=== PATIENT | female | born 1955 | race Caucasian/White ===

== ENCOUNTER → 2017-09-15 | Outpatient (CLI) | payer OTHER ==
[~2017-09-15] MED LIST: ACETAMINOPHEN325 M1 PO; ACIDOPHILUS1 EAC1 PO; ASCORBIC ACID500 MG PO; BACTRIM DS TAB1 EACH PO; BACTROBAN15 G1 TOP; BIOTENE ORALBAL45 ML PO; CIPRO500 MG PO; CLONAZEPAM0.5 MG PO; COMBIVENT RESPIM4 GM IH; FENOFIBRATE145 MG PO; FENTANYL1 EAC1 TOP; FLUCONAZOLE100 MG PO; FUROSEMIDE40 MG PO; GENTAMICIN80 MG/100 IV; HYDRALAZIN20 MG/1 ML IV; HYDROMORPHO2 MG/1 M1 IV; LEVEMIR100 UNIT/1 SQ; MELATONIN3 MG PO; MULTI-VITAMIN1 EACH PO; NALOXONE H0.4 MG/1 M IM; NORCO 5-325 TA1 EACH PO; NOVOLOG MI100 UNITS/ SQ; NYSTATIN1 EAC1 TP; ONDANSETRON2 MG/1 ML IV; OXYBUTYNIN CHLOR5 MG PO; PANTOPRAZOLE SO40 MG IV; PHENAZOPYRIDIN100 MG PO; PHENERGAN25 MG/1 ML IM; PRAVASTATIN SOD20 MG PO; QUESTRAN PACKET4 GM PO; SEROQUEL25 MG PO; SODIUM CHLORIDE 0.9% 500ML 500 ML ONE; ZINC SULFATE220 MG PO; ZOFRAN ODT4 MG PO; ZYVOX600 MG/300 IV; [UNRECOGNIZED DRUG - OTHER] OP
--- NOTE | 2017-09-15 10:59 | Diagnostic Imaging Report ---
PROCEDURE:CT PELVIS COMPARISON:[facility], CT, CT ABDOMEN/PELVIS W, 03/10/2017, 17:56. [facility], DX, ABDOMEN-1VIEW (KUB), 03/16/2017, 6:17. INDICATIONS:Recurring urinary tract infections; incontinence TECHNIQUE:CT of the pelvis was performed before and after distention of the urinary bladder via indwelling Henderson catheter by 100 mL dilute Isovue-370 iodinated contrast. No intravenous or enteric contrast. Multiplanar reformatted images. DLP: 678.93 FINDINGS: Urinary bladder: Normal filling without wall thickening, diverticulum or filling defect. Trace post void residual. Ureters: Normal caliber. No evidence of ureteral reflux. Uterus: Normal Bowel: Image segments are of normal caliber. Peritoneum: Normal Vasculature: Normal caliber. Infrarenal aortic arteriosclerosis. Lymph nodes: Normal Skeleton: Left L5-S1 pseudoarthrosis. Multilevel degenerative disc disease and facet arthropathy the lumbar spine. Otherwise, intact. Soft tissues: Large, partially imaged anterior abdominal wall defect left suggesting eventration/hernia. CONCLUSION: Normal filling of the urinary bladder without evidence of ureteral reflux or other acute abnormality. Dictated by: William Tabor M.D. on 09/15/2017 at 11:07 Electronically approved by: William Tabor M.D. on 09/15/2017 at 11:07
== END ==
LOC: CT 08:29
PROVIDERS: ATTEND Urology
DX: N39.0 Urinary tract infection, site not specified (principal); R35.1 Nocturia
CPT/HCPCS: 72193; J7040

== ENCOUNTER 2017-10-03 05:14 | Inpatient (IN) | payer OTHER ==
[2017-09-29 15:09] LABS: BASOPHILS # (AUTO) 0.1 (0.0-0.1); BASOPHILS % 0.4 % (0.0-1.0); EOSINOPHILS # (AUTO) 0.2 (0.0-0.4); EOSINOPHILS % 2.1 % (0.0-6.0); HEMATOCRIT 37.4 % (34.2-44.1); HEMOGLOBIN 11.9 g/dL (12.0-16.0); LYMPHOCYTES # (AUTO) 2.9 (1.0-3.2); LYMPHOCYTES % 24.7 % (18.0-39.1); MEAN CORPUSCULAR HEMOGLOBIN 30.4 pg (28-32); MEAN CORPUSCULAR HGB CONC 31.8 g/dL (31-35); MEAN CORPUSCULAR VOLUME 95.4 fL (81-99); MONOCYTES # (AUTO) 0.9 (0.2-0.8); MONOCYTES % 7.7 % (4.4-11.3); NEUTROPHILS # (AUTO) 7.4 (2.1-6.9); NEUTROPHILS % 63.4 % (38.7-80.0); PLATELET COUNT 306 x10e3/uL (140-360); RED BLOOD COUNT 3.92 x10e6/uL (3.6-5.1); RED CELL DISTRIBUTION WIDTH 14.5 % (11.7-14.4)
[2017-09-29 15:24] LABS: CALCIUM 9.5 mg/dL (8.4-10.2); CREATININE, SERUM 1.1 mg/dL (0.57-1.11)
[2017-10-03] VITALS (32 sets, daily range): BP systolic 108–143; BP diastolic 57–109
[~2017-10-03] VITALS: Ht 170.2 cm; Wt 117.9 kg
[~2017-10-03 05:14] MED LIST changes: +ATORVASTATIN CA20 MG PO; +BUPROPION XL150 MG PO; +GABAPENTIN300 MG PO; +NIFEDIPINE ER30 M1 PO; +NORCO 10-325 T1 EACH PO; +POTASSIUM CHLO10 ME1 PO; -SODIUM CHLORIDE 0.9% 500ML 500 ML ONE; +VIT B12 PO; +VIT D PO; +XARELTO20 MG PO
[2017-10-03] MEDS ORDERED: CEFAZOLIN SOD 2 GM/D5W 50ML 50 ML IV ONE (05:53)
[2017-10-03] MEDS ORDERED: BACITRACIN 50,000 UNIT VIAL ONE (07:00)
[2017-10-03] MEDS ORDERED: BUPIVACAINE HCL 0.5% INJ 30 ML VIAL INJ ONE (07:00)
[2017-10-03] MEDS ORDERED: LIDOCAINE HCL (LTA) 4 ML SOLN ONE (07:18)
[2017-10-03] MEDS: GABAPENTIN 300 MG CAP PO SCH ×3 (09:00→20:40)
[2017-10-03] MEDS: FENOFIBRATE 145 MG TAB PO SCH (09:00)
[2017-10-03] MEDS ORDERED: NALOXONE HCL INJ 0.4 MG/ML AMP IV PRN (09:00)
[2017-10-03] MEDS: FUROSEMIDE 40 MG TAB PO SCH (09:00)
[2017-10-03] MEDS: POTASSIUM CHLORIDE 10 MEQ TABCR PO SCH (09:00)
[2017-10-03] MEDS ORDERED: RIVAROXABAN 20 MG TABLET PO SCH (09:00)
[2017-10-03] MEDS: OXYBUTYNIN CHLORIDE 5 MG TAB PO SCH ×2 (09:00→17:00)
[2017-10-03] MEDS: NIFEDIPINE CR 30 MG TAB PO SCH (09:00)
[2017-10-03] MEDS: BUPROPION HCL 150 MG TABCR PO SCH ×2 (09:00→17:00)
--- NOTE | 2017-10-03 09:35 | Operative Report ---
DATE OF PROCEDURE: October 03, 2017 PREOPERATIVE DIAGNOSIS: Recurrent incisional hernia. POSTOPERATIVE DIAGNOSIS: Recurrent incisional hernia. PROCEDURE PERFORMED: Repair of recurrent incisional hernia with mesh. ADULT EDUCATOR: None. ANESTHESIA: General endotracheal. INDICATIONS AND FINDINGS: Patient is a 62-year-old female who previously had a hospitalization for incarcerated incisional hernia with septic shock, and required multiple surgeries for this. She presented with a large incisional hernia. At surgery there was a hernia involving most of the previous midline wound with a fascial defect that was approximately 6 x 20 cm. TECHNIQUE: After adequate general endotracheal anesthesia with the patient in the supine position, the abdomen was prepped and draped in a sterile fashion with Ajith solution. Previous midline wound, which was wide was excised. It was carried through the subcutaneous tissue. There was a large fascial defect in the midline with no real hernia sac. There was omentum adherent to the undersurface of the scar. The omentum was freed and the peritoneal cavity entered. The fascial defect was completely delineated. Adhesions to the abdominal wall were lysed. Once the fascial defect was completely delineated, the fascia was dissected free from the skin and subcutaneous tissue for a distance of approximately 5 cm from the edge of the defect throughout the circumference of the defect. Hemostasis achieved with electrocautery. Once the fascia was completely free and the skin and subcutaneous tissue dissected way from the fascia, the hernia was repaired with mesh. A Sepramesh of appropriate size was soaked in antibiotic solution. It was sutured to the undersurface of the fascia in an intraperitoneal position with interrupted horizontal mattress sutures of #1 Prolene. Sutures taken about 4 cm from the edge of the fascial defect. Once the mesh was in place, the thinned out edge of the fascia and subcutaneous tissues were closed over the mesh with running suture of #1 Prolene. A 19-Lithuanian Omid drain was placed in the subcutaneous tissue through a separate stab wound incision. The wound was irrigated with antibiotic solution. The more superficial subcutaneous tissues were then closed with running suture of 3-0 Vicryl. Skin was closed with angelica. Sterile dressing was applied. Patient tolerated the procedure well. Estimated blood loss was 125 mL. There were no complications. All counts were correct. Patient was taken to the recovery room in satisfactory condition. Job#: [id number] SYLVIA cc:JOSH LARA, DO
[2017-10-03] MEDS ORDERED: FENTANYL CITRATE/PF 100MCG/2 ML INJ ONE ×2 (09:51→19:33)
[2017-10-03] MEDS: CEFAZOLIN SOD 2 GM in WATER STERILE 10ML VIAL 10 ML IV SCH ×2 (14:55→22:59)
[2017-10-03] MEDS ORDERED: CEFAZOLIN SOD 1 GM VIAL ONE ×2 (14:58→23:02)
[2017-10-03] MEDS ORDERED: PROPOFOL IV EMULSION 10MG/ML 100 ML ONE (14:59)
[2017-10-03] MEDS ORDERED: PROPOFOL IV EMULSION 10 MG/ML 50 ML VIAL IV PRN (15:30)
[2017-10-03] MEDS ORDERED: PROPOFOL IV EMULSION 10MG/ML 100 ML IV PRN (16:00)
[2017-10-03] MEDS: DEXTROSE 5%/LACTATED RINGERS 1,000 ML IV SCH ×2 (16:48→17:30)
[2017-10-03] MEDS ORDERED: MIDAZOLAM HCL 2 MG/2 ML VIAL ONE (19:33)
[2017-10-03] MEDS ORDERED: MORPHINE SULFATE INJ 10 MG/ML ONE (19:33)
[2017-10-03] MEDS ORDERED: DEXAMETHASONE SOD PHOS INJ 4 MG/ML VIAL ONE (19:43)
[2017-10-03] MEDS ORDERED: ROCURONIUM BROMIDE 10 MG/ML 5ML VIAL ONE (19:43)
[2017-10-03] MEDS ORDERED: SUCCINYLCHOLINE 200 MG/10 ML SYR ONE (19:43)
[2017-10-03] MEDS ORDERED: LABETALOL HCL IV 5 MG/ML 20ML MDV ONE (19:43)
[2017-10-03] MEDS ORDERED: LIDOCAINE HCL 2% LOCAL INJ 5 ML SDV VIAL INJ ONE (19:43)
[2017-10-03] MEDS ORDERED: SEVOFLURANE INHAL SOLN 250 ML PEN BTL ONE (19:43)
[2017-10-03] MEDS ORDERED: NEOSTIGMINE 5 MG/5ML SYR ONE (19:43)
[2017-10-03] MEDS ORDERED: PROPOFOL IV EMULSION 10 MG/ML 20 ML VIAL ONE (19:43)
[2017-10-03] MEDS ORDERED: ONDANSETRON HCL INJ 2 MG/ML VIAL ONE (19:43)
[2017-10-03] MEDS ORDERED: GLYCOPYRROLATE INJ 1MG/ 5 ML SYR ONE (19:43)
--- NOTE | 2017-10-03 19:47 | Diagnostic Imaging Report ---
EXAMINATION: CHEST SINGLE (PORTABLE) INDICATION: Recurrent incisional. Pain COMPARISON: Chest x-ray 03/10/2017 FINDINGS: AP view TUBES and LINES: Endotracheal tube is 5.4 cm above the yaz. LUNGS: Lungs are not well inflated. There are bibasilar atelectasis. Question small left lower lobe consolidation. PLEURA: Questionable left pleural effusion. HEART AND MEDIASTINUM: The cardiomediastinal silhouette is unremarkable. BONES AND SOFT TISSUES: No acute osseous lesion. Soft tissues are unremarkable. UPPER ABDOMEN: No free air under the diaphragm. IMPRESSION: 1. Hypoinflated lungs with motion artifact. 2. Bibasilar atelectasis with possible superimposed pneumonia in the left lung base. Signed by: Dr. Mil Orozco M.D. on 10/03/2017 7:44 PM
[2017-10-03] MEDS: ACETAMINOPHEN 1000 MG/100 ML IV PRN (20:49)
[2017-10-03] MEDS: ONDANSETRON HCL INJ 2 MG/ML VIAL IV PRN (20:49)
[2017-10-03] MEDS ORDERED: ATORVASTATIN 20 MG TAB PO SCH (21:00)
--- NOTE | 2017-10-03 22:25 | Consultation ---
DATE OF CONSULTATION: October 03, 2017 PULMONARY MEDICINE CONSULT REFERRING PHYSICIAN: Dr. Mario Espinal REASON FOR REFERRAL: Respiratory insufficiency, postoperative expected. HISTORY: Ms. Mejia is a pleasant 62-year-old female with postoperative respiratory insufficiency, status post surgery. Patient is a pleasant 62-year-old female with previous repair of ventral hernia. She had incarcerated hernia at that time complicated by sepsis and multiorgan failure. Patient is improved and ambulating. She is continuing to get stronger. She retrains a bulge in her abdomen which is increasing in size. There is some abdominal pain. There is associated nausea. Patient presents for elective surgery. Preoperative diagnosis is abdominal wall incisional hernia and today she has a successful repair of hernia with mesh. During the operation the estimated blood is reported as 125 mL. She was sent to the PACU, but she had a failure to extubate. Therefore, she was sent to the ICU for further care. PAST MEDICAL HISTORY: Hypertension, arthritis, hyperlipidemia, stroke. SURGICAL HISTORY: Left breast biopsy, multiple surgeries. MEDICATIONS: Medication list reviewed per electronic record, previous history of taking Xarelto recently, atorvastatin, finasteride, Lasix, blood pressure medication and other medicines per list. ALLERGIES: NO KNOWN DRUG ALLERGIES. FAMILY HISTORY: Noncontributory to this. SOCIAL HISTORY: Patient is a heavy tobacco smoker and smokes 1 pack per day. No alcohol. No drugs. REVIEW OF SYSTEMS: Cannot get as she is intubated. OBJECTIVE GENERAL: Patient is seen intubated and on sedation. HEENT: Normocephalic, atraumatic. NECK: Supple. Large neck size and girth. CARDIOVASCULAR: S1, S2. No murmurs, rubs or gallops. ABDOMEN: Soft, nontender. Postoperative vertical incision, does not go all the way to the xiphoid process. RESPIRATORY: Bilateral air entry. Clear but limited. EXTREMITIES: No clubbing, no cyanosis. There is 1+ edema. INTEGUMENT: No rash, no purpura. LABS: Labs reviewed per electronic record. White count 11, hematocrit 37, platelets 206,000. Potassium 4.0, bicarbonate 23, BUN 20, creatinine 1.1. IMPRESSION 1. Postoperative state, status post incisional ventral hernia repair with mesh. 2. Incisional symptomatic ventral hernia. 3. History of previous abdominal surgeries. 4. Obesity. 5. Chronic smoker. 6. History of hypertension. 7. Arthritis. 8. Hyperlipidemia. 9. History of cerebrovascular accident. 10. Very mild anemia. 11. Elevated creatinine compared to previous. PLAN: Postoperative state noted, continue postoperative care. Will continue extubation attempts as per anesthesia initiated effort. Patient will have chest x-ray if she is not extubatable. Check the blood gas analysis. Will follow along closely. Patient will probably need assessment for obstructive sleep apnea. She also needs to quit smoking if this is feasible as this may be contributing to long wean. I would like to thank Dr. Espinal for allowing me the chance to participate in the care of Ms. Mejia. Do not hesitate to contact me if I could help in any way. I will remain available for questions. Greater than 30 minutes into her care today. Job#: [id number] [place]
[2017-10-03] MEDS: MORPHINE SULFATE 1 MG/ML 30ML PCA IV PRN (22:45)
[2017-10-03 23:13] LABS: ABG PH 7.41 (7.31-7.41)
[2017-10-04] VITALS (64 sets, daily range): BP systolic 97–186; BP diastolic 58–111
[2017-10-04] MEDS: DEXTROSE 5%/LACTATED RINGERS 1,000 ML IV SCH ×3 (01:37→11:44)
[2017-10-04] MEDS: ACETAMINOPHEN 1000 MG/100 ML IV PRN (04:15)
[2017-10-04] MEDS: MORPHINE SULFATE 1 MG/ML 30ML PCA IV PRN ×3 (04:16→19:08)
[2017-10-04 06:25] LABS: BASOPHILS % 0.2 % (0.0-1.0); EOSINOPHILS # (AUTO) 0.1 (0.0-0.4); EOSINOPHILS % 0.4 % (0.0-6.0); HEMATOCRIT 32.2 % (34.2-44.1); LYMPHOCYTES # (AUTO) 2.3 (1.0-3.2); LYMPHOCYTES % 14.1 % (18.0-39.1); MEAN CORPUSCULAR HEMOGLOBIN 30.4 pg (28-32); MEAN CORPUSCULAR HGB CONC 31.1 g/dL (31-35); MEAN CORPUSCULAR VOLUME 97.9 fL (81-99); MONOCYTES # (AUTO) 1.4 (0.2-0.8); MONOCYTES % 8.6 % (4.4-11.3); NEUTROPHILS # (AUTO) 12.5 (2.1-6.9); PLATELET COUNT 273 x10e3/uL (140-360); RED BLOOD COUNT 3.29 x10e6/uL (3.6-5.1); RED CELL DISTRIBUTION WIDTH 15.5 % (11.7-14.4)
[2017-10-04 06:49] LABS: ANION GAP 12.1 mmol/L (8-16); CALCIUM 8.2 mg/dL (8.4-10.2); CREATININE, SERUM 1.43 mg/dL (0.57-1.11); POTASSIUM 4.1 mmol/L (3.5-5.1)
[2017-10-04 06:59] LABS: MAGNESIUM 1.5 MG/DL (1.3-2.1); PHOSPHORUS 4.2 MG/DL (2.3-4.7)
[2017-10-04] MEDS: FUROSEMIDE 40 MG TAB PO SCH (09:00)
[2017-10-04] MEDS: POTASSIUM CHLORIDE 10 MEQ TABCR PO SCH (09:00)
[2017-10-04] MEDS: NIFEDIPINE CR 30 MG TAB PO SCH (09:00)
[2017-10-04] MEDS: OXYBUTYNIN CHLORIDE 5 MG TAB PO SCH (09:00)
[2017-10-04] MEDS: GABAPENTIN 300 MG CAP PO SCH (09:00)
[2017-10-04] MEDS: FENOFIBRATE 145 MG TAB PO SCH (09:00)
--- NOTE | 2017-10-04 09:01 | Diagnostic Imaging Report ---
EXAM: CHEST SINGLE (PORTABLE) 10/04/2017 INDICATION: Incisional pain COMPARISON: 10/03/2017 FINDINGS: Single portable AP view of the chest. Visualized bones, soft tissues and cardiomediastinal silhouette appear unchanged. IMPRESSION: 1. Lines/tubes: Endotracheal tube has been removed. 2. Mild pulmonary vascular congestion. There is bibasilar atelectasis. Signed by: Dr. Charles Toro DO on 10/04/2017 8:58 AM
[2017-10-04] MEDS: ONDANSETRON HCL INJ 2 MG/ML VIAL IV PRN (09:13)
[2017-10-04] MEDS: BUPROPION HCL 150 MG TABCR PO SCH (10:27)
[2017-10-04] MEDS ORDERED: HYDRALAZINE HCL 20 MG/ML VIAL IV PRN (10:45)
[2017-10-04] MEDS ORDERED: ALBUTEROL/IPRATROPIUM 3 ML NEB NEB PRN (10:45)
[2017-10-04] MEDS: CLONIDINE HCL 0.2 MG/24 HR 1 EA PATCH TOP SCH (11:32)
[2017-10-04] MEDS: PANTOPRAZOLE 40 MG 10ML VIAL IV SCH (11:32)
[2017-10-04] MEDS: ALBUTEROL/IPRATROPIUM 3 ML NEB NEB SCH ×2 (12:49→18:55)
--- NOTE | 2017-10-04 16:10 | Progress Note ---
DATE: October 04, 2017 PULMONARY MEDICINE PROGRESS NOTE SUBJECTIVE: The patient was seen and examined at the bedside. There was 90% oxygen saturation, currently on 4 liters per minute of nasal cannula flow. The patient was given an opportunity for BiPAP but she did not want it. Some increased blood pressure today. Some urine output, but creatinine mildly increased. REVIEW OF SYSTEMS: No headaches. There is still some abdominal pain. OBJECTIVE VITAL SIGNS: Afebrile, vital signs noted per electronic record. GENERAL: In no acute distress, alert, calm temporarily, but easily gets anxious. HEENT: Normocephalic, atraumatic. NECK: Supple. Throat midline. LUNGS: Bilateral air entry, a few rhonchi, no wheezes. CARDIOVASCULAR: S1 and S2 with no murmurs, rubs or gallops. ABDOMEN: Soft and nontender. EXTREMITIES: No clubbing or cyanosis. There is trace edema. INTEGUMENT: No rash, no purpura. LABORATORY DATA: Sodium 134, creatinine 1.4, white count 16, hematocrit 32. Chest x-ray still at low lung volumes, but mainly clear lungs. IMPRESSION: 1. Chronic kidney disease, presumed, increasing creatinine. 2. Hypoxemia, [id number]. 3. Probable chronic obstructive pulmonary disease with exacerbation. 4. Obesity, status post obstructive sleep apnea. 5. Postoperative state, status post incisional hernia repair with mesh. PLAN: 1. Continue IV fluids at this time. 2. Follow up Henderson catheter and Henderson catheter output. 3. Ensure adequate fluids are being given. 4. Repeat labs in the morning. 5. Continue oxygen supplement. 6. Encouraged the patient to expectorate. 7. Continue ADJUNCT TEACHER to the abdomen. Job#: [id number]
[2017-10-04] MEDS ORDERED: RIVAROXABAN 20 MG TABLET PO SCH ×2 (17:00)
[2017-10-04] MEDS: ENOXAPARIN SOD INJ 40 MG/0.4 ML SYR SC SCH (17:50)
[2017-10-04] MEDS ORDERED: FUROSEMIDE INJ 10 MG/ML 4 ML VIAL IV ONE (20:00)
[2017-10-04] MEDS: ACETAMINOPHEN 1000 MG/100 ML IV SCH (20:08)
[2017-10-04] MEDS ORDERED: HALOPERIDOL 1 MG TAB PO PRN (22:00)
[2017-10-04] MEDS: HALOPERIDOL LACTATE 5 MG/ML VIAL IV PRN (22:20)
[2017-10-05] VITALS (46 sets, daily range): BP systolic 116–169; BP diastolic 55–80
[2017-10-05] MEDS: ALBUTEROL/IPRATROPIUM 3 ML NEB NEB SCH ×6 (00:05→23:45)
[2017-10-05] MEDS: DEXTROSE 5%/LACTATED RINGERS 1,000 ML IV SCH (00:57)
[2017-10-05 05:05] LABS: HEMATOCRIT 30.9 % (34.2-44.1); HEMOGLOBIN 9.7 g/dL (12.0-16.0); MEAN CORPUSCULAR HEMOGLOBIN 30.5 pg (28-32); MEAN CORPUSCULAR HGB CONC 31.4 g/dL (31-35); MEAN CORPUSCULAR VOLUME 97.2 fL (81-99); PLATELET COUNT 241 x10e3/uL (140-360); RED BLOOD COUNT 3.18 x10e6/uL (3.6-5.1); RED CELL DISTRIBUTION WIDTH 15.6 % (11.7-14.4)
[2017-10-05 05:22] LABS: ANION GAP 13.2 mmol/L (8-16); CALCIUM 8.8 mg/dL (8.4-10.2); CREATININE, SERUM 1.26 mg/dL (0.57-1.11); MAGNESIUM 1.9 MG/DL (1.3-2.1); POTASSIUM 4.2 mmol/L (3.5-5.1)
[2017-10-05] MEDS: ACETAMINOPHEN 1000 MG/100 ML IV SCH ×4 (05:30→23:10)
[2017-10-05] MEDS: HALOPERIDOL LACTATE 5 MG/ML VIAL IV PRN ×2 (05:33→20:14)
--- NOTE | 2017-10-05 06:33 | Diagnostic Imaging Report ---
EXAMINATION: CHEST SINGLE (PORTABLE) INDICATION: Atelectasis COMPARISON: 10/04/2017 FINDINGS: TUBES and LINES: None. LUNGS: Lungs are not well inflated. There are bibasilar atelectasis. There is worsening perihilar interstitial opacities, consistent with interstitial edema. PLEURA: No pleural effusion or pneumothorax. HEART AND MEDIASTINUM: Cardiac size is moderately enlarged. There are atherosclerotic calcifications within the aorta. BONES AND SOFT TISSUES: No acute osseous lesion. Soft tissues are unremarkable. UPPER ABDOMEN: No free air under the diaphragm. IMPRESSION: Worsening cardiogenic pulmonary edema. Signed by: Dr. Jl Moreno M.D. on 10/05/2017 6:29 AM
[2017-10-05] MEDS: MORPHINE SULFATE 1 MG/ML 30ML PCA IV PRN (06:39)
[2017-10-05] MEDS ORDERED: MORPHINE SULFATE 1 MG/ML 30ML PCA IV PRN (07:00)
[2017-10-05] MEDS: ACETYLCYSTEINE 20% INHAL SOLN 30 ML VIAL INH SCH ×3 (07:12→19:30)
[2017-10-05 07:47] LABS: ANISOCYTOSIS SLIGHT; HYPOCHROMASIA SLIGHT; LYMPHOCYTES % (MANUAL) 10 % (19-48); MONOCYTES % (MANUAL) 6 % (3.4-9.0); NEUTROPHILS % (MANUAL) 83 % (40-74); PLATELET ESTIMATE ADEQUATE; PLATELET MORPHOLOGY COMMENT NORMAL; PROMYELOCYTES % (MANUAL) 1 % (0-0); RBC MORPHOLOGY COMMENT NORMAL
[2017-10-05] MEDS ORDERED: FUROSEMIDE INJ 10 MG/ML 4 ML VIAL IV NR (09:30)
[2017-10-05] MEDS: PANTOPRAZOLE 40 MG 10ML VIAL IV SCH (10:02)
--- NOTE | 2017-10-05 13:01 | Progress Note ---
DATE: October 05, 2017 PULMONARY MEDICINE PROGRESS NOTE SUBJECTIVE: The patient was seen and examined at the bedside. She has T-max of 100.4 degrees. Still with anxious appearance. Still with some coughing intermittently. In 2.2 liters and 1.6 liters out. Abdomen drained with 120 mL of output. Patient arouse, still spontaneously breathing with low oxygen saturation. REVIEW OF SYSTEMS: No headaches. No rash. OBJECTIVE VITAL SIGNS: Afebrile; vital signs noted per electronic record. GENERAL: In no acute distress, although anxious, has trouble getting comfortable. HEENT: Normocephalic, atraumatic. NECK: Supple. Throat midline. LUNGS: Bilateral air entry, few rhonchi heard, limited efforts. CARDIOVASCULAR: S1 and S2. No murmurs, rubs or gallops. ABDOMEN: Soft and nontender. EXTREMITIES: No clubbing or cyanosis. There is 1+ edema to lower extremities. INTEGUMENT: No rash. No purpura. LABORATORY DATA: White count 16, hematocrit 31, and platelets 241. Potassium 4.2, BUN 19, and creatinine 1.3. DIAGNOSTIC DATA: Chest x-ray with appearance of worsening cardiogenic pulmonary edema. IMPRESSION: 1. Postoperative state, status post abdominal surgery. Repair of incisional abdominal hernia with mesh. 2. Incisional abdominal hernia on admit. 3. Postoperative atelectasis. 4. Postoperative fluid retention versus retained secretions and atelectasis with low lung volumes. 5. Anxiety. 6. Suspect chronic kidney disease. I will discuss with patient and encourage her to have deep breathing, hopefully to expectorate secretions. We will consider escalating CPT if she is having trouble with secretions. We will give her a trial of decreasing IV fluid and consider Lasix if fluid is considered to be a problem here. Job#: [id number] VAS
[2017-10-05] MEDS: ENOXAPARIN SOD INJ 40 MG/0.4 ML SYR SC SCH (18:16)
[2017-10-05 20:50] LABS: BASOPHILS % 0.2 % (0.0-1.0); EOSINOPHILS # (AUTO) 0.1 (0.0-0.4); EOSINOPHILS % 0.4 % (0.0-6.0); HEMATOCRIT 29.5 % (34.2-44.1); HEMOGLOBIN 9.4 g/dL (12.0-16.0); LYMPHOCYTES # (AUTO) 2.2 (1.0-3.2); LYMPHOCYTES % 13.9 % (18.0-39.1); MEAN CORPUSCULAR HEMOGLOBIN 30.5 pg (28-32); MEAN CORPUSCULAR HGB CONC 31.9 g/dL (31-35); MEAN CORPUSCULAR VOLUME 95.8 fL (81-99); MONOCYTES # (AUTO) 1.5 (0.2-0.8); MONOCYTES % 9.5 % (4.4-11.3); NEUTROPHILS # (AUTO) 11.7 (2.1-6.9); NEUTROPHILS % 75.4 % (38.7-80.0); PLATELET COUNT 243 x10e3/uL (140-360); RED BLOOD COUNT 3.08 x10e6/uL (3.6-5.1); RED CELL DISTRIBUTION WIDTH 15.3 % (11.7-14.4)
[2017-10-05 20:59] LABS: INR 1.23; PARTIAL THROMBOPLASTIN TIME 35.7 seconds (23.8-35.5); PROTHROMBIN TIME 16.1 seconds (11.9-14.5)
[2017-10-05 21:05] LABS: ALBUMIN 2.9 g/dL (3.5-5.0); ALBUMIN/GLOBULIN RATIO 0.7 (0.8-2.0); ANION GAP 14.9 mmol/L (8-16); CREATININE, SERUM 1.28 mg/dL (0.57-1.11); POTASSIUM 3.9 mmol/L (3.5-5.1)
[2017-10-05 21:46] LABS: BILIRUBIN,URINE NEGATIVE (NEGATIVE); CLARITY,URINE HAZY (CLEAR); COLOR,URINE YELLOW (YELLOW); KETONES,URINE NEGATIVE (NEGATIVE); LEUKOCYTE ESTERASE ,URINE NEGATIVE (NEGATIVE); NITRITE,URINE NEGATIVE (NEGATIVE); PROTEIN,URINE DIPSTICK 1+ (NEGATIVE); URINE UROBILINOGEN 0.2 mg/dL (0.2 - 1)
[2017-10-05 22:03] LABS: EPITHELIAL CELLS,URINE FEW /LPF; WBC,URINE (MAN) 0-5 /HPF (0-5)
[2017-10-06] VITALS (51 sets, daily range): BP systolic 95–181; BP diastolic 47–107
[2017-10-06] MEDS: ACETYLCYSTEINE 20% INHAL SOLN 30 ML VIAL INH SCH ×2 (03:20→07:10)
[2017-10-06] MEDS: ALBUTEROL/IPRATROPIUM 3 ML NEB NEB SCH ×6 (03:20→23:30)
[2017-10-06 05:02] LABS: BASOPHILS % 0.2 % (0.0-1.0); EOSINOPHILS # (AUTO) 0.2 (0.0-0.4); EOSINOPHILS % 1.3 % (0.0-6.0); HEMATOCRIT 29.1 % (34.2-44.1); HEMOGLOBIN 9.2 g/dL (12.0-16.0); LYMPHOCYTES # (AUTO) 1.6 (1.0-3.2); LYMPHOCYTES % 12.6 % (18.0-39.1); MEAN CORPUSCULAR HEMOGLOBIN 30.1 pg (28-32); MEAN CORPUSCULAR HGB CONC 31.6 g/dL (31-35); MEAN CORPUSCULAR VOLUME 95.1 fL (81-99); MONOCYTES # (AUTO) 1.2 (0.2-0.8); MONOCYTES % 9.1 % (4.4-11.3); NEUTROPHILS # (AUTO) 9.8 (2.1-6.9); NEUTROPHILS % 76.3 % (38.7-80.0); PLATELET COUNT 239 x10e3/uL (140-360); RED BLOOD COUNT 3.06 x10e6/uL (3.6-5.1); RED CELL DISTRIBUTION WIDTH 15.4 % (11.7-14.4)
[2017-10-06 05:22] LABS: ALBUMIN 2.8 g/dL (3.5-5.0); ALBUMIN/GLOBULIN RATIO 0.7 (0.8-2.0); ANION GAP 14.9 mmol/L (8-16); CALCIUM 9.2 mg/dL (8.4-10.2); CREATININE, SERUM 1.06 mg/dL (0.57-1.11); POTASSIUM 3.9 mmol/L (3.5-5.1)
--- NOTE | 2017-10-06 07:07 | Diagnostic Imaging Report ---
EXAMINATION: CHEST SINGLE (PORTABLE) INDICATION: Pneumonia. COMPARISON: 10/05/2017 FINDINGS: TUBES and LINES: None. LUNGS: Lungs are not well inflated. There are bibasilar airspace disease. There is perihilar interstitial opacities, consistent with interstitial edema. PLEURA: No pleural effusion or pneumothorax. HEART AND MEDIASTINUM: Cardiac size is moderately enlarged. There are atherosclerotic calcifications within the aorta. BONES AND SOFT TISSUES: No acute osseous lesion. Soft tissues are unremarkable. UPPER ABDOMEN: No free air under the diaphragm. IMPRESSION: Findings are compatible with worsening cardiogenic pulmonary edema versus multifocal pneumonia Signed by: Dr. Jl Moreno M.D. on 10/06/2017 7:03 AM
[2017-10-06 08:46] LABS: ABG HCO3 24 mmol/L (23-28); ABG PCO2 36 mmHg (41-51); ABG PH 7.43 (7.31-7.41); ABG PO2 134 mmHg (80-105)
[2017-10-06] MEDS: PANTOPRAZOLE 40 MG 10ML VIAL IV SCH (09:31)
[2017-10-06] MEDS ORDERED: POTASSIUM CHLORIDE 20MEQ/100ML 100 ML IV ONE ×2 (11:45→17:30)
[2017-10-06] MEDS ORDERED: FUROSEMIDE INJ 10 MG/ML 4 ML VIAL IV NR (11:45)
--- NOTE | 2017-10-06 13:49 | Progress Note ---
DATE: October 06, 2017 PULMONARY MEDICINE PROGRESS NOTE SUBJECTIVE: Ms. Mejia was seen and examined at bedside. I participated in direct CPT. Patient with trouble expectorating secretions. She was upgraded to full-liquid diet, but she has no definite glottic closure and poor pharyngeal control of secretions. CPT was undergone yesterday with manual secretions and now VATS therapy. She is refusing to have bowel movements as she says that her behind hurts, that she must go in the toilet and not in the bedpan. Patient with very borderline respiratory function still, and now we discussed that she may need a multiple of therapeutic interventions including placing on life support. REVIEW OF SYSTEMS: No chest pain, no dysuria. OBJECTIVE VITAL SIGNS: Afebrile. Vital signs noted per electronic record. GENERALLY: No distress but a lot of anxious demeanor, increased work of breathing. She is with tachypnea, and she is borderline having distress. LUNGS: Bilateral air entry is moderate with moderate rhonchi throughout. No stridor noted. Some upper airway secretions intermittently. IMPRESSION AND PLAN 1. Insufficient cough. 2. Retained airway secretions. 3. Possible fluid overload. 4. Recurrent aspiration. 5. History of strokes, possible dysphagia. 6. Postoperative state, status post repair of incisional hernia with mesh. Continue current treatment. Encourage bowel movements. Notify patient she may need intubation. Will arrange tentatively for bronchoscopy. Diet should be backscaled to n.p.o. for now but clear liquids until she gets NBS or she is seen to be better with better pharyngeal state. Will follow along closely. Greater than 30 minutes of direct care today, including individualized treatment and attempts to get the patient coughing. This does not include procedures. Job#: [id number] EV
[2017-10-06] MEDS ORDERED: EPINEPHRINE HCL INJ 1 MG/ML AMP ONE (16:57)
[2017-10-06] MEDS ORDERED: LIDOCAINE HCL 4% 50 ML BTL ONE (16:57)
[2017-10-06] MEDS ORDERED: LIDOCAINE JELLY 2% 10ML URO-JET ONE (16:58)
[2017-10-06] MEDS ORDERED: OXYMETAZOLINE HCL 0.05% NAS 1 SPRAY BTL ONE (16:58)
[2017-10-06] MEDS ORDERED: VANCOMYCIN 1GM/NS 250 ML 250 ML IV ONE (17:00)
[2017-10-06] MEDS ORDERED: POLYETHYLENE GLYCOL 3350 17 GM PACK PO ONE (17:30)
[2017-10-06] MEDS ORDERED: FUROSEMIDE INJ 10 MG/ML 4 ML VIAL IV ONE (17:30)
[2017-10-06] MEDS ORDERED: ZIPRASIDONE 20 MG VIAL IM PRN (17:45)
[2017-10-06] MEDS ORDERED: LORAZEPAM INJ 2 MG/ML VIAL IV PRN (17:45)
[2017-10-06] MEDS: ENOXAPARIN SOD INJ 40 MG/0.4 ML SYR SC SCH (18:06)
[2017-10-06] MEDS: PROPOFOL IV EMULSION 10MG/ML 100 ML IV PRN ×3 (18:07→23:29)
--- NOTE | 2017-10-06 18:17 | Diagnostic Imaging Report ---
PROCEDURE: A single AP view of the chest. COMPARISON: Patients [facility], , CHEST SINGLE (PORTABLE), 10/06/2017, 6:15. INDICATIONS: ETT PLACEMENT FINDINGS: See impression. IMPRESSION: 1. interval placement of endotracheal tube, which has its distal tip approximately 2 cm above the yaz. 2. No interval change in hypoinflated lungs with bilateral interstitial edema. Xander Suarez M.D. Dictated by: Xander Suarez M.D. on 10/06/2017 at 18:25 Electronically approved by: Xander Suarez M.D. on 10/06/2017 at 18:25
--- NOTE | 2017-10-06 18:20 | Diagnostic Imaging Report ---
PROCEDURE:X-RAY ABDOMEN - KUB COMPARISON:Patients [facility], DX, ABDOMEN-1VIEW (KUB), 03/16/2017, 6:17. [facility], CT, CT PELVIS W, 09/15/2017, 9:22. INDICATIONS:ABDOMINAL DISTENSION FINDINGS: Gaseous distention of the colon, without dilation. No air filled, dilated small bowel loops. Air is noted in the rectum. No abnormal calcifications. No acute bony abnormalities. Multilevel degenerative changes in the lower lumbosacral spine, with stable leftward curvature. CONCLUSION: Gaseous distention of the colon, without dilation. No air-filled, dilated small bowel loops. Air is noted in the rectum. Xander Suarez M.D. Dictated by: Xander Suarez M.D. on 10/06/2017 at 18:28 Electronically approved by: Xander Suarez M.D. on 10/06/2017 at 18:28
[2017-10-06] MEDS ORDERED: PROPOFOL IV EMULSION 10 MG/ML 20 ML VIAL ONE (18:41)
[2017-10-06] MEDS ORDERED: ROCURONIUM BROMIDE 10 MG/ML 5ML VIAL ONE (18:41)
[2017-10-06] MEDS ORDERED: LIDOCAINE HCL 2% LOCAL INJ 5 ML SDV VIAL INJ ONE (18:41)
[2017-10-06] MEDS ORDERED: SUCCINYLCHOLINE 200 MG/10 ML SYR ONE (18:41)
[2017-10-06] MEDS ORDERED: FENTANYL CITRATE/PF 100MCG/2 ML INJ ONE (19:07)
[2017-10-06] MEDS ORDERED: MIDAZOLAM HCL 2 MG/2 ML VIAL ONE (19:07)
[2017-10-06] MEDS ORDERED: MIDAZOLAM HCL 5MG/ML 2ML VIAL ONE (19:07)
[2017-10-06] MEDS ORDERED: MORPHINE SULFATE INJ 10 MG/ML ONE (19:07)
--- NOTE | 2017-10-06 19:32 | Operative Report ---
DATE OF PROCEDURE: October 06, 2017 OPERATIVE PROCEDURE: Fiberoptic flexible bronchoscopy. INDICATIONS: Worsening atelectasis, insufficient cough. CONSENT: Informed consent from the patient. Discussed with daughter after the procedure. ANESTHESIA: Per anesthesiology. FINDINGS: Fiberoptic bronchoscope entered via 8.5 ____ endotracheal tube. The airways were inspected and there is immediate noticing of moderate amount of purulent secretions throughout. These were washed and suctioned. There was mild recurrence with washing, and these secretions were also suctioned. There was normal airway configuration without any significant lesions endobronchially. Washings were taken. Thereafter, the procedure was terminated after the scope was removed, and the patient was left to recover with anesthesia. COMPLICATIONS: None. ESTIMATED BLOOD LOSS: None. IMPRESSION: Moderate, purulent retained secretions, status post suction. RECOMMENDATIONS: Follow up the microbiology results. Decision made to keep the endotracheal in for the clinical team to allow the patient to have bowel movements. Job#: [id number]
[2017-10-06] MEDS ORDERED: BISACODYL 10 MG SUPP PR ONE (20:30)
[2017-10-06] MEDS ORDERED: SODIUM CHLORIDE 0.9% 50ML 50 ML ONE (20:37)
--- NOTE | 2017-10-06 20:50 | Diagnostic Imaging Report ---
Abdomen/KUB Tube Placement CPT CODE: 45886 INDICATION: Tube Placement. COMPARISON: No relevant priors. FINDINGS: Portable, supine image obtained at 2045 hours. Enteric tube is located in the proximal stomach. The bowel gas pattern is unremarkable. The left diaphragm is poorly visualized suggestive atelectasis and likely effusion. IMPRESSION: As above. Signed by: Dr. Petey Malone MD on 10/06/2017 8:47 PM
[2017-10-07] VITALS (84 sets, daily range): BP systolic 93–154; BP diastolic 33–88
[2017-10-07] MEDS: PROPOFOL IV EMULSION 10MG/ML 100 ML IV PRN ×8 (02:30→21:02)
[2017-10-07] MEDS: ALBUTEROL/IPRATROPIUM 3 ML NEB NEB SCH ×6 (03:02→23:25)
[2017-10-07 05:35] LABS: BASOPHILS % 0.2 % (0.0-1.0); EOSINOPHILS # (AUTO) 0.3 (0.0-0.4); EOSINOPHILS % 3.4 % (0.0-6.0); HEMATOCRIT 26.5 % (34.2-44.1); HEMOGLOBIN 8.1 g/dL (12.0-16.0); LYMPHOCYTES # (AUTO) 1.1 (1.0-3.2); LYMPHOCYTES % 10.9 % (18.0-39.1); MEAN CORPUSCULAR HEMOGLOBIN 30.2 pg (28-32); MEAN CORPUSCULAR HGB CONC 30.6 g/dL (31-35); MEAN CORPUSCULAR VOLUME 98.9 fL (81-99); MONOCYTES % 10.3 % (4.4-11.3); NEUTROPHILS # (AUTO) 7.4 (2.1-6.9); NEUTROPHILS % 74.8 % (38.7-80.0); PLATELET COUNT 228 x10e3/uL (140-360); RED BLOOD COUNT 2.68 x10e6/uL (3.6-5.1); RED CELL DISTRIBUTION WIDTH 15.3 % (11.7-14.4)
[2017-10-07 06:03] LABS: CALCIUM 8.8 mg/dL (8.4-10.2); CREATININE, SERUM 1.24 mg/dL (0.57-1.11)
[2017-10-07] MEDS: FENTANYL CITRATE/PF 100MCG/2 ML INJ IV PRN ×2 (07:53→11:12)
[2017-10-07] MEDS: FUROSEMIDE INJ 10 MG/ML 4 ML VIAL IV SCH (09:00)
[2017-10-07] MEDS: PANTOPRAZOLE 40 MG 10ML VIAL IV SCH (09:01)
[2017-10-07] MEDS: POTASSIUM CHLORIDE 20MEQ/100ML 100 ML IV SCH (09:01)
[2017-10-07] MEDS ORDERED: DIPHENHYDRAMINE HCL INJ 50 MG/ML VIAL IV ONE (10:30)
[2017-10-07] MEDS ORDERED: DEXAMETHASONE SOD PHOS 10 MG/1 ML VIAL IV ONE (10:30)
--- NOTE | 2017-10-07 10:39 | Diagnostic Imaging Report ---
EXAMINATION: Chest, CHEST SINGLE (PORTABLE) INDICATION: Chest pain COMPARISON: Portable chest 10/06/2017 FINDINGS: LINES: Enteric feeding catheter with tip extending below the inferior margin of the examination, likely within the gastric body. Endotracheal catheter is present with the tip projecting over the expected region of the trachea, positioned 4 cm from the yaz. Heart: Normal cardiac silhouette. Vascular: The pulmonary vasculature is within normal limits. Atherosclerotic calcifications of the aortic arch. Mediastinum: No mediastinal, hilar, or axillary mass or lymphadenopathy. Lungs: No parenchymal mass. Interval appearance of bilateral multifocal airspace opacities. Pleura: No pleural effusion. No pneumothorax. Bones: No acute osseous abnormality. Degenerative changes of the thoracic spine. Soft tissues: Normal. Impression: Bilateral multifocal airspace opacities may represent atelectasis, pneumonia, or pulmonary edema. Signed by: Dr. Polo Boone M.D. on 10/07/2017 10:35 AM
--- NOTE | 2017-10-07 10:59 | Consultation ---
DATE OF CONSULTATION: October 03, 2017 INTERNAL MEDICINE CONSULT ATTENDING PHYSICIAN: Dr. Mario Espinal. PRIMARY CARE PHYSICIAN: Dr. Mario Beckman. REASON FOR CONSULTATION: Medical management. HISTORY: Patient is a 62-year-old female who is status post abdominal incisional hernia repair. The patient was with abdominal hernia previously due to her extensive ischemic bowel surgery which she had previously. Patient is now postoperative. At baseline the patient does have COPD, diastolic dysfunction, congestive heart failure secondary to pulmonary hypertension. Patient is postoperative day 2. The patient stable. PAST MEDICAL HISTORY: Abdominal incisional hernia. COPD. Hypertension. Osteoarthritis. History of CVA. Diastolic dysfunction. Congestive heart failure. Atrial fibrillation. DVT of the lower extremity. Dyslipidemia. Depression. PAST SURGICAL HISTORY: Extensive abdominal surgery with bowel resection and also sacral decubitus ulcer surgery. SOCIAL HISTORY: The patient was a smoker. She denied alcohol use. There is no recreational drug use. ALLERGIES: THERE ARE NO KNOWN ALLERGIES. HOME MEDICATION: Lipitor, bupropion, fenofibrate, Lasix, gabapentin, [place], nifedipine, oxybutynin, potassium, Xarelto and multiple vitamins. REVIEW OF SYSTEMS: Postoperative care. PHYSICAL EXAMINATION VITAL SIGNS: Temperature is 98, blood pressure 101/51, pulse rate was 82, respiration 18. GENERAL: The patient was not in any acute distress. HEENT: Normocephalic, atraumatic, sclerae anicteric. NECK: Supple grossly. PULMONARY: Diminished breath sounds bilaterally. There is some wheezing. CARDIOVASCULAR: S1/S2. Regular rate and rhythm. ABDOMEN: Soft, obese. Status post surgical intervention, incisional hernia repair. EXTREMITIES: No cyanosis or edema. NEUROLOGIC: There is no gross focal deficit. LABORATORY: WBC was 11.6, hemoglobin 11.9, hematocrit was 37.4, platelet 206. Chemistry: Sodium was 142, potassium 4, chloride 110, bicarb 23, BUN 27, 1.1, glucose 96. IMPRESSION 1. Status post incisional abdominal hernia repair. 2. Baseline chronic obstructive pulmonary disease, hypertension, history of deep vein thrombosis. 3. History of exploratory laparotomy secondary to ischemic bowel. PLAN: Continue with postoperative care. Can decrease IV fluids. Nebulizer treatments. Antibiotics. Will monitor the patient closely. Repeated lab work. Chest x-ray. Thank you, Dr. Espinal. Job#: [id number] EV
[2017-10-07] MEDS ORDERED: SODIUM CHLORIDE 0.9% 250ML 250 ML IV ONE (11:00)
[2017-10-07] MEDS ORDERED: DEXMEDETOMIDINE HCL 200 MCG in SODIUM CHLORIDE 0.9% 50ML 48 ML IV PRN (15:00)
[2017-10-07] MEDS ORDERED: SODIUM CHLORIDE 0.9% IV PRN (15:00)
[2017-10-07] MEDS ORDERED: DEXMEDETOMIDINE HCL IV PRN (15:00)
--- NOTE | 2017-10-07 15:36 | Progress Note ---
DATE: October 07, 2017 PULMONARY MEDICINE PROGRESS NOTE SUBJECTIVE: Ms. Mejia was seen and examined at bedside. She continues to be intubated. She is on a ventilator. She had a small bowel movement. Blood culture only 1 out of 2 positive as of now. Liters in 0.8, liters out 1.9. One bowel movement noted. Patient requiring high doses of propofol for sedation as she is refractory to medicines. She also is getting intermittent fentanyl. REVIEW OF SYSTEMS: Cannot get review of systems as she is intubated. OBJECTIVE VITAL SIGNS: Afebrile. Vital signs noted per electronic record. GENERALLY: No acute distress, calm, sedated. HEENT: Normocephalic, atraumatic. NECK: Supple. Throat midline. LUNGS: Bilateral air entry, a few crackles. CARDIOVASCULAR: S1 and S2. No murmurs, rubs or gallops. ABDOMINAL: Soft, nontender. EXTREMITIES: No clubbing, no cyanosis. There is only trace edema. INTEGUMENT: No rash. No purpura. LABS: Creatinine 1.2. White count 9.8, hematocrit 27. IMPRESSION AND PLAN 1. Acute respiratory failure, postoperative. 2. Clinical ileus. 3. Distended abdomen. 4. Ineffective cough. 5. Moderate airway secretions at this time. 6. Postoperative pain. At this time, will modify sedation a little bit. Will check triglyceride level since she is on the propofol. Will allow more bowel movements and allow more passing of gas. Her stomach seems as if it is starting to get a little bit less distended today, and we will follow up. Consider tube feeds based on the response. Repeat Dulcolax suppository. Patient furthermore will get followup of blood cultures, but it may just be contaminant. Will repeat a chest x-ray tomorrow. Will consider extubation based on how well her stomach is doing in terms of stomach distention as well as how the x-ray looks. Job#: [id number] CHAVO
[2017-10-07] MEDS: ENOXAPARIN SOD INJ 40 MG/0.4 ML SYR SC SCH (17:32)
[2017-10-07] MEDS: FUROSEMIDE INJ 10 MG/ML 2 ML VIAL IV SCH ×2 (17:33→22:46)
[2017-10-07] MEDS ORDERED: SODIUM CHLORIDE 0.9% 250ML 250 ML ONE (19:21)
[2017-10-08] VITALS (65 sets, daily range): BP systolic 105–171; BP diastolic 50–94
[2017-10-08] MEDS: PROPOFOL IV EMULSION 10MG/ML 100 ML IV PRN ×7 (00:14→21:52)
[2017-10-08] MEDS: ALBUTEROL/IPRATROPIUM 3 ML NEB NEB SCH ×6 (03:30→22:10)
[2017-10-08 05:23] LABS: BASOPHILS % 0.1 % (0.0-1.0); EOSINOPHILS % 0.1 % (0.0-6.0); HEMATOCRIT 29.9 % (34.2-44.1); HEMOGLOBIN 9.6 g/dL (12.0-16.0); LYMPHOCYTES % 12.2 % (18.0-39.1); MEAN CORPUSCULAR HEMOGLOBIN 30.2 pg (28-32); MEAN CORPUSCULAR HGB CONC 32.1 g/dL (31-35); MONOCYTES # (AUTO) 0.6 (0.2-0.8); MONOCYTES % 7.5 % (4.4-11.3); NEUTROPHILS # (AUTO) 6.3 (2.1-6.9); NEUTROPHILS % 79.5 % (38.7-80.0); PLATELET COUNT 274 x10e3/uL (140-360); RED BLOOD COUNT 3.18 x10e6/uL (3.6-5.1)
[2017-10-08 05:48] LABS: ALANINE AMINOTRANSFERASE 8 IU/L (0-55); ALBUMIN 2.6 g/dL (3.5-5.0); ALBUMIN/GLOBULIN RATIO 0.6 (0.8-2.0); ALKALINE PHOSPHATASE 70 IU/L (40-150); ANION GAP 15.2 mmol/L (8-16); BLOOD UREA NITROGEN 36 mg/dL (7-26); BUN/CREATININE RATIO 30 (6-25); CALCIUM 9.2 mg/dL (8.4-10.2); CARBON DIOXIDE 24 mmol/L (22-29); CHLORIDE 110 mmol/L (98-107); CREATININE, SERUM 1.19 mg/dL (0.57-1.11); EST GLOMERULAR FILTRATION RATE 46 ML/MIN (60-); GLUCOSE 123 mg/dL (74-118); MAGNESIUM 2.5 MG/DL (1.3-2.1); POTASSIUM 4.2 mmol/L (3.5-5.1); SODIUM 145 mmol/L (136-145); TRIGLYCERIDES 247 MG/DL (0-149)
[2017-10-08] MEDS: FENTANYL CITRATE/PF 100MCG/2 ML INJ IV PRN (07:29)
--- NOTE | 2017-10-08 07:43 | Diagnostic Imaging Report ---
EXAMINATION: CHEST SINGLE (PORTABLE) INDICATION: \S\COPD exacerbation \S\[id number] \S\0600 COMPARISON: 10/07/2017 FINDINGS: AP view TUBES and LINES: Stable endotracheal and nasogastric tubes. LUNGS and PLEURA: Limited by rotation, body habitus, and low lung volumes. Bilateral airspace opacities. No visible pneumothorax. Possible left pleural effusion. HEART AND MEDIASTINUM: Enlarged cardiac mediastinal silhouette. BONES AND SOFT TISSUES: No acute osseous lesion. Soft tissues are unremarkable. UPPER ABDOMEN: No free air under the diaphragm. IMPRESSION: Very limited study. Bilateral airspace opacities, representing edema and/or pneumonia. Possible moderate size left pleural effusion. Enlarged cardiomediastinal silhouette. Signed by: Dr. Jeremie Robb MD on 10/08/2017 7:39 AM
[2017-10-08] MEDS: PANTOPRAZOLE 40 MG 10ML VIAL IV SCH (08:44)
[2017-10-08] MEDS: FUROSEMIDE INJ 10 MG/ML 4 ML VIAL IV SCH (08:44)
[2017-10-08] MEDS: POTASSIUM CHLORIDE 20MEQ/100ML 100 ML IV SCH (08:44)
--- NOTE | 2017-10-08 10:11 | Diagnostic Imaging Report ---
EXAMINATION: CHEST SINGLE (PORTABLE) INDICATION: \S\COPD exacerbation \S\[id number] \S\0925 COMPARISON: 10/08/2017 FINDINGS: AP view TUBES and LINES: Stable endotracheal and nasogastric tubes. LUNGS: Limited by body habitus and low lung volumes. Bilateral airspace opacities. PLEURA: No pneumothorax. Small left pleural effusion. HEART AND MEDIASTINUM: Enlarged cardiomediastinal silhouette. BONES AND SOFT TISSUES: No acute osseous lesion. Soft tissues are unremarkable. UPPER ABDOMEN: No free air under the diaphragm. IMPRESSION: Enlarged cardiomediastinal silhouette with bilateral airspace opacities, representing edema and/or pneumonia. Small left pleural effusion. No significant interval change from prior exam. Signed by: Dr. Jeremie Robb MD on 10/08/2017 10:08 AM
[2017-10-08] MEDS ORDERED: BISACODYL 10 MG SUPP PR ONE (13:30)
--- NOTE | 2017-10-08 14:23 | Progress Note ---
DATE: October 08, 2017 PULMONARY MEDICINE PROGRESS NOTE SUBJECTIVE: Mrs. Mejia was seen and examined at bedside. She continues to have ventilator status. Liters in 2.0, liters out 2.7. Drain in place at 35 mL output. GI output is about 100 to 200 mL per shift. Abdomen is a little bit more distended today. REVIEW OF SYSTEMS: Cannot get as she is not talking. OBJECTIVE VITAL SIGNS: Currently afebrile. Vital signs stable and noted per electronic record. GENERALLY: No acute distress, on sedation. HEENT: Normocephalic, atraumatic. NECK: Supple. Throat midline. LUNGS: Bilateral air entry, a few rhonchi. CARDIOVASCULAR: S1 and S2. No murmurs, rubs or gallops. ABDOMINAL: Soft, nontender. EXTREMITIES: No clubbing, no cyanosis. There is 1+ edema. INTEGUMENT: No rash. No purpura. LABS: Potassium 4.2, BUN 36, creatinine 1.2. White count 8, hematocrit 29. IMPRESSION AND PLAN 1. Acute respiratory failure, intubated. 2. Postoperative state, status post incisional hernia repaired with mesh. 3. Mild postoperative ileus. 4. History of insufficient cough. 5. Secondary pneumonitis, aspiration mostly. 6. Possible fluid overload. Continue at this time on low-dose diuretics to keep the patient slightly dry. Will follow up closely. Continue NG tube to low intermittent wall suction. Will check the abdomen to see if it improves by tomorrow. Give another dose of Dulcolax. Will follow along closely. The patient may be for extubation in next 1 or 2 days if secretions start to come down or the x-ray really improves to show that she is getting better or over this. Will follow along closely. Will assess tomorrow before deciding. Job#: [id number] EV
--- NOTE | 2017-10-08 14:25 | Diagnostic Imaging Report ---
EXAMINATION: CHEST XRAY LINE PLACEMENT INDICATION: \S\check PICC line placement COMPARISON: Same day at 0933 hours FINDINGS: AP view TUBES and LINES: Stable endotracheal and nasogastric tubes. Right PICC in place with tip overlying superior SVC. LUNGS: Limited by low lung volumes, body habitus, and mild rotation. Again seen bilateral airspace opacities. PLEURA: No visible pneumothorax. Small left pleural effusion. HEART AND MEDIASTINUM: Partially obscured enlarged cardiac silhouette. Aorta is calcified and tortuous. BONES AND SOFT TISSUES: No acute osseous lesion. Soft tissues are unremarkable. UPPER ABDOMEN: No free air under the diaphragm. IMPRESSION: Right PICC placement with tip overlying superior SVC. No visible pneumothorax. Bilateral airspace opacities, representing edema and/or pneumonia. Small left pleural effusion. Signed by: Dr. Jeremie Robb MD on 10/08/2017 2:21 PM
[2017-10-08] MEDS: ENOXAPARIN SOD INJ 40 MG/0.4 ML SYR SC SCH (16:01)
[2017-10-09] VITALS (70 sets, daily range): BP systolic 106–145; BP diastolic 52–69
[2017-10-09] MEDS: PROPOFOL IV EMULSION 10MG/ML 100 ML IV PRN ×5 (00:47→22:42)
[2017-10-09] MEDS: ALBUTEROL/IPRATROPIUM 3 ML NEB NEB SCH ×7 (03:04→23:15)
[2017-10-09 06:42] LABS: ALANINE AMINOTRANSFERASE 8 IU/L (0-55); ALBUMIN 2.6 g/dL (3.5-5.0); ALBUMIN/GLOBULIN RATIO 0.6 (0.8-2.0); ALKALINE PHOSPHATASE 68 IU/L (40-150); ANION GAP 16.7 mmol/L (8-16); BLOOD UREA NITROGEN 34 mg/dL (7-26); BUN/CREATININE RATIO 32 (6-25); CALCIUM 9.2 mg/dL (8.4-10.2); CARBON DIOXIDE 23 mmol/L (22-29); CHLORIDE 112 mmol/L (98-107); CREATININE, SERUM 1.07 mg/dL (0.57-1.11); EST GLOMERULAR FILTRATION RATE 52 ML/MIN (60-); GLUCOSE 107 mg/dL (74-118); POTASSIUM 3.7 mmol/L (3.5-5.1); SODIUM 148 mmol/L (136-145)
--- NOTE | 2017-10-09 07:04 | Diagnostic Imaging Report ---
EXAMINATION: CHEST SINGLE (PORTABLE) INDICATION: Respiratory failure COMPARISON: 10/08/2017 FINDINGS: TUBES and LINES: Endotracheal and NG tube are stable. LUNGS: Lungs are not well inflated. Significant improvement in interstitial pulmonary edema and central vascular congestion. PLEURA: Trace of left pleural effusion remains present. HEART AND MEDIASTINUM: Cardiac size is mildly enlarged. There are atherosclerotic calcifications within the aorta. BONES AND SOFT TISSUES: No acute osseous lesion. Soft tissues are unremarkable. UPPER ABDOMEN: No free air under the diaphragm. IMPRESSION: Interval improvement in interstitial pulmonary edema and remaining left pleural effusion Signed by: Dr. Jl Moreno M.D. on 10/09/2017 7:00 AM
[2017-10-09] MEDS: FUROSEMIDE INJ 10 MG/ML 4 ML VIAL IV SCH (09:22)
[2017-10-09] MEDS: PANTOPRAZOLE 40 MG 10ML VIAL IV SCH (09:22)
[2017-10-09] MEDS ORDERED: POTASSIUM CHLORIDE 20MEQ/100ML 200 ML IV ONE ×2 (09:30→14:00)
--- NOTE | 2017-10-09 13:52 | Progress Note ---
DATE: October 09, 2017 PULMONARY MEDICINE PROGRESS NOTE SUBJECTIVE: Ms. Mejia was seen and examined at the bedside. She continues on ventilator. Large amount of secretions were removed today from the endotracheal tube. Chest x-ray is looking better. Patient with 0.8 L in and 1.8 L out. She did have fever of 101 degrees Fahrenheit. Her x-ray, however, is improving. REVIEW OF SYSTEMS: Cannot get as she is intubated. OBJECTIVE VITALS: Afebrile. Vital signs noted per electronic record. GENERAL: In no acute distress. Alert and calm when woken up, but otherwise sedated easily. HEENT: Normocephalic and atraumatic. NECK: Supple. Throat midline. LUNGS: Bilateral air entry. Few rhonchi. CARDIOVASCULAR: S1 and S2. No murmurs, rubs or gallops. ABDOMEN: Soft and nontender. EXTREMITIES: No clubbing. No cyanosis. There is trace edema. INTEGUMENT: No rash. No purpura. LABS: Potassium 3.7, creatinine 1.1. White count 7.8, hematocrit 30 and platelets 274,000. IMPRESSION AND PLAN 1. Acute respiratory failure. 2. Cough. 3. Obesity. 4. Pseudomonas tracheobronchitis, possible pneumonia. 5. Postoperative state, status post incisional hernia repair with mesh. 6. Postoperative ileus. Will keep her intubated for now. Unclear exactly how much GI output we are getting as the wall cannister has filled up significantly over the last day. Patient continues with large amount of secretions, as well as having insufficient cough. I will discuss with surgeon regarding timing of extubation, but hopefully soon. Follow up abdominal exams and ensure that she continues to mobilize the air and for the ileus to improve. Will follow along closely. Give potassium repletion. Address a little bit more free water replacement for this hyponatremia. Will follow along closely. Job#: [id number] SYLVIA
[2017-10-09] MEDS: DEXTROSE 5% 1,000 ML IV SCH (14:28)
[2017-10-09] MEDS ORDERED: [UNRECOGNIZED DRUG - MIXTURE] IV SCH (18:00)
[2017-10-09] MEDS: PIPERACILLIN/TAZO 4.5 GM 100 ML IV SCH (18:04)
[2017-10-09] MEDS: ENOXAPARIN SOD INJ 40 MG/0.4 ML SYR SC SCH (18:04)
[2017-10-09] MEDS ORDERED: ACETAMINOPHEN 1000 MG/100 ML IV PRN (22:15)
[2017-10-10] VITALS (59 sets, daily range): BP systolic 70–186; BP diastolic 33–89
[2017-10-10] MEDS: PIPERACILLIN/TAZO 4.5 GM 100 ML IV SCH ×5 (00:02→23:56)
[2017-10-10] MEDS: ALBUTEROL/IPRATROPIUM 3 ML NEB NEB SCH ×5 (03:25→19:15)
[2017-10-10] MEDS: PROPOFOL IV EMULSION 10MG/ML 100 ML IV PRN ×3 (05:03→23:56)
[2017-10-10 05:17] LABS: BASOPHILS % 0.3 % (0.0-1.0); EOSINOPHILS # (AUTO) 0.3 (0.0-0.4); EOSINOPHILS % 3.2 % (0.0-6.0); HEMATOCRIT 32.8 % (34.2-44.1); HEMOGLOBIN 10.4 g/dL (12.0-16.0); LYMPHOCYTES # (AUTO) 1.3 (1.0-3.2); MEAN CORPUSCULAR HEMOGLOBIN 30.5 pg (28-32); MEAN CORPUSCULAR HGB CONC 31.7 g/dL (31-35); MEAN CORPUSCULAR VOLUME 96.2 fL (81-99); MONOCYTES % 10.7 % (4.4-11.3); NEUTROPHILS # (AUTO) 6.5 (2.1-6.9); NEUTROPHILS % 70.5 % (38.7-80.0); PLATELET COUNT 296 x10e3/uL (140-360); RED BLOOD COUNT 3.41 x10e6/uL (3.6-5.1); RED CELL DISTRIBUTION WIDTH 15.4 % (11.7-14.4)
[2017-10-10 05:36] LABS: ANION GAP 14.6 mmol/L (8-16); CALCIUM 8.9 mg/dL (8.4-10.2); CREATININE, SERUM 1.13 mg/dL (0.57-1.11); MAGNESIUM 2.3 MG/DL (1.3-2.1); POTASSIUM 3.6 mmol/L (3.5-5.1)
--- NOTE | 2017-10-10 07:32 | Diagnostic Imaging Report ---
PROCEDURE: A single AP view of the chest. COMPARISON: None. INDICATIONS: CONGESTIVE HEART FAILURE FINDINGS: Lines/tubes: Endotracheal catheter is present with the tip projecting over the expected region of the trachea, positioned 4 cm from the yaz. Enteric feeding catheter is present with the tip extending below the margin of the examination, likely within the gastric body. Lungs: Left lung base air space opacity. No parenchymal mass. Pleura: There is no pleural effusion or pneumothorax. Heart and mediastinum: Enlarged cardiac silhouette. No mediastinal lymphadenopathy. Bones: No acute bony abnormality. Degenerative changes of the thoracic spine. IMPRESSION: Enlarged cardiac silhouette. Airspace opacity in the left lung base may represent a developing pneumonia. Dictated by: Polo Boone M.D. on 10/10/2017 at 7:41 Electronically approved by: Polo Boone M.D. on 10/10/2017 at 7:41
[2017-10-10] MEDS: PANTOPRAZOLE 40 MG 10ML VIAL IV SCH (09:52)
[2017-10-10] MEDS: DEXTROSE 5% 1,000 ML IV SCH (09:52)
[2017-10-10] MEDS: FUROSEMIDE INJ 10 MG/ML 4 ML VIAL IV SCH (09:52)
--- NOTE | 2017-10-10 13:20 | Progress Note ---
DATE: October 10, 2017 PULMONARY MEDICINE PROGRESS NOTE SUBJECTIVE: Mrs. Mejia was seen and examined at bedside. She continues to have ventilator dependency. Temperature 101.3 maximum, 2.5 liters in, 2.7 liters out. She had a lot of secretions that were recorded by Respiratory Therapy earlier today. Chest x-ray also shows some significant left lower lobe worsening. REVIEW OF SYSTEMS: Cannot get as she is intubated. OBJECTIVE VITAL SIGNS: Afebrile. Vital signs noted per electronic record. GENERALLY: No acute distress, awake. She is being weaned off her propofol. HEENT: Normocephalic, atraumatic. NECK: Supple. Throat midline. LUNGS: Bilateral air entry, a few rhonchi. CARDIOVASCULAR: S1 and S2. No murmurs, rubs or gallops. ABDOMINAL: Soft, nontender. EXTREMITIES: No clubbing, no cyanosis. There is 1+ edema. INTEGUMENT: No rash. No purpura. LABS: Sodium 146, potassium 3.6, BUN 33, creatinine 1.1. White count 9, hematocrit 33, platelets 296. IMPRESSION AND PLAN 1. Acute respiratory failure. 2. Postoperative state, status post incisional hernia repair with mesh. 3. Insufficient cough. 4. Pseudomonas tracheobronchitis plus or minus pneumonia. 5. Obesity. 6. Postoperative ileus. Will clamp the NG tube today. Will check residuals. No extubation given her very borderline findings and high chance of failure. Patient will get reevaluated tomorrow for possible weaning. Continue antibiotic high dose for pseudomonas. Sedate her as needed. Will follow along closely. Multiple reevaluations given today to try to give patient a chance for extubation. Discussed with surgeon. Greater than 30 minutes in direct care today. Patient will remain in the ICU for now. Job#: [id number] EV
[2017-10-10] MEDS: ENOXAPARIN SOD INJ 40 MG/0.4 ML SYR SC SCH (18:28)
[2017-10-10] MEDS ORDERED: DEXMEDETOMIDINE HCL IV PRN (19:45)
[2017-10-10] MEDS ORDERED: SODIUM CHLORIDE 0.9% IV PRN (19:45)
[2017-10-11] VITALS (24 sets, daily range): BP systolic 90–146; BP diastolic 46–73
[2017-10-11] MEDS: FENTANYL CITRATE/PF 100MCG/2 ML INJ IV PRN (00:55)
[2017-10-11] MEDS: PROPOFOL IV EMULSION 10MG/ML 100 ML IV PRN ×7 (02:06→22:48)
[2017-10-11] MEDS: ALBUTEROL/IPRATROPIUM 3 ML NEB NEB SCH ×6 (03:10→23:32)
[2017-10-11 05:37] LABS: BASOPHILS % 0.4 % (0.0-1.0); EOSINOPHILS # (AUTO) 0.3 (0.0-0.4); EOSINOPHILS % 3.7 % (0.0-6.0); HEMATOCRIT 32.4 % (34.2-44.1); HEMOGLOBIN 10.1 g/dL (12.0-16.0); LYMPHOCYTES # (AUTO) 0.9 (1.0-3.2); LYMPHOCYTES % 10.2 % (18.0-39.1); MEAN CORPUSCULAR HEMOGLOBIN 30.2 pg (28-32); MEAN CORPUSCULAR HGB CONC 31.2 g/dL (31-35); MONOCYTES # (AUTO) 0.8 (0.2-0.8); MONOCYTES % 9.3 % (4.4-11.3); NEUTROPHILS # (AUTO) 6.6 (2.1-6.9); NEUTROPHILS % 74.1 % (38.7-80.0); PLATELET COUNT 297 x10e3/uL (140-360); RED BLOOD COUNT 3.34 x10e6/uL (3.6-5.1); RED CELL DISTRIBUTION WIDTH 15.1 % (11.7-14.4)
[2017-10-11 05:55] LABS: ANION GAP 15.4 mmol/L (8-16); CALCIUM 8.1 mg/dL (8.4-10.2); CREATININE, SERUM 1.14 mg/dL (0.57-1.11); POTASSIUM 3.4 mmol/L (3.5-5.1)
[2017-10-11] MEDS: DEXTROSE 5% 1,000 ML IV SCH (06:06)
[2017-10-11] MEDS: PIPERACILLIN/TAZO 4.5 GM 100 ML IV SCH (06:06)
--- NOTE | 2017-10-11 06:13 | Diagnostic Imaging Report ---
CHEST SINGLE (PORTABLE), 10/11/2017 5:00 AM Technique: CHEST SINGLE (PORTABLE) Comparison: 10/10/2017 Clinical history: Respiratory failure Findings: See Impression Impression: Significantly limited by portable technique and motion artifact 1. Lines/Tubes: Stable ET tube 5.5 cm above the yaz and visualized subdiaphragmatic NG tube. 2. Stable mildly enlarged cardiomediastinal silhouette. 3. Possible edema and left basilar atelectasis or consolidation. Signed by: Dr Larissa Shrestha MD on 10/11/2017 6:10 AM
[2017-10-11] MEDS: PANTOPRAZOLE 40 MG 10ML VIAL IV SCH (08:19)
[2017-10-11] MEDS: FUROSEMIDE INJ 10 MG/ML 4 ML VIAL IV SCH (08:19)
[2017-10-11 08:57] LABS: BAND NEUTROPHILS % (MANUAL) 1 %; EOSINOPHILS % (MANUAL) 2 % (0-7); HYPOCHROMASIA SLIGHT; LYMPHOCYTES % (MANUAL) 9 % (19-48); METAMYELOCYTES % (MANUAL) 1 % (0-0); MONOCYTES % (MANUAL) 4 % (3.4-9.0); MYELOCYTES % (MANUAL) 1 % (0-0); NEUTROPHILS % (MANUAL) 82 % (40-74); PLATELET ESTIMATE ADEQUATE; PLATELET MORPHOLOGY COMMENT NORMAL; RBC MORPHOLOGY COMMENT NORMAL
[2017-10-11 08:59] LABS: ABG HCO3 22 mmol/L (23-28); ABG PCO2 29 mmHg (41-51); ABG PH 7.49 (7.31-7.41); ABG PO2 80 mmHg (80-105)
[2017-10-11] MEDS ORDERED: POTASSIUM CHLORIDE 20MEQ/100ML 200 ML IV ONE (09:30)
[2017-10-11] MEDS ORDERED: DEXTROSE 50% SYRINGE 50 ML IV PRN (09:30)
[2017-10-11] MEDS: CLONIDINE HCL 0.2 MG/24 HR 1 EA PATCH TOP SCH (10:29)
[2017-10-11] MEDS ORDERED: PIPERACILLIN/TAZO 4.5 GM 100 ML IV SCH (12:00)
[2017-10-11] MEDS: INSULIN REGULAR, HUMAN 100 UNIT/1 ML 3ML VIAL SQ SCH ×2 (12:00→18:00)
--- NOTE | 2017-10-11 12:38 | Progress Note ---
DATE: October 11, 2017 PULMONARY MEDICINE PROGRESS NOTE SUBJECTIVE: Mrs. Mejia was seen and examined at bedside. She continues to have intubated status. Endotracheal tube remains in place. Patient on ventilator on SIMV settings. On assessment she has large amount of airway secretions. Chest x-ray still with a sizable right lung infiltrate. Patient otherwise with the right side clearing very well. Patient was better with her rapid shallow breathing index, and she is breathing at 28 breaths per minute on the wean. However, we left her intubated due to the knowledge of a decreased cough as well as the large secretions. REVIEW OF SYSTEMS: Cannot get as she is intubated. OBJECTIVE VITAL SIGNS: Afebrile. Vital signs noted per electronic record. GENERALLY: No acute distress, alert, awake, intubated. HEENT: Normocephalic, atraumatic. NECK: Supple. Throat midline. LUNGS: Bilateral air entry, a few rhonchi. CARDIOVASCULAR: S1 and S2. No murmurs, rubs or gallops. ABDOMINAL: Soft, nontender. EXTREMITIES: No clubbing, no cyanosis. There is trace edema. INTEGUMENT: No rash. No purpura. LABS: Sodium 141, potassium 3.4, creatinine 1.1. IMPRESSION AND PLAN 1. Acute respiratory failure, intubated. 2. Postoperative state, status post incisional mesh repair of hernia. 3. Hypokalemia. 4. Dehydration, improved. 5. Treat as mild fluid overload. 6. Treat as pneumonitis, to include pseudomonas coverage. Continue high-dose antibiotics for pseudomonas. Follow up closely. Patient will have weaning reattempted tomorrow. Will see how her secretions are doing. If secretions start to come down, will look forward to trying to get her off the ventilator. Follow along closely. Patient remains in guarded condition. Job#: [id number] EV
[2017-10-11] MEDS: ENOXAPARIN SOD INJ 40 MG/0.4 ML SYR SC SCH (17:23)
[2017-10-11] MEDS: PIPERACILLIN/TAZO 4.5 GM 50 ML IV SCH (20:05)
[2017-10-12] VITALS (24 sets, daily range): BP systolic 105–169; BP diastolic 52–115
[2017-10-12] MEDS: PIPERACILLIN/TAZO 4.5 GM 50 ML IV SCH ×4 (01:06→17:21)
[2017-10-12] MEDS: PROPOFOL IV EMULSION 10MG/ML 100 ML IV PRN ×2 (01:15→03:52)
[2017-10-12] MEDS: ALBUTEROL/IPRATROPIUM 3 ML NEB NEB SCH ×6 (03:22→23:51)
[2017-10-12] MEDS: INSULIN REGULAR, HUMAN 100 UNIT/1 ML 3ML VIAL SQ SCH ×4 (05:50→18:00)
[2017-10-12] MEDS: DEXTROSE 5% 1,000 ML IV SCH (05:56)
[2017-10-12 06:02] LABS: BASOPHILS # (AUTO) 0.1 (0.0-0.1); BASOPHILS % 0.5 % (0.0-1.0); EOSINOPHILS # (AUTO) 0.5 (0.0-0.4); EOSINOPHILS % 5.4 % (0.0-6.0); HEMATOCRIT 34.9 % (34.2-44.1); HEMOGLOBIN 10.9 g/dL (12.0-16.0); LYMPHOCYTES # (AUTO) 1.2 (1.0-3.2); LYMPHOCYTES % 12.7 % (18.0-39.1); MEAN CORPUSCULAR HEMOGLOBIN 30.3 pg (28-32); MEAN CORPUSCULAR HGB CONC 31.2 g/dL (31-35); MEAN CORPUSCULAR VOLUME 96.9 fL (81-99); MONOCYTES # (AUTO) 0.8 (0.2-0.8); MONOCYTES % 8.3 % (4.4-11.3); NEUTROPHILS # (AUTO) 6.5 (2.1-6.9); NEUTROPHILS % 68.5 % (38.7-80.0); PLATELET COUNT 315 x10e3/uL (140-360); RED CELL DISTRIBUTION WIDTH 14.9 % (11.7-14.4)
[2017-10-12 06:22] LABS: ALBUMIN 2.5 g/dL (3.5-5.0); ALBUMIN/GLOBULIN RATIO 0.6 (0.8-2.0); ANION GAP 14.4 mmol/L (8-16); CALCIUM 8.5 mg/dL (8.4-10.2); CREATININE, SERUM 1.1 mg/dL (0.57-1.11); MAGNESIUM 2.2 MG/DL (1.3-2.1); PHOSPHORUS 4.1 MG/DL (2.3-4.7); POTASSIUM 3.4 mmol/L (3.5-5.1)
--- NOTE | 2017-10-12 06:22 | Diagnostic Imaging Report ---
CHEST SINGLE (PORTABLE), 10/12/2017 5:00 AM Technique: CHEST SINGLE (PORTABLE) Comparison: 10/11/2016 Clinical history: Respiratory failure Findings: See Impression Impression: Significantly limited by portable technique and motion artifact 1. Lines/Tubes: Stable ET tube 5.5 cm above the yaz and visualized subdiaphragmatic NG tube. 2. Stable mildly enlarged cardiomediastinal silhouette. 3. Possible left basilar atelectasis or consolidation. Signed by: Dr Larissa Shrestha MD on 10/12/2017 6:19 AM
[2017-10-12 07:58] LABS: BAND NEUTROPHILS % (MANUAL) 4 %; EOSINOPHILS % (MANUAL) 8 % (0-7); LYMPHOCYTES % (MANUAL) 13 % (19-48); METAMYELOCYTES % (MANUAL) 2 % (0-0); MONOCYTES % (MANUAL) 10 % (3.4-9.0); MYELOCYTES % (MANUAL) 1 % (0-0); NEUTROPHILS % (MANUAL) 62 % (40-74)
[2017-10-12 08:00] LABS: ANISOCYTOSIS SLIGHT; HYPOCHROMASIA SLIGHT; PLATELET ESTIMATE ADEQUATE; PLATELET MORPHOLOGY COMMENT FEW GIANT; POIKILOCYTOSIS SLIGHT; POLYCHROMASIA FEW; RBC MORPHOLOGY COMMENT NORMAL
[2017-10-12] MEDS: FUROSEMIDE INJ 10 MG/ML 4 ML VIAL IV SCH (09:00)
[2017-10-12] MEDS: PANTOPRAZOLE 40 MG 10ML VIAL IV SCH (09:00)
[2017-10-12] MEDS ORDERED: POTASSIUM CHLORIDE 20MEQ/100ML 200 ML IV ONE (11:30)
[2017-10-12 11:49] LABS: ABG PH 7.45 (7.31-7.41)
[2017-10-12 12:59] LABS: ABG HCO3 23 mmol/L (23-28); ABG PCO2 33 mmHg (41-51); ABG PH 7.44 (7.31-7.41); ABG PO2 86 mmHg (80-105)
--- NOTE | 2017-10-12 13:33 | Progress Note ---
DATE: October 12, 2017 PULMONARY MEDICINE PROGRESS NOTE SUBJECTIVE: Ms. Mejia was seen and examined at bedside. She continues with slow response. Chest x-ray is probably a little bit better today. Patient remains intubated. Patient also has no new fevers. She remained on sedation but woke up readily. Will give patient a trial of extubation. The net was negative 40. Moderate secretions, which is improved from yesterday. Will give the patient a trial of extubation after assessment. Patient was extubated and seemed to have a better cough than in previous days. REVIEW OF SYSTEMS: Cannot get as she is intubated. OBJECTIVE VITAL SIGNS: Vital signs noted, stable per electronic record. GENERALLY: Looks better. Some mild difficulty coughing but overall much stronger than the first time immediately postoperative. LUNGS: Bilateral air entry, a few rhonchi. ABDOMEN: Still distended but softer than before. LABS: Include 3.4 potassium, 1.1 creatinine, 9.5 white count, 35 hematocrit. Albumin 2.5. IMPRESSION AND PLAN 1. Acute respiratory failure, intubated and extubated now. 2. Suspected dysphagia and trouble expectorating. 3. Insufficient cough, probably much better. 4. Postoperative pain. 5. Postoperative state, status post incisional hernia repair with mesh. 6. Moderate hypoalbuminemia. Serial evaluations given as above. Extubated. Continue airway toileting. Mobilize the patient well. Do not feed her until Speech sees her given her baseline dysphagia, and patient may benefit from MBS. Follow up closely. Replete potassium. Will follow along closely. Greater than 30 minutes in direct care today, including multiple evaluations and interventions. Will follow along closely. Job#: [id number] EV
[2017-10-12] MEDS: ENOXAPARIN SOD INJ 40 MG/0.4 ML SYR SC SCH (17:22)
[2017-10-12] MEDS ORDERED: PIPERACILLIN/TAZO 4.5 GM 50 ML IV SCH (18:00)
[2017-10-13] VITALS (23 sets, daily range): BP systolic 109–155; BP diastolic 46–80
[2017-10-13] MEDS: ONDANSETRON HCL INJ 2 MG/ML VIAL IV PRN (00:23)
[2017-10-13] MEDS: HYDROCODONE/APAP 7.5MG-325MG 1 EA TAB PO PRN ×2 (00:23→11:01)
[2017-10-13] MEDS: HALOPERIDOL LACTATE 5 MG/ML VIAL IV PRN (00:23)
[2017-10-13] MEDS: ALBUTEROL/IPRATROPIUM 3 ML NEB NEB SCH ×6 (03:26→23:15)
[2017-10-13] MEDS: DEXTROSE 5% 1,000 ML IV SCH (05:30)
[2017-10-13] MEDS: PIPERACILLIN/TAZO 4.5 GM 50 ML IV SCH ×5 (06:00→23:47)
[2017-10-13] MEDS: INSULIN REGULAR, HUMAN 100 UNIT/1 ML 3ML VIAL SQ SCH ×5 (06:00→23:48)
[2017-10-13 06:03] LABS: BASOPHILS # (AUTO) 0.1 (0.0-0.1); BASOPHILS % 0.7 % (0.0-1.0); EOSINOPHILS # (AUTO) 0.2 (0.0-0.4); EOSINOPHILS % 2.2 % (0.0-6.0); HEMATOCRIT 35.3 % (34.2-44.1); HEMOGLOBIN 11.1 g/dL (12.0-16.0); LYMPHOCYTES # (AUTO) 1.1 (1.0-3.2); MEAN CORPUSCULAR HGB CONC 31.4 g/dL (31-35); MEAN CORPUSCULAR VOLUME 95.4 fL (81-99); MONOCYTES # (AUTO) 0.9 (0.2-0.8); MONOCYTES % 9.3 % (4.4-11.3); NEUTROPHILS # (AUTO) 7.2 (2.1-6.9); NEUTROPHILS % 71.8 % (38.7-80.0); PLATELET COUNT 344 x10e3/uL (140-360)
--- NOTE | 2017-10-13 06:08 | Diagnostic Imaging Report ---
CHEST SINGLE (PORTABLE), 10/13/2017 5:00 AM Technique: CHEST SINGLE (PORTABLE) Comparison: 10/12/2016 Clinical history: Aspiration pneumonia Findings: See Impression Impression: Significantly limited by portable technique and motion artifact 1. Lines/Tubes: Stable ET tube 5.5 cm above the yaz and visualized subdiaphragmatic NG tube. 2. Stable mildly enlarged cardiomediastinal silhouette. 3. Left basilar opacity in keeping with reported aspiration pneumonia. Question layering left pleural effusion. Signed by: Dr Larissa Shrestha MD on 10/13/2017 6:04 AM
[2017-10-13 06:22] LABS: ANION GAP 14.1 mmol/L (8-16); BLOOD UREA NITROGEN 28 mg/dL (7-26); BUN/CREATININE RATIO 31 (6-25); CALCIUM 8.8 mg/dL (8.4-10.2); CARBON DIOXIDE 22 mmol/L (22-29); CHLORIDE 113 mmol/L (98-107); CREATININE, SERUM 0.91 mg/dL (0.57-1.11); EST GLOMERULAR FILTRATION RATE > 60 ML/MIN (60-); GLUCOSE 134 mg/dL (74-118); POTASSIUM 3.1 mmol/L (3.5-5.1); SODIUM 146 mmol/L (136-145)
[2017-10-13 08:01] LABS: BAND NEUTROPHILS % (MANUAL) 2 %; EOSINOPHILS % (MANUAL) 2 % (0-7); LYMPHOCYTES % (MANUAL) 13 % (19-48); METAMYELOCYTES % (MANUAL) 2 % (0-0); MONOCYTES % (MANUAL) 9 % (3.4-9.0); NEUTROPHILS % (MANUAL) 72 % (40-74)
[2017-10-13 08:02] LABS: ANISOCYTOSIS SLIGHT; PLATELET ESTIMATE ADEQUATE; PLATELET MORPHOLOGY COMMENT NORMAL; POIKILOCYTOSIS SLIGHT; RBC MORPHOLOGY COMMENT NORMAL
[2017-10-13] MEDS: FUROSEMIDE INJ 10 MG/ML 4 ML VIAL IV SCH (09:00)
[2017-10-13] MEDS: PANTOPRAZOLE 40 MG 10ML VIAL IV SCH (09:00)
--- NOTE | 2017-10-13 11:31 | Diagnostic Imaging Report ---
PROCEDURE:X-RAY MODIFIED BARIUM SWALLOW COMPARISON:None. INDICATIONS:Not provided. DISCUSSION:Fluoroscopic examination was performed in conjunction with speech pathology, during swallowing of a variety of thin and thick liquid consistencies. CONCLUSION: Aspiration was present. Please see the report from speech pathology for complete details. Dictated by: Polo Boone M.D. on 10/13/2017 at 11:40 Electronically approved by: Polo Boone M.D. on 10/13/2017 at 11:40
[2017-10-13] MEDS ORDERED: POTASSIUM CHLORIDE 10MEQ/100ML 100 ML IV ONE (11:45)
[2017-10-13] MEDS ORDERED: SODIUM CHLORIDE 0.9% 250ML 250 ML ONE ×2 (13:03→14:05)
--- NOTE | 2017-10-13 14:10 | Progress Note ---
DATE: October 13, 2017 PULMONARY MEDICINE PROGRESS NOTE SUBJECTIVE: Ms. Mejia was seen and examined at bedside. The patient continues to have some weakness. She stood up with assist for 10 minutes today. She is not able to stand up. She remains with NG tube in place. She grossly failed her MBS yesterday and is not recommended to eat at this time. Henderson is in place at this time. Nursing feels there are wounds posteriorly that are being packed where the Henderson is recommended to stay in. REVIEW OF SYSTEMS: No headache. No rash. OBJECTIVE VITALS: Afebrile. Vital signs noted per electronic record. GENERAL: No acute distress. Alert and calm, although intermittently anxious. HEENT: Normocephalic and atraumatic. NECK: Supple. Throat is midline LUNGS: Bilateral air entry, a few rhonchi. CARDIOVASCULAR: S1 and S2. No murmurs, rubs or gallops. ABDOMEN: Soft and nontender. EXTREMITIES: No clubbing. No cyanosis. There is 1+ edema. INTEGUMENT: No rash. No purpura. LABS: 3.1 potassium, 0.9 creatinine, 22 bicarbonate, 10 white count, 35 hematocrit, 344 platelets. IMPRESSION AND PLAN 1. Acute respiratory failure, improved. 2. Severe aspiration. 3. Treat as pseudomonas pneumonia. 4. Tracheobronchitis pseudomonal. 5. Posterior pressure ulcer under treatment, present prior to admission. 6. Hypoxemia. Continue at this time current therapy. Continue to mobilize her and get her stronger. Keep Henderson in place due to the wound. NG tube feeds will be continued, although they can be clamped for therapy. We await further improvement in the patient's eating status. Speech therapy will work with her on Monday again to check for progress. Job#: [id number]
[2017-10-13] MEDS: ENOXAPARIN SOD INJ 40 MG/0.4 ML SYR SC SCH (17:00)
[2017-10-13] MEDS: POTASSIUM CHLORIDE 20MEQ/100ML 400 ML IV SCH (22:30)
[2017-10-14] VITALS (26 sets, daily range): BP systolic 94–147; BP diastolic 48–80
[2017-10-14] MEDS: ALBUTEROL/IPRATROPIUM 3 ML NEB NEB SCH ×6 (02:55→23:35)
[2017-10-14] MEDS: DEXTROSE 5% 1,000 ML IV SCH (05:30)
[2017-10-14] MEDS: PIPERACILLIN/TAZO 4.5 GM 50 ML IV SCH (05:59)
[2017-10-14 06:04] LABS: BASOPHILS # (AUTO) 0.1 (0.0-0.1); BASOPHILS % 0.9 % (0.0-1.0); EOSINOPHILS # (AUTO) 0.2 (0.0-0.4); EOSINOPHILS % 2.6 % (0.0-6.0); HEMOGLOBIN 10.9 g/dL (12.0-16.0); LYMPHOCYTES # (AUTO) 1.4 (1.0-3.2); LYMPHOCYTES % 15.7 % (18.0-39.1); MEAN CORPUSCULAR HEMOGLOBIN 29.9 pg (28-32); MEAN CORPUSCULAR HGB CONC 31.1 g/dL (31-35); MEAN CORPUSCULAR VOLUME 96.2 fL (81-99); MONOCYTES # (AUTO) 0.8 (0.2-0.8); MONOCYTES % 9.5 % (4.4-11.3); NEUTROPHILS # (AUTO) 5.6 (2.1-6.9); NEUTROPHILS % 64.9 % (38.7-80.0); PLATELET COUNT 364 x10e3/uL (140-360); RED BLOOD COUNT 3.64 x10e6/uL (3.6-5.1); RED CELL DISTRIBUTION WIDTH 15.2 % (11.7-14.4)
[2017-10-14 06:23] LABS: ANION GAP 14.3 mmol/L (8-16); BLOOD UREA NITROGEN 23 mg/dL (7-26); BUN/CREATININE RATIO 27 (6-25); CALCIUM 8.8 mg/dL (8.4-10.2); CARBON DIOXIDE 21 mmol/L (22-29); CHLORIDE 114 mmol/L (98-107); CREATININE, SERUM 0.86 mg/dL (0.57-1.11); EST GLOMERULAR FILTRATION RATE > 60 ML/MIN (60-); GLUCOSE 150 mg/dL (74-118); POTASSIUM 3.3 mmol/L (3.5-5.1); SODIUM 146 mmol/L (136-145)
--- NOTE | 2017-10-14 06:45 | Diagnostic Imaging Report ---
CHEST SINGLE (PORTABLE), 10/14/2017 5:00 AM Technique: CHEST SINGLE (PORTABLE) Comparison: Previous day Clinical history: Post extubation, NG tube Findings: See Impression Impression: Significantly limited by portable technique and motion artifact 1. Lines/Tubes: Removal of ET tube. Stable right PICC. NG tube appears to extend subdiaphragmatically. Additional line projecting over the mid esophagus may be artifactual; recommend attention on follow-up 2. Stable mildly enlarged cardiomediastinal silhouette. 3. Left basilar opacity in keeping with reported aspiration pneumonia. Probable left pleural effusion. Signed by: Dr Larissa Shrestha MD on 10/14/2017 6:42 AM
[2017-10-14] MEDS: INSULIN REGULAR, HUMAN 100 UNIT/1 ML 3ML VIAL SQ SCH ×3 (07:05→18:00)
[2017-10-14] MEDS: PANTOPRAZOLE 40 MG 10ML VIAL IV SCH (08:25)
[2017-10-14] MEDS: FUROSEMIDE INJ 10 MG/ML 4 ML VIAL IV SCH (08:25)
[2017-10-14 08:51] LABS: BAND NEUTROPHILS % (MANUAL) 8 %; EOSINOPHILS % (MANUAL) 1 % (0-7); LYMPHOCYTES % (MANUAL) 25 % (19-48); MONOCYTES % (MANUAL) 3 % (3.4-9.0); NEUTROPHILS % (MANUAL) 63 % (40-74); PLATELET ESTIMATE ADEQUATE; PLATELET MORPHOLOGY COMMENT NORMAL; RBC MORPHOLOGY COMMENT NORMAL
[2017-10-14] MEDS: PIPERACILLIN/TAZO 4.5 GM 50 ML IV ONE ×3 (12:57→13:15)
[2017-10-14] MEDS: POTASSIUM CHLORIDE 20MEQ/100ML 400 ML IV SCH ×3 (13:38→18:15)
[2017-10-14] MEDS: ENOXAPARIN SOD INJ 40 MG/0.4 ML SYR SC SCH (17:24)
--- NOTE | 2017-10-14 17:35 | Progress Note ---
DATE: October 14, 2017 PULMONARY MEDICINE PROGRESS NOTE SUBJECTIVE: Ms. Mejia was seen and examined at bedside. Patient continues with extubated state. She still citing that she has a weak voice at times, and some times when asked to cough she is not producing a strong cough response. Patient remains on NG tube at 30 mL per hour at this time. Patient with 1.9 L in and 1.4 L out. One bowel movement. REVIEW OF SYSTEMS: No nosebleeds. No rash. OBJECTIVE VITALS: Afebrile. Vital signs noted per electronic record. GENERAL: In no acute distress. Calm at this time with family present in the room. HEENT: Normocephalic and atraumatic. NECK: Supple. Throat midline. LUNGS: Bilateral air entry. Decreased air opening in the bases. Rare rhonchi. CARDIOVASCULAR: S1 and S2. No murmurs, rubs or gallops. ABDOMEN: Soft and nontender. EXTREMITIES: No clubbing. No cyanosis. There is only trace edema. INTEGUMENT: No rash. No purpura. LABS: Sodium 146, potassium 3.3, creatinine 0.8. White count 8.7, hematocrit 35. IMPRESSION AND PLAN 1. Acute respiratory failure, intubated and then extubated. 2. Insufficient cough, improved. 3. Dysphagia. 4. History of multiple strokes in the past. 5. Pneumonitis/tracheobronchitis. 6. Postoperative state, status post incisional hernia repair with mesh. At this time, will continue the current treatment. Patient will have more potassium repletion. Repeat blood work in the morning. Patient will continue on low-dose diuretics at this time. Continue NG tube feeds. Continue with PT and OT. She was able to sit up for 10 minutes today. We hope to build more progress from that. Continue to encourage coughing. There may be a psychogenic inability to cough that is unclear at this time. Patient was previously coughing better just after extubation. Job#: [id number] SYLVIA
[2017-10-15] VITALS (27 sets, daily range): BP systolic 106–172; BP diastolic 51–84
[2017-10-15] MEDS: INSULIN REGULAR, HUMAN 100 UNIT/1 ML 3ML VIAL SQ SCH ×4 (01:20→17:58)
[2017-10-15] MEDS: HYDROCODONE/APAP 7.5MG-325MG 1 EA TAB PO PRN ×2 (01:40→13:15)
[2017-10-15] MEDS: ALBUTEROL/IPRATROPIUM 3 ML NEB NEB SCH ×6 (03:30→23:45)
[2017-10-15 06:26] LABS: BASOPHILS # (AUTO) 0.1 (0.0-0.1); BASOPHILS % 0.6 % (0.0-1.0); EOSINOPHILS # (AUTO) 0.3 (0.0-0.4); HEMATOCRIT 36.3 % (34.2-44.1); LYMPHOCYTES # (AUTO) 2.3 (1.0-3.2); LYMPHOCYTES % 21.1 % (18.0-39.1); MEAN CORPUSCULAR HEMOGLOBIN 29.8 pg (28-32); MEAN CORPUSCULAR HGB CONC 30.3 g/dL (31-35); MEAN CORPUSCULAR VOLUME 98.4 fL (81-99); MONOCYTES % 8.9 % (4.4-11.3); NEUTROPHILS # (AUTO) 6.7 (2.1-6.9); NEUTROPHILS % 60.4 % (38.7-80.0); PLATELET COUNT 396 x10e3/uL (140-360); RED BLOOD COUNT 3.69 x10e6/uL (3.6-5.1); RED CELL DISTRIBUTION WIDTH 15.5 % (11.7-14.4)
[2017-10-15 06:27] LABS: ALANINE AMINOTRANSFERASE 15 IU/L (0-55); ALBUMIN 2.8 g/dL (3.5-5.0); ALBUMIN/GLOBULIN RATIO 0.7 (0.8-2.0); ALKALINE PHOSPHATASE 71 IU/L (40-150); ANION GAP 10.8 mmol/L (8-16); BLOOD UREA NITROGEN 27 mg/dL (7-26); BUN/CREATININE RATIO 31 (6-25); CALCIUM 8.9 mg/dL (8.4-10.2); CARBON DIOXIDE 23 mmol/L (22-29); CHLORIDE 114 mmol/L (98-107); CREATININE, SERUM 0.88 mg/dL (0.57-1.11); EST GLOMERULAR FILTRATION RATE > 60 ML/MIN (60-); GLUCOSE 139 mg/dL (74-118); MAGNESIUM 2.2 MG/DL (1.3-2.1); PHOSPHORUS 3.1 MG/DL (2.3-4.7); POTASSIUM 3.8 mmol/L (3.5-5.1); SODIUM 144 mmol/L (136-145)
[2017-10-15] MEDS ORDERED: AZTREONAM 1 GM/NS 50 ML 50 ML IV SCH (09:30)
[2017-10-15] MEDS: PANTOPRAZOLE 40 MG 10ML VIAL IV SCH (09:31)
[2017-10-15] MEDS: FUROSEMIDE INJ 10 MG/ML 4 ML VIAL IV SCH (09:31)
[2017-10-15] MEDS: POTASSIUM CHLORIDE 20MEQ/100ML 100 ML IV SCH ×2 (10:00→12:15)
[2017-10-15] MEDS ORDERED: SODIUM CHLORIDE 0.9% 250ML 250 ML ONE ×2 (10:19→21:36)
[2017-10-15] MEDS: AZTREONAM 1 GM VIAL IV SCH ×2 (10:30→22:56)
[2017-10-15 11:00] LABS: EOSINOPHILS % (MANUAL) 4 % (0-7); LYMPHOCYTES % (MANUAL) 37 % (19-48); MONOCYTES % (MANUAL) 2 % (3.4-9.0); NEUTROPHILS % (MANUAL) 57 % (40-74); RBC MORPHOLOGY COMMENT NORMAL
[2017-10-15 11:01] LABS: PLATELET ESTIMATE SLIGHTLY INCREASED; PLATELET MORPHOLOGY COMMENT NORMAL
[2017-10-15] MEDS: METRONIDAZOLE 500MG/NS 100ML 100 ML IV SCH ×2 (14:21→21:47)
[2017-10-15] MEDS: ENOXAPARIN SOD INJ 40 MG/0.4 ML SYR SC SCH (17:00)
[2017-10-16] VITALS (7 sets, daily range): BP systolic 121–158; BP diastolic 59–94
--- NOTE | 2017-10-16 02:58 | Progress Note ---
DATE: October 15, 2017 PULMONARY MEDICINE PROGRESS NOTE SUBJECTIVE: Mrs. Mejia was seen and examined at bedside. Patient with 2.3 L in and 1.7 L out. One bowel movement. She has some mild confusion. Patient remains with NG tube feeds tolerated without excessive residuals. Speech pathology saw the patient, and felt the patient could be once again not close to eating. Today, I cannot get a definable cough from the patient. REVIEW OF SYSTEMS: Not headaches. No rash. OBJECTIVE VITALS: Afebrile. Vital signs noted per electronic record. GENERAL: In no acute distress. Alert and calm and in bed. HEENT: Normocephalic and atraumatic. NECK: Supple. Throat midline. LUNGS: Bilateral air entry. Few rare rhonchi, but just decreased breath sounds at the base. CARDIOVASCULAR: S1 and S2. No murmurs, rubs or gallops. ABDOMEN: Soft and nontender. EXTREMITIES: No clubbing. No cyanosis. There is trace edema. INTEGUMENT: No rash. No purpura. LABS: White count 11, hematocrit 36 and platelets 396,000. Potassium 3.8, creatinine 0.9, glucose 131, albumin 2.8. IMPRESSION AND PLAN 1. Acute respiratory failure, resolving. 2. Aspiration pneumonitis. 3. Cannot rule out fluid overload although less likely. 4. Weakness. 5. Dysphagia. 6. Significant psychiatric baseline disorder suspected. Continue to mobilize the patient. Encourage expectoration. Repeat a chest x-ray in the morning. Give some potassium. Patient will be continued on tube feeds. Vitamin B12 repletion can be reasonable, and will discuss with primary care physician. Patient should be considered for PEG tube if she continues to perform poorly. Job#: [id number] SYLVIA
[2017-10-16] MEDS: ALBUTEROL/IPRATROPIUM 3 ML NEB NEB SCH ×6 (03:00→23:05)
[2017-10-16] MEDS: METRONIDAZOLE 500MG/NS 100ML 100 ML IV SCH ×3 (05:49→22:15)
[2017-10-16] MEDS: INSULIN REGULAR, HUMAN 100 UNIT/1 ML 3ML VIAL SQ SCH ×4 (06:11→18:00)
[2017-10-16 06:25] LABS: BASOPHILS # (AUTO) 0.1 (0.0-0.1); BASOPHILS % 0.8 % (0.0-1.0); EOSINOPHILS # (AUTO) 0.4 (0.0-0.4); EOSINOPHILS % 2.9 % (0.0-6.0); HEMATOCRIT 38.8 % (34.2-44.1); HEMOGLOBIN 11.9 g/dL (12.0-16.0); LYMPHOCYTES # (AUTO) 2.5 (1.0-3.2); LYMPHOCYTES % 18.9 % (18.0-39.1); MEAN CORPUSCULAR HEMOGLOBIN 30.4 pg (28-32); MEAN CORPUSCULAR HGB CONC 30.7 g/dL (31-35); MEAN CORPUSCULAR VOLUME 99.2 fL (81-99); MONOCYTES # (AUTO) 0.9 (0.2-0.8); MONOCYTES % 7.1 % (4.4-11.3); NEUTROPHILS # (AUTO) 8.5 (2.1-6.9); NEUTROPHILS % 64.9 % (38.7-80.0); PLATELET COUNT 437 x10e3/uL (140-360); RED BLOOD COUNT 3.91 x10e6/uL (3.6-5.1); RED CELL DISTRIBUTION WIDTH 15.6 % (11.7-14.4)
[2017-10-16 06:48] LABS: ANION GAP 14.3 mmol/L (8-16); BLOOD UREA NITROGEN 32 mg/dL (7-26); BUN/CREATININE RATIO 39 (6-25); CALCIUM 9.4 mg/dL (8.4-10.2); CARBON DIOXIDE 23 mmol/L (22-29); CHLORIDE 114 mmol/L (98-107); CREATININE, SERUM 0.83 mg/dL (0.57-1.11); EST GLOMERULAR FILTRATION RATE > 60 ML/MIN (60-); GLUCOSE 139 mg/dL (74-118); POTASSIUM 4.3 mmol/L (3.5-5.1); SODIUM 147 mmol/L (136-145)
[2017-10-16 07:47] LABS: EOSINOPHILS % (MANUAL) 3 % (0-7); LYMPHOCYTES % (MANUAL) 19 % (19-48); MONOCYTES % (MANUAL) 8 % (3.4-9.0); MYELOCYTES % (MANUAL) 1 % (0-0)
[2017-10-16 07:48] LABS: PLATELET ESTIMATE SLIGHTLY INCREASED; PLATELET MORPHOLOGY COMMENT FEW GIANT; RBC MORPHOLOGY COMMENT NORMAL
--- NOTE | 2017-10-16 08:16 | Diagnostic Imaging Report ---
PROCEDURE: CHEST SINGLE (PORTABLE) COMPARISON: [facility], DX, CHEST SINGLE (PORTABLE), 10/14/2017, 6:28. INDICATIONS: ASPIRATION FINDINGS: LUNGS: Improvement in the pulmonary vascular congestion. Unchanged opacity in the left lower lobe. PLEURA: Small left pleural effusion. HEART \T\ MEDIASTINUM: The heart is within normal size-limits. BONES \T\ SOFT TISSUES: No acute findings. NG tube extends below the diaphragm. Second line overlies the mid esophagus region. Unchanged right PICC line. CONCLUSION: Unchanged left lower lobe opacity with a small effusion. Charles Toro D.O. Dictated by: Charles Toro D.O. on 10/16/2017 at 8:24 Electronically approved by: Charles Toro D.O. on 10/16/2017 at 8:24
[2017-10-16] MEDS: FUROSEMIDE INJ 10 MG/ML 4 ML VIAL IV SCH (08:45)
[2017-10-16] MEDS: PANTOPRAZOLE 40 MG 10ML VIAL IV SCH (08:45)
[2017-10-16] MEDS: CYANOCOBALAMIN 1,000 MCG TAB NG SCH (08:45)
[2017-10-16 08:48] LABS: NEUTROPHILS % (MANUAL) 61 % (40-74)
--- NOTE | 2017-10-16 10:39 | Progress Note ---
DATE: October 16, 2017 PULMONARY MEDICINE PROGRESS NOTE SUBJECTIVE: Mrs. Mejia was seen and examined at the bedside. She voiced a little bit of anger as her TV remote was not working. She was also angry that the patient was spoken to about possible PEG tube. Her voice is actually a little louder today. She actually had a real cough. Chest x-ray is stable. Left lower lung atelectasis versus infiltrate. Two liters per minute by nasal cannula, 95% oxygen saturation. Some bowel movements. Tube feeds at 50 mL per hour, 100 mL every 4 hours of water. REVIEW OF SYSTEMS: No bleeding. No rash. OBJECTIVE VITALS: Afebrile. Vital signs noted per electronic record. GENERAL: No acute distress. Alert and calm, and slightly angry when I see her. HEENT: Normocephalic and atraumatic. NECK: Supple. Throat midline. LUNGS: Bilateral air entry. Few rhonchi and rare at the base. CARDIOVASCULAR: S1 and S2. No murmurs, rubs or gallops. ABDOMEN: Soft and nontender. EXTREMITIES: No clubbing. No cyanosis. There is trace edema. INTEGUMENT: No rash. No purpura. LABS: Sodium 147, potassium 4.3, creatinine 0.8. White count 13 and 437,000 platelets. IMPRESSION AND PLAN 1. Mild dehydration. 2. Aspiration. 3. Significant dysphagia. 4. Psychiatric disorder with anxiety features. 5. Postoperative state, status post mesh repair of incisional hernia. Continue n.p.o. status. NG tube in place. Follow up with PCP. Consideration for early PEG tube placement if the patient remains far from eating. Given a little bit more of free water today. Repeat white count and platelets are they are elevated. We will follow along closely. Antibiotics or other solution at this point. Repeat chest x-ray until lung is more clear. Continue DVT prophylaxis. Job#: [id number] SC
[2017-10-16] MEDS: AZTREONAM 1 GM VIAL IV SCH ×2 (12:30→22:23)
[2017-10-16] MEDS ORDERED: ASPIRIN 81 MG CHEW TAB PO ONE ×3 (12:45)
[2017-10-16 14:13] LABS: CREATINE KINASE MB 1.3 ng/mL (0.00-5.00); TROPONIN I 0.015 ng/mL (0-0.300)
[2017-10-16] MEDS: HYDROCODONE/APAP 7.5MG-325MG 1 EA TAB PO PRN (14:30)
[2017-10-16] MEDS: ENOXAPARIN SOD INJ 40 MG/0.4 ML SYR SC SCH (17:30)
[2017-10-16 22:50] LABS: CREATINE KINASE MB 1.3 ng/mL (0.00-5.00); TROPONIN I 0.007 ng/mL (0-0.300)
[2017-10-17] VITALS: BP 158/72
[2017-10-17] MEDS: INSULIN REGULAR, HUMAN 100 UNIT/1 ML 3ML VIAL SQ SCH ×4 (00:17→18:00)
[2017-10-17] MEDS: ALBUTEROL/IPRATROPIUM 3 ML NEB NEB SCH ×6 (00:25→19:45)
[2017-10-17 04:00] VITALS: BP 124/58
[2017-10-17] MEDS: METRONIDAZOLE 500MG/NS 100ML 100 ML IV SCH ×3 (06:25→22:50)
--- NOTE | 2017-10-17 06:33 | Diagnostic Imaging Report ---
EXAM: CHEST SINGLE (PORTABLE), AP 1 view DATE: 10/17/2017 5:00 AM Time stamp on exam: 0550 hours INDICATION: Atelectasis COMPARISON: None FINDINGS: LINES/TUBES: Tip of nasal/orogastric tube courses out of field of view. Indeterminate linear density projects over the thoracic inlet, possibly a poorly visualized endotracheal tube were prominent side of the nasal/orogastric tube. The distal aspect of the right approach PICC is poorly visualized. LUNGS: Stable left lower lobe airspace opacity. Perihilar vascular congestion and atelectasis. PLEURA: Probable left pleural effusion. HEART AND MEDIASTINUM: Stable appearance. BONES AND SOFT TISSUES: No acute findings. IMPRESSION: No significant interval change. Signed by: Dr. Amanda Khan M.D. on 10/17/2017 6:29 AM
[2017-10-17 07:54] LABS: BASOPHILS # (AUTO) 0.1 (0.0-0.1); BASOPHILS % 0.5 % (0.0-1.0); EOSINOPHILS # (AUTO) 0.4 (0.0-0.4); EOSINOPHILS % 2.8 % (0.0-6.0); HEMATOCRIT 40.1 % (34.2-44.1); HEMOGLOBIN 12.2 g/dL (12.0-16.0); LYMPHOCYTES # (AUTO) 2.6 (1.0-3.2); LYMPHOCYTES % 19.7 % (18.0-39.1); MEAN CORPUSCULAR HEMOGLOBIN 30.3 pg (28-32); MEAN CORPUSCULAR HGB CONC 30.4 g/dL (31-35); MEAN CORPUSCULAR VOLUME 99.5 fL (81-99); MONOCYTES # (AUTO) 0.9 (0.2-0.8); MONOCYTES % 6.8 % (4.4-11.3); NEUTROPHILS # (AUTO) 8.7 (2.1-6.9); NEUTROPHILS % 66.1 % (38.7-80.0); PLATELET COUNT 418 x10e3/uL (140-360); RED BLOOD COUNT 4.03 x10e6/uL (3.6-5.1); RED CELL DISTRIBUTION WIDTH 15.6 % (11.7-14.4)
[2017-10-17 08:12] VITALS: BP 169/74
[2017-10-17 08:15] LABS: ANION GAP 13.4 mmol/L (8-16); BLOOD UREA NITROGEN 36 mg/dL (7-26); BUN/CREATININE RATIO 40 (6-25); CALCIUM 9.3 mg/dL (8.4-10.2); CARBON DIOXIDE 26 mmol/L (22-29); CHLORIDE 113 mmol/L (98-107); CREATINE KINASE 41 IU/L (29-168); CREATININE, SERUM 0.91 mg/dL (0.57-1.11); EST GLOMERULAR FILTRATION RATE > 60 ML/MIN (60-); GLUCOSE 156 mg/dL (74-118); POTASSIUM 4.4 mmol/L (3.5-5.1); SODIUM 148 mmol/L (136-145)
[2017-10-17 08:24] LABS: TROPONIN I 0.003 ng/mL (0-0.300)
[2017-10-17] MEDS: FUROSEMIDE INJ 10 MG/ML 4 ML VIAL IV SCH (08:50)
[2017-10-17] MEDS: PANTOPRAZOLE 40 MG 10ML VIAL IV SCH (08:50)
[2017-10-17] MEDS: CYANOCOBALAMIN 1,000 MCG TAB NG SCH (08:50)
[2017-10-17 08:55] LABS: ANISOCYTOSIS SLIGHT; EOSINOPHILS % (MANUAL) 3 % (0-7); LYMPHOCYTES % (MANUAL) 9 % (19-48); METAMYELOCYTES % (MANUAL) 1 % (0-0); MONOCYTES % (MANUAL) 9 % (3.4-9.0); MYELOCYTES % (MANUAL) 4 % (0-0); NEUTROPHILS % (MANUAL) 71 % (40-74); RBC MORPHOLOGY COMMENT NORMAL
[2017-10-17 08:56] LABS: PLATELET ESTIMATE SLIGHTLY INCREASED; PLATELET MORPHOLOGY COMMENT FEW LARGE
[2017-10-17] MEDS: HYDROCODONE/APAP 7.5MG-325MG 1 EA TAB PO PRN (09:15)
[2017-10-17] MEDS: AZTREONAM 1 GM VIAL IV SCH ×2 (12:00→22:50)
[2017-10-17 12:13] VITALS: BP 154/70
--- NOTE | 2017-10-17 13:46 | Progress Note ---
DATE: October 17, 2017 PULMONARY MEDICINE PROGRESS NOTE SUBJECTIVE: Ms. Mejia was seen and examined at bedside. She continues with NG tube in. However, she had speech and swallow evaluation at bedside, and it was felt she was able to tolerate with a safe amount of reserve. NG tube was removed, and she is starting to eat her 1st meal. No acute respiratory distress episode as of now. Multiple bowel movements. One hundred percent oxygen saturation on 3 L per minute of oxygen. REVIEW OF SYSTEMS: No nosebleed. No GI bleed. OBJECTIVE VITALS: Afebrile. Vital signs noted per electronic record. GENERAL: No acute distress. Alert and calm, very happy. HEENT: Normocephalic and atraumatic. NECK: Supple. Throat midline. LUNGS: Bilateral air entry. A few small rhonchi. Decreased breath sounds at the base. CARDIOVASCULAR: S1 and S2. No murmurs, rubs or gallops. ABDOMEN: Soft and nontender. EXTREMITIES: No clubbing. No cyanosis. There is only trace edema. It is mostly gone. INTEGUMENT: No rash. No purpura. LABS: 148 sodium, 4.4 potassium, 0.9 creatinine, 13 white count, 40 hematocrit. IMPRESSION AND PLAN 1. Dysphagia, clinically improving. 2. Dysphonia, clinically improving. 3. 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 4. Aspiration pneumonitis. 5. Acute respiratory failure, resolved. 6. Postoperative state, status post incisional hernia repair. 7. Continued weakness. Continue PT and OT. Patient may need rehab given her weakness. Continue on new diet. Follow up sodium in a couple of days to ensure it improves with adequate oral hydration. Intermittently will continue x-rays. Lung expansion is recommended. Job#: [id number]
[2017-10-17 16:32] VITALS: BP 156/74
[2017-10-17] MEDS: ENOXAPARIN SOD INJ 40 MG/0.4 ML SYR SC SCH (17:30)
[2017-10-17 20:00] VITALS: BP 138/69
[2017-10-18] VITALS (8 sets, daily range): BP systolic 126–162; BP diastolic 58–74
[2017-10-18] MEDS: HYDROCODONE/APAP 7.5MG-325MG 1 EA TAB PO PRN ×3 (05:09→21:52)
[2017-10-18] MEDS: INSULIN REGULAR, HUMAN 100 UNIT/1 ML 3ML VIAL SQ SCH ×4 (06:00→18:00)
[2017-10-18] MEDS: METRONIDAZOLE 500MG/NS 100ML 100 ML IV SCH ×3 (06:19→21:52)
[2017-10-18 07:01] LABS: ANION GAP 14.9 mmol/L (8-16); BLOOD UREA NITROGEN 28 mg/dL (7-26); BUN/CREATININE RATIO 35 (6-25); CALCIUM 8.9 mg/dL (8.4-10.2); CARBON DIOXIDE 22 mmol/L (22-29); CHLORIDE 105 mmol/L (98-107); CREATININE, SERUM 0.79 mg/dL (0.57-1.11); EST GLOMERULAR FILTRATION RATE > 60 ML/MIN (60-); GLUCOSE 113 mg/dL (74-118); POTASSIUM 3.9 mmol/L (3.5-5.1); SODIUM 138 mmol/L (136-145)
--- NOTE | 2017-10-18 07:25 | Diagnostic Imaging Report ---
PROCEDURE:CHEST SINGLE (PORTABLE) TECHNIQUE:Portable AP chest INDICATION:Pneumonia COMPARISON:Patients [facility], DX, CHEST SINGLE (PORTABLE), 10/17/2017, 5:50. FINDINGS: See conclusion. CONCLUSION: 1. Right PICC terminating in the low SVC. 2. Interval NG tube removal. 3. Interval improvement in pulmonary edema. 4. Persistent left lower lobe airspace opacity consistent with clinically reported pneumonia. No cavitation. 5. No conspicuous pleural effusion. 6. Stable cardiomegaly with mild central vascular congestion. Dictated by: William Tabor M.D. on 10/18/2017 at 7:35 Electronically approved by: William Tabor M.D. on 10/18/2017 at 7:35
[2017-10-18] MEDS: ALBUTEROL/IPRATROPIUM 3 ML NEB NEB SCH ×4 (08:00→19:35)
[2017-10-18] MEDS: CYANOCOBALAMIN 1,000 MCG TAB NG SCH (09:00)
[2017-10-18] MEDS: AZTREONAM 1 GM VIAL IV SCH ×2 (10:08→23:00)
[2017-10-18] MEDS: PANTOPRAZOLE 40 MG 10ML VIAL IV SCH (10:08)
[2017-10-18] MEDS: FUROSEMIDE INJ 10 MG/ML 4 ML VIAL IV SCH (10:09)
[2017-10-18] MEDS: CLONIDINE HCL 0.2 MG/24 HR 1 EA PATCH TOP SCH (12:03)
--- NOTE | 2017-10-18 15:13 | Diagnostic Imaging Report ---
PROCEDURE:MODIFIED BA. SWALLOW COMPARISON:None. INDICATIONS:Not provided. DISCUSSION: Fluoroscopic examination was performed in conjunction with speech pathology during swallowing of a variety of thin and thick liquid consistencies. RADIATION DOSE: Total Time: 39 sec Cumulative area dose product: 124.6 cGym\S\2 Cumulative air kerma: 3.53 mGy FINDINGS: PREMATURE SPILLAGE: Over the base of the tongue: None To vallecula: None To pyriform sinus: None LARYNGEAL PENETRATION: None ASPIRATION: None RESIDUE: VALLECULA: Trace PYRIFORM SINUS: None PHARYNGEAL WALL: None BASE OF TONGUE: Mild. Clears with liquid wash. CONCLUSION: No penetration or aspiration. Please see report from speech pathology for complete details. Dictated by: Bryan Maza M.D. on 10/18/2017 at 15:22 Electronically approved by: Bryan Maza M.D. on 10/18/2017 at 15:22
[2017-10-18] MEDS: ENOXAPARIN SOD INJ 40 MG/0.4 ML SYR SC SCH (16:12)
[2017-10-19] VITALS (8 sets, daily range): BP systolic 118–144; BP diastolic 57–74
[2017-10-19] MEDS: ALBUTEROL/IPRATROPIUM 3 ML NEB NEB SCH ×4 (01:20→23:15)
--- NOTE | 2017-10-19 05:09 | Progress Note ---
DATE: October 18, 2017 PULMONARY MEDICINE PROGRESS NOTE SUBJECTIVE: Ms. Mejia was seen and examined at bedside. She continues to have slow responsiveness. She remains off diet right now. Speech therapy reviewed her chart in detail. Noting the silent aspiration that occurred before, they highly recommend MBS. Chest x-ray is looking slightly better from yesterday with slight increase in lung volumes. Had 2.3 L in and 3.1 L out. Has 96% oxygen saturation with 3 L per minute nasal cannula. Three bowel movements. REVIEW OF SYSTEMS: No headache. No rash. OBJECTIVE VITALS: The patient remains with vital signs grossly unremarkable. HEENT: Normocephalic and atraumatic. LUNGS: Bilateral air entry. Mostly clear but limited opening at the base. ABDOMEN: Slightly softer, still obese and mildly full on palpation. LABS: 3.9 potassium, 28 BUN, creatinine 0.8, 13 white count, 40 hematocrit, 418 platelets. IMPRESSION AND PLAN 1. Severe dysphagia. 2. Aspiration pneumonitis. 3. Postoperative respiratory failure, largely contributed to by aspiration. 4. Postoperative state, status post incisional hernia repair with mesh. 5. Weakness. MBS today in a few hours. Keep her n.p.o. for now. Continue PT and OT. Currently, 1 to 2 person maximal assist on getting up, but she is able to walk to the restroom. Follow up with DVT prophylaxis. Continue local care following bowel movements. Job#: [id number]
[2017-10-19] MEDS: INSULIN REGULAR, HUMAN 100 UNIT/1 ML 3ML VIAL SQ SCH ×4 (06:00→18:00)
[2017-10-19] MEDS: METRONIDAZOLE 500MG/NS 100ML 100 ML IV SCH ×3 (06:40→21:21)
[2017-10-19 06:50] LABS: BASOPHILS # (AUTO) 0.1 (0.0-0.1); BASOPHILS % 0.7 % (0.0-1.0); EOSINOPHILS # (AUTO) 0.3 (0.0-0.4); EOSINOPHILS % 3.3 % (0.0-6.0); HEMATOCRIT 35.3 % (34.2-44.1); HEMOGLOBIN 11.4 g/dL (12.0-16.0); LYMPHOCYTES # (AUTO) 2.1 (1.0-3.2); LYMPHOCYTES % 22.7 % (18.0-39.1); MEAN CORPUSCULAR HGB CONC 32.3 g/dL (31-35); MEAN CORPUSCULAR VOLUME 92.9 fL (81-99); MONOCYTES # (AUTO) 0.8 (0.2-0.8); MONOCYTES % 8.8 % (4.4-11.3); NEUTROPHILS # (AUTO) 5.6 (2.1-6.9); NEUTROPHILS % 60.9 % (38.7-80.0); PLATELET COUNT 332 x10e3/uL (140-360)
[2017-10-19 07:08] LABS: ANION GAP 13.9 mmol/L (8-16); BLOOD UREA NITROGEN 27 mg/dL (7-26); BUN/CREATININE RATIO 35 (6-25); CALCIUM 9.1 mg/dL (8.4-10.2); CARBON DIOXIDE 23 mmol/L (22-29); CHLORIDE 103 mmol/L (98-107); CREATININE, SERUM 0.78 mg/dL (0.57-1.11); EST GLOMERULAR FILTRATION RATE > 60 ML/MIN (60-); GLUCOSE 120 mg/dL (74-118); POTASSIUM 3.9 mmol/L (3.5-5.1); SODIUM 136 mmol/L (136-145)
[2017-10-19] MEDS: CYANOCOBALAMIN 1,000 MCG TAB NG SCH (08:42)
[2017-10-19] MEDS: FUROSEMIDE INJ 10 MG/ML 4 ML VIAL IV SCH (08:42)
[2017-10-19] MEDS: HYDROCODONE/APAP 7.5MG-325MG 1 EA TAB PO PRN ×3 (08:42→21:16)
[2017-10-19] MEDS: PANTOPRAZOLE 40 MG 10ML VIAL IV SCH (08:42)
[2017-10-19] MEDS: AZTREONAM 1 GM VIAL IV SCH ×2 (10:05→22:18)
[2017-10-19] MEDS: MAGNESIUM/ALUMINUM/SIMETHICONE 30 ML UDC PO PRN ×2 (15:33→21:16)
[2017-10-19] MEDS: ENOXAPARIN SOD INJ 40 MG/0.4 ML SYR SC SCH (16:42)
--- NOTE | 2017-10-19 17:02 | Progress Note ---
DATE: October 19, 2017 PULMONARY MEDICINE PROGRESS NOTE SUBJECTIVE: Ms. Mejia was seen and examined at the bedside. There is continued steady progress. She was able to pass her swallow evaluation yesterday. The patient has 97% oxygen saturation on 3 liters per minute oxygen flow. The patient has been having bowel movements. REVIEW OF SYSTEMS: No nosebleeds, no constipation. OBJECTIVE VITAL SIGNS: The patient is afebrile. Vital signs noted per electronic record. GENERAL: In no acute distress, calm, in bed, feeling happier. HEENT: Normocephalic, atraumatic. NECK: Supple. Throat midline. LUNGS: Bilateral air entry. A few rhonchi. CARDIOVASCULAR: S1 and S2 normal. No murmurs, rubs or gallops. ABDOMEN: Soft and nontender. EXTREMITIES: No clubbing or cyanosis. There is only trace edema. INTEGUMENT: No rash, no purpura. LABORATORY DATA: Potassium 3.9, creatinine 0.8. IMPRESSION 1. Postoperative stay, status post incisional hernia repair. 2. Weakness. 3. Decubitus ulcer, sacral, improving recently. 4. Dysphagia. 5. Dysphonia, better. PLAN: Allow the patient to continue eating. Remove the angelica from stomach. Okay for care home facility from pulmonary point of view. Continue current therapy. Mobilization. DVT prophylaxis ongoing. Job#: [id number]
[2017-10-19] MEDS: ONDANSETRON HCL INJ 2 MG/ML VIAL IV PRN (21:16)
[2017-10-19] MEDS: HALOPERIDOL LACTATE 5 MG/ML VIAL IV PRN (23:26)
[2017-10-20] VITALS (10 sets, daily range): BP systolic 107–145; BP diastolic 59–78
[2017-10-20] MEDS: ALBUTEROL/IPRATROPIUM 3 ML NEB NEB SCH ×6 (03:10→23:40)
[2017-10-20] MEDS: METRONIDAZOLE 500MG/NS 100ML 100 ML IV SCH ×2 (05:42→13:26)
[2017-10-20] MEDS: HYDROCODONE/APAP 7.5MG-325MG 1 EA TAB PO PRN ×3 (05:48→21:38)
[2017-10-20] MEDS: INSULIN REGULAR, HUMAN 100 UNIT/1 ML 3ML VIAL SQ SCH ×4 (06:00→18:19)
[2017-10-20 07:50] LABS: BASOPHILS # (AUTO) 0.1 (0.0-0.1); BASOPHILS % 0.6 % (0.0-1.0); EOSINOPHILS # (AUTO) 0.2 (0.0-0.4); HEMATOCRIT 36.3 % (34.2-44.1); HEMOGLOBIN 11.6 g/dL (12.0-16.0); LYMPHOCYTES % 19.3 % (18.0-39.1); MEAN CORPUSCULAR HEMOGLOBIN 30.1 pg (28-32); MEAN CORPUSCULAR VOLUME 94.3 fL (81-99); MONOCYTES # (AUTO) 0.9 (0.2-0.8); NEUTROPHILS # (AUTO) 6.9 (2.1-6.9); NEUTROPHILS % 66.9 % (38.7-80.0); PLATELET COUNT 332 x10e3/uL (140-360); RED BLOOD COUNT 3.85 x10e6/uL (3.6-5.1)
[2017-10-20 08:18] LABS: ANION GAP 11.8 mmol/L (8-16); BLOOD UREA NITROGEN 22 mg/dL (7-26); BUN/CREATININE RATIO 28 (6-25); CALCIUM 8.7 mg/dL (8.4-10.2); CARBON DIOXIDE 23 mmol/L (22-29); CHLORIDE 103 mmol/L (98-107); EST GLOMERULAR FILTRATION RATE > 60 ML/MIN (60-); GLUCOSE 121 mg/dL (74-118); POTASSIUM 3.8 mmol/L (3.5-5.1); SODIUM 134 mmol/L (136-145)
[2017-10-20] MEDS: PANTOPRAZOLE 40 MG 10ML VIAL IV SCH (09:58)
[2017-10-20] MEDS: CYANOCOBALAMIN 1,000 MCG TAB NG SCH (09:58)
[2017-10-20] MEDS: AZTREONAM 1 GM VIAL IV SCH (09:58)
[2017-10-20] MEDS: FUROSEMIDE INJ 10 MG/ML 4 ML VIAL IV SCH (09:58)
[2017-10-20] MEDS: CHOLESTYRAMINE 4 GM PACKET PO SCH ×2 (14:01→18:19)
--- NOTE | 2017-10-20 14:22 | Progress Note ---
DATE: October 20, 2017 PULMONARY MEDICINE PROGRESS NOTE SUBJECTIVE: Ms. Mejia was seen and examined at bedside. Patient had 3.2 L in, 1.9 L out, 4 bowel movements. Has 97% oxygen saturation on 2 L per minute of oxygen. Patient continues to eat well without evidence of gross choking. REVIEW OF SYSTEMS: No headache. No rash. OBJECTIVE VITAL SIGNS: Afebrile. Vital signs noted per electronic record. GENERAL: In no distress, calm and happier. HEENT: Normocephalic, atraumatic. NECK: Supple. Throat midline. LUNGS: Bilateral air entry. A few rare rhonchi, mostly clear lungs. CARDIOVASCULAR: S1 and S2. No murmurs, rubs or gallops. ABDOMEN: Soft and nontender. EXTREMITIES: No clubbing. No cyanosis. There is only trace edema, mostly resolved. INTEGUMENT: No rash, no purpura. LABORATORY DATA: 2.8 potassium, 0.8 creatinine, 10 white count, 36 hematocrit, 332 platelets. IMPRESSION 1. Dysphagia, much improved. 2. Acute respiratory failure, resolved. 3. Hypoxemia, now on nasal cannula oxygen. 4. Obesity. 5. Weakness, severe, mostly bedbound. PLAN: Continue strengthening to the patient. PT and OT continued. Continue weaning oxygen down. Keep the patient slightly dry. She remains on Lasix at this time. She remains on postoperative wound care and on antibiotics noted. Continue current treatment, and she is a candidate for fpc facility placement. SNF placement is underway. Job#: [id number]
[2017-10-20] MEDS: ENOXAPARIN SOD INJ 40 MG/0.4 ML SYR SC SCH (18:19)
[2017-10-20] MEDS ORDERED: SODIUM CHLORIDE 0.9% 250ML 250 ML ONE (18:58)
[2017-10-20] MEDS: METRONIDAZOLE 500 MG TAB PO SCH (21:38)
[2017-10-21] VITALS (7 sets, daily range): BP systolic 116–123; BP diastolic 57–75
[2017-10-21] MEDS: ALBUTEROL/IPRATROPIUM 3 ML NEB NEB SCH ×6 (03:20→23:35)
[2017-10-21] MEDS: INSULIN REGULAR, HUMAN 100 UNIT/1 ML 3ML VIAL SQ SCH ×4 (06:00→18:00)
[2017-10-21] MEDS: METRONIDAZOLE 500 MG TAB PO SCH ×3 (06:14→22:24)
[2017-10-21 08:19] LABS: BASOPHILS # (AUTO) 0.1 (0.0-0.1); BASOPHILS % 0.5 % (0.0-1.0); EOSINOPHILS # (AUTO) 0.2 (0.0-0.4); EOSINOPHILS % 1.9 % (0.0-6.0); HEMOGLOBIN 11.2 g/dL (12.0-16.0); LYMPHOCYTES % 20.5 % (18.0-39.1); MEAN CORPUSCULAR HEMOGLOBIN 29.6 pg (28-32); MEAN CORPUSCULAR HGB CONC 31.1 g/dL (31-35); MEAN CORPUSCULAR VOLUME 95.2 fL (81-99); MONOCYTES # (AUTO) 0.9 (0.2-0.8); MONOCYTES % 9.3 % (4.4-11.3); NEUTROPHILS # (AUTO) 6.4 (2.1-6.9); NEUTROPHILS % 65.5 % (38.7-80.0); PLATELET COUNT 301 x10e3/uL (140-360); RED BLOOD COUNT 3.78 x10e6/uL (3.6-5.1); RED CELL DISTRIBUTION WIDTH 15.4 % (11.7-14.4)
[2017-10-21 08:41] LABS: ANION GAP 10.9 mmol/L (8-16); BLOOD UREA NITROGEN 18 mg/dL (7-26); BUN/CREATININE RATIO 23 (6-25); CALCIUM 8.9 mg/dL (8.4-10.2); CARBON DIOXIDE 22 mmol/L (22-29); CHLORIDE 106 mmol/L (98-107); CREATININE, SERUM 0.78 mg/dL (0.57-1.11); EST GLOMERULAR FILTRATION RATE > 60 ML/MIN (60-); GLUCOSE 120 mg/dL (74-118); POTASSIUM 3.9 mmol/L (3.5-5.1); SODIUM 135 mmol/L (136-145)
[2017-10-21 10:11] LABS: EOSINOPHILS % (MANUAL) 2 % (0-7); LYMPHOCYTES % (MANUAL) 17 % (19-48); MONOCYTES % (MANUAL) 14 % (3.4-9.0); NEUTROPHILS % (MANUAL) 67 % (40-74); PLATELET ESTIMATE ADEQUATE; PLATELET MORPHOLOGY COMMENT NORMAL; RBC MORPHOLOGY COMMENT NORMAL
[2017-10-21] MEDS: CHOLESTYRAMINE 4 GM PACKET PO SCH ×2 (10:22→16:21)
[2017-10-21] MEDS: PANTOPRAZOLE SOD 40 MG TABEC PO SCH (10:22)
[2017-10-21] MEDS: HYDROCODONE/APAP 7.5MG-325MG 1 EA TAB PO PRN (10:23)
[2017-10-21] MEDS ORDERED: LOPERAMIDE HCL 2 MG CAP PO PRN (10:30)
[2017-10-21] MEDS: DICYCLOMINE HCL 10 MG CAP PO PRN ×2 (12:54→22:24)
[2017-10-21] MEDS: ENOXAPARIN SOD INJ 40 MG/0.4 ML SYR SC SCH (17:22)
--- NOTE | 2017-10-21 17:47 | Progress Note ---
DATE: October 21, 2017 PULMONARY MEDICINE PROGRESS NOTE SUBJECTIVE: The patient was seen and examined at the bedside. No large events occurred. There were 2.4 liters in, 0.9 liters out. Three easy bowel movements noted. Oxygen saturation 98% at 3 liters per minute per nasal cannula. The patient is eating her diet without evidence of aspiration. REVIEW OF SYSTEMS: No headaches, no rash. OBJECTIVE VITAL SIGNS: Afebrile. Vital signs noted per electronic record. GENERAL: In no acute distress, alert and calm. HEENT: Normocephalic, atraumatic. NECK: Supple. Throat midline. LUNGS: Bilateral air entry, few rhonchi. CARDIOVASCULAR: S1 and S2. No murmurs, rubs or gallops. ABDOMEN: Soft and nontender. EXTREMITIES: No cyanosis, clubbing or edema. INTEGUMENT: No rash, no purpura. LABORATORY DATA: BUN 18, creatinine 0.8, white count 9.7, hematocrit 36, platelets 301,000. Potassium 3.9. IMPRESSION AND PLAN 1. Dysphasic, improving. 2. Pneumonia, resolving. 3. Postoperative state, status post incisional hernia repair with mesh. 4. Significant weakness and debility. 5. Continue PT and OT. 6. [facility] facility evaluation has been ordered. 7. Continue diet and follow up for aspiration. 8. Continue adjustments to diet to minimize the risk of aspiration. 9. Continue oxygen supplemental as well. 10. Continue other medications as noted, including DVT prophylaxis. 11. Will follow along closely. Job#: [id number]
[2017-10-22] VITALS: BP 134/61
[2017-10-22] MEDS: INSULIN REGULAR, HUMAN 100 UNIT/1 ML 3ML VIAL SQ SCH ×5 (00:59→21:00)
[2017-10-22] MEDS: ALBUTEROL/IPRATROPIUM 3 ML NEB NEB SCH ×6 (03:15→23:30)
[2017-10-22 04:00] VITALS: BP 121/71
[2017-10-22] MEDS: HYDROCODONE/APAP 7.5MG-325MG 1 EA TAB PO PRN ×3 (04:58→22:11)
[2017-10-22] MEDS: METRONIDAZOLE 500 MG TAB PO SCH ×3 (05:41→22:10)
[2017-10-22 05:49] LABS: BASOPHILS # (AUTO) 0.1 (0.0-0.1); BASOPHILS % 0.7 % (0.0-1.0); EOSINOPHILS # (AUTO) 0.2 (0.0-0.4); EOSINOPHILS % 2.4 % (0.0-6.0); HEMATOCRIT 34.3 % (34.2-44.1); HEMOGLOBIN 10.9 g/dL (12.0-16.0); LYMPHOCYTES # (AUTO) 2.4 (1.0-3.2); LYMPHOCYTES % 27.2 % (18.0-39.1); MEAN CORPUSCULAR HEMOGLOBIN 30.4 pg (28-32); MEAN CORPUSCULAR HGB CONC 31.8 g/dL (31-35); MEAN CORPUSCULAR VOLUME 95.8 fL (81-99); MONOCYTES # (AUTO) 0.8 (0.2-0.8); MONOCYTES % 9.2 % (4.4-11.3); NEUTROPHILS # (AUTO) 5.1 (2.1-6.9); NEUTROPHILS % 58.4 % (38.7-80.0); PLATELET COUNT 268 x10e3/uL (140-360); RED BLOOD COUNT 3.58 x10e6/uL (3.6-5.1); RED CELL DISTRIBUTION WIDTH 15.6 % (11.7-14.4)
[2017-10-22 06:04] LABS: ANION GAP 12.8 mmol/L (8-16); BLOOD UREA NITROGEN 17 mg/dL (7-26); BUN/CREATININE RATIO 22 (6-25); CALCIUM 9.1 mg/dL (8.4-10.2); CARBON DIOXIDE 21 mmol/L (22-29); CHLORIDE 106 mmol/L (98-107); CREATININE, SERUM 0.78 mg/dL (0.57-1.11); EST GLOMERULAR FILTRATION RATE > 60 ML/MIN (60-); GLUCOSE 111 mg/dL (74-118); POTASSIUM 3.8 mmol/L (3.5-5.1); SODIUM 136 mmol/L (136-145)
[2017-10-22] MEDS: PANTOPRAZOLE SOD 40 MG TABEC PO SCH (07:53)
[2017-10-22] MEDS: CHOLESTYRAMINE 4 GM PACKET PO SCH ×2 (07:53→15:36)
[2017-10-22] MEDS: DICYCLOMINE HCL 10 MG CAP PO PRN ×2 (07:53→13:44)
[2017-10-22 08:00] VITALS: BP 116/57
[2017-10-22 11:15] LABS: BAND NEUTROPHILS % (MANUAL) 3 %; EOSINOPHILS % (MANUAL) 4 % (0-7); LYMPHOCYTES % (MANUAL) 28 % (19-48); MONOCYTES % (MANUAL) 10 % (3.4-9.0); NEUTROPHILS % (MANUAL) 53 % (40-74)
[2017-10-22 11:16] LABS: PLATELET ESTIMATE ADEQUATE; PLATELET MORPHOLOGY COMMENT NORMAL; RBC MORPHOLOGY COMMENT NORMAL
[2017-10-22 12:00] VITALS: BP 127/68
[2017-10-22 16:00] VITALS: BP 129/67
[2017-10-22] MEDS: ENOXAPARIN SOD INJ 40 MG/0.4 ML SYR SC SCH (18:32)
[2017-10-22] MEDS: NYSTATIN/TRIAMCINOLONE 15 GM CR TOP SCH (18:32)
[2017-10-22 20:00] VITALS: BP 129/80
[2017-10-23] VITALS (7 sets, daily range): BP systolic 120–141; BP diastolic 61–80
[2017-10-23] MEDS: ALBUTEROL/IPRATROPIUM 3 ML NEB NEB SCH ×6 (03:08→23:30)
[2017-10-23] MEDS: HYDROCODONE/APAP 7.5MG-325MG 1 EA TAB PO PRN ×3 (06:21→19:43)
[2017-10-23] MEDS: METRONIDAZOLE 500 MG TAB PO SCH ×3 (06:21→21:45)
--- NOTE | 2017-10-23 07:19 | Progress Note ---
DATE: October 22, 2017 PULMONARY MEDICINE PROGRESS NOTE SUBJECTIVE: Ms. Mejia was seen and examined at the bedside. She continues to have slight improvement. She is still tolerating her oral diet. She is having bowel movements. She remains at this time with 3 L per minute of oxygen, 97% oxygen saturation; 2.2 L in recorded, 2.2 L out. REVIEW OF SYSTEMS: No headaches, no nosebleeds. OBJECTIVE VITAL SIGNS: Afebrile. Vital signs noted per the chart record. GENERAL: In no acute distress, calm, in bed. HEENT: Normocephalic, atraumatic. NECK: Supple. Throat midline. LUNGS: Bilateral air entry, decreased breath sounds at the base, mostly clear. CARDIOVASCULAR: S1 and S2. No murmurs, rubs or gallops. ABDOMEN: Soft and nontender. EXTREMITIES: No cyanosis, no clubbing, and no edema. INTEGUMENT: No rash, no purpura. LABS: Potassium 3.8, BUN 17, and creatinine 0.8. White count 8.7, hematocrit 34, and platelets 268,000. IMPRESSIONS 1. Respiratory failure, resolving. 2. Chronic hypoxemia, remaining on home oxygen. 3. Weakness. 4. Postoperative state, status post complicated incisional hernia repair with mesh. 5. Dysphagia, but tolerating feeds. PLAN 1. Continue current management. 2. Continue to encourage nutrition and healing. 3. Mobilize. 4. PT and OT are to be continued. 5. Patient will have continued care so that she can get the half-way evaluation. We will follow closely. Job#: [id number]
[2017-10-23] MEDS: INSULIN REGULAR, HUMAN 100 UNIT/1 ML 3ML VIAL SQ SCH ×4 (07:30→21:00)
[2017-10-23] MEDS: PANTOPRAZOLE SOD 40 MG TABEC PO SCH (08:58)
[2017-10-23] MEDS: CHOLESTYRAMINE 4 GM PACKET PO SCH ×2 (08:58→16:43)
[2017-10-23] MEDS: NYSTATIN/TRIAMCINOLONE 15 GM CR TOP SCH (08:58)
--- NOTE | 2017-10-23 14:32 | Progress Note ---
DATE: October 23, 2017 PULMONARY MEDICINE PROGRESS NOTE SUBJECTIVE: Ms. Mejia was seen and examined at the bedside. She continues with slow progress. Henderson was discontinued at this time. The patient is currently on trial voids at this time. Still weak, but no respiratory distress. Has 97% oxygen saturation on 3 L per minute by nasal cannula. REVIEW OF SYSTEMS: No headaches, no rash. OBJECTIVE VITAL SIGNS: Afebrile. Vital signs noted per the electronic record. GENERAL: In no acute distress, alert and calm in bed. HEENT: Normocephalic, atraumatic. NECK: Supple. Throat midline. LUNGS: Bilateral air entry, decreased breath sounds at the base, rare rhonchi. CARDIOVASCULAR: S1 and S2. No murmurs, rubs or gallops. ABDOMEN: Soft and nontender. EXTREMITIES: No clubbing. No cyanosis. There is no edema. INTEGUMENT: No rash, no purpura. LABS: At baseline. IMPRESSION AND PLAN 1. Respiratory failure, resolving. 2. Chronic hypoxemia, still on oxygen. 3. Weakness. 4. Postoperative state, status post incisional hernia repair. Continue PT and OT. [facility] facility consult is made. Continue trial of void. Continue wound care as well and make sure the patient can stay off her wound. For now, continue to finish up on antibiotics. Job#: [id number]
[2017-10-23] MEDS: ENOXAPARIN SOD INJ 40 MG/0.4 ML SYR SC SCH (16:43)
[2017-10-24] VITALS: BP 138/75
[2017-10-24] MEDS: ALBUTEROL/IPRATROPIUM 3 ML NEB NEB SCH ×4 (03:10→15:18)
[2017-10-24 04:30] VITALS: BP 126/73
[2017-10-24] MEDS: METRONIDAZOLE 500 MG TAB PO SCH ×2 (05:22→14:18)
[2017-10-24] MEDS: INSULIN REGULAR, HUMAN 100 UNIT/1 ML 3ML VIAL SQ SCH ×3 (07:30→16:30)
[2017-10-24 07:58] VITALS: BP 138/82
[2017-10-24 08:30] VITALS: BP 138/82
[2017-10-24] MEDS: CHOLESTYRAMINE 4 GM PACKET PO SCH ×2 (08:39→16:51)
[2017-10-24] MEDS: NYSTATIN/TRIAMCINOLONE 15 GM CR TOP SCH (08:39)
[2017-10-24] MEDS: PANTOPRAZOLE SOD 40 MG TABEC PO SCH (08:39)
--- NOTE | 2017-10-24 10:34 | Progress Note ---
DATE: October 24, 2017 PULMONARY MEDICINE PROGRESS NOTE SUBJECTIVE: Mrs. Mejia was seen and examined at bedside. She continues to have slow progress. She has undergone therapy, but she remains in need of a lot of assist for bed mobility and getting up from bed. No respiratory distress episodes. She seems to be tolerating her oral feeds without gross aspiration. REVIEW OF SYSTEMS: No bleeding. No earaches. OBJECTIVE VITALS: Afebrile. Vital signs noted per electronic record. GENERAL: No acute respiratory distress. Oriented. HEENT: Normocephalic and atraumatic. NECK: Supple. Throat midline. LUNGS: Bilateral air entry. Few rare rhonchi, mostly clear. CARDIOVASCULAR: S1 and S2. No murmurs, rubs or gallops. ABDOMEN: Soft and nontender. EXTREMITIES: No clubbing. No cyanosis. There is no edema. INTEGUMENT: No rash. No purpura. IMPRESSION AND PLAN 1. Acute respiratory failure, resolving. 2. Chronic hypoxemia. 3. Weakness. 4. Decubitus ulcer, recently improving. 5. Postoperative state, status post incisional hernia repair with mesh. 6. Complication related to her baseline dysphagia. Continue current treatment. Mobilize the patient with PT and OT. Continue to make sure urine is out of her wound ostomy. May need Henderson. Patient will need close followup to ensure further improvement. Will follow along closely. custodial facility evaluation is underway. Job#: [id number] SYLVIA
[2017-10-24] MEDS: HYDROCODONE/APAP 7.5MG-325MG 1 EA TAB PO PRN ×2 (11:38→15:46)
[2017-10-24 12:09] VITALS: BP 152/67
[2017-10-24 16:19] VITALS: BP 131/67
[2017-10-24] MEDS: ENOXAPARIN SOD INJ 40 MG/0.4 ML SYR SC SCH (16:53)
== END 2017-10-24 17:10 | DRG 353 ==
LOC: OR 05:14 → ICU 13:19 → MED/SURG3 10-15 18:21
PROVIDERS: ADMIT Surgery; ATTEND Surgery
PROC: 3E0M05Z Introduction of Adhesion Barrier into Peritoneal Cavity, Open Approach (ICD-10-PCS; 2017-10-03)
PROC: 0WUF0JZ Supplement Abdominal Wall with Synthetic Substitute, Open Approach (ICD-10-PCS; principal; 2017-10-03 07:20)
PROC: 5A1955Z Respiratory Ventilation, Greater than 96 Consecutive Hours (ICD-10-PCS; 2017-10-06)
PROC: 0BH17EZ Insertion of Endotracheal Airway into Trachea, Via Natural or Artificial Opening (ICD-10-PCS; 2017-10-06)
PROC: 3E1F88X Irrigation of Respiratory Tract using Irrigating Substance, Via Natural or Artificial Opening Endoscopic, Diagnostic (ICD-10-PCS; 2017-10-06)
PROC: 30233N1 Transfusion of Nonautologous Red Blood Cells into Peripheral Vein, Percutaneous Approach (ICD-10-PCS; 2017-10-07)
DX: K43.2 Incisional hernia without obstruction or gangrene (principal); J69.0 Pneumonitis due to inhalation of food and vomit; J96.00 Acute respiratory failure, unspecified whether with hypoxia or hypercapnia; J44.1 Chronic obstructive pulmonary disease with (acute) exacerbation; L89.153 Pressure ulcer of sacral region, stage 3; J45.901 Unspecified asthma with (acute) exacerbation; E88.09 Other disorders of plasma-protein metabolism, not elsewhere classified; E87.70 Fluid overload, unspecified; Z68.41 Body mass index [BMI] 40.0-44.9, adult; K56.7 Ileus, unspecified; N18.9 Chronic kidney disease, unspecified; R09.02 Hypoxemia; Z72.0 Tobacco use; Z86.73 Personal history of transient ischemic attack (TIA), and cerebral infarction without residual deficits; Z86.718 Personal history of other venous thrombosis and embolism; E66.9 Obesity, unspecified; F17.210 Nicotine dependence, cigarettes, uncomplicated; M19.90 Unspecified osteoarthritis, unspecified site; E78.5 Hyperlipidemia, unspecified; D64.9 Anemia, unspecified; G47.33 Obstructive sleep apnea (adult) (pediatric); F41.9 Anxiety disorder, unspecified; R19.7 Diarrhea, unspecified; B37.3 Candidiasis of vulva and vagina; E87.6 Hypokalemia; B96.5 Pseudomonas (aeruginosa) (mallei) (pseudomallei) as the cause of diseases classified elsewhere; R13.10 Dysphagia, unspecified; G89.18 Other acute postprocedural pain; R49.0 Dysphonia; R53.1 Weakness
CPT/HCPCS: 36415; 36430; 36569; 36600; 71045; 74018; 74230; 80048; 80053; 81001; 82550; 82553; 82607; 82805; 82948; 83605; 83735; 83880; 84100; 84478; 84484; 85007; 85025; 85027; 85610; 85730; 86850; 86900; 86920; 87040; 87071; 87086; 87102; 87116; 87186; 87205; 87206; 87335; 87493; 93005; 94002; 94003; 94640; 94660; 94667; 94668; 96366; 96372; 97139; C1781; J0171; J0360; J0690; J1100; J1200; J1630; J1650; J1940; J2001; J2060; J2250; J2270; J2405; J2543; J3370; J3480; J3486; J7050; J7070; J7120; P9016

== ENCOUNTER 2017-11-14 14:30 | Emergency (ER) | payer OTHER ==
[~2017-11-14] VITALS: Ht 170.2 cm; Wt 107.0 kg
--- OUTSIDE RECORDS SUMMARY | 2017-11-14 14:32 | XMS REPORT | Continuity of Care Document ---
Author Author [facility] Organization [facility] Address [address] [place] [address] Phone Unavailable Care Team Providers Care Supervisor Loading Name Role Phone JOSH LARA DO PCP Insurance Providers Guarantor Melissa Sam Address [address] [place] [address] Email PTDECLINED Payer [facility] Policy Number [id number] Subscriber's Name Melissa Sam Relationship 18 Self / Same As Patient Group Number [id number] Group Name [employer] - Medicare Advantage Divis Effective Date 17 Advance Directives Directive Response Recorded Date/Time Does the patient have an advance directive? No 10/03/17 2:51pm If yes, is advance directive on file with [facility]? No 10/03/17 2:51pm If not on file with [facility] will patient provide a copy? No 10/03/17 2:51pm Do you have a Directive to Physician? Yes 09/29/17 1:35pm Do you have a Medical Power of Inspector [employer]? Yes 09/29/17 1:35pm Do you have an out of hospital Do Not Resuscitate Order? Yes 09/29/17 1:35pm Do you have any special needs we should be aware of? No 09/29/17 1:35pm Do you have a support person here with you today? Yes 10/03/17 5:14am Did patient receive Notice of Privacy Practices? Yes 09/29/17 1:35pm Did patient receive patient rights and responsibilities? Yes 09/29/17 1:35pm Problems Medical Problem Onset Date Status Abdominal pain Unknown Morbidly obese Unknown Stage 4 skin ulcer of sacral region Unknown Vomiting Unknown Medications Current Home Medications Medication Dose Units Route Directions Days Qty Instructions Start Date Atorvastatin Calcium 20 Mg Tablet 40 Mg Oral Daily 30 Tab Bupropion Hcl (Bupropion Xl) 150 Mg Tab.er.24h 300 Mg Oral Twice A Day Fenofibrate Nanocrystallized (Fenofibrate) 145 Mg Tablet 145 Mg Oral Daily Furosemide 40 Mg Tablet 40 Mg Oral Daily 30 Tab Gabapentin 300 Mg Capsule 300 Mg Oral Three Times A Day 60 Cap Hydrocodone Bit/Acetaminophen ([place] 10-325 Tablet) 1 Each Tablet 1 Tab Oral As Needed Nifedipine (Nifedipine Er) 30 Mg Tab.er.24 60 Mg Oral Daily Oxybutynin Chloride 5 Mg Tablet 5 Mg Oral Twice A Day 30 Tab Potassium Chloride 10 Meq Tab.er.prt 10 Meq Oral Daily Rivaroxaban (Xarelto) 20 Mg Tablet 20 Mg Oral Daily Vit B12 1 Tab Oral Daily Vit D 1 Tab Oral Daily Past Home Medications Medication Directions Ordered Status Acetaminophen 325 Mg Tablet, 325 Mg Oral Every 6 Hours as needed for Pain Discontinued Ascorbic Acid 500 Mg Tablet, 250 Mg Oral Twice A Day Discontinued Cholestyramine (With Sugar) (Questran Packet) 4 Gm Packet, 4 Gm Oral Every 12 Hours Discontinued Ciprofloxacin Hcl (Cipro) 500 Mg Tablet, 500 Mg Oral Every 12 Hours Discontinued Clonazepam 0.5 Mg Tablet, 0.25 Mg Oral Every 8 Hours as needed for Anxiety Discontinued Fenofibrate Nanocrystallized (Fenofibrate) 145 Mg Tablet, 145 Mg Oral Daily Discontinued Fentanyl 1 Each Patch.td72, 25 Mcg Topically Q72 Hrs Discontinued Fluconazole 100 Mg Tablet, 200 Mg Oral Daily Discontinued Furosemide 40 Mg Tablet, 40 Mg Oral Twice A Day Discontinued Gentamicin In Nacl, Iso-Osm (Gentamicin 80 Mg/Ns 100 Ml Pb) 80 Mg/100 Ml Piggyback, 300 Mg Intraven Daily Discontinued Hydralazine Hcl 20 Mg/1 Ml Vial, 10 Mg Intraven Every 4 Hours as needed for High Blood Pressure Discontinued Hydrocodone Bit/Acetaminophen ([place]ner 5-325 Tablet) 1 Each Tablet, 1 Each Oral Every 4 Hours as needed for Pain Discontinued Hydromorphone Hcl 2 Mg/1 Ml Vial, 2 Mg Intraven Every 4 Hours as needed for Pain Discontinued Insulin Aspart (Novolog Mix 70-30 Vial) 100 Units/Ml Ml, Unknown Dose Sub-Q Every 6 Hours as needed for High Blood Sugar Discontinued Insulin Detemir (Levemir) 100 Unit/1 Ml Vial, 20 Unit Sub-Q Daily Discontinued Ipratropium/Albuterol Sulfate (Combivent Respimat Inhal [place]) 4 Gm Aer.w.adap , 4 Gm Inhalation As Needed Discontinued Lactobacillus Acidophilus (Acidophilus) 1 Each Tab.chew, 1 Tab Oral Daily Discontinued Linezolid (Zyvox) 600 Mg/300 Ml Soln, 600 Mg Intraven Daily Discontinued Melatonin 3 Mg Tablet, 3 Mg Oral Bedtime Discontinued Multivitamin (Multi-Vitamin Daily) 1 Each Tablet, 1 Tab Oral Daily Discontinued Mupirocin Calcium (Bactroban) 15 Gm Cream..g., 1 Udpkt Topically Twice A Day Discontinued Naloxone Hcl 0.4 Mg/1 Ml Disp.syrin, 0.4 Mg Intramusc As Needed Discontinued Nystatin 1 Each Powder.ea., 1 Udpkt Topical Twice A Day Discontinued Ondansetron (Zofran Odt) 4 Mg Tab.rapdis, 4 Mg Oral Every 6 Hours as needed for Na Discontinued Ondansetron Hcl 2 Mg/1 Ml Vial, 4 Mg Intraven Every 6 Hours Discontinued Opthalmic Lubricant , 1 Drop Ophthalmic As Needed Discontinued Oxybutynin Chloride 5 Mg Tablet, 5 Mg Oral Twice A Day Discontinued Pantoprazole Sodium (Protonix) 40 Mg Tablet.dr, 40 Mg Intraven Daily Discontinued Phenazopyridine Hcl 100 Mg Tablet, 100 Mg Oral Three Times A Day Discontinued Pravastatin Sodium 20 Mg Tablet, 20 Mg Oral Bedtime Discontinued Promethazine Hcl (Phenergan) 25 Mg/1 Ml Ampul, 25 Mg Intramusc Discontinued Quetiapine Fumarate (Seroquel) 25 Mg Tablet, 12.5 Mg Oral Twice A Day Discontinued Saliva Substitute (Biotene Oralbalance) 45 Ml Liqd, 1 Spr Oral Daily Discontinued Sulfamethoxazole/Trimethoprim (Bactrim Ds Tablet) 1 Each Tablet, 1 Tab Oral Every 12 Hours Discontinued Zinc Sulfate 220 Mg Tablet, 220 Mg Oral Daily Discontinued Social History Social History Problem Response Recorded Date/Time Onset Date Status Hx Psychiatric Problems Y - sandoval a lot 10/03/2017 2:51pm Not Applicable Not Applicable Hx Eating Disorder Yes 10/03/2017 2:51pm Not Applicable Not Applicable Hx Substance Use Disorder Y - pain pills 10/03/2017 2:51pm Not Applicable Not Applicable Hx Depression Yes 10/03/2017 2:51pm Not Applicable Not Applicable Hx Alcohol Use No 10/03/2017 2:51pm Not Applicable Not Applicable Hx Substance Use Treatment No 10/03/2017 2:51pm Not Applicable Not Applicable Hx Physical Abuse No 10/03/2017 2:51pm Not Applicable Not Applicable Smoking Status Start Date Stop Date Current some day smoker Hospital Discharge Instructions No hospital discharge instruction information available. Plan of Care Discharge Date 10/24/17 5:10pm Disposition TRANSFER SHELTER Prescriptions See Medication Section Functional Status Query Response Date Recorded FUNCTIONAL STATUS . October 24, 2017 2:58pm Assistive Devices Straight Cane Standard Walker October 03, 2017 1:50pm Ambulation Ability Independent October 03, 2017 1:50pm Toileting Ability Moderate Assistance October 24, 2017 2:05pm Allergies, Adverse Reactions, Alerts No known allergies. Immunizations No immunization information available. Vital Signs Acute Vital Signs Vital Response Date/Time Temperature (Fahrenheit) 96.7 degrees F (97.6 - 99.5) 10/24/2017 4:19pm Pulse Pulse Rate (adult) 71 bpm (60 - 90) 10/24/2017 4:19pm Respiratory Rate 20 bpm (12 - 24) 10/24/2017 4:19pm Blood Pressure 131/67 mm Hg 10/24/2017 4:19pm Height 5 ft 7 in 10/07/2017 9:17am Weight 260 lb 10/23/2017 12:00am Body Mass Index 40.7 kg/m^2 10/23/2017 12:00am Results Laboratory Results Test Name Result Units Flags Reference Collection Date/Time Result Date/ Time Comments Hemoglobin A1c Percent 4.7 % 4.0-7.0 03/12/2017 7:04am 03/12/2017 7: 51am Lipase 8 U/L 8-78 03/11/2017 9:34am 03/11/2017 10:35am Thyroid Stimulating Hormone (TSH) 0.979 uIU/mL 0.350-4.940 03/12/2017 7: 04am 03/12/2017 8:29am Vancomycin Level Trough 18.7 ug/mL *H 5.0-10.0 03/12/2017 5:00pm 2016 5:54pm Results called to RAMSEY ZAMORA at 1753 on 03/12/17 by Cassie Barraza. RB OK. Stool Calprotectin <16 ug/g 0-120 03/18/2017 5:45pm 03/25/2017 12:38pm Concentration Interpretation Follow-Up <16 - 50 ug/g Normal None >50 -120 ug/g Borderline Re-evaluate in 4-6 weeks >120 ug/g Abnormal Repeat as clinically indicated Performed at: - [facility] [address] [id number] Corporate Travel Consultant: Mark Tabor MD, Phone: [phone] White Blood Count 8.71 x10e3/uL 4.8-10.8 10/22/2017 5:30am 10/22/2017 6 :09am Red Blood Count 3.58 x10e6/uL L 3.6-5.1 10/22/2017 5:30am 10/22/2017 6: 09am Hemoglobin 10.9 g/dL L 12.0-16.0 10/22/2017 5:30am 10/22/2017 6:09am Hematocrit 34.3 % 34.2-44.1 10/22/2017 5:30am 10/22/2017 6:09am Mean Corpuscular Volume 95.8 fL 81-99 10/22/2017 5:30am 10/22/2017 6: 09am Mean Corpuscular Hemoglobin 30.4 pg 28-32 10/22/2017 5:30am 10/22/2017 6:09am Mean Corpuscular Hemoglobin Concent 31.8 g/dL 31-35 10/22/2017 5:30am 10/22/2017 6:09am Red Cell Distribution Width 15.6 % H 11.7-14.4 10/22/2017 5:30am 2017 6:09am Platelet Count 268 x10e3/uL 140-360 10/22/2017 5:30am 10/22/2017 6: 09am Neutrophils (%) (Auto) 58.4 % 38.7-80.0 10/22/2017 5:10/22/2017 6: 09am Lymphocytes (%) (Auto) 27.2 % 18.0-39.1 10/22/2017 5:10/22/2017 6: 09am Monocytes (%) (Auto) 9.2 % 4.4-11.3 10/22/2017 5:10/22/2017 6: 09am Eosinophils (%) (Auto) 2.4 % 0.0-6.0 10/22/2017 5:10/22/2017 6: 09am Basophils (%) (Auto) 0.7 % 0.0-1.0 10/22/2017 5:10/22/2017 6:09am IM GRANULOCYTES % 2.1 % H 0.0-1.0 10/22/2017 5:10/22/2017 6:09am Neutrophils # (Auto) 5.1 2.1-6.9 10/22/2017 5:10/22/2017 6:09am Lymphocytes # (Auto) 2.4 1.0-3.2 10/22/2017 5:10/22/2017 6:09am Monocytes # (Auto) 0.8 0.2-0.8 10/22/2017 5:10/22/2017 6:09am Eosinophils # (Auto) 0.2 0.0-0.4 10/22/2017 5:10/22/2017 6:09am Basophils # (Auto) 0.1 0.0-0.1 10/22/2017 5:10/22/2017 6:09am Absolute Immature Granulocyte (auto 0.18 x10e3/uL H 0-0.1 10/22/2017 5: 10/22/2017 6:09am Differential Total Cells Counted 100 10/22/2017 5:10/22/2017 11:16am Neutrophils % (Manual) 53 % 40-74 10/22/2017 5:10/22/2017 11:16am Band Neutrophils % 3 % 10/22/2017 5:10/22/2017 11:16am Lymphocytes % (Manual) 28 % 19-48 10/22/2017 5:30am 10/22/2017 11:16am Monocytes % (Manual) 10 % H 3.4-9.0 10/22/2017 5:30am 10/22/2017 11: 16am Eosinophils % (Manual) 4 % 0-7 10/22/2017 5:30am 10/22/2017 11:16am Basophils % (Manual) 2 % H 0-1.5 10/22/2017 5:30am 10/22/2017 11:16am Metamyelocytes % 1 % H 0-0 10/17/2017 7:52am 10/17/2017 8:56am Myelocytes % 4 % H 0-0 10/17/2017 7:52am 10/17/2017 8:56am Promyelocytes % 1 % H 0-0 10/05/2017 4:30am 10/05/2017 7:47am Reactive Lymphocytes 2 10/17/2017 7:52am 10/17/2017 8:56am Platelet Estimate ADEQUATE 10/22/2017 5:30am 10/22/2017 11:16am Platelet Morphology Comment NORMAL 10/22/2017 5:30am 10/22/2017 11: 16am Polychromasia FEW 10/12/2017 5:40am 10/12/2017 8:01am Hypochromasia SLIGHT 10/12/2017 5:40am 10/12/2017 8:01am Poikilocytosis SLIGHT 10/13/2017 5:30am 10/13/2017 8:02am Anisocytosis SLIGHT 10/17/2017 7:52am 10/17/2017 8:56am Red Cell Morphology Comment NORMAL 10/22/2017 5:30am 10/22/2017 11: 16am Prothrombin Time 16.1 seconds H 11.9-14.5 10/05/2017 8:30pm 10/05/2017 9 :09pm Prothromb Time International Ratio 1.23 10/05/2017 8:30pm 2017 9:09pm Oral Anticoagulant Therapy INR Values: 1. Low Intensity Therapy 1.5 - 2.0 2. Moderate Intensity Therapy 2.0 - 3.0 3. High Intensity Therapy(1) 2.5 - 3.5 4. High Intensity Therapy(2) 3.0 - 4.0 5. Panic Value INR > 5.0 Activated Partial Thromboplast Time 35.7 seconds H 23.8-35.5 10/05/2017 8 :30pm 10/05/2017 9:09pm Urine Color YELLOW YELLOW 10/05/2017 9:45pm 10/05/2017 9:46pm Urine Clarity HAZY CLEAR 10/05/2017 9:45pm 10/05/2017 9:46pm Urine Specific [place] 1.020 1.010-1.025 10/05/2017 9:45pm 2017 9:46pm Urine pH 5 5 - 7 10/05/2017 9:45pm 10/05/2017 9:46pm Urine Leukocyte Esterase NEGATIVE NEGATIVE 10/05/2017 9:45pm 2017 9:46pm Urine Nitrite NEGATIVE NEGATIVE 10/05/2017 9:45pm 10/05/2017 9:46pm Urine Protein 1+ H NEGATIVE 10/05/2017 9:45pm 10/05/2017 9:46pm Urine Glucose (UA) NEGATIVE NEGATIVE 10/05/2017 9:45pm 10/05/2017 9: 46pm Urine Ketones NEGATIVE NEGATIVE 10/05/2017 9:45pm 10/05/2017 9:46pm Urine Urobilinogen 0.2 mg/dL 0.2 - 1 10/05/2017 9:45pm 10/05/2017 9: 46pm Urine Bilirubin NEGATIVE NEGATIVE 10/05/2017 9:45pm 10/05/2017 9: 46pm Urine Blood 4+ H NEGATIVE 10/05/2017 9:45pm 10/05/2017 9:46pm Urine WBC 0-5 /HPF 0-5 10/05/2017 9:45pm 10/05/2017 10:03pm Urine RBC 11-20 /HPF H 0-5 10/05/2017 9:45pm 10/05/2017 10:03pm Urine Bacteria NONE /HPF NONE 10/05/2017 9:45pm 10/05/2017 10:03pm Urine Epithelial Cells FEW /LPF NONE 10/05/2017 9:45pm 10/05/2017 10: 03pm Sodium Level 136 mmol/L 136-145 10/22/2017 5:30am 10/22/2017 6:07am Potassium Level 3.8 mmol/L 3.5-5.1 10/22/2017 5:30am 10/22/2017 6:07am Chloride Level 106 mmol/L 98-107 10/22/2017 5:30am 10/22/2017 6:07am Carbon Dioxide Level 21 mmol/L L 22-29 10/22/2017 5:30am 10/22/2017 6: 07am Anion Gap 12.8 mmol/L 8-16 10/22/2017 5:30am 10/22/2017 6:07am Blood Urea Nitrogen 17 mg/dL 7-10/22/2017 5:30am 10/22/2017 6:07am Creatinine 0.78 mg/dL 0.57-1.11 10/22/2017 5:30am 10/22/2017 6:07am BUN/Creatinine Ratio 22 6-10/22/2017 5:30am 10/22/2017 6:07am Estimat Glomerular Filtration Rate > 60 ML/MIN 60- 10/22/2017 5:30am 6:07am Ranges were taken from the National Kidney Disease Education Program and the National Kid[employer] Foundation literature. Reference ranges: 60 or greater: Normal 16-59 (for 3 consecutive months): Chronic kidney disease 15 or less: Kidney failure Glucose Level 111 mg/dL 74-118 10/22/2017 5:30am 10/22/2017 6:07am Calcium Level 9.1 mg/dL 8.4-10.2 10/22/2017 5:30am 10/22/2017 6:07am Bedside Glucose 101 mg/dL 70-120 10/24/2017 4:06pm 10/24/2017 4:16pm Meter ID: [id number] Lactic Acid Level 10.4 MG/DL 4.5-19.8 10/05/2017 8:30pm 10/05/2017 9: 04pm Phosphorus Level 3.1 MG/DL 2.3-4.7 10/15/2017 5:15am 10/15/2017 6:27am Magnesium Level 2.3 MG/DL H 1.3-2.1 10/16/2017 6:00am 10/16/2017 7:03am Total Bilirubin < 0.3 mg/dL 0.2-1.2 10/15/2017 5:15am 10/15/2017 6: 27am Aspartate Amino Transf (AST/SGOT) 15 IU/L 5-34 10/15/2017 5:15am 2017 6:27am Alanine Aminotransferase (ALT/SGPT) 15 IU/L 0-55 10/15/2017 5:15am 6:27am Total Protein 7.1 g/dL 6.5-8.1 10/15/2017 5:1510/15/2017 6:27am Albumin 2.8 g/dL L 3.5-5.0 10/15/2017 5:15am 10/15/2017 6:27am Globulin 4.3 g/dL H 2.3-3.5 10/15/2017 5:1510/15/2017 6:27am Albumin/Globulin Ratio 0.7 L 0.8-2.0 10/15/2017 5:1510/15/2017 6: 27am Alkaline Phosphatase 71 IU/L 40-150 10/15/2017 5:15am 10/15/2017 6: 27am Triglycerides Level 247 MG/DL H 0-149 10/08/2017 5:00am 10/08/2017 6: 03am B-Type Natriuretic Peptide 55.7 pg/mL 0-100 10/06/2017 4:50am 2017 5:23am Creatine Kinase 41 IU/L 29-168 10/17/2017 7:52am 10/17/2017 8:16am Creatine Kinase MB 1.10 ng/mL 0.00-5.00 10/17/2017 7:52am 10/17/2017 8: 38am Troponin I 0.003 ng/mL 0-0.300 10/17/2017 7:52am 10/17/2017 8:38am Vitamin B12 Level 325 pg/mL 213-816 10/15/2017 5:15am 10/15/2017 7: 01am Arterial Blood pH 7.44 H 7.31-7.41 10/12/2017 8:33am 10/12/2017 12: 59pm Arterial Blood Partial Pressure CO2 33 mmHg L 41-51 10/12/2017 8:33am 12:59pm Arterial Blood Partial Pressure O2 86 mmHg 80-105 10/12/2017 8:33am 12:59pm Arterial Blood HCO3 23 mmol/L 23-28 10/12/2017 8:33am 10/12/2017 12: 59pm Arterial Blood Base Excess -1.0 mmol/L -2 - 3 10/12/2017 8:33am 2017 12:59pm Arterial Blood Oxygen Saturation 97.0 % 95-98 10/12/2017 8:33am 2017 12:59pm Clostridium Difficile Toxin A & B NEGATIVE NEGATIVE 10/20/2017 12: 00pm 10/20/2017 2:21pm Testing on stool aspirate specimens is outside dent remover claims since specimen type not validated on this assay. Microbiology Results Procedure Source Organism/Result Collection Date/Time Result Date/Time Result Status Wound Culture Abdomen PSEUDOMONAS AERUGINOSA 02/08/2017 12:16pm 2016 10:44am Final Wound Culture Sacral GRAM POSITIVE CHANI 03/10/2017 3:45pm 03/14/2017 6: 34am Final Blood Culture Blood STAPHYLOCOCCUS SP COAG NEG 10/05/2017 8:30pm 2017 7:29am Final Bronchial Washings Culture Bronchial Washings, Both Lobes PSEUDOMONAS AERUGINOSA 10/06/2017 5:11pm 10/09/2017 9:53am Final Blood Culture Blood NO GROWTH AFTER 5 DAYS, FINAL REPORT 10/10/2017 11: 25am 10/15/2017 11:28am Final Procedures Procedure Status Date Provider(s) ROSA MUSC/FASCIA 20 SQ CM/< Completed 02/08/17 GELBER,JOSH INFANTE ROSA BONE 20 SQ CM/< Completed 02/08/17 GELBER,JOSH INFANTE ROSA MUSC/FASCIA ADD-ON Completed 02/08/17 GELBER,JOSH INFANTE ROSA MUSC/FASCIA ADD-ON Completed 02/08/17 GELBER,JOSH INFANTE ROSA MUSC/FASCIA ADD-ON Completed 02/08/17 GELBER,JOSH INFANTE ROSA MUSC/FASCIA ADD-ON Completed 02/08/17 GELBER,JOSH INFANTE ROSA MUSC/FASCIA ADD-ON Completed 02/08/17 GELBER,JOSH INFANTE ROSA MUSC/FASCIA ADD-ON Completed 02/08/17 GELBER,JOSH INFANTE ROSA MUSC/FASCIA ADD-ON Completed 02/08/17 GELBER,JOSH INFANTE ROSA MUSC/FASCIA ADD-ON Completed 02/08/17 GELBER,JOSH INFANTE ROSA MUSC/FASCIA ADD-ON Completed 02/08/17 GELBER,JOSH INFANTE ROSA MUSC/FASCIA ADD-ON Completed 02/08/17 GELBER,JOSH INFANTE ROSA MUSC/FASCIA ADD-ON Completed 02/08/17 GELBER,JOSH MD ROSA MUSC/FASCIA ADD-ON Completed 02/08/17 GELBER,JOSH LEE MUSC/FASCIA ADD-ON Completed 02/08/17 GELBASSAM,JOSH LEE MUSC/FASCIA ADD-ON Completed 02/08/17 GELBER,JOSH LEE MUSC/FASCIA ADD-ON Completed 02/08/17 GELBER,JOSH LEE MUSC/FASCIA ADD-ON Completed 02/08/17 GELBER,JOSH LEE MUSC/FASCIA ADD-ON Completed 02/08/17 GELBER,JOSH LEE BONE ADD-ON Completed 02/08/17 LALIBER,JOSH INFANTE Unsched dialysis ESRD pt hos Completed 02/08/17 Repair of incisional hernia Completed 10/03/17 MCIKEY,JOSH INFANTE Bronchoscopy with biopsy Completed 10/06/17 MELISSA THOMPSON MD Computed tomography of abdomen and pelvis with contrast Active 03/10/17 LASHONDA SEALS Computed tomography of pelvis with contrast Active 09/15/17 MARCELINO PEDRAZA MD Encounters Encounter Location Arrival/Admit Date Discharge/Depart Date Attending Provider Discharged Inpatient [facility] 10/03/17 1:19pm 10/24/17 5:10pm JOSH AREVALO MD Registered Clinic [facility] 09/15/17 8:29am MARCELINO PEDRAZA MD Discharged Recurring [facility] 06/19/17 8:07am 07/18/17 11:59pm OZZIE SMITH MD Discharged Recurring [facility] 06/05/17 8:21am 06/17/17 11:59pm OZZIE SMITH MD Discharged Inpatient [facility] 03/10/17 8:24pm 03/27/17 3:08pm FRANCIS RICHARDS MD Registered Surgical Day Care [facility] 02/08/17 9:34am JOSH AREVALO MD
--- OUTSIDE RECORDS SUMMARY | 2017-11-14 14:32 | XMS REPORT ---
Author Author [facility] Address Unknown Phone Unavailable Care Team Providers Care Demolition Specialist Name Role Phone JOSH AREVALO Unavailable Unavailable MARCELINO PEDRAZA Unavailable Unavailable Problems This patient has no known problems. Allergies, Adverse Reactions, Alerts This patient has no known allergies or adverse reactions. Medications This patient has no known medications. Results Test Description Test Time Test Comments Text Results Atomic Results Result Comments MODIFIED BA. SWALLOW [place] [address] Patient Name: LIZBETH SAM MR #: [id number] : 1955 Age/Sex: 62/F Req #: [id number] [facility] Physician: JOSH AREVALO MD Ordered by: MELISSA THOMPSON MD Report #: [id number] Location: MED/SURG3 Room/Bed: [facility] Procedure: [id number] DX/MODIFIED BA. SWALLOW Exam Date: Exam Time: REPORT STATUS: Signed PROCEDURE: MODIFIED BA. SWALLOW COMPARISON: None. INDICATIONS: Not provided. DISCUSSION: Fluoroscopic examination was performed in conjunction with speech pathology during swallowing of a variety of thin and thick liquid consistencies. RADIATION DOSE: Total Time: 39 sec Cumulative area dose product: 124.6 cGym S 2 Cumulative air kerma: 3.53 mGy FINDINGS: PREMATURE SPILLAGE: Over the base of the tongue: None To vallecula: None To pyriform sinus: None LARYNGEAL PENETRATION: None ASPIRATION : None RESIDUE: VALLECULA: Trace PYRIFORM SINUS : None PHARYNGEAL WALL: None BASE OF TONGUE: Mild. Clears with liquid wash. CONCLUSION: No penetration or aspiration. Please see report from speech pathology for complete details. Dictated by: Bryan Davison M.D. on 10/18/2017 at 15:22 Electronically approved by: Bryan Davison M.D. on 10/18/2017 at 15:22 Dictated By: BRYAN DAVISON MD 1522 Transcribed By: MEI on 10/18/17 1522 COPY TO: MELISSA THOMPSON MD CHEST SINGLE (PORTABLE) [place] [address] Patient Name: LIZBETH SAM MR #: [id number] : 1955 Age/Sex: 62/F Req #: [id number] Adm Physician: JOSH AREVALO MD Ordered by: MELISSA THOMPSON MD Report #: [id number] Location: MED/SURG3 Room/Bed: [facility] Procedure: [id number] DX/CHEST SINGLE (PORTABLE) Exam Date: 10/18/17 Exam Time: 0700 REPORT STATUS: Signed PROCEDURE: CHEST SINGLE (PORTABLE) TECHNIQUE: Portable AP chest INDICATION: Pneumonia COMPARISON: [facility], DX, CHEST SINGLE (PORTABLE), 10/17/2017, 5:50. FINDINGS: See conclusion. CONCLUSION: 1. Right PICC terminating in the low SVC. 2. Interval NG tube removal. 3. Interval improvement in pulmonary edema. 4. Persistent left lower lobe airspace opacity consistent with clinically reported pneumonia. No cavitation. 5. No conspicuous pleural effusion. 6. Stable cardiomegaly with mild central vascular congestion. Dictated by: Edward Tabor M.D. on 10/18/2017 at 7:35 Electronically approved by : Edward Tabor M.D. on 10/18/2017 at 7:35 Dictated By: EDWARD TABOR MD 4 Transcribed By: MEI on 10/18/17734 COPY TO: MELISSA THOMPSON MD CHEST SINGLE (PORTABLE) [place] [address] Patient Name: LIZBETH SAM MR #: [id number] : 1955 Age/Sex: 62/F Req #: [id number] Adm Physician: JOSH AREVALO MD Ordered by: MELISSA THOMPSON MD Report #: [id number] Location: MED/SURG3 Room/Bed: [facility] Procedure: [id number] DX/CHEST SINGLE (PORTABLE) Exam Date: Exam Time: REPORT STATUS: Signed EXAM: CHEST SINGLE (PORTABLE), AP 1 view DATE: 10/17/2017 5:00 AM Time stamp on exam: 0550 hours INDICATION: Atelectasis COMPARISON: None FINDINGS: LINES/TUBES: Tip of nasal/orogastric tube courses out of field of view. Indeterminate linear density projects over the thoracic inlet, possibly a poorly visualized endotracheal tube were prominent side of the nasal/ orogastric tube. The distal aspect of the right approach PICC is poorly visualized. LUNGS: Stable left lower lobe airspace opacity. Perihilar vascular congestion and atelectasis. PLEURA: Probable left pleural effusion. HEART AND MEDIASTINUM: Stable appearance. BONES AND SOFT TISSUES: No acute findings. IMPRESSION: No significant interval change. Signed by: Dr. Lori Khan M.D. on 10/17/2017 6:29 AM Dictated By: LORI KHAN MD 8 COPY TO: MELISSA THOMPSON MD CHEST SINGLE (PORTABLE) [place] [address] Patient Name: LIZBETH SAM MR #: [id number] : 1955 Age/Sex: 62/F Req #: [id number] Adm Physician: JOSH AREVALO MD Ordered by: MELISSA THOMPSON MD Report #: [id number] [facility]: [facility] Room/Bed: [facility] Procedure: [id number] DX/CHEST SINGLE (PORTABLE) Exam Date: 10/16/17 Exam Time: 0550 REPORT STATUS: Signed PROCEDURE: CHEST SINGLE (PORTABLE) COMPARISON: [facility], DX, CHEST SINGLE (PORTABLE), 10/14/2017, 6:28. INDICATIONS: ASPIRATION FINDINGS: LUNGS: Improvement in the pulmonary vascular congestion. Unchanged opacity in the left lower lobe. PLEURA: Small left pleural effusion. HEART T MEDIASTINUM: The heart is within normal size-limits. BONES T SOFT TISSUES: No acute findings. NG tube extends below the diaphragm. Second line overlies the mid esophagus region. Unchanged right PICC line. CONCLUSION: Unchanged left lower lobe opacity with a small effusion. Charles Mariscal D.O. Dictated by: Charles Mariscal D.O. on 10/16/2017 at 8:24 Electronically approved by : Charles Mariscal D.O. on 10/16/2017 at 8:24 Dictated By: CHARLES MARISCAL DO 4 Transcribed By: MEI on 10/16/17824 COPY TO: MELISSA THOMPSON MD CHEST SINGLE (PORTABLE) [place] [address] Patient Name: LIZBETH SAM MR #: [id number] : 1955 Age/Sex: 62/F Req #: [id number] Adm Physician: JOSH AREVALO MD Ordered by: MELISSA THOMPSON MD Report #: [id number] Location: ICU Room/Bed: ICU [facility] Procedure: [id number] DX/CHEST SINGLE (PORTABLE) Exam Date: 10/14/17 Exam Time: 624 REPORT STATUS: Signed CHEST SINGLE (PORTABLE), 10/14/2017 5:00 AM Technique: CHEST SINGLE (PORTABLE) Comparison: Previous day Clinical history: Post extubation , NG tube Findings: See Impression Impression: Significantly limited by portable technique and motion artifact 1. Lines/Tubes: Removal of ET tube. Stable right PICC. NG tube appears to extend subdiaphragmatically. Additional line projecting over the mid esophagus may be artifactual; recommend attention on follow-up 2. Stable mildly enlarged cardiomediastinal silhouette. 3. Left basilar opacity in keeping with reported aspiration pneumonia. Probable left pleural effusion. Signed by: Dr Tevin Varma MD on 10/14/2017 6:42 AM Dictated By: TEVIN VARMA MD 1 Transcribed By: ROBBIN on 10/14 COPY TO: MELISSA THOMPSON MD CHEST SINGLE (PORTABLE) [facility] [address] [place] [address] Patient Name: LIZBETH SAM MR #: [id number] : 1955 Age/Sex: 62/F Req #: [id number] Adm Physician: JOSH AREVALO MD Ordered by: MELISSA THOMPSON MD Report #: [id number] Location: ICU Room/Bed: ICU [facility] Procedure: [id number] DX/CHEST SINGLE (PORTABLE) Exam Date: 10/13/17 Exam Time: 5 REPORT STATUS: Signed CHEST SINGLE (PORTABLE), 10/13/2017 5:00 AM Technique: CHEST SINGLE (PORTABLE) Comparison: 10/12/2016 Clinical history: Aspiration pneumonia Findings: See Impression Impression: Significantly limited by portable technique and motion artifact 1. Lines/Tubes: Stable ET tube 5.5 cm above the yaz and visualized subdiaphragmatic NG tube. 2. Stable mildly enlarged cardiomediastinal silhouette. 3. Left basilar opacity in keeping with reported aspiration pneumonia. Question layering left pleural effusion. Signed by: Dr Tevin Varma MD on 10/13/2017 6:04 AM Dictated By: TEVIN VARMA MD 3 Transcribed By: ROBBIN on 10/13/17603 COPY TO: MELISSA THOMPSON MD MODIFIED BA. SELENE [place] [address] Patient Name: LIZBETH SAM MR #: [id number] : 1955 Age/Sex: 62/F Req #: [id number] Adm Physician: JOSH AREVALO MD Ordered by: MELISSA THOMPSON MD Report #: [id number] Location: ICU Room/Bed: ICU 193 Procedure: [id number] DX/MODIFIED BA. SWALLOW Exam Date : 10/12/17 Exam Time: 2026 REPORT STATUS: Signed PROCEDURE: X-RAY MODIFIED BARIUM SWALLOW COMPARISON: None. INDICATIONS: Not provided. DISCUSSION: Fluoroscopic examination was performed in conjunction with speech pathology, during swallowing of a variety of thin and thick liquid consistencies. CONCLUSION: Aspiration was present. Please see the report from speech pathology for complete details. Dictated by: Francis Horta M.D. on 10/13/2017 at 11: 40 Electronically approved by: Francis Horta M.D. on 10/13/2017 at 11:40 Dictated By: FRANCIS HORTA MD 1140 Transcribed By: MEI on 10/13/17 1140 COPY TO : MELISSA THOMPSON MD [facility] [place] [address] Patient Name: LIZBETH SAM MR #: [id number] : 1955 Age/Sex: 62/F Req #: [id number] Adm Physician: JOSH AREVALO MD Ordered by: MELISSA THOMPSON MD Report #: [id number] Location: ICU Room/Bed: ICU 193 Procedure: [id number] DX/CHEST SINGLE (PORTABLE) Exam Date: 10/12/17 Exam Time: 0520 REPORT STATUS: Signed CHEST SINGLE (PORTABLE), 10/12/2017 5:00 AM Technique: CHEST SINGLE (PORTABLE) Comparison: 10/11/2016 Clinical history: Respiratory failure Findings: See Impression Impression: Significantly limited by portable technique and motion artifact 1. Lines/Tubes: Stable ET tube 5.5 cm above the yaz and visualized subdiaphragmatic NG tube. 2. Stable mildly enlarged cardiomediastinal silhouette. 3. Possible left basilar atelectasis or consolidation. Signed by: Dr Tevin Varma MD on 10/12/2017 6:19 AM Dictated By: TEVIN VARMA MD 8 Transcribed By: ROBBIN on 10/12/17618 COPY TO: MELISSA THOMPSON MD CHEST SINGLE (PORTABLE) [place] [address] Patient Name: LIZBETH SAM MR #: [id number] : 1955 Age/Sex: 62/F Req #: [id number] Adm Physician: JOSH AREVALO MD Ordered by: MELISSA THOMPSON MD Report #: [id number] Location: ICU Room/Bed: ICU [facility] Procedure: [id number] DX/CHEST SINGLE (PORTABLE) Exam Date: 10/11/17 Exam Time: 0500 REPORT STATUS: Signed CHEST SINGLE (PORTABLE), 10/11/2017 5:00 AM Technique: CHEST SINGLE (PORTABLE) Comparison: 10/10/2017 Clinical history: Respiratory failure Findings: See Impression Impression: Significantly limited by portable technique and motion artifact 1. Lines/Tubes: Stable ET tube 5.5 cm above the yaz and visualized subdiaphragmatic NG tube. 2. Stable mildly enlarged cardiomediastinal silhouette. 3. Possible edema and left basilar atelectasis or consolidation. Signed by: Dr Tevin Varma MD on 10/11/2017 6:10 AM Dictated By: TEVIN VARMA MD 9 Transcribed By: ROBBIN on 10/11 COPY TO: MELISSA THOMPSON MD CHEST SINGLE (PORTABLE) [place] [address] Patient Name: LIZBETH SAM MR #: [id number] : 1955 Age/Sex: 62/F Req #: [id number] Adm Physician: JOSH AREVALO MD Ordered by: MELISSA THOMPSON MD Report #: [id number] Location: ICU Room/Bed: ICU [facility] Procedure: [id number] DX/CHEST SINGLE (PORTABLE) Exam Date: 10/10/17 Exam Time: 0535 REPORT STATUS: Signed PROCEDURE: A single AP view of the chest. COMPARISON: None. INDICATIONS: CONGESTIVE HEART FAILURE FINDINGS: Lines/tubes: Endotracheal catheter is present with the tip projecting over the expected region of the trachea, positioned 4 cm from the yaz. Enteric feeding catheter is present with the tip extending below the margin of the examination, likely within the gastric body. Lungs: Left lung base air space opacity. No parenchymal mass. Pleura: There is no pleural effusion or pneumothorax. Heart and mediastinum: Enlarged cardiac silhouette. No mediastinal lymphadenopathy. Bones: No acute bony abnormality. Degenerative changes of the thoracic spine. IMPRESSION: Enlarged cardiac silhouette. Airspace opacity in the left lung base may represent a developing pneumonia. Dictated by: Francis Horta M.D. on at 7:41 Electronically approved by: Francis Horta M.D. on 2017 at 7:41 Dictated By: FRANCIS HORTA MD 0 Transcribed By: MEI on 10/10/17740 COPY TO: MELISSA THOMPSON MD CHEST SINGLE (PORTABLE) [place] [address] Patient Name: LIZBETH SAM MR #: [id number] : 1955 Age/Sex: 62/F Req #: [id number] Adm Physician: JOSH AREVALO MD Ordered by: MELISSA THOMPSON MD Report #: [id number] Location: ICU Room/Bed: ICU [facility] Procedure: [id number] DX/CHEST SINGLE (PORTABLE) Exam Date: 10/09/17 Exam Time: 0600 REPORT STATUS: Signed EXAMINATION: CHEST SINGLE (PORTABLE) INDICATION: Respiratory failure COMPARISON: 10/08/2017 FINDINGS: TUBES and LINES: Endotracheal and NG tube are stable. LUNGS: Lungs are not well inflated. Significant improvement in interstitial pulmonary edema and central vascular congestion. PLEURA: Trace of left pleural effusion remains present. HEART AND MEDIASTINUM: Cardiac size is mildly enlarged. There are atherosclerotic calcifications within the aorta. BONES AND SOFT TISSUES: No acute osseous lesion. Soft tissues are unremarkable. UPPER ABDOMEN: No free air under the diaphragm. IMPRESSION: Interval improvement in interstitial pulmonary edema and remaining left pleural effusion Signed by: Dr. Jl Moreno M.D. on 10/09/2017 7:00 AM Dictated By: JL DOMINGUEZ MD 9 Transcribed By: ROBBIN on 10/09/17699 COPY TO: MELISSA THOMPSON MD CHEST XRAY LINE PLACEMENT [place] [address] Patient Name: LIZBETH SAM MR #: [id number] : 1955 Age/Sex: 62/F Req #: [id number] Adm Physician: JOSH AREVALO MD Ordered by: FRANCIS RICHARDS MD Report #: [id number] Location: ICU Room/Bed: ICU [facility] ____ Procedure: [id number] DX/CHEST XRAY LINE PLACEMENT Exam Date : Exam Time: REPORT STATUS: Signed EXAMINATION: CHEST XRAY LINE PLACEMENT INDICATION: COMPARISON: Same day at 0933 hours FINDINGS: AP view TUBES and LINES: Stable endotracheal and nasogastric tubes. Right PICC in place with tip overlying superior SVC. LUNGS: Limited by low lung volumes, body habitus, and mild rotation. Again seen bilateral airspace opacities. PLEURA: No visible pneumothorax. Small left pleural effusion. HEART AND MEDIASTINUM: Partially obscured enlarged cardiac silhouette. Aorta is calcified and tortuous. BONES AND SOFT TISSUES: No acute osseous lesion. Soft tissues are unremarkable. UPPER ABDOMEN: No free air under the diaphragm. IMPRESSION: Right PICC placement with tip overlying superior SVC. No visible pneumothorax. Bilateral airspace opacities, representing edema and/or pneumonia. Small left pleural effusion. Signed by: Dr. Jeremie Melendez MD on 10/08/2017 2:21 PM Dictated By: JEREMIE MELENDEZ MD 1421 Transcribed By: ROBBIN on 10/08/17 142 COPY TO: FRANCIS RICHARDS MD CHEST SINGLE (PORTABLE) [place] [address] Patient Name: LIZBETH SAM MR #: [id number] : 1955 Age/Sex: 62/F Req #: [id number] Adm Physician: JOSH AREVALO MD Ordered by: MELISSA THOMPSON MD Report #: [id number] Location: ICU Room/Bed: ICU [facility] Procedure: [id number] DX/CHEST SINGLE (PORTABLE) Exam Date: 10/08/17 Exam Time: 924 REPORT STATUS: Signed EXAMINATION: CHEST SINGLE (PORTABLE) INDICATION: COMPARISON: 10/08/2017 FINDINGS: AP view TUBES and LINES: Stable endotracheal and nasogastric tubes. LUNGS: Limited by body habitus and low lung volumes. Bilateral airspace opacities. PLEURA : No pneumothorax. Small left pleural effusion. HEART AND MEDIASTINUM: Enlarged cardiomediastinal silhouette. BONES AND SOFT TISSUES: No acute osseous lesion. Soft tissues are unremarkable. UPPER ABDOMEN: No free air under the diaphragm. IMPRESSION: Enlarged cardiomediastinal silhouette with bilateral airspace opacities, representing edema and/or pneumonia. Small left pleural effusion. No significant interval change from prior exam. Signed by: Dr. Jeremie Melendez MD on 2017 10:08 AM Dictated By: JEREMIE MELENDEZ MD 1008 Transcribed By: ROBBIN on 10/08/17 1008 COPY TO: MELISSA THOMPSON MD CHEST SINGLE (PORTABLE) [facility] [address] [place] [address] Patient Name: LIZBETH SAM MR #: [id number] : 1955 Age/Sex: 62/F Req #: [id number] Adm Physician: JOSH AREVALO MD Ordered by: MELISSA THOMPSON MD Report #: [id number] Location: ICU Room/Bed: ICU [facility] Procedure: [id number] DX/CHEST SINGLE (PORTABLE) Exam Date: 10/08/17 Exam Time: 0600 REPORT STATUS: Signed EXAMINATION: CHEST SINGLE (PORTABLE) INDICATION: COMPARISON: 10/07/2017 FINDINGS: AP view TUBES and LINES: Stable endotracheal and nasogastric tubes. LUNGS and PLEURA: Limited by rotation, body habitus, and low lung volumes. Bilateral airspace opacities. No visible pneumothorax. Possible left pleural effusion. HEART AND MEDIASTINUM: Enlarged cardiac mediastinal silhouette. BONES AND SOFT TISSUES: No acute osseous lesion. Soft tissues are unremarkable. UPPER ABDOMEN: No free air under the diaphragm. IMPRESSION: Very limited study. Bilateral airspace opacities, representing edema and/or pneumonia. Possible moderate size left pleural effusion. Enlarged cardiomediastinal silhouette. Signed by: Dr. Jeremie Melendez MD on 2017 7:39 AM Dictated By: JEREIME MELENDEZ MD 07 Transcribed By: ROBBIN on 10/08/17 0739 COPY TO: MELISSA THOMPSON MD CHEST SINGLE (PORTABLE) [facility] [address] [place] [address] Patient Name: LIZBETH SAM MR #: [id number] : 1955 Age/Sex: 62/F Req #: [id number] Adm Physician: JOSH AREVALO MD Ordered by: MELISSA THOMPSON MD Report #: [id number] Location: ICU Room/Bed: ICU [facility] Procedure: [id number] DX/CHEST SINGLE (PORTABLE) Exam Date: 10/07/17 Exam Time: 0950 REPORT STATUS: Signed EXAMINATION: Chest, CHEST SINGLE (PORTABLE) INDICATION: Chest pain COMPARISON: Portable chest 10/06/2017 FINDINGS: LINES: Enteric feeding catheter with tip extending below the inferior margin of the examination, likely within the gastric body. Endotracheal catheter is present with the tip projecting over the expected region of the trachea, positioned 4 cm from the yaz. Heart: Normal cardiac silhouette. Vascular: The pulmonary vasculature is within normal limits. Atherosclerotic calcifications of the aortic arch. Mediastinum: No mediastinal, hilar, or axillary mass or lymphadenopathy. Lungs: No parenchymal mass. Interval appearance of bilateral multifocal airspace opacities. Pleura: No pleural effusion. No pneumothorax. Bones: No acute osseous abnormality. Degenerative changes of the thoracic spine. Soft tissues: Normal. Impression: Bilateral multifocal airspace opacities may represent atelectasis, pneumonia, or pulmonary edema. Signed by: Dr. Francis Horta M.D. on 10/07/2017 10:35 AM Dictated By: FRANCIS HORTA MD 103 Transcribed By: ROBBIN on 10/07/17 1035 COPY TO: MELISSA THOMPSON MD [facility] ([place] [id number] Patient Name: LIZBETH SAM MR #: [id number] : 1955 Age/Sex: 62/F Req #: [id number] Adm Physician: JOSH AREVALO MD Ordered by: MELISSA THOMPSON MD Report #: [id number] Location: ICU Room/Bed: ICU 193 Procedure: [id number] DX/ABDOMEN-1VIEW (KUB) Exam Date : 10/06/17 Exam Time: 2024 REPORT STATUS: Signed Abdomen/KUB Tube Placement CPT CODE: 79142 INDICATION: Tube Placement. COMPARISON: No relevant priors. FINDINGS: Portable, supine image obtained at 2045 hours. Enteric tube is located in the proximal stomach. The bowel gas pattern is unremarkable. The left diaphragm is poorly visualized suggestive atelectasis and likely effusion. IMPRESSION : As above. Signed by: Dr. Shaun Jenkins MD on 10/06/2017 8:47 PM Dictated By: SHAUN JENKINS MD 46 Transcribed By: ROBBIN on 10/06/172046 COPY TO: MELISSA THOMPSON MD CHEST SINGLE (PORTABLE) [address] [address] Patient Name: LIZBETH SAM MR #: [id number] : 1955 Age/Sex: 62/F Req #: [id number] Adm Physician: JOSH AREVALO MD Ordered by: MELISSA THOMPSON MD Report #: [id number] Location: ICU Room/Bed: ICU 193 Procedure: [id number] DX/CHEST SINGLE (PORTABLE) Exam Date: 10/06/17 Exam Time: 1740 REPORT STATUS: Signed PROCEDURE: A single AP view of the chest. COMPARISON: [facility], DX, CHEST SINGLE (PORTABLE), 10/06/2017, 6:15. INDICATIONS: ETT PLACEMENT FINDINGS: See impression. IMPRESSION: 1. interval placement of endotracheal tube, which has its distal tip approximately 2 cm above the yaz. 2. No interval change in hypoinflated lungs with bilateral interstitial edema. Xander Brandt M.D. Dictated by: Xander Brandt M.D. on 10/06/2017 at 18:25 Electronically approved by: Xander Brandt M.D. on 10/06/2017 at 18 :25 Dictated By: XANDER BRANDT MD 24 Transcribed By: MEI on 10/06/171824 COPY TO: MELISSA THOMPSON MD [place] [address] Patient Name: LIZBETH SAM MR #: [id number] : 1955 Age/Sex: 62/F Req #: [id number] [facility] Physician: JOSH AREVALO MD Ordered by: MELISSA THOMPSON MD Report #: [id number] Location: ICU Room/Bed: ICU 193-1 Procedure: [id number] DX/ABDOMEN-1VIEW (KUB) Exam Date : 10/06/17 Exam Time: 1740 REPORT STATUS: Signed PROCEDURE: X-RAY ABDOMEN - KUB COMPARISON: [facility], DX, ABDOMEN-1VIEW (KUB), 03/16/2017, 6:17. [facility], CT, CT PELVIS W, 09/15/2017, 9:22. INDICATIONS: ABDOMINAL DISTENSION FINDINGS: Gaseous distention of the colon, without dilation. No air filled, dilated small bowel loops. Air is noted in the rectum. No abnormal calcifications. No acute bony abnormalities. Multilevel degenerative changes in the lower lumbosacral spine, with stable leftward curvature. CONCLUSION: Gaseous distention of the colon, without dilation. No air- filled, dilated small bowel loops. Air is noted in the rectum. Xander Brandt M.D. Dictated by: Xander Brandt M.D. on 10/06/2017 at 18: 28 Electronically approved by: Xander Brandt M.D. on 10/06/2017 at 18:28 Dictated By: XANDER BRANDT MD 27 Transcribed By: MEI on 10/06/171827 COPY TO: MELISSA THOMPSON MD [facility] (PORTABLE) [place] [address] Patient Name: LIZBETH SAM MR #: [id number] : 1955 Age/Sex: 62/F Req #: [id number] Adm Physician: JOSH AREVALO MD Ordered by: MELISSA THOMPSON MD Report #: [id number] Location: ICU Room/Bed: ICU 193 Procedure: [id number] DX/CHEST SINGLE (PORTABLE) Exam Date: 10/06/17 Exam Time: 0535 REPORT STATUS: Signed EXAMINATION: CHEST SINGLE (PORTABLE) INDICATION: Pneumonia. COMPARISON: 10/05/2017 FINDINGS: TUBES and LINES: None. LUNGS: Lungs are not well inflated. There are bibasilar airspace disease. There is perihilar interstitial opacities, consistent with interstitial edema. PLEURA: No pleural effusion or pneumothorax. HEART AND MEDIASTINUM: Cardiac size is moderately enlarged. There are atherosclerotic calcifications within the aorta. BONES AND SOFT TISSUES: No acute osseous lesion. Soft tissues are unremarkable. UPPER ABDOMEN: No free air under the diaphragm. IMPRESSION: Findings are compatible with worsening cardiogenic pulmonary edema versus multifocal pneumonia Signed by: Dr. Jl Moreno M.D. on 10/06/2017 7:03 AM Dictated By: JL DOMINGUEZ MD 2 Transcribed By: ROBBIN on 10/06/17702 COPY TO: MELISSA THOMPSON MD CHEST SINGLE (PORTABLE) [place] [address] Patient Name: LIZBETH SAM MR #: [id number] : 1955 Age/Sex: 62/F Req #: [id number] Adm Physician: JOSH AREVALO MD Ordered by: MELISSA THOMPSON MD Report #: [id number] Location: ICU Room/Bed: ICU 193-1 Procedure: DX/CHEST SINGLE (PORTABLE) Exam Date: 10/05/17 Exam Time: 0540 REPORT STATUS: Signed EXAMINATION: CHEST SINGLE (PORTABLE) INDICATION: Atelectasis COMPARISON: 10/04/2017 FINDINGS: TUBES and LINES: None. LUNGS: Lungs are not well inflated. There are bibasilar atelectasis. There is worsening perihilar interstitial opacities, consistent with interstitial edema. PLEURA: No pleural effusion or pneumothorax. HEART AND MEDIASTINUM: Cardiac size is moderately enlarged. There are atherosclerotic calcifications within the aorta. BONES AND SOFT TISSUES: No acute osseous lesion. Soft tissues are unremarkable. UPPER ABDOMEN: No free air under the diaphragm. IMPRESSION: Worsening cardiogenic pulmonary edema. Signed by: Dr. Jl Moreno M.D. on 10/05/2017 6:29 AM Dictated By: JL DOMINGUEZ MD 8 Transcribed By: ROBBIN on 10/05/17628 COPY TO: MELISSA THOMPSON MD CHEST SINGLE (PORTABLE) [place] [address] Patient Name: LIZBETH SAM MR #: [id number] : 1955 Age/Sex: 62/F Req #: [id number] Adm Physician: JOSH AREVALO MD Ordered by: MELISSA THOMPSON MD Report #: [id number] Location: ICU Room/Bed: [facility] [facility] Procedure: [id number] DX/CHEST SINGLE (PORTABLE) Exam Date: 10/04/17 Exam Time: 0605 REPORT STATUS: Signed EXAM: CHEST SINGLE (PORTABLE) 10/04/2017 INDICATION: Incisional pain COMPARISON: 10/03/2017 FINDINGS: Single portable AP view of the chest. Visualized bones, soft tissues and cardiomediastinal silhouette appear unchanged. IMPRESSION: 1. Lines/tubes: Endotracheal tube has been removed. 2. Mild pulmonary vascular congestion. There is bibasilar atelectasis. Signed by: Dr. Charles Mariscal DO on 10/04/2017 8:58 AM Dictated By: CHARLES MARISCAL DO 7 COPY TO: MELISSA THOMPSON MD CHEST SINGLE (PORTABLE) [place] [address] Patient Name: LIZBETH SAM MR #: [id number] : 1955 Age/Sex: 62/F Req #: [id number] Adm Physician: JOSH AREVALO MD Ordered by: MELISSA THOMPSON MD Report #: [id number] Location: ICU Room/Bed: ICU [facility] Procedure: [id number] DX/CHEST SINGLE (PORTABLE) Exam Date: 10/03/17 Exam Time: 1919 REPORT STATUS: Signed EXAMINATION: CHEST SINGLE (PORTABLE) INDICATION: Recurrent incisional. Pain COMPARISON: Chest x-ray 03/10/2017 FINDINGS: AP view TUBES and LINES: Endotracheal tube is 5.4 cm above the yaz. LUNGS: Lungs are not well inflated. There are bibasilar atelectasis. Question small left lower lobe consolidation. PLEURA: Questionable left pleural effusion. HEART AND MEDIASTINUM: The cardiomediastinal silhouette is unremarkable. BONES AND SOFT TISSUES: No acute osseous lesion. Soft tissues are unremarkable. UPPER ABDOMEN: No free air under the diaphragm. IMPRESSION: 1. Hypoinflated lungs with motion artifact. 2. Bibasilar atelectasis with possible superimposed pneumonia in the left lung base. Signed by: Dr. Mil Olivia M.D. on 2017 7:44 PM Dictated By: MIL OLIVIA MD 43 Transcribed By: ROBBIN on 10/03/171943 COPY TO: MELISSA THOMPSON MD CT PELVIS W [place] [address] Patient Name: LIZBETH SAM MR #: [id number] : 1955 Age/Sex: 62/F Req # : [id number] Adm Physician: Ordered by: MARCELINO PEDRAZA MD Report #: [id number] Location: CT Room/Bed: Procedure: [id number] CT/CT PELVIS W Exam Date: 09/15/17 Exam Time: 0900 REPORT STATUS: Signed PROCEDURE: CT PELVIS COMPARISON: [facility], CT, CT ABDOMEN/PELVIS W, 03/10/2017, 17:56. [facility], DX, ABDOMEN-1VIEW (KUB), 03/16/2017, 6:17. INDICATIONS: Recurring urinary tract infections; incontinence TECHNIQUE: CT of the pelvis was performed before and after distention of the urinary bladder via indwelling Henderson catheter by 100 mL dilute Isovue-370 iodinated contrast. No intravenous or enteric contrast. Multiplanar reformatted images. DLP: 678.93 FINDINGS: Urinary bladder: Normal filling without wall thickening, diverticulum or filling defect. Trace post void residual. Ureters: Normal caliber. No evidence of ureteral reflux. Uterus: Normal Bowel: Image segments are of normal caliber. Peritoneum: Normal Vasculature: Normal caliber. Infrarenal aortic arteriosclerosis. Lymph nodes: Normal Skeleton: Left L5-S1 pseudoarthrosis. Multilevel degenerative disc disease and facet arthropathy the lumbar spine. Otherwise, intact. Soft tissues: Large, partially imaged anterior abdominal wall defect left suggesting eventration/hernia. CONCLUSION: Normal filling of the urinary bladder without evidence of ureteral reflux or other acute abnormality. Dictated by: Edward Tabor M.D. on 09/15/2017 at 11:07 Electronically approved by: Edward Tabor M.D. on 2016 at 11:07 Dictated By: EDWARD TABOR MD 1108 Transcribed By: MEI on 1108 COPY TO: MARCELINO PEDRAZA MD
[2017-11-14] MEDS ORDERED: ONDANSETRON HCL INJ 2 MG/ML VIAL IV STA ×2 (14:34→15:23)
[2017-11-14] MEDS ORDERED: SODIUM CHLORIDE 0.9% 500ML 500 ML IV STA (14:34)
[2017-11-14 15:15] LABS: BASOPHILS # (AUTO) 0.1 (0.0-0.1); BASOPHILS % 0.5 % (0.0-1.0); EOSINOPHILS % 0.1 % (0.0-6.0); HEMATOCRIT 41.7 % (34.2-44.1); HEMOGLOBIN 13.8 g/dL (12.0-16.0); LYMPHOCYTES # (AUTO) 1.8 (1.0-3.2); LYMPHOCYTES % 14.6 % (18.0-39.1); MEAN CORPUSCULAR HEMOGLOBIN 30.4 pg (28-32); MEAN CORPUSCULAR HGB CONC 33.1 g/dL (31-35); MEAN CORPUSCULAR VOLUME 91.9 fL (81-99); MONOCYTES # (AUTO) 0.6 (0.2-0.8); MONOCYTES % 4.5 % (4.4-11.3); NEUTROPHILS # (AUTO) 9.6 (2.1-6.9); NEUTROPHILS % 77.9 % (38.7-80.0); PLATELET COUNT 309 x10e3/uL (140-360); RED BLOOD COUNT 4.54 x10e6/uL (3.6-5.1); RED CELL DISTRIBUTION WIDTH 15.2 % (11.7-14.4)
[2017-11-14 15:24] LABS: INR 1.17
[2017-11-14 15:25] LABS: PARTIAL THROMBOPLASTIN TIME 28.1 seconds (23.8-35.5)
[2017-11-14 15:41] LABS: ALANINE AMINOTRANSFERASE 11 IU/L (0-55); ALBUMIN 3.6 g/dL (3.5-5.0); ALBUMIN/GLOBULIN RATIO 0.8 (0.8-2.0); ALKALINE PHOSPHATASE 91 IU/L (40-150); ANION GAP 17.2 mmol/L (8-16); BLOOD UREA NITROGEN 11 mg/dL (7-26); BUN/CREATININE RATIO 13 (6-25); CALCIUM 10.2 mg/dL (8.4-10.2); CARBON DIOXIDE 22 mmol/L (22-29); CHLORIDE 98 mmol/L (98-107); CREATINE KINASE 35 IU/L (29-168); CREATININE, SERUM 0.84 mg/dL (0.57-1.11); EST GLOMERULAR FILTRATION RATE > 60 ML/MIN (60-); GLUCOSE 150 mg/dL (74-118); LIPASE 12 U/L (8-78); POTASSIUM 4.2 mmol/L (3.5-5.1); SODIUM 133 mmol/L (136-145)
[2017-11-14] MEDS ORDERED: BUSPIRONE HCL5 MG PO (15:50)
[2017-11-14] MEDS ORDERED: CLONAZEPAM1 MG PO (15:50)
[2017-11-14] MEDS ORDERED: ZOLPIDEM TARTRAT5 MG PO (15:50)
[2017-11-14] MEDS ORDERED: XARELTO20 MG PO (15:50)
[2017-11-14] MEDS ORDERED: DIATRIZOATE MEGL/DIATRIZOA SOD 30 ML BTL PO ONE (15:50)
[2017-11-14 16:02] LABS: BILIRUBIN,URINE NEGATIVE (NEGATIVE); CLARITY,URINE CLEAR (CLEAR); COLOR,URINE YELLOW (YELLOW); KETONES,URINE NEGATIVE (NEGATIVE); LEUKOCYTE ESTERASE ,URINE NEGATIVE (NEGATIVE); NITRITE,URINE NEGATIVE (NEGATIVE); URINE UROBILINOGEN 0.2 mg/dL (0.2 - 1)
[2017-11-14 16:03] LABS: PROTEIN,URINE DIPSTICK TRACE (NEGATIVE)
[2017-11-14 16:15] LABS: EPITHELIAL CELLS,URINE MODERATE /LPF
[2017-11-14 17:39] LABS: LYMPHOCYTES % (MANUAL) 18 % (19-48); MONOCYTES % (MANUAL) 5 % (3.4-9.0); NEUTROPHILS % (MANUAL) 77 % (40-74)
[2017-11-14 17:40] LABS: OVALOCYTES FEW; PLATELET ESTIMATE ADEQUATE; POLYCHROMASIA FEW; RBC MORPHOLOGY COMMENT NORMAL
--- NOTE | 2017-11-14 17:47 | Diagnostic Imaging Report ---
PROCEDURE: CT ABDOMEN AND PELVIS WITH CONTRAST TECHNIQUE: The abdomen and pelvis were scanned utilizing a multidetector helical scanner from the diaphragm to the lesser trochanter after the IV administration of 100 cc of Isovue 370 and the oral administration of Gastrografin contrast. Coronal and sagittal multiplanar reformations were obtained. Total DLP: 826.26 mGy-cm COMPARISON: CT abdomen pelvis 03/10/2017. INDICATIONS: vomitting, abdominal pain FINDINGS: LOWER THORAX: Atelectasis and scarring at lung bases. Previously visualized 4 mm nodule in the right lung base is not visualized on today's exam. Coronary artery calcifications.. HEPATOBILIARY: Mild diffuse hepatic steatosis. No focal hepatic lesions. No biliary ductal dilatation. SPLEEN: No splenomegaly. PANCREAS: 4.2 x 3.1 cm complex cystic mass in the tail of the pancreas (series 2 image 25) with a thin septation and a possible mural nodularity. Previously a 2.7 x 3.7 cm. No ductal dilatation. ADRENALS: No adrenal nodules. Mild thickening of bilateral adrenal glands. KIDNEYS/URETERS: No hydronephrosis, stones, or solid mass lesions. PELVIC ORGANS/BLADDER: Unremarkable. Mild pelvic floor prolapse. PERITONEUM / RETROPERITONEUM: No free air or fluid. LYMPH NODES: No lymphadenopathy. VESSELS: Severe atherosclerotic calcifications of the aorta and its branches. Focal ectasia of the infrarenal aorta measuring 2.3 cm (series 2 image 40). GI TRACT: No distention or wall thickening. Postsurgical changes in the stomach, likely a incomplete vertical banded gastroplasty. BONES AND SOFT TISSUES: Severe degenerative changes in the thoracolumbar spine. Unchanged superior endplate compression deformity of L1 vertebral body with about 25-50% height loss. IMPRESSION: 1. No source of acute abdominal pain identified. 2. Interval enlargement of 4.2 cm complex cystic mass in the tail of the pancreas. 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 Dictated by: Mil Orozco M.D. on 11/14/2017 at 17:47 Electronically approved by: Mil Orozco M.D. on 11/14/2017 at 17:47
[2017-11-14 18:43] VITALS: BP 134/69
[2017-11-14] MEDS ORDERED: SODIUM CHLORIDE 0.9% 50ML 50 ML ONE (18:47)
[2017-11-14] MEDS ORDERED: IOPAMIDOL 370 MG/ML 200 ML INFUS..BTL INJ ONE (18:48)
== END 2017-11-14 18:57 | disposition home or self-care (01) ==
LOC: ER 14:30
DX: R11.2 Nausea with vomiting, unspecified (principal); R19.7 Diarrhea, unspecified
CPT/HCPCS: 36415; 74022; 74177; 80053; 81001; 82550; 82553; 83690; 83880; 84484; 85025; 85610; 85730; 93005; 99284; J2405; J7040; Q9967

== ENCOUNTER → 2017-11-27 | Outpatient (CLI) | payer OTHER ==
[~2017-11-27] MED LIST changes: +BUSPIRONE HCL5 MG PO; +CLONAZEPAM1 MG PO; +GADOBENATE DIMEGLUMINE 1 ML IV ONE; +ZOLPIDEM TARTRAT5 MG PO
--- NOTE | 2017-11-27 15:24 | Diagnostic Imaging Report ---
PROCEDURE:MRI ABDOMEN W \T\ W/O CONTRAST COMPARISON:CT abdomen/pelvis 11/14/[address] abdomen/pelvis 03/10/17 INDICATIONS:Pancreas mass. TECHNIQUE:A comprehensive examination was performed utilizing a variety of imaging planes and imaging parameters to optimize visualization of suspected pathology. Images were obtained both before and after intravenous gadolinium infusion. Three-dimensional MRCP was also performed. CONTRAST:20 cc Multihance FINDINGS: Images are significantly motion degraded. LIVER:Measures 20 cm in length. There is diffuse loss of signal on out of phase sequence consistent with steatosis. No enhancing mass. Punctate high T2 signal lesion in segment 2 is likely a cyst. PANCREAS:The head and body are poorly visualized due to motion artifact. Lobulated high T2, low T1 signal mass in the tail measures 5.2 x 3.6 cm in the axial plane. It contains several septations. After gadolinium, there is some enhancement of the lateral aspect measuring 10 mm in thickness. On the most recent CT, this measured 4.2 x 3.1 cm. MRCP: Central intrahepatic ducts are distended. The common bile duct measures 1.2 cm in diameter with some tapering as it approaches the ampulla. The distal common bile duct measures 6 mm with squaring of the shoulders. No evidence of choledocholithiasis. The pancreas duct is normal in diameter and morphology. Direct communication to the mass in the pancreas tail cannot be confirmed. Gallbladder: Present without evidence of sludge or gallstones. No gallbladder wall thickening. SPLEEN:Measures 15 cm in length. Normal signal without mass. KIDNEYS:No hydronephrosis. Tiny high T2 signal lesions throughout the cortices are suggestive of cysts. No enhancing mass. ADRENALS:Mild thickening of the adrenal glands without mass. AORTA/VASCULAR:The aorta is normal in diameter. Visualized portions of the portal vein, hepatic veins, and IVC are unremarkable. RETROPERITONEUM:No lymphadenopathy or fluid collection.. BOWEL/MESENTERY:The stomach is normal. Visualized portions of the small bowel wall thickness. ABDOMINAL WALL:There are blooming artifacts from abdominal wall surgery. No evidence of hernia. BONES: There is levoscoliosis of the lower lumbar spine with superimposed degenerative changes. Marrow signal is normal. No focal osseous lesions. CONCLUSION: 1. Markedly compromised exam given the presence of motion artifact. 2. Lobulated and partially septated cystic pancreas neoplasm with lateral enhancing nodular component continues to increase in size. Surgical removal should be considered. If surgery is not an option, surveillance should be made with CT dedicated to the pancreas. 3. Hepatic steatosis and hepatomegaly. No findings in the liver to suggest metastasis. 4. Distended biliary tree without choledocholithiasis or mass in the pancreas head. This could be secondary to ampullary stenosis. No pancreas ductal dilatation. 5. Mild splenomegaly. 6. Small renal cysts. Dictated by: Petey Malone M.D. on 11/27/2017 at 15:24 Electronically approved by: Petey Malone M.D. on 11/27/2017 at 15:24
== END | disposition home or self-care (01) ==
LOC: MRI 10:18
PROVIDERS: ATTEND Family Medicine
DX: K86.9 Disease of pancreas, unspecified (principal); R22.9 Localized swelling, mass and lump, unspecified; K76.0 Fatty (change of) liver, not elsewhere classified; R16.2 Hepatomegaly with splenomegaly, not elsewhere classified
CPT/HCPCS: 36415; 74183; 82565; 84520

== ENCOUNTER → 2018-04-20 | Outpatient (CLI) | payer OTHER ==
[~2018-04-20] MED LIST changes: -GADOBENATE DIMEGLUMINE 1 ML IV ONE; +IOPAMIDOL 370 MG/ML 200 ML INFUS..BTL INJ ONE; +SODIUM CHLORIDE 0.9% 250ML 250 ML ONE; +SODIUM CHLORIDE 0.9% 500ML 500 ML ONE; +SODIUM CHLORIDE 0.9% 50ML 50 ML ONE
[2018-04-20 10:17] LABS: CREATININE, SERUM 1.16 mg/dL (0.57-1.11)
--- NOTE | 2018-04-20 11:57 | Diagnostic Imaging Report ---
PROCEDURE: CT ABDOMEN WITH AND WITHOUT CONTRAST TECHNIQUE: The abdomen was scanned utilizing a multidetector helical scanner from the diaphragm to the iliac crest before and after the IV administration of 100 cc of Isovue 370 and the oral administration of 450 cc of water. Coronal and sagittal multiplanar reformations were obtained. DLP: 1106.25 mGy-cm COMPARISON: MRI 11/27/2017, CT 11/14/2017 and 03/10/2017 INDICATIONS: "SPOT ON PANCREASE" FOLLOW UP. DENIES PAIN/COMPLAINTS FINDINGS: LOWER THORAX: Coronary artery calcifications. Calcified hilar lymph nodes. HEPATOBILIARY: Diffuse hypoattenuating of the liver compatible with hepatic steatosis. No focal hepatic lesions. No biliary ductal dilatation. No radiopaque stones. Minimal sludge. SPLEEN: No splenomegaly. PANCREAS: Stable to minimally increased size of the cystic lesion in the pancreatic tail with enhancing mural nodule when compared to 11/14/2017, enlarging compared to 03/10/2017. In total the lesion measures 4.4 x 3.1 cm with mural nodule measuring 1.3 x 2.4 cm, previously 4.3 x 3.1 cm with 1.3 x 2.2 cm mural nodule (11/14/2017) and 3.7 x 2.7 cm with 1 x 2.1 cm mural nodule (03/10/2017). ADRENALS: No adrenal nodules. KIDNEYS: No hydronephrosis, stones, or solid mass lesions. PERITONEUM / RETROPERITONEUM: No free air or fluid. LYMPH NODES: No lymphadenopathy. VESSELS: Severe atherosclerotic calcifications. GI TRACT: Post-surgical changes of the stomach, likely an incomplete vertical banded gastroplasty. Visualized portions of the bowel demonstrate no distention or wall thickening. BONES AND SOFT TISSUES: Diastasis recti. Few small fat containing ventral hernias, largest with 3.8 x 0.8 cm sac and 1.6 cm neck. Stable L1 superior endplate compression with approximately 25-50% height loss. Severe degenerative changes of the visualized lumbar spine. IMPRESSION: Stable to minimally increased size of the cystic lesion in the pancreatic tail with enhancing mural nodule when compared to 11/14/2017, enlarging compared to 03/10/2017. 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 Dictated by: Bryan Maza M.D. on 04/20/2018 at 12:01 Electronically approved by: Bryan Maza M.D. on 04/20/2018 at 12:01
== END ==
LOC: CT 09:07
PROVIDERS: ATTEND Family Medicine
DX: K86.9 Disease of pancreas, unspecified (principal)
CPT/HCPCS: 36415; 74170; 82565; 84520; J7040; J7050; Q9967

== ENCOUNTER 2018-05-31 15:46 | Emergency (ER) | payer OTHER ==
[~2018-05-31] VITALS: Ht 170.2 cm; Wt 107.0 kg
[~2018-05-31 15:46] MED LIST changes: -IOPAMIDOL 370 MG/ML 200 ML INFUS..BTL INJ ONE; -SODIUM CHLORIDE 0.9% 250ML 250 ML ONE; -SODIUM CHLORIDE 0.9% 500ML 500 ML ONE; -SODIUM CHLORIDE 0.9% 50ML 50 ML ONE
[2018-05-31 16:26] LABS: BASOPHILS % 0.6 % (0.0-1.0); EOSINOPHILS # (AUTO) 0.2 (0.0-0.4); EOSINOPHILS % 3.3 % (0.0-6.0); HEMATOCRIT 37.5 % (34.2-44.1); HEMOGLOBIN 12.2 g/dL (12.0-16.0); LYMPHOCYTES # (AUTO) 2.8 (1.0-3.2); LYMPHOCYTES % 39.4 % (18.0-39.1); MEAN CORPUSCULAR HEMOGLOBIN 31.9 pg (28-32); MEAN CORPUSCULAR HGB CONC 32.5 g/dL (31-35); MEAN CORPUSCULAR VOLUME 97.9 fL (81-99); MONOCYTES # (AUTO) 0.6 (0.2-0.8); MONOCYTES % 9.1 % (4.4-11.3); NEUTROPHILS # (AUTO) 3.3 (2.1-6.9); NEUTROPHILS % 46.9 % (38.7-80.0); PLATELET COUNT 249 x10e3/uL (140-360); RED BLOOD COUNT 3.83 x10e6/uL (3.6-5.1); RED CELL DISTRIBUTION WIDTH 13.5 % (11.7-14.4)
[2018-05-31 16:44] LABS: ALBUMIN 3.8 g/dL (3.5-5.0); ALBUMIN/GLOBULIN RATIO 1.1 (0.8-2.0); ANION GAP 13.8 mmol/L (8-16); CALCIUM 9.6 mg/dL (8.4-10.2); CREATININE, SERUM 1.17 mg/dL (0.57-1.11); POTASSIUM 3.8 mmol/L (3.5-5.1)
[2018-05-31 16:51] LABS: CREATINE KINASE MB 1.6 ng/mL (0-5.0)
--- NOTE | 2018-05-31 18:18 | Diagnostic Imaging Report ---
EXAMINATION: CHEST SINGLE (NOT PORTABLE) INDICATION: \S\CHEST PAIN \S\[id number] \S\1720 \S\Y COMPARISON: Multiple chest radiographs with the most recent from 10/18/2017 FINDINGS: AP view TUBES and LINES: Right PICC no longer visualized. LUNGS: Low lung volumes. Bilateral interstitial edema. Bibasilar atelectasis, unchanged. PLEURA: Possible small left pleural effusion. No pneumothorax. HEART AND MEDIASTINUM: Stable enlargement of the cardiac silhouette. BONES AND SOFT TISSUES: No acute osseous lesion. Soft tissues are unremarkable. UPPER ABDOMEN: No free air under the diaphragm. IMPRESSION: Bilateral interstitial edema. Signed by: Dr. Imelda Henderson M.D. on 05/31/2018 6:15 PM
== END 2018-05-31 19:00 | disposition home or self-care (01) ==
LOC: ER 15:46
DX: M79.89 Other specified soft tissue disorders (principal); L03.116 Cellulitis of left lower limb; Z87.891 Personal history of nicotine dependence
CPT/HCPCS: 36415; 71045; 80053; 82550; 82553; 84484; 85025; 93005; 93971; 99284

== ENCOUNTER → 2018-12-19 | Outpatient (CLI) | payer OTHER ==
[~2018-12-19] MED LIST changes: +IOPAMIDOL 370 MG/ML 200 ML INFUS..BTL INJ ONE; +SODIUM CHLORIDE 0.9% 50ML 50 ML ONE
[2018-12-19 11:41] LABS: CREATININE, SERUM 1.05 mg/dL (0.57-1.11)
--- NOTE | 2018-12-19 13:42 | Diagnostic Imaging Report ---
EXAM: CT Abdomen WITH contrast INDICATION: Follow-up pancreatic neoplasm. COMPARISON: Multiple prior studies, most recently CT abdomen with and without contrast 04/20/2018. TECHNIQUE: Abdomen was scanned utilizing a multidetector helical scanner from the lung base to the iliac crest after administration of IV contrast. Coronal and sagittal reformations were obtained. Routine protocol was performed. Scan was performed when during portal venous phase. IV CONTRAST: 100 cc of Isovue-370. ORAL CONTRAST: Water RADIATION DOSE: Total DLP: 617.6 mGy*cm Estimated effective dose: (DLP x 0.015 x size factor) mSv Dose modulation, iterative reconstruction, and/or weight based adjustment of the mA/kV was utilized to reduce the radiation dose to as low as reasonably achievable. FINDINGS: LINES and TUBES: None. LOWER THORAX: Coronary atherosclerosis. Atherosclerotic changes of the lung bases. HEPATOBILIARY: Mild diffuse hepatic steatosis. No focal hepatic lesions. No biliary ductal dilation. GALLBLADDER: No radio-opaque stones or sludge. No wall thickening. SPLEEN: No splenomegaly. PANCREAS: Again noted is a 4.3 x 3.1 cm complex cystic mass in the pancreatic tail (series 2, image 30). There is internal septations and mural nodularity along the left lateral aspect. The lesion is similar in size to CT from 04/20/2018, but increased in size from CT on 03/10/2017, when it measured 2.7 x 3.7 cm. The mural nodule measures up to 2.2 x 2 cm (series 2, image 29), previously 2.1 x 1.6 cm by my measurement. ADRENALS: No adrenal nodules KIDNEYS/URETERS: Kidneys enhance symmetrically. No hydronephrosis. No cystic or solid mass lesions. No stones. GI TRACT: No abnormal distention, wall thickening, or evidence of bowel obstruction. Postsurgical changes status post gastric sleeve. LYMPH NODES: No lymphadenopathy. VESSELS: There are extensive atherosclerotic calcifications in the aorta and branch vessels. PERITONEUM / RETROPERITONEUM: No free air or fluid. BONES/SOFT TISSUES: Diastasis recti. Small fat-containing ventral hernias are unchanged. Stable mild wedge compression deformity of L1. IMPRESSION: Cystic lesion in the pancreatic tail with mural nodularity. The cystic component is unchanged but with increased size of mural nodule compared to CT from 04/20/2018. The overall lesion is increased in size from CT on 03/10/2017. 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 Suggest surgical consultation for further evaluation. Signed by: Dr. Angelo Carrillo MD on 12/19/2018 1:39 PM
== END ==
LOC: CT 10:38
PROVIDERS: ATTEND Family Medicine
DX: D13.7 Benign neoplasm of endocrine pancreas (principal)
CPT/HCPCS: 36415; 74160; 82565; 84520; Q9967

== ENCOUNTER 2019-02-22 17:43 | Emergency (ER) | payer OTHER ==
[~2019-02-22] VITALS: Ht 170.2 cm; Wt 107.0 kg
[~2019-02-22 17:43] MED LIST changes: -IOPAMIDOL 370 MG/ML 200 ML INFUS..BTL INJ ONE; -SODIUM CHLORIDE 0.9% 50ML 50 ML ONE
--- OUTSIDE RECORDS SUMMARY | 2019-02-22 17:47 | XMS REPORT | Continuity of Care Document ---
Author Author [facility] Interface Address Unknown Phone Unavailable Problems Problem Status Onset Date Classification Date Reported Comments Source Abdominal pain Active Problem 06/01/2018 [facility] Morbidly obese Active Problem 06/01/2018 [facility] Stage 4 skin ulcer of sacral region Active Problem 06/01/2018 [facility] Vomiting Active Problem 06/01/2018 [facility] Medications Medication Details Route Status Patient Instructions Ordering Provider Order Date Source Bupropion Hcl (Bupropion Xl) 150 Mg Tab.er.24h, 300 Mg Oral Twice A Day Active 11/14/2017 [facility] Rivaroxaban (Xarelto) 20 Mg Tablet, 20 Mg Oral Daily Active 11/14/2017 [facility] Acetaminophen 325 Mg Tablet, 325 Mg Oral Every 6 Hours as needed for Pain Active 10/02/2017 [facility] Ascorbic Acid 500 Mg Tablet, 250 Mg Oral Twice A Day Active 10/02/2017 [facility] Cholestyramine (With Sugar) (Questran Packet) 4 Gm Packet, 4 Gm Oral Every 12 Hours Active 10/02/2017 [facility] Clonazepam 0.5 Mg Tablet, 0.25 Mg Oral Every 8 Hours as needed for Anxiety Active 10/02/2017 [facility] Fenofibrate Nanocrystallized (Fenofibrate) 145 Mg Tablet, 145 Mg Oral Daily Active 10/02/2017 [facility] Furosemide 40 Mg Tablet, 40 Mg Oral Twice A Day Active 10/02/2017 [facility] Hydrocodone Bit/Acetaminophen ([place] 5-325 Tablet) 1 Each Tablet, 1 Each Oral Every 4 Hours as needed for Pain Active 10/02/2017 [facility] Insulin Detemir (Levemir) 100 Unit/1 Ml Vial, 20 Unit Sub-Q Daily Active 10/02/2017 [facility] Ipratropium/Albuterol Sulfate (Combivent Respimat Inhal [place]) 4 Gm Aer.w.adap, 4 Gm Inhalation As Needed Active 10/02/2017 [facility] Lactobacillus Acidophilus (Acidophilus) 1 Each Tab.chew, 1 Tab Oral Daily Active 10/02/2017 [facility] Melatonin 3 Mg Tablet, 3 Mg Oral Bedtime Active 10/02/2017 [facility] Multivitamin (Multi-Vitamin Daily) 1 Each Tablet, 1 Tab Oral Daily Active 10/02/2017 [facility] Mupirocin Calcium (Bactroban) 15 Gm Cream..g., 1 Udpkt Topically Twice A Day Active 10/02/2017 [facility] Naloxone Hcl 0.4 Mg/1 Ml Disp.syrin, 0.4 Mg Intramusc As Needed Active 10/02/2017 [facility] Nystatin 1 Each Powder.ea., 1 Udpkt Topical Twice A Day Active 10/02/2017 [facility] Ondansetron (Zofran Odt) 4 Mg Tab.rapdis, 4 Mg Oral Every 6 Hours as needed for Na Active 10/02/2017 [facility] Oxybutynin Chloride 5 Mg Tablet, 5 Mg Oral Twice A Day Active 10/02/2017 [facility] Phenazopyridine Hcl 100 Mg Tablet, 100 Mg Oral Three Times A Day Active 10/02/2017 [facility] Pravastatin Sodium 20 Mg Tablet, 20 Mg Oral Bedtime Active 10/02/2017 [facility] Promethazine Hcl (Phenergan) 25 Mg/1 Ml Ampul, 25 Mg Intramusc Active 10/02/2017 [facility] Quetiapine Fumarate (Seroquel) 25 Mg Tablet, 12.5 Mg Oral Twice A Day Active 10/02/2017 [facility] Sulfamethoxazole/Trimethoprim (Bactrim Ds Tablet) 1 Each Tablet, 1 Tab Oral Every 12 Hours Active 10/02/2017 [facility] Zinc Sulfate 220 Mg Tablet, 220 Mg Oral Daily Active 10/02/2017 [facility] Ciprofloxacin Hcl (Cipro) 500 Mg Tablet, 500 Mg Oral Every 12 Hours Active 03/10/2017 [facility] Fentanyl 1 Each Patch.td72, 25 Mcg Topically Q72 Hrs Active 03/10/2017 [facility] Fluconazole 100 Mg Tablet, 200 Mg Oral Daily Active 03/10/2017 [facility] Gentamicin In Nacl, Iso-Osm (Gentamicin 80 Mg/Ns 100 Ml Pb) 80 Mg/100 Ml Piggyback, 300 Mg Intraven Daily Active 03/10/2017 [facility] Hydralazine Hcl 20 Mg/1 Ml Vial, 10 Mg Intraven Every 4 Hours as needed for High Blood Pressure Active 03/10/2017 [facility] Hydromorphone Hcl 2 Mg/1 Ml Vial, 2 Mg Intraven Every 4 Hours as needed for Pain Active 03/10/2017 [facility] Insulin Aspart (Novolog Mix 70-30 Vial) 100 Units/Ml Ml, Unknown Dose Sub-Q Every 6 Hours as needed for High Blood Sugar Active 03/10/2017 [facility] Linezolid (Zyvox) 600 Mg/300 Ml Soln, 600 Mg Intraven Daily Active 03/10/2017 [facility] Ondansetron Hcl 2 Mg/1 Ml Vial, 4 Mg Intraven Every 6 Hours Active 03/10/2017 [facility] Opthalmic Lubricant , 1 Drop Ophthalmic As Needed Active 03/10/2017 [facility] Pantoprazole Sodium (Protonix) 40 Mg Tablet.dr, 40 Mg Intraven Daily Active 03/10/2017 [facility] Saliva Substitute (Biotene Oralbalance) 45 Ml Liqd, 1 Spr Oral Daily Active 03/10/2017 [facility] Atorvastatin Calcium 20 Mg Tablet Daily Active [facility] Buspirone Hcl 5 Mg Tablet Three Times A Day Active [facility] Clonazepam 1 Mg Tablet Daily Active [facility] Fenofibrate Nanocrystallized (Fenofibrate) 145 Mg Tablet Daily Active [facility] Furosemide 40 Mg Tablet Twice A Day Active [facility] Gabapentin 300 Mg Capsule Three Times A Day Active [facility] Hydrocodone Bit/Acetaminophen ([place] 10-325 Tablet) 1 Each Tablet As Needed Active [facility] Nifedipine (Nifedipine Er) 30 Mg Tab.er.24 Daily Active [facility] Oxybutynin Chloride 5 Mg Tablet Twice A Day Active [facility] Potassium Chloride 10 Meq Tab.er.prt Twice A Day Active [facility] Rivaroxaban (Xarelto) 20 Mg Tablet Daily Active [facility] Vit B12 Daily Active [facility] Vit D Daily Active [facility] Zolpidem Tartrate 5 Mg Tablet Bedtime Active [facility] Allergies, Adverse Reactions, Alerts Substance Category Reaction Severity Reaction type Status Date Reported Comments Source Immunizations Immunization Date Given Site Status Last Updated Comments Source Results Order Name Results Value Reference Range Date Interpretation Comments Source Automated blood basophil count (count/volume) Automated blood basophil count (count/volume) 0.0 0.0 - 0.1 05/31/2018 [facility] Automated blood basophil count as percentage of total leukocytes Automated blood basophil count as percentage of total leukocytes 0.6 0.0 - 1.0 05/31/2018 [facility] Automated blood eosinophil count Automated blood eosinophil count 0.2 0.0 - 0.4 05/31/2018 [facility] Automated blood eosinophil count as percentage of total leukocytes Automated blood eosinophil count as percentage of total leukocytes 3.3 0.0 - 6.0 05/31/2018 [facility] Automated blood hematocrit (volume fraction) Automated blood hematocrit (volume fraction) 37.5 34.2 - 44.1 05/31/2018 [facility] Automated blood lymphocyte count as percentage ot total leukocytes Automated blood lymphocyte count as percentage ot total leukocytes 39.4 18.0 - 39.1 05/31/2018 [facility] Automated blood monocyte count as percentage of total leukocytes Automated blood monocyte count as percentage of total leukocytes 9.1 4.4 - 11.3 05/31/2018 [facility] Automated blood neutrophil count Automated blood neutrophil count 3.3 2.1 - 6.9 05/31/2018 [facility] Automated blood platelet count (count/volume) Automated blood platelet count (count/volume) 249 140 - 360 05/31/2018 [facility] Automated blood segmented neutrophil count as percentage of total leukocytes Automated blood segmented neutrophil count as percentage of total leukocytes 46.9 38.7 - 80.0 05/31/2018 [facility] Automated erythrocyte mean corpuscular hemoglobin (mass per erythrocyte) Automated erythrocyte mean corpuscular hemoglobin (mass per erythrocyte) 31.9 28 - 32 05/31/2018 [facility] Automated erythrocyte mean corpuscular hemoglobin concentration measurement (mass/volume) Automated erythrocyte mean corpuscular hemoglobin concentration measurement (mass/volume) 32.5 31 - 35 05/31/2018 [facility] Automated erythrocyte mean corpuscular volume Automated erythrocyte mean corpuscular volume 97.9 81 - 99 05/31/2018 [facility] Blood erythrocytes automated count (number/volume) Blood erythrocytes automated count (number/volume) 3.83 3.6 - 5.1 05/31/2018 [facility] Blood hemoglobin measurement (moles/volume) Blood hemoglobin measurement (moles/volume) 12.2 12.0 - 16.0 05/31/2018 [facility] Blood leukocytes automated count (number/volume) Blood leukocytes automated count (number/volume) 7.03 4.8 - 10.8 05/31/2018 [facility] Blood lymphocytes count (number/volume) Blood lymphocytes count (number/volume) 2.8 1.0 - 3.2 05/31/2018 [facility] Blood monocytes automated count (number/volume) Blood monocytes automated count (number/volume) 0.6 0.2 - 0.8 05/31/2018 [facility] Estimated glomerular filtration rate (GFR) determination Estimated glomerular filtration rate (GFR) determination 47 60 05/31/2018 [facility] Glucose measurement Glucose measurement 102 74 - 118 05/31/2018 [facility] Plasma globulin measurement (mass/volume) Plasma globulin measurement (mass/volume) 3.5 2.3 - 3.5 05/31/2018 [facility] Serum or plasma alanine aminotransferase measurement (enzymatic activity/volume) Serum or plasma alanine aminotransferase measurement (enzymatic activity/volume) 24 0 - 55 05/31/2018 [facility] Serum or plasma albumin measurement (mass/volume) Serum or plasma albumin measurement (mass/volume) 3.8 3.5 - 5.0 05/31/2018 [facility] Serum or plasma albumin/globulin mass ratio Serum or plasma albumin/globulin mass ratio 1.1 0.8 - 2.0 05/31/2018 [facility] Serum or plasma alkaline phosphatase measurement (enzymatic activity/volume) Serum or plasma alkaline phosphatase measurement (enzymatic activity/volume) 52 40 - 150 05/31/2018 [facility] Serum or plasma anion gap Serum or plasma anion gap 13.8 8 - 16 05/31/2018 [facility] Serum or plasma calcium measurement (mass/volume) Serum or plasma calcium measurement (mass/volume) 9.6 8.4 - 10.2 05/31/2018 [facility] Serum or plasma carbon dioxide, total measurement (moles/volume) Serum or plasma carbon dioxide, total measurement (moles/volume) 24 22 - 29 05/31/2018 [facility] Serum or plasma chloride measurement (moles/volume) Serum or plasma chloride measurement (moles/volume) 106 98 - 107 05/31/2018 [facility] Serum or plasma creatine kinase MB measurement (mass/volume) Serum or plasma creatine kinase MB measurement (mass/volume) 1.60 0 - 5.0 05/31/2018 [facility] Serum or plasma creatine kinase measurement (enzymatic activity/volume) Serum or plasma creatine kinase measurement (enzymatic activity/volume) 94 29 - 168 05/31/2018 [facility] Serum or plasma creatinine measurement (mass/volume) Serum or plasma creatinine measurement (mass/volume) 1.17 0.57 - 1.11 05/31/2018 [facility] Serum or plasma potassium measurement (moles/volume) Serum or plasma potassium measurement (moles/volume) 3.8 3.5 - 5.1 05/31/2018 [facility] Serum or plasma protein measurement (mass/volume) Serum or plasma protein measurement (mass/volume) 7.3 6.5 - 8.1 05/31/2018 [facility] Serum or plasma sodium measurement (moles/volume) Serum or plasma sodium measurement (moles/volume) 140 136 - 145 05/31/2018 [facility] Serum or plasma total bilirubin measurement (mass/volume) Serum or plasma total bilirubin measurement (mass/volume) 0.4 0.2 - 1.2 05/31/2018 [facility] Serum or plasma urea nitrogen measurement (mass/volume) Serum or plasma urea nitrogen measurement (mass/volume) 17 7 - 26 05/31/2018 [facility] Serum or plasma urea nitrogen/creatinine mass ratio Serum or plasma urea nitrogen/creatinine mass ratio 15 6 - 25 05/31/2018 [facility] Troponin I measurement by highly sensitive enzyme immunoassay Troponin I measurement by highly sensitive enzyme immunoassay 0.003 0 - 0.300 05/31/2018 [facility] Red Cell Distribution Width 13.5 11.7 - 14.4 05/31/2018 [facility] IM GRANULOCYTES % 0.7 0.0 - 1.0 05/31/2018 [facility] Absolute Immature Granulocyte (auto 0.05 0 - 0.1 05/31/2018 [facility] Aspartate Amino Transf (AST/SGOT) 20 5 - 34 05/31/2018 [facility] Automated urine sediment leukocyte count by microscopy (number/high power field) Automated urine sediment leukocyte count by microscopy (number/high power field) NONE 0 - 5 11/14/2017 [facility] Bacteria detection in urine sediment by light microscopy Bacteria detection in urine sediment by light microscopy NONE NONE 11/14/2017 [facility] Epithelial cells detection in urine sediment by light microscopy Epithelial cells detection in urine sediment by light microscopy MODERATE NONE 11/14/2017 [facility] Erythrocytes detection in urine sediment by light microscopy Erythrocytes detection in urine sediment by light microscopy NONE 0 - 5 11/14/2017 [facility] Specific gravity of Urine by Test strip Specific gravity of Urine by Test strip 1.010 1.010 - 1.025 11/14/2017 [facility] Urine clarity Urine clarity CLEAR CLEAR 11/14/2017 [facility] Urine color determination Urine color determination YELLOW YELLOW 11/14/2017 [facility] Urine erythrocytes detection Urine erythrocytes detection TRACE NEGATIVE 11/14/2017 [facility] Urine glucose detection Urine glucose detection NEGATIVE NEGATIVE 11/14/2017 [facility] Urine ketones detection by automated test strip Urine ketones detection by automated test strip NEGATIVE NEGATIVE 11/14/2017 [facility] Urine leukocyte esterase detection by dipstick Urine leukocyte esterase detection by dipstick NEGATIVE NEGATIVE 11/14/2017 [facility] Urine nitrite detection Urine nitrite detection NEGATIVE NEGATIVE 11/14/2017 [facility] Urine pH measurement by automated test strip Urine pH measurement by automated test strip 8 5 - 7 11/14/2017 [facility] Urine protein measurement by test strip (mass/volume) Urine protein measurement by test strip (mass/volume) TRACE NEGATIVE 11/14/2017 [facility] Urine total bilirubin measurement (mass/volume) Urine total bilirubin measurement (mass/volume) NEGATIVE NEGATIVE 11/14/2017 [facility] Urine urobilinogen measurement by test strip (mass/volume) Urine urobilinogen measurement by test strip (mass/volume) 0.2 0.2 - 1 11/14/2017 [facility] Activated partial thromboplastin time (aPTT) in platelet poor plasma bycoagulation assay Activated partial thromboplastin time (aPTT) in platelet poor plasma bycoagulation assay 28.1 23.8 - 35.5 11/14/2017 [facility] Blood ovalocytes detection by light microscopy Blood ovalocytes detection by light microscopy FEW 11/14/2017 [facility] Blood platelets count by estimate (number/volume) Blood platelets count by estimate (number/volume) ADEQUATE 11/14/2017 [facility] Blood polychromasia detection by light microscopy Blood polychromasia detection by light microscopy FEW 11/14/2017 [facility] INR in Platelet poor plasma by Coagulation assay INR in Platelet poor plasma by Coagulation assay 1.17 11/14/2017 [facility] Manual blood lymphocytes/100 leukocytes Manual blood lymphocytes/100 leukocytes 18 19 - 48 11/14/2017 [facility] Manual blood monocytes/100 leukocytes Manual blood monocytes/100 leukocytes 5 3.4 - 9.0 11/14/2017 [facility] Manual blood neutrophils/100 leukocytes Manual blood neutrophils/100 leukocytes 77 40 - 74 11/14/2017 [facility] Prothrombin time (PT) in platelet poor plasma by coagulation assay Prothrombin time (PT) in platelet poor plasma by coagulation assay 14.0 11.9 - 14.5 11/14/2017 [facility] RBC morphology RBC morphology NORMAL 11/14/2017 [facility] Serum or plasma lipase measurement (enzymatic activity/volume) Serum or plasma lipase measurement (enzymatic activity/volume) 12 8 - 78 11/14/2017 [facility] Differential Total Cells Counted 100 11/14/2017 [facility] B-Type Natriuretic Peptide 36.7 0 - 100 11/14/2017 [facility] Capillary blood glucose measurement by glucometer (mass/volume) Capillary blood glucose measurement by glucometer (mass/volume) 101 70 - 120 10/24/2017 [facility] Manual basophil percentage Manual basophil percentage 2 0 - 1.5 10/22/2017 [facility] Manual blood band neutrophils form/100 leukocytes Manual blood band neutrophils form/100 leukocytes 3 10/22/2017 [facility] Manual blood eosinophil count as percentage of total leukocytes Manual blood eosinophil count as percentage of total leukocytes 4 0 - 7 10/22/2017 [facility] Platelet morphology Platelet morphology NORMAL 10/22/2017 [facility] Clostridium difficile A and B toxin assay Clostridium difficile A and B toxin assay NEGATIVE NEGATIVE 10/20/2017 [facility] Blood anisocytosis detection by light microscopy Blood anisocytosis detection by light microscopy SLIGHT 10/17/2017 [facility] Blood lymphocytes variant count (number/volume) Blood lymphocytes variant count (number/volume) 2 10/17/2017 [facility] Manual blood metamyelocytes/100 leukocytes Manual blood metamyelocytes/100 leukocytes 1 0 - 0 10/17/2017 [facility] Manual blood myelocytes/100 leukocytes Manual blood myelocytes/100 leukocytes 4 0 - 0 10/17/2017 [facility] Serum or plasma magnesium measurement (mass/volume) Serum or plasma magnesium measurement (mass/volume) 2.3 1.3 - 2.1 10/16/2017 [facility] Blood cobalamin (vitamin B12) measurement (mass/volume) Blood cobalamin (vitamin B12) measurement (mass/volume) 325 213 - 816 10/15/2017 [facility] Phosphorus measurement Phosphorus measurement 3.1 2.3 - 4.7 10/15/2017 [facility] Blood poikilocytosis detection by light microscopy Blood poikilocytosis detection by light microscopy SLIGHT 10/13/2017 [facility] Arterial blood base excess by calculation Arterial blood base excess by calculation -1.0 -2 - 3 - 2 10/12/2017 [facility] Arterial blood bicarbonate measurement (moles/volume) Arterial blood bicarbonate measurement (moles/volume) 23 23 - 28 10/12/2017 [facility] Arterial blood oxygen saturation measurement Arterial blood oxygen saturation measurement 97.0 95 - 98 10/12/2017 [facility] Arterial blood pH measurement Arterial blood pH measurement 7.44 7.31 - 7.41 10/12/2017 [facility] Arterial Blood Partial Pressure CO2 33 41 - 51 10/12/2017 [facility] Arterial Blood Partial Pressure O2 86 80 - 105 10/12/2017 [facility] Blood hypochromia detection by light microscopy Blood hypochromia detection by light microscopy SLIGHT 10/12/2017 [facility] Blood culture Blood culture NO GROWTH AFTER 5 DAYS, FINAL REPORT 10/10/2017 [facility] Serum or plasma triglyceride measurement (mass/volume) Serum or plasma triglyceride measurement (mass/volume) 247 0 - 149 10/08/2017 [facility] Bacteria identification in bronchial specimen by aerobe culture Bacteria identification in bronchial specimen by aerobe culture Organism: PSEUDOMONAS AERUGINOSA 10/06/2017 [facility] Bacterial blood culture Bacterial blood culture Organism: STAPHYLOCOCCUS SP COAG NEG 10/05/2017 [facility] Lactic Acid Level 10.4 4.5 - 19.8 10/05/2017 [facility] Blood promyelocytes/100 leukocytes Blood promyelocytes/100 leukocytes 1 0 - 0 10/05/2017 [facility] Vital Signs Vital Sign Value Date Comments Source Encounters Location Location Details Encounter Type Encounter Number Reason For Visit Attending Provider ADM Date DC Date Status Source Registered Clinic [id number] MARCELINO PEDRAZA MD 09/15/2017 [facility] Discharged Inpatient [id number] JOSH AREVALO MD 10/03/2017 10/24/2017 [facility] Departed Emergency Room [id number] AZALIA CLAUDIO MD 11/14/2017 11/14/2017 [facility] Registered Clinic [id number] JOSH LARA DO 11/27/2017 [facility] Registered Clinic [id number] JOSH LARA DO 04/20/2018 [facility] Registered Emergency Room [id number] RANDY AYALA MD 05/31/2018 [facility] Procedures Procedure Code Date Perfomer Comments Source X-ray of chest, single view [id number] 05/31/2018 [facility] Computed tomography of abdomen without then with contrast [id number] 04/20/2018 [facility] Magnetic resonance imaging of abdomen without then with contrast [id number] 11/27/2017 [facility] Computed tomography of abdomen and pelvis with contrast [id number] [facility] NONAUT RED BLOOD CELLS IN PERIPH VEIN, PERC [id number] 10/07/2017 [facility] RESPIRATORY VENTILATION, GREATER THAN 96 CONSECUTIVE HOURS [id number] 10/06/2017 [facility] INSERTION OF ENDOTRACHEAL AIRWAY INTO TRACHEA, VIA OPENING [id number] 10/06/2017 [facility] IRRIGATION OF RESPIRATORY TRACT USING IRRIGAT, ENDO, DIAGN [id number] 10/06/2017 [facility] SUPPLEMENT ABDOMINAL WALL WITH SYNTH SUB, OPEN APPROACH [id number] 10/03/2017 [facility] INTRODUCE ADHESION BARRIER IN PERITON CAV, OPEN [id number] 10/03/2017 [facility] Computed tomography of pelvis with contrast [id number] 09/15/2017 [facility]
[2019-02-22 20:28] VITALS: BP 128/73
== END 2019-02-22 20:45 | disposition home or self-care (01) ==
LOC: ER 17:49
DX: R10.12 Left upper quadrant pain (principal); K43.9 Ventral hernia without obstruction or gangrene; I10 Essential (primary) hypertension; E11.9 Type 2 diabetes mellitus without complications; I51.9 Heart disease, unspecified; N28.9 Disorder of kidney and ureter, unspecified
CPT/HCPCS: 99282

== ENCOUNTER 2019-02-23 20:08 | Observation (INO) | payer OTHER ==
[~2019-02-23] VITALS: Ht 170.2 cm; Wt 125.7 kg
[2019-02-23] MEDS ORDERED: ONDANSETRON HCL INJ 2MG/ML 2ML 2 MG/ML VIAL IV STA (20:24)
[2019-02-23 20:27] LABS: BASOPHILS % 0.2 % (0.0-1.0); EOSINOPHILS # (AUTO) 0.1 (0.0-0.4); HEMATOCRIT 39.7 % (34.2-44.1); HEMOGLOBIN 13.3 g/dL (12.0-16.0); LYMPHOCYTES # (AUTO) 1.9 (1.0-3.2); LYMPHOCYTES % 16.6 % (18.0-39.1); MEAN CORPUSCULAR HEMOGLOBIN 31.6 pg (28-32); MEAN CORPUSCULAR HGB CONC 33.5 g/dL (31-35); MEAN CORPUSCULAR VOLUME 94.3 fL (81-99); MONOCYTES # (AUTO) 0.8 (0.2-0.8); MONOCYTES % 6.6 % (4.4-11.3); NEUTROPHILS # (AUTO) 8.6 (2.1-6.9); NEUTROPHILS % 74.9 % (38.7-80.0); PLATELET COUNT 246 x10e3/uL (140-360); RED BLOOD COUNT 4.21 x10e6/uL (3.6-5.1); RED CELL DISTRIBUTION WIDTH 13.7 % (11.7-14.4)
[2019-02-23 20:48] LABS: ALBUMIN 3.7 g/dL (3.5-5.0); ALBUMIN/GLOBULIN RATIO 1.2 (0.8-2.0); ANION GAP 12.5 mmol/L (8-16); CALCIUM 9.5 mg/dL (8.4-10.2); CREATININE, SERUM 1.01 mg/dL (0.57-1.11); POTASSIUM 3.5 mmol/L (3.5-5.1)
[2019-02-23 21:07] LABS: BILIRUBIN,URINE NEGATIVE (NEGATIVE); CLARITY,URINE SL CLOUDY (CLEAR); COLOR,URINE YELLOW (YELLOW); KETONES,URINE NEGATIVE (NEGATIVE); LEUKOCYTE ESTERASE ,URINE NEGATIVE (NEGATIVE); NITRITE,URINE NEGATIVE (NEGATIVE); PROTEIN,URINE DIPSTICK 1+ (NEGATIVE); URINE UROBILINOGEN 2 mg/dL (0.2 - 1)
[2019-02-23] MEDS ORDERED: FAMOTIDINE 20 MG/2 ML VIAL IV STA (21:12)
[2019-02-23 21:19] LABS: BACTERIA,URINE FEW /HPF; EPITHELIAL CELLS,URINE MODERATE /LPF; RBC,URINE 0-5 /HPF (0-5); WBC,URINE (MAN) 0-5 /HPF (0-5)
--- NOTE | 2019-02-23 21:37 | Diagnostic Imaging Report ---
EXAM: CT Abdomen and Pelvis WITHOUT contrast INDICATION: ^abd pain ^[id number] ^[id number] COMPARISON: CT dated 12/19/2018 TECHNIQUE: Abdomen and pelvis were scanned utilizing a multidetector helical scanner from the lung base to the pubic symphysis without administration of IV contrast. Absence of intravenous contrast decreases sensitivity for detection of focal lesions and vascular pathology. Coronal and sagittal reformations were obtained. Routine protocol was performed. IV CONTRAST: None ORAL CONTRAST: Water COMPLICATIONS: None RADIATION DOSE: Total DLP: 901.42 mGy*cm Estimated effective dose: (DLP x 0.015 x size factor) mSv CTDIvol has been reviewed. It is below the limits set by the Radiation Protocol Committee (RPC). FINDINGS: LINES and TUBES: None. LOWER THORAX: Partially imaged atherosclerotic calcification of coronary arteries. Stable 3 mm left base nodule. Left basilar subsegmental atelectasis. HEPATOBILIARY: Hepatic steatosis. No biliary ductal dilation. GALLBLADDER: Contracted, limiting evaluation. SPLEEN: No splenomegaly. PANCREAS: Approximately 4.4 x 3.2 cm pancreatic tail mass is again seen. No pancreatic ductal dilatation. ADRENALS: No adrenal nodules KIDNEYS/URETERS: No hydronephrosis. Limited for evaluation of renal parenchyma without intravenous contrast. No stones. GI TRACT: Small bowel obstruction with transition point probably within periumbilical ventral hernia. Appendix is normal. Evidence of gastric surgery. PELVIC ORGANS/BLADDER: Bladder is collapsed, limiting evaluation. Pessary in place. LYMPH NODES: No lymphadenopathy. VESSELS: There is moderate atherosclerotic disease in the aorta and major arterial branches. PERITONEUM / RETROPERITONEUM: No free air or fluid. BONES: Mild lumbar spine scoliosis with multilevel advanced degenerative changes. Chronic L1 vertebral body compression deformity. SOFT TISSUES: Periumbilical ventral hernia, containing loops of small bowel. IMPRESSION: Limited study without intravenous contrast. Small bowel obstruction with transition point probably within periumbilical ventral hernia. Redemonstration of pancreatic tail mass. Signed by: Dr. Jeremie Robb MD on 02/23/2019 9:33 PM
[2019-02-23] MEDS ORDERED: MORPHINE SULFATE INJ 4 MG/ML INJ 1ML IV PRN (22:00)
[2019-02-23] MEDS: SODIUM CHLORIDE 0.9% 1000ML 1,000 ML IV SCH (22:15)
[2019-02-23] MEDS: MORPHINE SULFATE INJ 4 MG/ML INJ 1ML IV PRN (22:35)
[2019-02-23] MEDS: ONDANSETRON HCL INJ 2MG/ML 2ML 2 MG/ML VIAL IV PRN (22:35)
[2019-02-23 23:00] VITALS: BP 146/81
[2019-02-23 23:10] VITALS: BP 146/81
[2019-02-23 23:23] VITALS: BP 146/81
--- NOTE | 2019-02-23 23:54 | NUR ---
Received ER report on patient admitted for abdominal pain/SBO for about a week. Patient is A/Ox4 with VS WBP. Patient rated her pain 7/10 for the abdomen. Bed set low, call light within reach, side rails up x2, and bed wheels lock. Patient is non-compliant with many of her home medications especially with Xarelto which hasn't taken since February 11. Patient verbalized understanding the risk for not taking the medications for possible stroke. Monitor patient for pain/nausea.
[2019-02-24] VITALS (7 sets, daily range): BP systolic 109–152; BP diastolic 58–83
[2019-02-24] MEDS: MORPHINE SULFATE INJ 4 MG/ML INJ 1ML IV PRN ×5 (02:27→20:59)
[2019-02-24] MEDS: ONDANSETRON HCL INJ 2MG/ML 2ML 2 MG/ML VIAL IV PRN ×4 (02:27→19:56)
[2019-02-24] MEDS: SODIUM CHLORIDE 0.9% 1000ML 1,000 ML IV SCH ×3 (06:17→22:36)
[2019-02-24] MEDS ORDERED: ACETAMINOPHEN 325 MG TAB PO PRN (07:45)
[2019-02-24] MEDS ORDERED: HYDRALAZINE HCL 20 MG/ML VIAL IV PRN (07:45)
[2019-02-24] MEDS ORDERED: NIFEDIPINE ER30 M1 PO (08:24)
[2019-02-24] MEDS ORDERED: BUPROPION XL150 MG PO (08:24)
[2019-02-24] MEDS ORDERED: LEXAPRO10 MG PO (08:24)
[2019-02-24] MEDS ORDERED: HYDROCODONE/APAP 10MG-325MG TAB PO PRN (08:30)
[2019-02-24] MEDS ORDERED: NORCO 10-325 T1 EACH PO (08:33)
[2019-02-24] MEDS ORDERED: XARELTO20 MG PO (08:37)
--- NOTE | 2019-02-24 09:55 | NUR ---
SPOKE TO ELI HALL REGARDING PT BEING A TEXAN + PT AND INFORMED DR. RICHARDS COVERS THOSE PTS. STATES SHE HAS ALREADY SEEN THE PT TODAY AND THE PT WILL PROBABLY DC HOME TOMORROW. DISCUSSED MICKEY HAD NOT SEEN THE PT YET. RECOMMENDED THE ATTENDING BE CHANGED TO DR. RICHARDS.
--- NOTE | 2019-02-24 10:57 | NUR ---
GRAHAM briefly explained AMELIE. Patient states she understood notice. AMELIE signed copy placed in chart.
--- NOTE | 2019-02-24 14:51 | NUR ---
Pt received at this time. Pt is aox4 and able to ambulate with min assist. Pt is able to verbalize need. Pt is on clear liquid diet until she has BM and then attending must be notified if if ok to advanced diet.
--- NOTE | 2019-02-24 15:07 | Consultation ---
DATE OF CONSULTATION: 02/24/2019 ADDITIONAL REFERRING PHYSICIAN: Mario Beckman DO. HISTORY OF PRESENT ILLNESS: The patient is a 63-year-old female, who is well known to me. She presented to emergency room with complaints of nausea and vomiting. Evaluation there was CT of the abdomen revealed small bowel obstruction likely due to a recurrent abdominal wall hernia. The patient says she feels better now. Her pain is less. She has no more nausea or vomiting. She is passing flatus. The patient has had multiple previous abdominal surgery. She was initially seen by me a few years ago with incarcerated periumbilical hernia with gangrenous bowel with septic shock. She required multiple surgeries at that time and then subsequent repair of recurrent hernia. She was recently seen by me in my office with a recurrent hernia, but was advised to lose weight before attempt was made to repair the hernia. The patient developed nausea and vomiting, and came to the emergency room yesterday, but as stated above, she feels better now. PAST MEDICAL HISTORY: Significant for chronic obstructive pulmonary disease, hypertension, obesity, previous cerebrovascular accident, congestive heart failure, atrial fibrillation, previous deep venous thrombosis, and hyperlipidemia. She has had multiple previous abdominal surgeries. Also, she was treated for sacral decubitus ulcer. ALLERGIES: SHE HAS NO KNOWN ALLERGIES. MEDICATIONS: At home are atorvastatin, buspirone, clonazepam, fenofibrate, Lasix, gabapentin, hydrocodone, nifedipine, potassium supplement, Xarelto, and vitamins. FAMILY HISTORY: Noncontributory. SOCIAL HISTORY: The patient does not smoke cigarettes or drink alcohol. REVIEW OF SYSTEMS: As stated above, she has had no fever, no weight loss. PHYSICAL EXAMINATION: GENERAL: The patient is awake and alert. VITAL SIGNS: Normal. She is not tachycardic. HEENT: There is no scleral icterus. NECK: No masses. LUNGS: Equal breath sounds are clear bilaterally. CARDIAC: Irregular rhythm. ABDOMEN: Soft. There is hernia to the right of the umbilicus, which is reducible. There is mild lower abdominal tenderness. There were no signs of peritonitis or healed surgical wounds. EXTREMITIES: Have no edema. NEUROLOGIC: Grossly intact. LABORATORY TESTS: White blood cell count 11.5, hemoglobin and hematocrit are normal. Chemistries were essentially normal. ASSESSMENT: A 63-year-old female with small bowel obstruction that seems to be resolving. She has recurrent incisional hernia and has previously been advised to lose weight before the hernia could be repaired. At this point, I think the patient can start a liquid diet. There are no signs of ischemic bowel or findings that would warrant immediate surgical intervention. Thank you for asking me to see Ms. Mejia. MD CARLO Hopper/PURA /[id number]
[2019-02-24] MEDS: CLONAZEPAM 1 MG TAB PO SCH (16:16)
[2019-02-24] MEDS: FAMOTIDINE 20 MG TAB PO SCH (16:16)
[2019-02-24] MEDS ORDERED: RIVAROXABAN 20 MG TABLET PO SCH (17:00)
--- NOTE | 2019-02-24 19:05 | NUR ---
RECEIVED REPORT FROM PREVIOUS NURSE. CALL LIGHT WITHIN REACH. PATIENT IN BED.
--- NOTE | 2019-02-25 00:04 | NUR ---
RECEIVED PT AMBULATING IN ROOM. PT IS AAOX3, REQUESTING PAIN MEDICATION. NOTIFIED PT IT WAS EARLY FOR MORPHINE PAIN MEDICATION WOULD SHE LIKE ANOTHER TIME OF PAIN MEDICATION. PT REPORTS SHE WILL WAIT FOR MORPHINE. LEFT PT AMBULATING IN ROOM.
[2019-02-25 00:17] VITALS: BP 122/60
--- NOTE | 2019-02-25 00:27 | NUR ---
GAVE REPORT TO RYAN. CALL LIGHT WITHIN REACH.
--- NOTE | 2019-02-25 00:55 | NUR ---
IV TO (R) AC NOTED TO BE INFILTRATED AND TENDER TO PALPATION. IV DISCONTINUED. CATHETER TIP INTACT. NEW IV STARTED TO (L) FA 22G.
[2019-02-25] MEDS: MORPHINE SULFATE INJ 4 MG/ML INJ 1ML IV PRN (00:59)
[2019-02-25 04:00] VITALS: BP 141/70
[2019-02-25 04:13] LABS: BASOPHILS % 0.3 % (0.0-1.0); EOSINOPHILS # (AUTO) 0.2 (0.0-0.4); EOSINOPHILS % 2.1 % (0.0-6.0); HEMATOCRIT 37.3 % (34.2-44.1); HEMOGLOBIN 11.9 g/dL (12.0-16.0); LYMPHOCYTES # (AUTO) 3.1 (1.0-3.2); LYMPHOCYTES % 33.1 % (18.0-39.1); MEAN CORPUSCULAR HEMOGLOBIN 31.2 pg (28-32); MEAN CORPUSCULAR HGB CONC 31.9 g/dL (31-35); MONOCYTES # (AUTO) 0.8 (0.2-0.8); MONOCYTES % 8.6 % (4.4-11.3); NEUTROPHILS # (AUTO) 5.2 (2.1-6.9); NEUTROPHILS % 55.1 % (38.7-80.0); PLATELET COUNT 260 x10e3/uL (140-360); RED BLOOD COUNT 3.81 x10e6/uL (3.6-5.1); RED CELL DISTRIBUTION WIDTH 14.1 % (11.7-14.4)
[2019-02-25 04:20] LABS: MEAN CORPUSCULAR VOLUME 97.9 fL (81-99)
[2019-02-25 04:22] VITALS: BP 141/70
[2019-02-25 04:28] LABS: ANION GAP 10.5 mmol/L (8-16); BLOOD UREA NITROGEN 10 mg/dL (7-26); BUN/CREATININE RATIO 11 (6-25); CALCIUM 8.4 mg/dL (8.4-10.2); CARBON DIOXIDE 21 mmol/L (22-29); CHLORIDE 112 mmol/L (98-107); CREATININE, SERUM 0.91 mg/dL (0.57-1.11); EST GLOMERULAR FILTRATION RATE > 60 ML/MIN (60-); GLUCOSE 92 mg/dL (74-118); MAGNESIUM 1.7 MG/DL (1.3-2.1); POTASSIUM 3.5 mmol/L (3.5-5.1); SODIUM 140 mmol/L (136-145)
--- NOTE | 2019-02-25 05:29 | NUR ---
SPOKE WITH ELI VALIENTE CONCERNING PT REPORTS OF SORE THROAT. NEW ORDERS RECEIVED. ALSO CLARIFIED ORDER TO TRANSFER ATTENDING TO MD RICHARDS.
[2019-02-25] MEDS ORDERED: CEPACOL SORE THROAT LOZENGES PO PRN (05:30)
[2019-02-25] MEDS: SODIUM CHLORIDE 0.9% 1000ML 1,000 ML IV SCH (05:48)
--- NOTE | 2019-02-25 07:24 | NUR ---
PATIENT ASSISTED TO THE RESTROOM AND BACK TO CHAIR. DENIED PAIN AT THIS TIME. IV FLUID INFUSING ORDERED. CALL LIGHT AT EASY REACH.
[2019-02-25 07:25] VITALS: BP 146/61
[2019-02-25] MEDS: FAMOTIDINE 20 MG TAB PO SCH (07:52)
[2019-02-25 07:56] VITALS: BP 146/61
[2019-02-25] MEDS ORDERED: ESCITALOPRAM OXALATE 10 MG TAB PO SCH (09:00)
[2019-02-25] MEDS ORDERED: FENOFIBRATE 145 MG TAB PO SCH (09:00)
[2019-02-25] MEDS ORDERED: BUPROPION HCL 150 MG TABCR PO SCH (09:00)
[2019-02-25] MEDS ORDERED: NIFEDIPINE CR 30 MG TAB PO SCH (09:00)
[2019-02-25] MEDS: CLONAZEPAM 1 MG TAB PO SCH (09:14)
[2019-02-25] MEDS ORDERED: ONDANSETRON HCL 4 MG ORAL DISINTEGRATING TAB PO PRN (11:00)
--- NOTE | 2019-02-25 11:30 | NUR ---
PATIENT AMBULATING IN HALLWAY, NO COMPLAIN VOICED. WILL CONTINUE TO MONITOR.
[2019-02-25 11:40] VITALS: BP 151/71
--- NOTE | 2019-02-25 14:05 | NUR ---
PATIENT DISCHARGED HOME. DISCHARGE INSTRUCTIONS AND FOLLOW UP GIVEN TO PATIENT, SHE VERBALIZED UNDERSTANDING. IV TO LEFT FOREARM REMOVED WITH TIP INTACT. ALL PERSONAL ITEMS TAKEN WITH PATIENT. LEFT UNIT PER WHEEL CHAIR TO FRONT LOBBY.
[2019-02-25] MEDS ORDERED: ATORVASTATIN 40 MG TAB PO SCH (21:00)
== END 2019-02-25 13:55 | disposition home or self-care (01) ==
LOC: ER 20:08 → ERHOLD 22:02 → IMCU 22:54 → MED/SURG3 02-24 14:56
PROVIDERS: ADMIT Internal Medicine; ATTEND Internal Medicine
DX: K43.0 Incisional hernia with obstruction, without gangrene (principal); I69.354 Hemiplegia and hemiparesis following cerebral infarction affecting left non-dominant side; Z86.718 Personal history of other venous thrombosis and embolism; Z79.01 Long term (current) use of anticoagulants; F32.9 Major depressive disorder, single episode, unspecified; E78.5 Hyperlipidemia, unspecified; I10 Essential (primary) hypertension; Z87.891 Personal history of nicotine dependence; E66.01 Morbid (severe) obesity due to excess calories; Z68.41 Body mass index [BMI] 40.0-44.9, adult
CPT/HCPCS: 36415 ×2; 74176; 80048; 80053; 81001; 83036; 83690; 83735; 84484; 85025 ×2; 93005; 94760; 96374; 99284; G0378 ×3; J2270 ×3; J2405 ×2; J7030 ×3

== ENCOUNTER → 2019-06-25 | Day surgery (SDC) | payer OTHER ==
[2019-06-19 10:48] LABS: BASOPHILS # (AUTO) 0.1 (0.0-0.1); BASOPHILS % 0.8 % (0.0-1.0); EOSINOPHILS # (AUTO) 0.2 (0.0-0.4); EOSINOPHILS % 1.7 % (0.0-6.0); HEMATOCRIT 41.7 % (34.2-44.1); HEMOGLOBIN 13.4 g/dL (12.0-16.0); LYMPHOCYTES # (AUTO) 2.8 (1.0-3.2); LYMPHOCYTES % 26.3 % (18.0-39.1); MEAN CORPUSCULAR HEMOGLOBIN 30.9 pg (28-32); MEAN CORPUSCULAR HGB CONC 32.1 g/dL (31-35); MEAN CORPUSCULAR VOLUME 96.3 fL (81-99); MONOCYTES # (AUTO) 0.9 (0.2-0.8); MONOCYTES % 8.1 % (4.4-11.3); NEUTROPHILS # (AUTO) 6.5 (2.1-6.9); NEUTROPHILS % 61.1 % (38.7-80.0); PLATELET COUNT 257 x10e3/uL (140-360); RED BLOOD COUNT 4.33 x10e6/uL (3.6-5.1); RED CELL DISTRIBUTION WIDTH 14.2 % (11.7-14.4)
[2019-06-19 10:55] LABS: ALBUMIN 3.7 g/dL (3.5-5.0); ALBUMIN/GLOBULIN RATIO 1.1 (0.8-2.0); CALCIUM 9.7 mg/dL (8.4-10.2)
[~2019-06-25] VITALS: Ht 170.2 cm; Wt 124.7 kg
[2019-06-25] VITALS (7 sets, daily range): BP systolic 131–160; BP diastolic 63–87
[~2019-06-25] MED LIST changes: +ALPRAZOLAM 0.5 MG TAB ONE; +DIPHENHYDRAMINE HCL 25 MG CAP ONE; +FENTANYL CITRATE/PF 100MCG/2 ML INJ ONE; +HEPARIN SOD/SOD CHLORIDE 2,000 ML ONE; +IOPAMIDOL 370 MG/ML 200 ML INFUS..BTL INJ ONE; +LEXAPRO10 MG PO; +LIDOCAINE HCL 2% LOCAL 20 ML VIAL ONE; +MIDAZOLAM HCL 2 MG/2 ML VIAL ONE; +NITROGLYCERIN 2% OINT 1 GM PKT ONE; +SEROQUEL200 MG PO; +SODIUM CHLORIDE 0.9% 1000ML 1,000 ML ONE
--- NOTE | 2019-06-25 16:30 | NUR ---
1630 Bedside report received from Norbert MILLER.Back to baseline orientation. Alert oriented and appropriate, PERRLA, respirations even and unlabored to room air. Pulses x4 extremities equal and strong. Pedal pulses PT/DP X4 Cap fill brisk < 3 sec. Ok reduce air TR band at 1700pm and dc at 1800pm. Skin warm and dry integrity appears D/I. IV 20g to left arm.presents healthy w/o s/s of infiltration or complaint. Abdomen soft and supple. pt offered toileting, denies need to urinate or defecate. No personal affects with patient. Family Kathy [phone]. Pt and family verbalizes understanding of POC. Currently w/o complaint of pain or need. ds/rn
--- NOTE | 2019-06-25 17:00 | NUR ---
1700pm RADIAL Compression removal: Initial Cuff volume 15 cc 1700p -2cc Removed No hematoma/bleeding noted with normal neurovascular function. 1715p -3cc Removed No hematoma/ bleeding noted with normal neurovascular function. 1730p -5cc Removed No hematoma/bleeding noted with normal neurovascular function. 1800p -5cc Removed No hematoma/ bleeding noted with normal neurovascular function. Air removal completed. Stasis achieved sterile 2x2,Tegaderm, Coban dressing No hematoma, bleeding noted with normal neurovascular function. Wrist splint in place. Pt instructed on POC. Ds/Rn
--- NOTE | 2019-06-25 18:30 | NUR ---
1830Pt meets DC criteria.Back to baseline orientation Rt Tr band assessed for s/s of complication and presence of hematoma. Skin warm, dry, no discolor, and pulses present. IV removed from left arm Distal tip appears intact. VS WNL. Pt denies pain, sob, or need at this time. Family at bs. Review of discharge paperwork and follow up instructions. verbalized understanding. Pt to wheelchair and transported to front of hospital. Transferred to private vehicle under own strength w/o incident with DC paperwork in hand. -ds/rn
--- NOTE | 2019-06-26 01:48 | Operative Report ---
DATE OF PROCEDURE: 06/25/2019 SURGEON: Daniel Pritchard MD INDICATIONS: Coronary artery disease, abnormal stress test. PROCEDURES PERFORMED: 1. Left heart catheterization, selective coronary angiography. 2. Deployment right arm TR band. COMPLICATIONS: None. RECOMMENDATIONS: Medical therapy, cardiac cleared for surgery. DESCRIPTION OF PROCEDURE: Access obtained in the right radial artery using ultrasound guidance. Extreme spasm of the right radial artery of the wrist was noted. Access was obtained in the mid forearm radial artery. A 5-Lebanese sheath was placed. Coronary angiography demonstrated patent stent in the right coronary artery, circumflex 50%, remaining left anterior descending artery. Another vessel had diffuse 30% to 50% stenosis. LV end-diastolic pressure of 40. No gradient across aortic valve on pullback. Right wrist TR band applied. The patient was discharged home on same day. Daniel Pritchard MD KSB/MODL /[id number]
== END | disposition home or self-care (01) ==
LOC: CATH LAB 11:23
PROVIDERS: ATTEND Internal Medicine Interventional Cardiology
DX: I25.118 Atherosclerotic heart disease of native coronary artery with other forms of angina pectoris (principal); Z95.5 Presence of coronary angioplasty implant and graft; R94.39 Abnormal result of other cardiovascular function study; I10 Essential (primary) hypertension; E78.00 Pure hypercholesterolemia, unspecified; I73.9 Peripheral vascular disease, unspecified; Z01.812 Encounter for preprocedural laboratory examination; I25.2 Old myocardial infarction; Z86.73 Personal history of transient ischemic attack (TIA), and cerebral infarction without residual deficits; Z79.02 Long term (current) use of antithrombotics/antiplatelets
CPT/HCPCS: 36415; 76937; 80053; 85025; 93458; C1769; C1887; J2001; J2250; J3010; J7030; Q9967

== ENCOUNTER 2019-07-07 17:30 | Inpatient (IN) | payer OTHER ==
[~2019-07-07] VITALS: Ht 170.2 cm; Wt 124.7 kg
[~2019-07-07 17:30] MED LIST changes: -ALPRAZOLAM 0.5 MG TAB ONE; -DIPHENHYDRAMINE HCL 25 MG CAP ONE; -FENTANYL CITRATE/PF 100MCG/2 ML INJ ONE; -HEPARIN SOD/SOD CHLORIDE 2,000 ML ONE; -IOPAMIDOL 370 MG/ML 200 ML INFUS..BTL INJ ONE; -LIDOCAINE HCL 2% LOCAL 20 ML VIAL ONE; -MIDAZOLAM HCL 2 MG/2 ML VIAL ONE; -NITROGLYCERIN 2% OINT 1 GM PKT ONE; -SODIUM CHLORIDE 0.9% 1000ML 1,000 ML ONE
[2019-07-07] MEDS ORDERED: DIATRIZOATE MEGL/DIATRIZOA SOD 30 ML BTL PO ONE (19:21)
[2019-07-07] MEDS ORDERED: MORPHINE SULFATE INJ 4 MG/ML INJ 1ML IV NR (19:30)
[2019-07-07] MEDS ORDERED: SODIUM CHLORIDE 0.9% 1000ML 1,000 ML IV ONE (19:30)
[2019-07-07] MEDS ORDERED: ONDANSETRON HCL INJ 2MG/ML 2ML 2 MG/ML VIAL IV NR (19:45)
[2019-07-07 20:13] LABS: BASOPHILS % 0.3 % (0.0-1.0); EOSINOPHILS # (AUTO) 0.2 (0.0-0.4); EOSINOPHILS % 1.3 % (0.0-6.0); HEMATOCRIT 41.2 % (34.2-44.1); HEMOGLOBIN 13.5 g/dL (12.0-16.0); LYMPHOCYTES # (AUTO) 2.2 (1.0-3.2); MEAN CORPUSCULAR HEMOGLOBIN 31.4 pg (28-32); MEAN CORPUSCULAR HGB CONC 32.8 g/dL (31-35); MEAN CORPUSCULAR VOLUME 95.8 fL (81-99); MONOCYTES # (AUTO) 0.8 (0.2-0.8); MONOCYTES % 6.5 % (4.4-11.3); NEUTROPHILS # (AUTO) 9.4 (2.1-6.9); NEUTROPHILS % 73.6 % (38.7-80.0); PLATELET COUNT 294 x10e3/uL (140-360); RED CELL DISTRIBUTION WIDTH 14.8 % (11.7-14.4)
[2019-07-07 20:37] LABS: ALANINE AMINOTRANSFERASE 20 IU/L (0-55); ALBUMIN 3.7 g/dL (3.5-5.0); ALBUMIN/GLOBULIN RATIO 1.1 (0.8-2.0); ALKALINE PHOSPHATASE 61 IU/L (40-150); AMYLASE 42 U/L (25-125); ANION GAP 15.9 mmol/L (8-16); BLOOD UREA NITROGEN 17 mg/dL (7-26); BUN/CREATININE RATIO 15 (6-25); CALCIUM 9.5 mg/dL (8.4-10.2); CARBON DIOXIDE 21 mmol/L (22-29); CHLORIDE 109 mmol/L (98-107); CREATINE KINASE 81 IU/L (29-168); CREATININE, SERUM 1.16 mg/dL (0.57-1.11); EST GLOMERULAR FILTRATION RATE 47 ML/MIN (60-); GLUCOSE 140 mg/dL (74-118); LIPASE 5 U/L (8-78); POTASSIUM 3.9 mmol/L (3.5-5.1); SODIUM 142 mmol/L (136-145)
--- NOTE | 2019-07-07 22:20 | NUR ---
pt has refused to be straight-cathed for urine
[2019-07-07] MEDS ORDERED: LASIX40 MG PO (22:29)
--- NOTE | 2019-07-07 22:49 | Diagnostic Imaging Report ---
EXAM: CT Abdomen and Pelvis WITHOUT contrast INDICATION: ^abd pain n/v ^[id number] ^[id number] COMPARISON: CT dated 02/23/2019 TECHNIQUE: Abdomen and pelvis were scanned utilizing a multidetector helical scanner from the lung base to the pubic symphysis without administration of IV contrast. Absence of intravenous contrast decreases sensitivity for detection of focal lesions and vascular pathology. Coronal and sagittal reformations were obtained. Routine protocol was performed. IV CONTRAST: None ORAL CONTRAST: Gastrografin COMPLICATIONS: None RADIATION DOSE: Total DLP: 588.25 mGy*cm Estimated effective dose: (DLP x 0.015 x size factor) mSv CTDIvol has been reviewed. It is below the limits set by the Radiation Protocol Committee (RPC). FINDINGS: LOWER THORAX: Partially imaged atherosclerotic calcification of coronary arteries. Stable 3 mm left base nodule. Left basilar subsegmental atelectasis. HEPATOBILIARY: Hepatic steatosis. Otherwise, unenhanced liver is unremarkable. No biliary ductal dilation. GALLBLADDER: Contracted, limiting evaluation. No wall thickening. SPLEEN: No splenomegaly. PANCREAS: Approximately 5.5 x 4 cm pancreatic tail mass, previously 5.2 x 3.8 cm with the same measurement technique. No pancreatic ductal dilatation. ADRENALS: No adrenal nodules KIDNEYS/URETERS: No hydronephrosis. Limited for evaluation of renal parenchyma without intravenous contrast. No stones. Nonspecific bilateral perinephric fat stranding. GI TRACT: Partial small bowel bowel obstruction with transition point probably within periumbilical ventral hernia. Several distended air and fluid containing small bowel loops are visualized. Appendix is normal. Evidence of gastric surgery. PELVIC ORGANS/BLADDER: Unremarkable. Bladder is collapsed, limiting evaluation. LYMPH NODES: No lymphadenopathy. VESSELS: There is moderate atherosclerotic disease in the aorta and major arterial branches. PERITONEUM / RETROPERITONEUM: No free air or fluid. BONES: Mild lumbar spine scoliosis with multilevel advanced degenerative changes. Chronic L1 vertebral body compression deformity. SOFT TISSUES: Periumbilical ventral hernia, containing loops of small bowel and small amount of fluid.. IMPRESSION: Limited study without intravenous contrast. Partial small bowel obstruction with transition point within periumbilical ventral hernia. Redemonstration of pancreatic tail mass, slightly increased in size from prior exam. Signed by: Dr. Jeremie Robb MD on 07/07/2019 10:45 PM
[2019-07-07 22:53] LABS: BILIRUBIN,URINE NEGATIVE (NEGATIVE); CLARITY,URINE CLOUDY (CLEAR); COLOR,URINE YELLOW (YELLOW); KETONES,URINE NEGATIVE (NEGATIVE); LEUKOCYTE ESTERASE ,URINE SMALL (NEGATIVE); NITRITE,URINE POSITIVE (NEGATIVE); PROTEIN,URINE DIPSTICK TRACE (NEGATIVE); URINE UROBILINOGEN 1 mg/dL (0.2 - 1)
[2019-07-07] MEDS ORDERED: MORPHINE SULFATE INJ 4 MG/ML INJ 1ML ONE (22:59)
[2019-07-07] MEDS: MORPHINE SULFATE 2 MG/ML SYR 1ML IV PRN (23:00)
[2019-07-07 23:08] LABS: BACTERIA,URINE MANY /HPF; EPITHELIAL CELLS,URINE MANY /LPF
[2019-07-07 23:09] LABS: MUCUS,URINE MODERATE (RARE)
[2019-07-07] MEDS ORDERED: SODIUM CHLORIDE 0.9% 1000ML 1,000 ML IV SCH (23:16)
[2019-07-07] MEDS ORDERED: ONDANSETRON HCL INJ 2MG/ML 2ML 2 MG/ML VIAL IV PRN (23:30)
--- NOTE | 2019-07-07 23:49 | NUR ---
report given to tiffanie brown rn for continuity of care.
[2019-07-08] VITALS (9 sets, daily range): BP systolic 112–154; BP diastolic 74–86
[2019-07-08] MEDS: METRONIDAZOLE 500MG/NS 100ML 100 ML IV SCH ×4 (01:11→18:15)
[2019-07-08] MEDS: LEVOFLOXACIN 500MG/D5W 100ML IV SCH ×2 (02:39→23:09)
[2019-07-08] MEDS: MORPHINE SULFATE 2 MG/ML SYR 1ML IV PRN ×5 (03:28→21:25)
[2019-07-08 06:00] LABS: INR 1.1; PARTIAL THROMBOPLASTIN TIME 29.9 seconds (23.8-35.5); PROTHROMBIN TIME 14.7 seconds (11.9-14.5)
--- NOTE | 2019-07-08 07:50 | Consultation ---
DATE OF CONSULTATION: 07/08/2019 HISTORY OF PRESENT ILLNESS: The patient is a 64-year-old female, who is well known to me. She is presenting with complaints of abdominal pain with nausea and vomiting and cough. She had evaluation of CT scan of the abdomen and pelvis, which revealed partial small bowel obstruction with a large ventral hernia. She also has a mass in the pancreas, which is increased slightly in size. The patient says she feels better now. Her pain has gone. No more nausea or vomiting. She does complain of a cough. PAST MEDICAL HISTORY: Significant for multiple previous abdominal surgeries secondary to incarcerated hernia with gangrenous bowel with a complicated postoperative course requiring multiple re-operations with sepsis and organ failure. She has history of hypertension, coronary artery disease, chronic obstructive pulmonary disease, hyperlipidemia, previous deep venous thrombosis with vena cava filter in place, chronic kidney disease. Besides her multiple previous abdominal surgeries, she has had back surgery and ankle surgery. MEDICATIONS: At home were atorvastatin, bupropion, clonazepam, Lexapro, fenofibrate, Lasix, pain medication, nifedipine, Seroquel, and Xarelto. ALLERGIES: SHE HAS NO KNOWN ALLERGIES. FAMILY HISTORY: Noncontributory. SOCIAL HISTORY: The patient is a former smoker, but quit. She does not drink alcohol. REVIEW OF SYSTEMS: As stated above. She has had no fever, no weight loss. She has had cough. PHYSICAL EXAMINATION: GENERAL: The patient is awake and alert. VITAL SIGNS: Essentially normal. HEENT: The sclerae is not icteric. NECK: Supple. No masses. LUNGS: Equal breath sounds, clear bilaterally. CARDIAC: Regular rate and rhythm. No murmurs heard. ABDOMEN: Mildly distended. There is large ventral hernia, which is not completely reducible. There was no other mass. EXTREMITIES: Have no edema. NEUROLOGIC: Grossly intact. LABORATORY TESTS: White blood cell count is 12.7, hemoglobin and hematocrit are normal. Chemistries, mildly elevated BUN and creatinine. Electrolytes were normal. ASSESSMENT: A 64-year-old female with multiple medical problems with partial small bowel obstruction that seems to be improved. She has no pain, no nausea, vomiting. She says she is passing flatus. She does have a large recurrent ventral incisional hernia, also pancreatic mass. Pancreatic mass is increased slightly in size. I think consideration must be given to resection of the pancreatic mass and repair of the hernias as hernias cause a partial obstruction, which now is resolved. At this point, recommend to start on clear liquid diet and hopefully advance to regular diet while considerations given to surgery for the above-mentioned problems. Thank you for asking me to see Ms. Mejia. MD CARLO Hopper/PURA /[id number]
[2019-07-08 07:54] LABS: BASOPHILS % 0.2 % (0.0-1.0); EOSINOPHILS # (AUTO) 0.2 (0.0-0.4); EOSINOPHILS % 2.2 % (0.0-6.0); HEMATOCRIT 36.8 % (34.2-44.1); HEMOGLOBIN 11.4 g/dL (12.0-16.0); LYMPHOCYTES % 24.7 % (18.0-39.1); MONOCYTES # (AUTO) 0.8 (0.2-0.8); MONOCYTES % 9.8 % (4.4-11.3); PLATELET COUNT 228 x10e3/uL (140-360); RED BLOOD COUNT 3.68 x10e6/uL (3.6-5.1); RED CELL DISTRIBUTION WIDTH 14.9 % (11.7-14.4)
[2019-07-08 08:18] LABS: ALBUMIN 3.2 g/dL (3.5-5.0); ALBUMIN/GLOBULIN RATIO 1.1 (0.8-2.0); ANION GAP 13.6 mmol/L (8-16); CALCIUM 8.5 mg/dL (8.4-10.2); CREATININE, SERUM 0.98 mg/dL (0.57-1.11); POTASSIUM 3.6 mmol/L (3.5-5.1)
--- NOTE | 2019-07-08 09:31 | Diagnostic Imaging Report ---
Exam: KUB - 2 views Indication: Small bowel obstruction Comparison: CT abdomen and pelvis of 07/07/2019 Findings: Again seen are dilated air-filled loops of small bowel which now have increased in caliber compared to the prior CT, measuring up to 10.1 cm maximum diameter. No free air. No pneumatosis. Degenerative changes of the visualized spine. Impression: Small bowel obstruction with interval increase in caliber of dilated small bowel loops now measuring up to 10.1 cm. Signed by: Agueda Blanco MD on 07/08/2019 9:27 AM
[2019-07-08] MEDS ORDERED: ENOXAPARIN SOD INJ 40 MG/0.4 ML SYR SC SCH (09:45)
[2019-07-08] MEDS: NIFEDIPINE CR 30 MG TAB PO SCH (10:30)
[2019-07-08] MEDS: ESCITALOPRAM OXALATE 10 MG TAB PO SCH (11:00)
[2019-07-08] MEDS: BUPROPION HCL 150 MG TABCR PO SCH (11:00)
[2019-07-08] MEDS: ENOXAPARIN SODIUM INJ 100 MG/ML SYR SC SCH ×2 (12:17→21:24)
--- NOTE | 2019-07-08 16:24 | History and Physical ---
PRIMARY CARE PHYSICIAN: Dr. Mario Beckman FINISH MIXER: Dr. Mario Espinal. CHIEF COMPLAINT: Partial small bowel obstruction. HISTORY OF PRESENT ILLNESS: A 64-year-old female has extensive abdominal surgery. The patient had nausea. CT scan review shows partial small bowel obstruction associated with large ventral hernia. The patient also had a mass in the tail of the pancreas, which is increased slightly in size. The patient is doing little bit better today. No more nausea or vomiting. The patient is stable. PAST MEDICAL HISTORY: Extensive previous abdominal surgery secondary to incarcerated hernia with gangrenous bowel with complicated postoperative course, recurrent reoperation multiple times secondary to organ failure, sepsis, and peritonitis. Ventral hernia. COPD. Dyslipidemia. Venous thrombosis. Vena cava placement, on chronic kidney disease. Lower back surgery. Ankle surgery. Coronary artery disease. SOCIAL HISTORY: The patient is a former smoker. She quit. She does not use alcohol. ALLERGIES: NO KNOWN ALLERGIES. HOME MEDICATIONS: List reviewed. REVIEW OF SYSTEMS: As mentioned above. PHYSICAL EXAMINATION: VITAL SIGNS: Temperature is 98, blood pressure 117/86, pulse rate 72, and respirations 18. GENERAL: The patient is no acute distress. She is awake. HEENT: Normocephalic, atraumatic. Anicteric. NECK: Supple grossly. PULMONARY: Clear. CARDIOVASCULAR: Regular rate and rhythm. ABDOMEN: Distended with multiple scar, ventral hernia. EXTREMITIES: No cyanosis or edema. NEUROLOGIC: No focal deficit. LABORATORY DATA: WBC 12.7, hemoglobin 13.5, hematocrit 41.2, and platelets 294. Chemistry; sodium is 142, potassium 3.9, chloride 109, bicarb 21, BUN is 17, creatinine 1.2, and glucose 140. Urinalysis positive for urinary tract infection with urine bacteria moderate, some moderate leukocyte esterase with rbc and nitrates. CT scan of abdomen and pelvis showed that the patient has a partial small bowel obstruction and re-demonstration of the pancreatic tail mass, slightly increase in size from previous exam. The patient is already aware of the mass. IMPRESSION: 1. Small bowel obstruction, partially secondary to abdominal adhesion with multiple previous abdominal surgery and ventral hernia. 2. Pancreatic tail mass slight increase in size. 3. Morbid obesity. 4. Stable multiple chronic medical problems. PLAN: Continue with conservative measure. Clear liquid diet. Advance diet as tolerated. Check lab work. Resume some home medication. MD ABRAM Rodriguez /[id number]
[2019-07-08] MEDS: CLONAZEPAM 1 MG TAB PO SCH (18:15)
--- NOTE | 2019-07-08 18:44 | NUR ---
patient resting in bed, not in any distress, tolerated liquids
[2019-07-08] MEDS ORDERED: QUETIAPINE FUMARATE 200 MG PO SCH (21:00)
[2019-07-08] MEDS: QUETIAPINE FUMARATE 100 MG TAB PO SCH (21:24)
[2019-07-09] VITALS (8 sets, daily range): BP systolic 125–150; BP diastolic 65–80
[2019-07-09] MEDS: METRONIDAZOLE 500MG/NS 100ML 100 ML IV SCH ×4 (00:30→17:58)
[2019-07-09] MEDS: MORPHINE SULFATE 2 MG/ML SYR 1ML IV PRN ×6 (01:18→23:16)
[2019-07-09 05:55] LABS: BASOPHILS % 0.4 % (0.0-1.0); EOSINOPHILS # (AUTO) 0.2 (0.0-0.4); EOSINOPHILS % 2.9 % (0.0-6.0); HEMATOCRIT 42.5 % (34.2-44.1); HEMOGLOBIN 12.8 g/dL (12.0-16.0); LYMPHOCYTES # (AUTO) 2.3 (1.0-3.2); LYMPHOCYTES % 33.4 % (18.0-39.1); MEAN CORPUSCULAR HEMOGLOBIN 31.1 pg (28-32); MEAN CORPUSCULAR HGB CONC 30.1 g/dL (31-35); MEAN CORPUSCULAR VOLUME 103.4 fL (81-99); MONOCYTES # (AUTO) 0.7 (0.2-0.8); MONOCYTES % 9.7 % (4.4-11.3); NEUTROPHILS # (AUTO) 3.6 (2.1-6.9); NEUTROPHILS % 52.2 % (38.7-80.0); PLATELET COUNT 186 x10e3/uL (140-360); RED BLOOD COUNT 4.11 x10e6/uL (3.6-5.1)
[2019-07-09 07:44] LABS: ANION GAP 13.8 mmol/L (8-16); CALCIUM 8.6 mg/dL (8.4-10.2); CREATININE, SERUM 0.96 mg/dL (0.57-1.11); POTASSIUM 3.8 mmol/L (3.5-5.1)
--- NOTE | 2019-07-09 08:55 | Diagnostic Imaging Report ---
Exam: KUB - 2 views Indication: Small bowel obstruction Comparison: Multiple prior KUBs, most recently 07/08/2019, CT abdomen and pelvis of 07/07/2019 Findings: Again seen are dilated loops of small bowel measuring up to 9.6 cm maximum diameter. This is slightly decreased compared to the prior KUB of 07/08/2019. No free air. Otherwise no significant interval change. Impression: Redemonstration of small bowel obstruction with dilated loops measuring up to 9.6 cm, slightly decreased compared to 07/08/2019. Signed by: Agueda Blanco MD on 07/09/2019 8:52 AM
[2019-07-09] MEDS: ESCITALOPRAM OXALATE 10 MG TAB PO SCH (10:01)
[2019-07-09] MEDS: CLONAZEPAM 1 MG TAB PO SCH ×2 (10:01→17:58)
[2019-07-09] MEDS: BUPROPION HCL 150 MG TABCR PO SCH (10:02)
[2019-07-09] MEDS: ENOXAPARIN SODIUM INJ 100 MG/ML SYR SC SCH ×2 (10:02→22:12)
[2019-07-09] MEDS: NIFEDIPINE CR 30 MG TAB PO SCH (10:02)
--- NOTE | 2019-07-09 11:26 | NUR ---
WOUND CARE CONSULTATION: THIS IS A 64 YEAR OLD FEMALE PATIENT ADMITTED TO [facility] FOR PARTIAL SMALL BOWEL OBSTRUCTION. HEAD TO TOE SKIN ASSESSMENT PERFORMED. PATIENT HAS AN OLD SCAR FROM A PRESSURE ULCER SHE HAD A FEW YEARS AGO THAT REQUIRED A WOUND VAC TO HEAL. SKIN IS INTACT, DRY, NO WOUNDS. LABS: WBC6.91 ALB3.7 MEDICATIONS: LEVAQUIN METRONIDAZOLE RECOMMENDATION: -CONTINUE ALTERNATING PRESSURE RELIEF MATTRESS. -APPLY BILATERAL HEEL PROTECTOR WITH PILLOW SUSPENSION. -TURN EVERY 2 HOURS AND PRN. THANK YOU FOR THIS WOUND CARE CONSULT. Addendum: 07/09/19 at 1131 by Lisa Casiano RN Amended: Links added.
--- NOTE | 2019-07-09 14:40 | NUR ---
Visit made by the Spiritual Care Department Pastoral Visitor, Ana Delgado. PV provided pastoral presence, hospitality, and supportive listening. Pastoral Visitor informed pt/family of the scope of [employer]ilingual Services and availability. CHILANGO BEAULIEU Director Of Community Services Spiritual Care Department O: [phone] Pager: [phone] ([phone] number calling from)
--- NOTE | 2019-07-09 19:20 | NUR ---
Received report from previous nurse. Call light within reach. Patient in bed.
[2019-07-09] MEDS: QUETIAPINE FUMARATE 100 MG TAB PO SCH (22:12)
[2019-07-09] MEDS: LEVOFLOXACIN 500MG/D5W 100ML IV SCH (23:13)
[2019-07-10] VITALS (8 sets, daily range): BP systolic 124–142; BP diastolic 63–93
[2019-07-10] MEDS: METRONIDAZOLE 500MG/NS 100ML 100 ML IV SCH ×5 (00:24→23:38)
[2019-07-10] MEDS: MORPHINE SULFATE 2 MG/ML SYR 1ML IV PRN ×4 (04:21→19:33)
--- NOTE | 2019-07-10 07:52 | NUR ---
Gave report to oncoming nurse. Call light within reach. Patient in bed.
[2019-07-10] MEDS: ENOXAPARIN SODIUM INJ 100 MG/ML SYR SC SCH ×2 (08:57→20:28)
[2019-07-10] MEDS: CLONAZEPAM 1 MG TAB PO SCH ×2 (08:57→17:37)
[2019-07-10] MEDS: NIFEDIPINE CR 30 MG TAB PO SCH (08:57)
[2019-07-10] MEDS: ESCITALOPRAM OXALATE 10 MG TAB PO SCH (08:57)
[2019-07-10] MEDS: BUPROPION HCL 150 MG TABCR PO SCH (08:57)
[2019-07-10] MEDS ORDERED: ONDANSETRON HCL 4 MG ORAL DISINTEGRATING TAB PO PRN (10:15)
[2019-07-10] MEDS ORDERED: LEVOFLOXACIN 500 MG TAB PO SCH (20:00)
[2019-07-10] MEDS: QUETIAPINE FUMARATE 100 MG TAB PO SCH (20:28)
[2019-07-11] VITALS: BP 121/74
[2019-07-11 03:28] VITALS: BP 121/74
[2019-07-11 04:00] VITALS: BP 114/83
[2019-07-11] MEDS: METRONIDAZOLE 500MG/NS 100ML 100 ML IV SCH (05:51)
[2019-07-11 09:19] VITALS: BP 145/77
[2019-07-11 09:21] VITALS: BP 145/77
[2019-07-11] MEDS ORDERED: DONNATAL/LIDOCAINE/MAALOX 30 ML SUSP PO ONE (09:30)
[2019-07-11] MEDS: ESCITALOPRAM OXALATE 10 MG TAB PO SCH (09:49)
[2019-07-11] MEDS: BUPROPION HCL 150 MG TABCR PO SCH (09:49)
[2019-07-11] MEDS: NIFEDIPINE CR 30 MG TAB PO SCH (09:49)
[2019-07-11] MEDS: CLONAZEPAM 1 MG TAB PO SCH (09:49)
[2019-07-11] MEDS: ENOXAPARIN SODIUM INJ 100 MG/ML SYR SC SCH (09:49)
--- NOTE | 2019-07-11 12:32 | NUR ---
reviewed dc instructions with pt, verbalized understanding. pt stable
--- NOTE | 2019-07-12 07:21 | Discharge Summary ---
PRIMARY CARE PHYSICIAN: Mario Beckman DO. CATALYST IMPREGNATOR: Mario Espinal MD. FINAL DIAGNOSIS: Resolved small-bowel obstruction. HISTORY OF PRESENT ILLNESS: The patient is a 64 years female with small-bowel obstruction. The patient with conservative measure. She is doing much better now. Bowel obstruction is partial. She is able to eat, tolerate all diet and have bowel movement. The patient will be discharged home today. Resume home medication. She will follow up with Dr. Mario Espinal if needed. MD SEA Rodriguez/MODL /[id number]
== END 2019-07-11 12:50 | disposition home or self-care (01) | DRG 394 ==
LOC: ER 17:30 → ERHOLD 23:20 → IMCU 07-08 01:24
PROVIDERS: ADMIT Internal Medicine; ATTEND Internal Medicine
DX: K43.6 Other and unspecified ventral hernia with obstruction, without gangrene (principal); Z68.41 Body mass index [BMI] 40.0-44.9, adult; I25.10 Atherosclerotic heart disease of native coronary artery without angina pectoris; J44.9 Chronic obstructive pulmonary disease, unspecified; I25.2 Old myocardial infarction; D64.9 Anemia, unspecified; F41.9 Anxiety disorder, unspecified; K21.9 Gastro-esophageal reflux disease without esophagitis; E78.5 Hyperlipidemia, unspecified; Z86.718 Personal history of other venous thrombosis and embolism; I12.9 Hypertensive chronic kidney disease with stage 1 through stage 4 chronic kidney disease, or unspecified chronic kidney disease; N18.9 Chronic kidney disease, unspecified; Z87.891 Personal history of nicotine dependence; E87.8 Other disorders of electrolyte and fluid balance, not elsewhere classified; E66.01 Morbid (severe) obesity due to excess calories; K86.89 Other specified diseases of pancreas
CPT/HCPCS: 36415; 74019; 74176; 80048; 80053; 81001; 82150; 82550; 82553; 83690; 84484; 85025; 85610; 85730; 93005; 99284; J1650; J1956; J2270; J2405; J7030

== ENCOUNTER 2019-07-30 06:45 | Inpatient (IN) | payer OTHER ==
[2019-07-29 14:49] LABS: BASOPHILS # (AUTO) 0.1 (0.0-0.1); BASOPHILS % 0.5 % (0.0-1.0); EOSINOPHILS # (AUTO) 0.3 (0.0-0.4); EOSINOPHILS % 2.6 % (0.0-6.0); HEMATOCRIT 41.7 % (34.2-44.1); HEMOGLOBIN 13.6 g/dL (12.0-16.0); LYMPHOCYTES # (AUTO) 3.4 (1.0-3.2); LYMPHOCYTES % 34.1 % (18.0-39.1); MEAN CORPUSCULAR HEMOGLOBIN 31.1 pg (28-32); MEAN CORPUSCULAR HGB CONC 32.6 g/dL (31-35); MEAN CORPUSCULAR VOLUME 95.4 fL (81-99); MONOCYTES # (AUTO) 0.9 (0.2-0.8); MONOCYTES % 8.7 % (4.4-11.3); NEUTROPHILS # (AUTO) 5.3 (2.1-6.9); NEUTROPHILS % 53.3 % (38.7-80.0); PLATELET COUNT 276 x10e3/uL (140-360); RED BLOOD COUNT 4.37 x10e6/uL (3.6-5.1); RED CELL DISTRIBUTION WIDTH 14.9 % (11.7-14.4)
[2019-07-29 15:03] LABS: ALBUMIN 3.9 g/dL (3.5-5.0); ALBUMIN/GLOBULIN RATIO 1.2 (0.8-2.0); ANION GAP 12.5 mmol/L (8-16); CALCIUM 9.8 mg/dL (8.4-10.2); CREATININE, SERUM 1.01 mg/dL (0.57-1.11); POTASSIUM 4.5 mmol/L (3.5-5.1)
--- NOTE | 2019-07-29 16:16 | Diagnostic Imaging Report ---
Chest, 2 views, 07/29/2019. History: Preop, pancreatic mass. Comparison: None available. Findings: The cardiomediastinal silhouette and pulmonary vasculature are mildly prominent. There is biapical pleural thickening. The lungs are clear without evidence of consolidation or pleural effusion. Degenerative changes are present within the thoracic spine. There are no acute osseous or soft tissue abnormalities. Impression: Mild cardiomegaly and vascular congestion. Signed by: Arnav Powell on 07/29/2019 4:13 PM
[2019-07-30] VITALS (14 sets, daily range): BP systolic 86–177; BP diastolic 50–82
[~2019-07-30] VITALS: Ht 167.6 cm; Wt 122.6 kg
[~2019-07-30 06:45] MED LIST changes: +CALAN SR180 MG PO; +LASIX40 MG PO
[2019-07-30] MEDS ORDERED: CEFAZOLIN SOD 1 GM/NS 50ML 100 ML IV ONE (07:50)
[2019-07-30] MEDS ORDERED: HEPARIN SOD/SOD CHLORIDE 1,000 ML ONE (07:54)
[2019-07-30] MEDS ORDERED: HYDROMORPHONE 2MG/ML 2 MG/ML ML ONE (09:12)
[2019-07-30] MEDS ORDERED: ACETAMINOPHEN 1000 MG/100 ML 100 ML IV ONE (09:12)
[2019-07-30] MEDS ORDERED: SUGAMMADEX SODIUM 200 MG/2 ML VIAL IV ONE (10:43)
[2019-07-30] MEDS ORDERED: ONDANSETRON HCL INJ 2MG/ML 2ML 2 MG/ML VIAL IV PRN (11:15)
--- NOTE | 2019-07-30 12:04 | Operative Report ---
DATE OF PROCEDURE: 07/30/2019 SURGEON: Mario Espinal MD PREOPERATIVE DIAGNOSES: Distal pancreatic mass, recurrent incisional hernia. POSTOPERATIVE DIAGNOSES: Distal pancreatic mass, recurrent incisional hernia. PROCEDURES: Distal pancreatectomy, splenectomy, repair of recurrent incisional hernia, lysis of adhesions. LATHE TURNER: None. ANESTHESIA: General endotracheal. INDICATIONS AND FINDINGS: The patient is a 64-year-old female, who had a mass in the pancreas, that is increased in size on imaging. At Surgery, there was a firm mass and the tail of the pancreas abutting the spleen, which was removed. 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 There is also recurrent incisional hernia to the left of the umbilicus with contained some small bowel, which was repaired. There were adhesions involving small bowel omentum to the abdominal wall, which were lysed. TECHNIQUE: After adequate general endotracheal anesthesia, the patient is in supine position, and the abdomen was prepped and draped in a sterile fashion with ChloraPrep solution. The left subcostal incision was made. The peritoneal cavity was entered. Initial exploration revealed some adhesions toward the midline involving omentum and some of the adhesions on the left side of the abdomen also involving omentum, these were lysed. The area of the tumor was exposed splenic flexure, the colon was mobilized by dividing peritoneal attachments, so retracted inferiorly. The peritoneum over the pancreas inferiorly was divided with electrocautery and the distal pancreas exposed, there was a tumor palpable over the distal pancreas. The pancreas level and proximal to the area of the tumor was dissected free. The splenic vessels were also dissected free at this level. The tumor was found to be directly abutting the spleen site, a splenectomy would be necessary. The spleen was mobilized by dividing peritoneal attachments as well as short gastric vessel, so was completely free. The splenic artery was then divided between clamps as was splenic vein, pancreas was stapled with TL60 stapler and distal pancreas divided. The remaining attachments to the spleen of the pancreas were divided with LigaSure device. The specimen was removed. The vessels were doubly suture ligated with 2-0 silk. The staple line of the pancreas also suture-ligated with the pancreatic duct, was using 2-0 silk. Hemostasis at the site of the pancreatectomy and splenectomy were seen to be adequate. At this point, the remaining adhesions in midline and lower abdomen were lysed. There was a hernia defect just to the left of the umbilicus. All the adhesions around this area were lysed. Because there was fairly far away from where this pancreatectomy had been done, decided best to just make a separate incision over the area of the hernia. A transverse incision was made inferior to the umbilicus, carried down through subcutaneous tissue. The hernia sac was identified, dissected free the surrounding tissues down to the fascia and freed from the fascia. The hernia sac was then excised. The fascia was then closed transversely with a running suture of #1 Prolene. Hemostasis was seen to be adequate. The peritoneal cavity was irrigated with warm saline, inspected for hemostasis, which was seen to be adequate. A 19-[place] Omid drain was placed into the left subphrenic space through a separate stab wound incision. The fascia in the left subcostal wound was closed with running suture of #1 PDS. Subcutaneous tissue was irrigated with saline. Skin to all wounds was closed with angelica. Sterile dressing was applied. The patient tolerated the procedure well. Estimated blood loss was 500 mL. There were no complications. All counts were correct. The patient was taken to the recovery room in satisfactory condition. MD CARLO Hopper/PURA /[id number] cc: Mario Beckman DO
--- NOTE | 2019-07-30 12:17 | Diagnostic Imaging Report ---
EXAMINATION: CHEST SINGLE (PORTABLE) INDICATION: Line placement COMPARISON: None FINDINGS: LINES/TUBES:Endotracheal tube terminates approximately 4 cm above the yaz. Right IJ central venous catheter terminates in the superior vena cava. Enteric tube checks below the diaphragm with tip not visualized. EKG leads overlie the chest. LUNGS:The lung volumes are low. There is perihilar fullness and indistinctness of the pulmonary vasculature. There is left basilar opacity silhouetting the left elena diaphragm. PLEURA:No pleural effusion or pneumothorax. MEDIASTINUM:Cardiomediastinal silhouette is stably enlarged. Atherosclerotic calcifications of the thoracic aorta. BONES/SOFT TISSUES:No acute osseous injury. ABDOMEN:No free air under the diaphragm. IMPRESSION: Support lines and tubes as above. Low lung volumes. Patchy opacity at the left lung base most likely represents subsegmental atelectasis. Unchanged cardiomegaly. Signed by: Agueda Blanco MD on 07/30/2019 12:13 PM
--- NOTE | 2019-07-30 12:27 | Diagnostic Imaging Report ---
Exam: KUB - 2 views Indication: NG tube placement Comparison: Chest x-ray of the same day. Findings: NG tube projects below the diaphragm with tip in the stomach and side port at the expected location of the gastroesophageal junction. There is air in the stomach but a general paucity of bowel gas otherwise. No free air. Surgical skin angelica overlie the midline and left abdomen. Impression: NG tube has tip in the stomach and side port at the gastroesophageal junction. Tube can be advanced 5 to 10 cm for ideal positioning. Signed by: Agueda Blanco MD on 07/30/2019 12:24 PM
[2019-07-30] MEDS: SODIUM CHLORIDE 0.9% 250ML IRRIG IR SCH ×3 (13:27→20:52)
[2019-07-30] MEDS: DEXTROSE 5%/LACTATED RINGERS 1,000 ML IV SCH ×2 (13:30→21:49)
[2019-07-30] MEDS ORDERED: MENINGOCOCCAL POLYSACC VAC 50 MCG VIAL SQ NR (14:00)
[2019-07-30] MEDS ORDERED: HAEMOPH B POLYSACCH CONJ VACC 10 MCG/0.5 ML VIAL IM NR (14:00)
[2019-07-30] MEDS ORDERED: PNEUMOCOCCAL VACCINE POLYVALENT 23 MCG/0.5 ML VIAL IM NR (14:00)
[2019-07-30] MEDS ORDERED: CEFAZOLIN SOD 1 GM VIAL IV SCH (14:00)
--- NOTE | 2019-07-30 14:25 | Consultation ---
DATE OF CONSULTATION: 07/30/2019 Pulmonary Medicine Consult REASON FOR REFERRAL: Respiratory insufficiency. HISTORY OF PRESENT ILLNESS: Ms. Mejia is a pleasant 64-year-old female with respiratory insufficiency. The patient is known to me from past encounters. The patient with history of complicated GI surgeries in the past. The patient with history of tracheostomy placed after one difficult surgery. The patient has had a pancreatic mass that had been under surveillance over 2 years. Due to steady encroachment in tumor size, it was elected to go for resective surgery. Today, the patient underwent a distal pancreatectomy, splenectomy, repair of recurrent incisional hernia. Estimated blood loss was 500 mL. The patient, coming out from surgery with borderline oxygen saturations for extubation and furthermore the patient had slow awakening from anesthesia. She could present to the ICU in intubated state. PAST MEDICAL HISTORY: Hypertension, arthritis, hyperlipidemia, stroke, tracheostomy, obesity, multiple hernia repair of abdomen. MEDICATIONS: Medication list reviewed per the chart record. ALLERGIES: NO KNOWN DRUG ALLERGIES. SOCIAL HISTORY: Reportedly heavy tobacco smoker, one pack per day, unclear if she is doing the same recently. No alcohol. No drugs. FAMILY HISTORY: Noncontributory to this. REVIEW OF SYSTEMS: Cannot get as she is intubated. OBJECTIVE: VITAL SIGNS: Vital signs noted mostly stable hemodynamics except for the borderline oxygenation on 65% FIO2 . GENERAL: No acute distress, slow to awake. HEENT: Normocephalic, atraumatic. NECK: Supple. Throat midline. LUNGS: Bilateral air entry, decreased breath sounds throughout. CARDIOVASCULAR: S1, S2. No murmurs, rubs, or gallops. ABDOMEN: Soft, nontender. EXTREMITIES: No clubbing. No cyanosis. There is no large edema. INTEGUMENT: No rash. No purpura. Her abdominal incision sites were covered with bandages, but they are dry on the initial bandages. IMPRESSION AND PLAN: 1. Postoperative respiratory insufficiency. 2. Postoperative stay, status post GI/pancreatic surgery. 3. Increasing pancreatic mass, status post distal pancreatectomy, splenectomy, and repair of recurrent incisional hernia. 4. Obesity. 5. Hypoventilation syndrome versus chronic obstructive pulmonary disease. 6. Arthritis. 7. Hypertension. 8. Hyperlipidemia. 9. History of stroke. At this time, we will adjust ventilator settings downwards a little bit. Check blood gas arterially. The patient will continue on IV fluids. We will watch her for stability postoperatively. The patient will get a trial of extubation when she is better on the oxygen level. We will follow up closely. Local postoperative care per Surgeon. Thank you very much, Dr. Espinal for allowing me a chance to participate in care of Ms. Mejia. Please call for questions. Greater than 30 minutes in direct care today and coordinating issues. MD HOLLI Zuniga/MODL /[id number]
[2019-07-30] MEDS: FENTANYL CITRATE/PF 100MCG/2 ML INJ IV PRN ×2 (14:30→23:00)
[2019-07-30] MEDS: CEFAZOLIN SOD 2 GM/D5W 50ML 50 ML IV SCH ×2 (14:40→22:01)
[2019-07-30 14:49] LABS: ABG HCO3 19 mmol/L (23-28); ABG PCO2 38 mmHg (41-51); ABG PH 7.31 (7.31-7.41); ABG PO2 88 mmHg (80-105)
[2019-07-30] MEDS ORDERED: SEVOFLURANE INHAL SOLN 250 ML PEN BTL ONE (15:55)
[2019-07-30] MEDS ORDERED: EPHEDRINE SULFATE INJ 50 MG/10 ML SYR ONE (15:55)
[2019-07-30] MEDS ORDERED: ROCURONIUM BROMIDE 10 MG/ML 5ML VIAL ONE (15:55)
[2019-07-30] MEDS ORDERED: DEXAMETHASONE SOD PHOS INJ 4 MG/ML VIAL ONE (15:55)
[2019-07-30] MEDS ORDERED: LIDOCAINE HCL 2% LOCAL INJ 5 ML SDV VIAL INJ ONE (15:55)
[2019-07-30] MEDS ORDERED: ONDANSETRON HCL INJ 2MG/ML 2ML 2 MG/ML VIAL ONE (15:55)
[2019-07-30] MEDS ORDERED: PROPOFOL IV EMULSION 10 MG/ML 20 ML VIAL ONE (15:55)
[2019-07-30] MEDS: FAMOTIDINE 20 MG/2 ML VIAL IV SCH (16:07)
[2019-07-30] MEDS ORDERED: MENINGOCOCCAL B VACCINE,4-COMP 0.5 ML SYRINGE IM NR (16:30)
[2019-07-30] MEDS: FENTANYL CITRATE INJ 2,000 MCG in SODIUM CHLORIDE 0.9% 250ML 210 ML IV PRN ×2 (16:40→22:43)
[2019-07-30] MEDS: CLONAZEPAM 1 MG TAB PO SCH (17:36)
[2019-07-30] MEDS ORDERED: MIDAZOLAM HCL 2 MG/2 ML VIAL ONE (18:14)
[2019-07-30] MEDS ORDERED: FENTANYL CITRATE/PF 100MCG/2 ML INJ ONE (18:14)
[2019-07-30] MEDS ORDERED: KETAMINE HCL INJ 50 MG/ML 10 ML VIAL ONE (18:14)
[2019-07-30] MEDS ORDERED: QUETIAPINE FUMARATE 100 MG TAB PO SCH (21:00)
[2019-07-30] MEDS ORDERED: ATORVASTATIN 40 MG TAB PO SCH (21:00)
[2019-07-30] MEDS ORDERED: QUETIAPINE FUMARATE 200 MG PO SCH (21:00)
[2019-07-31] VITALS (25 sets, daily range): BP systolic 80–185; BP diastolic 52–98
[2019-07-31] MEDS: SODIUM CHLORIDE 0.9% 250ML IRRIG IR SCH ×7 (00:30→23:17)
[2019-07-31] MEDS: FENTANYL CITRATE INJ 2,000 MCG in SODIUM CHLORIDE 0.9% 250ML 210 ML IV PRN (04:26)
[2019-07-31] MEDS ORDERED: SODIUM CHLORIDE 0.9% 1000ML 1,000 ML ONE (04:47)
[2019-07-31] MEDS ORDERED: SODIUM CHLORIDE 0.9% 1000ML 1,000 ML IV ONE (05:00)
[2019-07-31 05:24] LABS: BASOPHILS % 0.2 % (0.0-1.0); EOSINOPHILS # (AUTO) 0.1 (0.0-0.4); EOSINOPHILS % 0.5 % (0.0-6.0); HEMATOCRIT 37.8 % (34.2-44.1); HEMOGLOBIN 11.8 g/dL (12.0-16.0); LYMPHOCYTES # (AUTO) 1.9 (1.0-3.2); LYMPHOCYTES % 7.9 % (18.0-39.1); MEAN CORPUSCULAR HEMOGLOBIN 31.2 pg (28-32); MEAN CORPUSCULAR HGB CONC 31.2 g/dL (31-35); MONOCYTES # (AUTO) 2.9 (0.2-0.8); MONOCYTES % 12.3 % (4.4-11.3); NEUTROPHILS # (AUTO) 18.8 (2.1-6.9); NEUTROPHILS % 78.1 % (38.7-80.0); PLATELET COUNT 193 x10e3/uL (140-360); RED BLOOD COUNT 3.78 x10e6/uL (3.6-5.1); RED CELL DISTRIBUTION WIDTH 15.3 % (11.7-14.4)
[2019-07-31 05:52] LABS: ALBUMIN 3.5 g/dL (3.5-5.0); ALBUMIN/GLOBULIN RATIO 1.2 (0.8-2.0); ANION GAP 16.3 mmol/L (8-16); CALCIUM 8.4 mg/dL (8.4-10.2); POTASSIUM 5.3 mmol/L (3.5-5.1)
--- NOTE | 2019-07-31 05:54 | Diagnostic Imaging Report ---
EXAMINATION: CHEST SINGLE (PORTABLE) COMPARISON: 07/30/2019 INDICATION: ^resp failure ^[id number] ^0530 DISCUSSION: Frontal view of the chest obtained at 0542 hours. The image is significantly underpenetrated. HEART AND MEDIASTINUM: Stable cardiomegaly. LINES: Endotracheal tube terminates approximate 4 cm above the yaz. Enteric tube is poorly visualized in the inferior chest. Right IJ catheter terminates in the SVC. LUNGS: Bibasilar atelectasis. No vascular congestion. PLEURA: Stable blunting of the left lateral costophrenic angle. No pneumothorax. BONES AND SOFT TISSUES: No focal osseous lesion. The soft tissues are normal. IMPRESSION: Support devices as described above. Bibasilar atelectasis. Small left pleural effusion. Signed by: Dr. Petey Malone MD on 07/31/2019 5:51 AM
[2019-07-31 06:07] LABS: CREATININE, SERUM 2.28 mg/dL (0.57-1.11)
[2019-07-31] MEDS: CEFAZOLIN SOD 2 GM/D5W 50ML 50 ML IV SCH (06:14)
[2019-07-31 06:16] LABS: MAGNESIUM 1.8 MG/DL (1.3-2.1); PHOSPHORUS 3.7 MG/DL (2.3-4.7)
[2019-07-31] MEDS ORDERED: SODIUM CHLORIDE 0.9% 1000ML 1,000 ML IV STA (06:24)
[2019-07-31] MEDS: DEXTROSE 5%/0.9% SOD CHL 1,000 ML IV SCH ×3 (06:46→23:17)
[2019-07-31 07:59] LABS: LYMPHOCYTES % (MANUAL) 6 % (19-48); MONOCYTES % (MANUAL) 15 % (3.4-9.0); NEUTROPHILS % (MANUAL) 76 % (40-74)
[2019-07-31 08:00] LABS: ANISOCYTOSIS SLIGHT; MICROCYTOSIS SLIGHT; PLATELET ESTIMATE ADEQUATE; PLATELET MORPHOLOGY COMMENT FEW LARGE; RBC MORPHOLOGY COMMENT ABNORMAL
[2019-07-31 08:00] LABS: ABG HCO3 19 mmol/L (23-28); ABG PCO2 42 mmHg (41-51); ABG PH 7.27 (7.31-7.41); ABG PO2 116 mmHg (80-105)
[2019-07-31] MEDS: PIPERACILLIN/TAZO 2.25 GM 50 ML IV SCH ×2 (08:05→16:02)
[2019-07-31] MEDS: FAMOTIDINE 20 MG/2 ML VIAL IV SCH ×2 (08:05→16:02)
[2019-07-31] MEDS: CLONAZEPAM 1 MG TAB PO SCH ×2 (08:19→16:02)
[2019-07-31] MEDS ORDERED: ESCITALOPRAM OXALATE 10 MG TAB PO SCH (09:00)
[2019-07-31] MEDS ORDERED: VERAPAMIL HCL 180 MG TBER PO SCH (09:00)
[2019-07-31] MEDS ORDERED: ATORVASTATIN 20 MG TAB PO SCH (09:00)
[2019-07-31] MEDS ORDERED: FENOFIBRATE 145 MG TAB PO SCH (09:00)
[2019-07-31] MEDS ORDERED: FUROSEMIDE INJ 10 MG/ML 4 ML VIAL IV ONE ×2 (11:00→18:15)
--- NOTE | 2019-07-31 14:23 | Diagnostic Imaging Report ---
EXAM: Renal Ultrasound INDICATION: ^karel, abdominal post operative COMPARISON: None TECHNIQUE: Transverse and longitudinal images of the kidneys and bladder were obtained. FINDINGS: Right Kidney: Length: 13.1 cm Appearance: Normal echogenicity. Collecting system: No hydronephrosis Stones: None Cyst/Mass: None Left Kidney: Length: 10.9 cm Appearance: Normal echogenicity. Collecting system: No hydronephrosis Stones: None Cyst/Mass: None Bladder: Henderson catheter in the bladder. IMPRESSION: Difficult exam due to large body habitus. No renal calculi or hydronephrosis. Signed by: Agueda Blanco MD on 07/31/2019 2:20 PM
[2019-07-31 14:48] LABS: ABG HCO3 19 mmol/L (23-28); ABG PCO2 39 mmHg (41-51); ABG PO2 93 mmHg (80-105)
[2019-07-31] MEDS ORDERED: SODIUM BICARBONATE 8.4% INJ 50 ML SYR IV ONE (14:55)
[2019-07-31] MEDS ORDERED: SODIUM BICARBONATE 8.4% 50 ML VIAL IV ONE (15:01)
[2019-07-31] MEDS ORDERED: SODIUM BICARBONATE 8.4% SYRING 50 ML ONE (15:03)
[2019-07-31] MEDS: FENTANYL CITRATE/PF 100MCG/2 ML INJ IV PRN (15:59)
[2019-07-31 17:28] LABS: BASOPHILS % 0.1 % (0.0-1.0); EOSINOPHILS # (AUTO) 0.2 (0.0-0.4); EOSINOPHILS % 0.6 % (0.0-6.0); HEMOGLOBIN 10.7 g/dL (12.0-16.0); LYMPHOCYTES # (AUTO) 1.9 (1.0-3.2); LYMPHOCYTES % 6.7 % (18.0-39.1); MEAN CORPUSCULAR HEMOGLOBIN 30.7 pg (28-32); MEAN CORPUSCULAR HGB CONC 30.6 g/dL (31-35); MEAN CORPUSCULAR VOLUME 100.6 fL (81-99); MONOCYTES % 10.6 % (4.4-11.3); NEUTROPHILS # (AUTO) 22.7 (2.1-6.9); NEUTROPHILS % 81.2 % (38.7-80.0); PLATELET COUNT 203 x10e3/uL (140-360); RED BLOOD COUNT 3.48 x10e6/uL (3.6-5.1); RED CELL DISTRIBUTION WIDTH 15.4 % (11.7-14.4)
[2019-07-31 17:46] LABS: CALCIUM 7.9 mg/dL (8.4-10.2); CREATININE, SERUM 1.72 mg/dL (0.57-1.11); MAGNESIUM 1.6 MG/DL (1.3-2.1)
[2019-07-31 17:56] LABS: PHOSPHORUS 2.6 MG/DL (2.3-4.7)
[2019-07-31] MEDS ORDERED: FUROSEMIDE INJ 10 MG/ML 4 ML VIAL ONE (18:11)
[2019-07-31] MEDS: MORPHINE SULFATE 2 MG/ML SYR 1ML IV PRN (18:36)
--- NOTE | 2019-07-31 18:42 | Consultation ---
DATE OF CONSULTATION: 07/31/2019 PRIMARY CARE PHYSICIAN: Mario Beckman DO. CAN RUNNER: Keith Mayo MD. CHIEF COMPLAINT: Status post distal pancreatectomy, splenectomy, and repair of recurrent incisional hernia. SUMMARY: A 64-year-old female, status post operative day #1 distal pancreatectomy, splenectomy, and repair recurrent incisional hernia. The patient has multiple abdominal surgery in the past. She also has pancreatic mass and for the past years also has growth in size. The patient is now status post surgery. She is comfortable. She is already extubated. The patient is still having pain. She is in ICU for continued care. PAST MEDICAL HISTORY: Hypertension, osteoarthritis, dyslipidemia, history of CVA, history of tracheostomy reversal, morbidly obese, multiple abdominal hernia repair, bowel resection, COPD, history of DVT. She had a vena cava placement, chronic kidney disease, lower back surgery, ankle surgery, coronary artery disease with previous intervention. SOCIAL HISTORY: The patient is a former smoker. She quit. She does not drink alcohol. No regular drugs. ALLERGIES: NO KNOWN ALLERGIES. HOME MEDICATIONS: List is reviewed. REVIEW OF SYSTEMS: Currently having pain, postoperative care, post extubation. PHYSICAL EXAMINATION: VITAL SIGNS: Temperature is 98, blood pressure 136/79, pulse rate is 94, and respirations 18. GENERAL: The patient is not in acute distress. She is awake. HEENT: Normocephalic and atraumatic. Pupils reactive. Anicteric. NECK: Supple grossly. PULMONARY: Diminished breath sounds bilaterally. CARDIOVASCULAR: S1 and S2. Regular rate and rhythm. ABDOMEN: Status post postoperative #1. EXTREMITIES: No cyanosis or edema. SCD in place. NEUROLOGIC: Limited exam, but the patient is not having any focal deficit at this time. LABORATORY DATA: Sodium is 139, potassium 5.3, chloride 104, bicarb 20, BUN 22, creatinine 2.2, and glucose 156. WBC is 24, hemoglobin 11.8, hematocrit 37.8, and platelets 193. IMPRESSION: 1. Status post postoperative day #1, status post distal pancreatectomy, splenectomy, and repair of recurrent incisional hernia. 2. Postoperative pain. 3. Postoperative leukocytosis, electrolyte disorder, possible slight dehydration. PLAN: Continue with postoperative care. Pain control, antibiotics, and IV fluids. Monitor the patient's lab workup. Check and review the leukocytosis. Electrolyte correction. We will monitor the patient closely at this time. Thanks, Dr. Espinal. We will follow the patient along with you at this time. MD SEA Rodriguez/PURA /[id number]
[2019-07-31] MEDS ORDERED: HYDRALAZINE HCL 20 MG/ML VIAL IV PRN (21:00)
[2019-07-31] MEDS ORDERED: DEXTROSE 50% SYRINGE 50 ML IV PRN (21:00)
[2019-07-31] MEDS ORDERED: HALOPERIDOL LACTATE 5 MG/ML VIAL IV PRN (21:00)
[2019-08-01] VITALS (16 sets, daily range): BP systolic 99–180; BP diastolic 46–92
[2019-08-01] MEDS: INSULIN REGULAR, HUMAN 100 UNIT/1 ML 3ML VIAL SQ SCH ×5 (00:48→23:53)
[2019-08-01] MEDS: PIPERACILLIN/TAZO 2.25 GM 50 ML IV SCH ×2 (01:28→08:35)
[2019-08-01] MEDS: SODIUM CHLORIDE 0.9% 250ML IRRIG IR SCH ×2 (03:54→07:15)
[2019-08-01 05:51] LABS: HEMATOCRIT 35.3 % (34.2-44.1); HEMOGLOBIN 10.8 g/dL (12.0-16.0); MEAN CORPUSCULAR HEMOGLOBIN 30.5 pg (28-32); MEAN CORPUSCULAR HGB CONC 30.6 g/dL (31-35); MEAN CORPUSCULAR VOLUME 99.7 fL (81-99); PLATELET COUNT 194 x10e3/uL (140-360); RED BLOOD COUNT 3.54 x10e6/uL (3.6-5.1); RED CELL DISTRIBUTION WIDTH 15.2 % (11.7-14.4)
[2019-08-01 06:11] LABS: ANION GAP 12.6 mmol/L (8-16); CALCIUM 8.5 mg/dL (8.4-10.2); CREATININE, SERUM 1.11 mg/dL (0.57-1.11); POTASSIUM 3.6 mmol/L (3.5-5.1)
[2019-08-01] MEDS: MORPHINE SULFATE 2 MG/ML SYR 1ML IV PRN (06:23)
[2019-08-01] MEDS: DEXTROSE 5%/0.9% SOD CHL 1,000 ML IV SCH ×3 (06:30→23:58)
--- NOTE | 2019-08-01 06:47 | Diagnostic Imaging Report ---
EXAMINATION: CHEST SINGLE (PORTABLE) COMPARISON: Chest x-ray 07/31/2019 INDICATION: Post extubation, abdominal surgery ^chf ^[id number] ^[id number] DISCUSSION: Frontal view of the chest obtained at 0553 hours. HEART AND MEDIASTINUM: Stable cardiomegaly. LINES: Endotracheal tube has been removed. Enteric tube extends past the diaphragm. Right IJ catheter terminates in the SVC. LUNGS: Low lung volumes and increasing basilar atelectasis. Pulmonary vasculature is prominent. No interstitial edema. PLEURA: Right lateral costophrenic angle is sharp. Left costophrenic angle is blunted. No pneumothorax. BONES AND SOFT TISSUES: No focal osseous lesion. The soft tissues are normal. IMPRESSION: 1. Low lung volumes and increasing bibasilar atelectasis. Small left pleural effusion. 2. Cardiomegaly and pulmonary vascular congestion. 3. Support devices as above. Signed by: Dr. Petey Malone MD on 08/01/2019 6:44 AM
[2019-08-01] MEDS: FAMOTIDINE 20 MG/2 ML VIAL IV SCH ×2 (08:35→16:28)
[2019-08-01] MEDS ORDERED: ALBUTEROL/IPRATROPIUM 3 ML NEB NEB PRN (09:30)
[2019-08-01] MEDS: ZIPRASIDONE 20 MG VIAL IM PRN ×2 (09:54→14:07)
[2019-08-01 10:14] LABS: ABG HCO3 22 mmol/L (23-28); ABG PCO2 33 mmHg (41-51); ABG PH 7.43 (7.31-7.41); ABG PO2 66 mmHg (80-105)
[2019-08-01] MEDS: ALBUTEROL/IPRATROPIUM 3 ML NEB NEB SCH ×2 (13:15→19:30)
[2019-08-01] MEDS ORDERED: FUROSEMIDE INJ 10 MG/ML 4 ML VIAL IV ONE (13:49)
[2019-08-01] MEDS ORDERED: FUROSEMIDE INJ 10 MG/ML 4 ML VIAL ONE (13:57)
[2019-08-01] MEDS ORDERED: ZIPRASIDONE 20 MG VIAL IM PRN (14:30)
[2019-08-01] MEDS ORDERED: WATER STERILE 10 ML VIAL INJ PRN (15:15)
[2019-08-01] MEDS: ACETAMINOPHEN 650 MG SUPP PR PRN (15:20)
[2019-08-01 16:15] LABS: BASOPHILS # (AUTO) 0.1 (0.0-0.1); BASOPHILS % 0.2 % (0.0-1.0); HEMATOCRIT 34.9 % (34.2-44.1); HEMOGLOBIN 11.2 g/dL (12.0-16.0); LYMPHOCYTES # (AUTO) 1.2 (1.0-3.2); LYMPHOCYTES % 4.4 % (18.0-39.1); MEAN CORPUSCULAR HEMOGLOBIN 31.6 pg (28-32); MEAN CORPUSCULAR HGB CONC 32.1 g/dL (31-35); MEAN CORPUSCULAR VOLUME 98.6 fL (81-99); MONOCYTES # (AUTO) 2.5 (0.2-0.8); MONOCYTES % 8.8 % (4.4-11.3); NEUTROPHILS # (AUTO) 24.4 (2.1-6.9); NEUTROPHILS % 85.7 % (38.7-80.0); PLATELET COUNT 193 x10e3/uL (140-360); RED BLOOD COUNT 3.54 x10e6/uL (3.6-5.1); RED CELL DISTRIBUTION WIDTH 15.2 % (11.7-14.4)
[2019-08-01] MEDS: METRONIDAZOLE 500MG/NS 100ML 100 ML IV SCH ×2 (16:27→22:23)
[2019-08-01] MEDS: QUETIAPINE FUMARATE 25 MG TAB PO SCH (16:28)
[2019-08-01 16:33] LABS: ALBUMIN 2.8 g/dL (3.5-5.0); ALBUMIN/GLOBULIN RATIO 0.8 (0.8-2.0); ANION GAP 14.3 mmol/L (8-16); CALCIUM 8.9 mg/dL (8.4-10.2); CREATININE, SERUM 1.02 mg/dL (0.57-1.11); POTASSIUM 3.3 mmol/L (3.5-5.1)
--- NOTE | 2019-08-01 17:53 | Diagnostic Imaging Report ---
EXAM: CT Chest, Abdomen and Pelvis WITH intravenous contrast INDICATION: Altered mental status COMPARISON: Chest radiograph of earlier the same day TECHNIQUE: The chest, abdomen and pelvis were scanned utilizing a multidetector helical scanner from the thoracic inlet to the pubic symphysis following administration of IV contrast. Coronal and sagittal reformations were obtained. Scan was performed in portal venous phase. IV CONTRAST: None ORAL CONTRAST: Water COMPLICATIONS: None RADIATION DOSE: Total DLP: 1288.5 mGy*cm Dose modulation, iterative reconstruction, and/or weight based adjustment of the mA/kV was utilized to reduce the radiation dose to as low as reasonably achievable. FINDINGS: LINES/ TUBES: Right IJ central venous catheter terminates at the superior vena cava. LUNGS AND AIRWAYS: Small amount of dependent secretions in the trachea. Bibasilar dependent subsegmental atelectasis. No focal consolidation. No pulmonary edema. No suspicious pulmonary nodule. PLEURA: No pleural effusion. No pneumothorax. HEART AND MEDIASTINUM: The thyroid gland is normal. No supraclavicular, mediastinal, or hilar lymphadenopathy. The heart is not enlarged. No pericardial effusion. Scattered atherosclerotic calcifications involve the coronary arteries, aorta, and proximal great vessels. No central pulmonary embolism. The subsegmental pulmonary arteries are not well opacified. HEPATOBILIARY: No focal hepatic lesions. No biliary ductal dilatation. The gallbladder is mildly distended, measuring up to 6.3 cm maximum diameter. No cholelithiasis or CT evidence of cholecystitis. SPLEEN: Status post splenectomy. Postoperative fluid in the splenectomy bed. Surgical drain enters the left abdominal wall and terminates in the right upper quadrant in the splenectomy bed. PANCREAS: No focal masses or ductal dilatation. ADRENALS: No adrenal nodules. KIDNEYS/URETERS: No hydronephrosis, stones, or solid mass lesions. Subcentimeter right midpole renal cyst. PELVIC ORGANS/BLADDER: Henderson catheter in the decompressed bladder. PERITONEUM / RETROPERITONEUM: No free air or fluid. LYMPH NODES: No lymphadenopathy. VESSELS: Diffuse atherosclerotic calcifications of the nonaneurysmal abdominal aorta and major branches. GI TRACT: No abnormal bowel wall thickening. No bowel obstruction. Normal appendix. Postoperative findings of the stomach. BONES AND SOFT TISSUES: Postoperative soft tissue stranding at the anterior abdominal wall. Surgical skin angelica in place. Small amount of subcutaneous soft tissue emphysema. Multiple ventral abdominal hernias, including to the left of midline containing a loop of small bowel and a right Spigelian hernia also containing a loop of small bowel. No suspicious lytic or blastic lesions. No acute osseous injury. Degenerative changes of the visualized spine including superior endplate depression at L2. IMPRESSION: Postoperative findings of recent splenectomy with surgical drain in place. No evidence of postoperative abscess. No pulmonary embolism. Bibasilar dependent subsegmental atelectasis. No focal pneumonia. Distended gallbladder without cholelithiasis or other CT evidence of cholecystitis. Diffuse atherosclerotic arterial calcifications including of the coronary arteries. Multiple abdominal hernias including a left ventral hernia and right Spigelian hernia containing loops of small bowel. These were also present on the prior study of 07/07/2019. Signed by: Agueda Blanco MD on 08/01/2019 5:50 PM
[2019-08-01] MEDS: PIPER-TAZ 3.375 GM 50 ML IV SCH ×2 (18:06→23:49)
[2019-08-01] MEDS ORDERED: IOPAMIDOL 370 MG/ML 200 ML INFUS..BTL INJ ONE (19:33)
[2019-08-01] MEDS ORDERED: SODIUM CHLORIDE 0.9% 0 ML ONE (19:33)
[2019-08-01] MEDS ORDERED: SODIUM CHLORIDE 0.9% 100 ML ONE (19:35)
[2019-08-01] MEDS: QUETIAPINE FUMARATE 100 MG TAB PO SCH (21:00)
[2019-08-02] VITALS (7 sets, daily range): BP systolic 137–166; BP diastolic 64–80
[2019-08-02] MEDS: ALBUTEROL/IPRATROPIUM 3 ML NEB NEB SCH ×4 (00:30→19:15)
[2019-08-02] MEDS: ACETAMINOPHEN 650 MG SUPP PR PRN (04:30)
[2019-08-02] MEDS: METRONIDAZOLE 500MG/NS 100ML 100 ML IV SCH ×4 (04:32→20:45)
[2019-08-02 04:57] LABS: HEMATOCRIT 31.9 % (34.2-44.1); HEMOGLOBIN 9.9 g/dL (12.0-16.0); MEAN CORPUSCULAR HEMOGLOBIN 30.9 pg (28-32); MEAN CORPUSCULAR VOLUME 99.7 fL (81-99); PLATELET COUNT 196 x10e3/uL (140-360); RED CELL DISTRIBUTION WIDTH 15.2 % (11.7-14.4)
[2019-08-02 05:13] LABS: ANION GAP 10.4 mmol/L (8-16); BLOOD UREA NITROGEN 14 mg/dL (7-26); BUN/CREATININE RATIO 17 (6-25); CALCIUM 8.7 mg/dL (8.4-10.2); CARBON DIOXIDE 27 mmol/L (22-29); CHLORIDE 111 mmol/L (98-107); CREATININE, SERUM 0.83 mg/dL (0.57-1.11); EST GLOMERULAR FILTRATION RATE > 60 ML/MIN (60-); GLUCOSE 149 mg/dL (74-118); POTASSIUM 3.4 mmol/L (3.5-5.1); SODIUM 145 mmol/L (136-145)
--- NOTE | 2019-08-02 05:52 | Diagnostic Imaging Report ---
EXAMINATION: CHEST SINGLE (PORTABLE) COMPARISON: CT chest 08/01/2019, chest x-ray 08/01/2019 INDICATION: Cough, status post abdominal surgery (splenectomy) ^chf ^[id number] ^0530 DISCUSSION: Frontal view of the chest obtained at 0532 hours. HEART AND MEDIASTINUM: Stable cardiomegaly LINES: Right IJ catheter terminates in the SVC without pneumothorax. Enteric tube has been removed. LUNGS: Low lung volumes. Improved right middle lobe atelectasis. Similar left basilar atelectasis. No pneumonia or pulmonary edema. PLEURA: No pleural effusion or pneumothorax. BONES AND SOFT TISSUES: No focal osseous lesion. The soft tissues are normal. IMPRESSION: Improved right basilar atelectasis. Stable left basilar atelectasis. No large effusions. Stable cardiomegaly. Signed by: Dr. Petey Malone MD on 08/02/2019 5:48 AM
[2019-08-02] MEDS: PIPER-TAZ 3.375 GM 50 ML IV SCH ×4 (06:03→23:11)
[2019-08-02] MEDS: INSULIN REGULAR, HUMAN 100 UNIT/1 ML 3ML VIAL SQ SCH ×4 (06:04→20:50)
[2019-08-02] MEDS: FAMOTIDINE 20 MG/2 ML VIAL IV SCH (08:39)
[2019-08-02] MEDS: QUETIAPINE FUMARATE 25 MG TAB PO SCH ×2 (08:39→16:32)
[2019-08-02] MEDS: MORPHINE SULFATE 2 MG/ML SYR 1ML IV PRN (10:49)
[2019-08-02] MEDS ORDERED: POTASSIUM CHLORIDE 10MEQ EA PO ONE (12:00)
[2019-08-02] MEDS ORDERED: QUETIAPINE FUMARATE 25 MG TAB PO PRN (14:00)
[2019-08-02] MEDS: QUETIAPINE FUMARATE 100 MG TAB PO SCH (20:51)
[2019-08-02] MEDS ORDERED: SODIUM CHLORIDE 0.9% 250ML 250 ML ONE (22:56)
[2019-08-03] MEDS: ALBUTEROL/IPRATROPIUM 3 ML NEB NEB SCH ×4 (01:45→19:00)
[2019-08-03] MEDS: METRONIDAZOLE 500MG/NS 100ML 100 ML IV SCH ×2 (02:45→08:00)
[2019-08-03] MEDS: PIPER-TAZ 3.375 GM 50 ML IV SCH ×4 (05:31→23:45)
[2019-08-03 05:36] LABS: HEMATOCRIT 31.5 % (34.2-44.1); HEMOGLOBIN 9.9 g/dL (12.0-16.0); MEAN CORPUSCULAR HEMOGLOBIN 31.2 pg (28-32); MEAN CORPUSCULAR HGB CONC 31.4 g/dL (31-35); MEAN CORPUSCULAR VOLUME 99.4 fL (81-99); PLATELET COUNT 232 x10e3/uL (140-360); RED BLOOD COUNT 3.17 x10e6/uL (3.6-5.1); RED CELL DISTRIBUTION WIDTH 15.2 % (11.7-14.4)
[2019-08-03 05:50] LABS: ANION GAP 13.4 mmol/L (8-16); BLOOD UREA NITROGEN 11 mg/dL (7-26); BUN/CREATININE RATIO 14 (6-25); CALCIUM 8.8 mg/dL (8.4-10.2); CARBON DIOXIDE 24 mmol/L (22-29); CHLORIDE 111 mmol/L (98-107); CREATININE, SERUM 0.77 mg/dL (0.57-1.11); EST GLOMERULAR FILTRATION RATE > 60 ML/MIN (60-); GLUCOSE 133 mg/dL (74-118); POTASSIUM 3.4 mmol/L (3.5-5.1); SODIUM 145 mmol/L (136-145)
[2019-08-03 07:30] VITALS: BP 144/66
[2019-08-03] MEDS: INSULIN REGULAR, HUMAN 100 UNIT/1 ML 3ML VIAL SQ SCH ×4 (07:30→21:00)
[2019-08-03] MEDS: QUETIAPINE FUMARATE 25 MG TAB PO SCH ×2 (08:00→16:37)
[2019-08-03 08:31] LABS: ANISOCYTOSIS SLIGHT; LYMPHOCYTES % (MANUAL) 14 % (19-48); MONOCYTES % (MANUAL) 3 % (3.4-9.0); NEUTROPHILS % (MANUAL) 83 % (40-74); PLATELET ESTIMATE ADEQUATE; PLATELET MORPHOLOGY COMMENT FEW LARGE; RBC MORPHOLOGY COMMENT NORMAL
[2019-08-03 08:37] VITALS: BP 144/66
[2019-08-03] MEDS ORDERED: POTASSIUM CHLORIDE 10MEQ EA PO NR (08:45)
[2019-08-03] MEDS ORDERED: CLONAZEPAM 0.5 MG TAB PO PRN (08:45)
[2019-08-03] MEDS: CITALOPRAM HYDROBROMIDE 20 MG TAB PO SCH (11:08)
[2019-08-03] MEDS: METOPROLOL TARTRATE 50 MG TAB PO SCH ×2 (11:09→16:37)
[2019-08-03 12:00] VITALS: BP 162/72
[2019-08-03 15:32] VITALS: BP 138/77
[2019-08-03] MEDS: ENOXAPARIN SOD INJ 40 MG/0.4 ML SYR SC SCH (16:37)
[2019-08-03] MEDS ORDERED: SODIUM CHLORIDE 0.9% 250ML 250 ML ONE (16:38)
[2019-08-03 20:00] VITALS: BP 123/66
[2019-08-03] MEDS: QUETIAPINE FUMARATE 100 MG TAB PO SCH (21:02)
[2019-08-03] MEDS: HYDROCODONE/APAP 7.5MG-325MG 1 EA TAB PO PRN (22:19)
[2019-08-04] VITALS (9 sets, daily range): BP systolic 123–160; BP diastolic 61–86
[2019-08-04] MEDS: ALBUTEROL/IPRATROPIUM 3 ML NEB NEB SCH ×4 (00:05→20:10)
[2019-08-04] MEDS: PIPER-TAZ 3.375 GM 50 ML IV SCH ×3 (05:48→21:56)
[2019-08-04] MEDS: INSULIN REGULAR, HUMAN 100 UNIT/1 ML 3ML VIAL SQ SCH ×4 (07:30→21:00)
[2019-08-04] MEDS: CITALOPRAM HYDROBROMIDE 20 MG TAB PO SCH (07:57)
[2019-08-04] MEDS: METOPROLOL TARTRATE 50 MG TAB PO SCH ×2 (07:58→16:33)
[2019-08-04] MEDS: QUETIAPINE FUMARATE 25 MG TAB PO SCH ×2 (07:58→16:33)
[2019-08-04] MEDS: HYDROCODONE/APAP 7.5MG-325MG 1 EA TAB PO PRN ×3 (08:40→21:00)
[2019-08-04] MEDS: ENOXAPARIN SOD INJ 40 MG/0.4 ML SYR SC SCH (16:33)
[2019-08-04] MEDS: QUETIAPINE FUMARATE 100 MG TAB PO SCH (21:56)
[2019-08-05] VITALS (8 sets, daily range): BP systolic 116–135; BP diastolic 58–69
[2019-08-05] MEDS: HYDROCODONE/APAP 7.5MG-325MG 1 EA TAB PO PRN ×5 (01:13→20:37)
[2019-08-05] MEDS: ALBUTEROL/IPRATROPIUM 3 ML NEB NEB SCH ×4 (01:30→19:55)
[2019-08-05 05:23] LABS: BASOPHILS % 0.3 % (0.0-1.0); EOSINOPHILS # (AUTO) 0.6 (0.0-0.4); EOSINOPHILS % 4.9 % (0.0-6.0); HEMATOCRIT 31.3 % (34.2-44.1); HEMOGLOBIN 9.7 g/dL (12.0-16.0); LYMPHOCYTES # (AUTO) 2.7 (1.0-3.2); LYMPHOCYTES % 20.6 % (18.0-39.1); MEAN CORPUSCULAR HEMOGLOBIN 30.1 pg (28-32); MEAN CORPUSCULAR VOLUME 97.2 fL (81-99); MONOCYTES # (AUTO) 1.6 (0.2-0.8); MONOCYTES % 12.5 % (4.4-11.3); NEUTROPHILS # (AUTO) 7.9 (2.1-6.9); NEUTROPHILS % 61.2 % (38.7-80.0); PLATELET COUNT 285 x10e3/uL (140-360); RED BLOOD COUNT 3.22 x10e6/uL (3.6-5.1); RED CELL DISTRIBUTION WIDTH 14.8 % (11.7-14.4)
[2019-08-05 05:40] LABS: ANION GAP 13.1 mmol/L (8-16); BLOOD UREA NITROGEN 13 mg/dL (7-26); BUN/CREATININE RATIO 17 (6-25); CARBON DIOXIDE 23 mmol/L (22-29); CHLORIDE 105 mmol/L (98-107); CREATININE, SERUM 0.78 mg/dL (0.57-1.11); EST GLOMERULAR FILTRATION RATE > 60 ML/MIN (60-); GLUCOSE 132 mg/dL (74-118); POTASSIUM 3.1 mmol/L (3.5-5.1); SODIUM 138 mmol/L (136-145)
[2019-08-05] MEDS: PIPER-TAZ 3.375 GM 50 ML IV SCH (05:59)
[2019-08-05] MEDS: INSULIN REGULAR, HUMAN 100 UNIT/1 ML 3ML VIAL SQ SCH ×4 (08:00→20:37)
[2019-08-05] MEDS: CITALOPRAM HYDROBROMIDE 20 MG TAB PO SCH (08:33)
[2019-08-05] MEDS: QUETIAPINE FUMARATE 25 MG TAB PO SCH ×2 (08:33→16:58)
[2019-08-05] MEDS: METOPROLOL TARTRATE 50 MG TAB PO SCH ×2 (08:33→16:58)
[2019-08-05] MEDS ORDERED: POTASSIUM CHLORIDE 10MEQ EA PO ONE (10:00)
[2019-08-05] MEDS ORDERED: POTASSIUM CHLORIDE 20 MEQ TAB CR PO ONE (14:00)
[2019-08-05] MEDS ORDERED: ONDANSETRON HCL 4 MG ORAL DISINTEGRATING TAB PO PRN (15:30)
[2019-08-05] MEDS: QUETIAPINE FUMARATE 100 MG TAB PO SCH (20:37)
[2019-08-06] VITALS (8 sets, daily range): BP systolic 110–151; BP diastolic 53–70
[2019-08-06] MEDS: ALBUTEROL/IPRATROPIUM 3 ML NEB NEB SCH ×4 (02:00→19:20)
[2019-08-06] MEDS: HYDROCODONE/APAP 7.5MG-325MG 1 EA TAB PO PRN ×5 (02:01→20:04)
[2019-08-06 05:17] LABS: BASOPHILS # (AUTO) 0.1 (0.0-0.1); BASOPHILS % 0.5 % (0.0-1.0); EOSINOPHILS # (AUTO) 0.7 (0.0-0.4); EOSINOPHILS % 4.9 % (0.0-6.0); HEMATOCRIT 34.1 % (34.2-44.1); HEMOGLOBIN 10.5 g/dL (12.0-16.0); LYMPHOCYTES # (AUTO) 3.4 (1.0-3.2); LYMPHOCYTES % 25.4 % (18.0-39.1); MEAN CORPUSCULAR HEMOGLOBIN 30.3 pg (28-32); MEAN CORPUSCULAR HGB CONC 30.8 g/dL (31-35); MEAN CORPUSCULAR VOLUME 98.6 fL (81-99); MONOCYTES # (AUTO) 1.4 (0.2-0.8); MONOCYTES % 10.8 % (4.4-11.3); NEUTROPHILS # (AUTO) 7.6 (2.1-6.9); NEUTROPHILS % 57.3 % (38.7-80.0); PLATELET COUNT 232 x10e3/uL (140-360); RED BLOOD COUNT 3.46 x10e6/uL (3.6-5.1)
[2019-08-06 05:41] LABS: ANION GAP 12.9 mmol/L (8-16); BLOOD UREA NITROGEN 9 mg/dL (7-26); BUN/CREATININE RATIO 12 (6-25); CALCIUM 9.4 mg/dL (8.4-10.2); CARBON DIOXIDE 22 mmol/L (22-29); CHLORIDE 110 mmol/L (98-107); CREATININE, SERUM 0.76 mg/dL (0.57-1.11); EST GLOMERULAR FILTRATION RATE > 60 ML/MIN (60-); GLUCOSE 126 mg/dL (74-118); POTASSIUM 3.9 mmol/L (3.5-5.1); SODIUM 141 mmol/L (136-145)
[2019-08-06 06:03] LABS: MAGNESIUM 1.9 MG/DL (1.3-2.1); PHOSPHORUS 3.4 MG/DL (2.3-4.7)
[2019-08-06 06:58] LABS: PLATELET ESTIMATE ADEQUATE
[2019-08-06 06:59] LABS: PLATELET MORPHOLOGY COMMENT MANY LARGE; RBC MORPHOLOGY COMMENT NORMAL
[2019-08-06] MEDS: INSULIN REGULAR, HUMAN 100 UNIT/1 ML 3ML VIAL SQ SCH ×4 (07:30→20:25)
[2019-08-06] MEDS: CITALOPRAM HYDROBROMIDE 20 MG TAB PO SCH (09:41)
[2019-08-06] MEDS: METOPROLOL TARTRATE 50 MG TAB PO SCH ×2 (09:42→17:55)
[2019-08-06] MEDS: QUETIAPINE FUMARATE 25 MG TAB PO SCH ×2 (09:42→17:55)
[2019-08-06] MEDS: ACETAMINOPHEN 325 MG TAB PO PRN ×2 (10:10→18:51)
[2019-08-06] MEDS ORDERED: FUROSEMIDE INJ 10 MG/ML 4 ML VIAL IV ONE (11:30)
[2019-08-06] MEDS ORDERED: POTASSIUM CHLORIDE 20 MEQ TAB CR PO NR (11:45)
[2019-08-06] MEDS: QUETIAPINE FUMARATE 100 MG TAB PO SCH (20:29)
[2019-08-07] VITALS (9 sets, daily range): BP systolic 107–147; BP diastolic 52–79
[2019-08-07] MEDS: HYDROCODONE/APAP 7.5MG-325MG 1 EA TAB PO PRN ×6 (00:12→21:07)
[2019-08-07] MEDS: ALBUTEROL/IPRATROPIUM 3 ML NEB NEB SCH ×4 (00:30→19:03)
[2019-08-07] MEDS: INSULIN REGULAR, HUMAN 100 UNIT/1 ML 3ML VIAL SQ SCH ×4 (07:30→20:46)
[2019-08-07] MEDS: FUROSEMIDE 40 MG TAB PO SCH (08:54)
[2019-08-07] MEDS: METOPROLOL TARTRATE 50 MG TAB PO SCH ×2 (09:00→17:00)
[2019-08-07] MEDS: CITALOPRAM HYDROBROMIDE 20 MG TAB PO SCH (09:38)
[2019-08-07] MEDS: QUETIAPINE FUMARATE 25 MG TAB PO SCH ×2 (09:39→17:00)
[2019-08-07] MEDS ORDERED: INFLUENZA VIRUS VAC SPLIT INJ 0.5 ML SYR IM SCH (14:30)
[2019-08-07] MEDS: ACETAMINOPHEN 325 MG TAB PO PRN (14:36)
[2019-08-07] MEDS: QUETIAPINE FUMARATE 100 MG TAB PO SCH (21:07)
[2019-08-08] MEDS: ALBUTEROL/IPRATROPIUM 3 ML NEB NEB SCH ×4 (01:00→13:00)
[2019-08-08] MEDS: HYDROCODONE/APAP 7.5MG-325MG 1 EA TAB PO PRN ×3 (03:45→11:41)
[2019-08-08] MEDS ORDERED: INFLUENZA VIRUS VAC SPLIT INJ 0.5 ML SYR IM SCH (04:00)
[2019-08-08 04:56] VITALS: BP 132/63
[2019-08-08] MEDS: INSULIN REGULAR, HUMAN 100 UNIT/1 ML 3ML VIAL SQ SCH ×2 (07:30→11:30)
[2019-08-08 07:47] VITALS: BP 166/74
[2019-08-08 07:56] VITALS: BP 166/74
[2019-08-08] MEDS: FUROSEMIDE 40 MG TAB PO SCH (09:00)
[2019-08-08] MEDS: CITALOPRAM HYDROBROMIDE 20 MG TAB PO SCH (09:00)
[2019-08-08] MEDS: METOPROLOL TARTRATE 50 MG TAB PO SCH (09:00)
[2019-08-08] MEDS: QUETIAPINE FUMARATE 25 MG TAB PO SCH (09:00)
[2019-08-08 12:00] VITALS: BP 133/72
--- NOTE | 2019-08-08 14:08 | Discharge Summary ---
ADMISSION DIAGNOSES: Distal pancreatic mass, recurrent incisional hernia. DISCHARGE DIAGNOSES: Distal pancreatic mass, recurrent incisional hernia with respiratory insufficiency. PRINCIPAL PROCEDURES: 1. Distal pancreatectomy with splenectomy. 2. Repair of recurrent incisional hernia. HISTORY OF PRESENT ILLNESS: The patient is a 64-year-old female with multiple medical problems, who was found have a mass in her pancreas, this was followed by imaging, increased in size. She also had recurrent incisional hernia. HOSPITAL COURSE: The patient admitted to the hospital, underwent surgery same day as admission. She had distal pancreatectomy with splenectomy, repair of recurrent incisional hernia, and lysis of adhesions. Postop, the patient required mechanical ventilatory support. She was seen in consultation by Dr. Urbina, Dr. Mayo. She improved. She was able to be extubated on the 1st postop day, she was monitored in the intensive care unit, but continued to improve. After surgery, she is stabilizing, she was transferred to surgical floors. She was started on liquid diet. She tolerated without problem. Diet was advanced to regular diet. She was out of bed ambulating. Wound remained clean. She was discharged home on the 9th postop day. At time of discharge, she was afebrile, tolerating diet. Drain was removed prior to discharge. She will continue on all her same home medications that she took prior to admission, which are listed in the chart. She will follow up with Dr. Espinal in approximately 1 week after discharge. She sent home in satisfactory condition on a regular diet. MD CARLO Hopper/PURA /[id number]
== END 2019-08-08 14:00 | disposition home or self-care (01) | DRG 405 ==
LOC: OR 06:45 → PACU V 12:19 → ICU 13:13 → MED/SURG 08-02 22:06 → MED/SURG2 08-03 15:53
PROVIDERS: ADMIT Surgery; ATTEND Surgery
PROC: 07TP0ZZ Resection of Spleen, Open Approach (ICD-10-PCS; 2019-07-30)
PROC: 0WQF0ZZ Repair Abdominal Wall, Open Approach (ICD-10-PCS; 2019-07-30)
PROC: 3E02340 Introduction of Influenza Vaccine into Muscle, Percutaneous Approach (ICD-10-PCS; 2019-07-30)
PROC: 3E0234Z Introduction of Serum, Toxoid and Vaccine into Muscle, Percutaneous Approach (ICD-10-PCS; 2019-07-30)
PROC: 3E0234Z Introduction of Serum, Toxoid and Vaccine into Muscle, Percutaneous Approach (ICD-10-PCS; 2019-07-30)
PROC: 0FBG0ZZ Excision of Pancreas, Open Approach (ICD-10-PCS; principal; 2019-07-30 09:00)
DX: C25.7 Malignant neoplasm of other parts of pancreas (principal); J95.2 Acute pulmonary insufficiency following nonthoracic surgery; E66.2 Morbid (severe) obesity with alveolar hypoventilation; Z68.41 Body mass index [BMI] 40.0-44.9, adult; N17.9 Acute kidney failure, unspecified; D72.829 Elevated white blood cell count, unspecified; E86.0 Dehydration; K43.2 Incisional hernia without obstruction or gangrene; Y83.6 Removal of other organ (partial) (total) as the cause of abnormal reaction of the patient, or of later complication, without mention of misadventure at the time of the procedure; I10 Essential (primary) hypertension; E78.5 Hyperlipidemia, unspecified; M19.90 Unspecified osteoarthritis, unspecified site; I95.81 Postprocedural hypotension; E87.6 Hypokalemia; R41.0 Disorientation, unspecified; R13.10 Dysphagia, unspecified; R49.0 Dysphonia; E87.8 Other disorders of electrolyte and fluid balance, not elsewhere classified; Y92.230 Patient room in hospital as the place of occurrence of the external cause; Z87.891 Personal history of nicotine dependence; Z86.73 Personal history of transient ischemic attack (TIA), and cerebral infarction without residual deficits; Z78.1 Physical restraint status; Z79.01 Long term (current) use of anticoagulants; Z23 Encounter for immunization
CPT/HCPCS: 31720; 36415; 36600; 71045; 71046; 71260; 74018; 74177; 76770; 80048; 80053; 82805; 82948; 83605; 83735; 84100; 85007; 85025; 85027; 85730; 86850; 86900; 87040; 87070; 87186; 87205; 88305; 88307; 88309; 88331; 88332; 90732; 93005; 94002; 94003; 94640; 94667; 94668; 96372; 97139; J0690; J1100; J1630; J1650; J1817; J1940; J2001; J2250; J2270; J2405; J2543; J3010; J3486; J7030; J7042; J7050; Q9967

== ENCOUNTER 2019-08-17 07:22 | Inpatient (IN) | payer OTHER ==
[~2019-08-17] VITALS: Ht 170.2 cm; Wt 111.6 kg
[2019-08-17] MEDS ORDERED: SODIUM CHLORIDE 0.9% 1000ML 1,000 ML IV STA (07:37)
[2019-08-17] MEDS ORDERED: MORPHINE SULFATE INJ 4 MG/ML INJ 1ML IV STA (07:37)
[2019-08-17] MEDS ORDERED: ONDANSETRON HCL INJ 2MG/ML 2ML 2 MG/ML VIAL IV STA (07:37)
--- NOTE | 2019-08-17 07:44 | NUR ---
pt instructed on arrival need for urine specimen. pt states voiding in diapers and cant do a clean catch.
[2019-08-17 08:02] LABS: BASOPHILS # (AUTO) 0.1 (0.0-0.1); BASOPHILS % 0.3 % (0.0-1.0); EOSINOPHILS % 0.1 % (0.0-6.0); HEMATOCRIT 30.2 % (34.2-44.1); HEMOGLOBIN 9.7 g/dL (12.0-16.0); LYMPHOCYTES # (AUTO) 2.1 (1.0-3.2); LYMPHOCYTES % 10.6 % (18.0-39.1); MEAN CORPUSCULAR HGB CONC 32.1 g/dL (31-35); MEAN CORPUSCULAR VOLUME 93.5 fL (81-99); MONOCYTES # (AUTO) 2.3 (0.2-0.8); MONOCYTES % 11.7 % (4.4-11.3); NEUTROPHILS % 75.8 % (38.7-80.0); PLATELET COUNT 824 x10e3/uL (140-360); RED BLOOD COUNT 3.23 x10e6/uL (3.6-5.1); RED CELL DISTRIBUTION WIDTH 15.6 % (11.7-14.4)
[2019-08-17 08:25] LABS: ALANINE AMINOTRANSFERASE 13 IU/L (0-55); ALBUMIN 2.5 g/dL (3.5-5.0); ALBUMIN/GLOBULIN RATIO 0.5 (0.8-2.0); ALKALINE PHOSPHATASE 79 IU/L (40-150); ANION GAP 14.5 mmol/L (8-16); BLOOD UREA NITROGEN 6 mg/dL (7-26); BUN/CREATININE RATIO 8 (6-25); CALCIUM 9.2 mg/dL (8.4-10.2); CARBON DIOXIDE 24 mmol/L (22-29); CHLORIDE 102 mmol/L (98-107); CREATININE, SERUM 0.76 mg/dL (0.57-1.11); EST GLOMERULAR FILTRATION RATE > 60 ML/MIN (60-); GLUCOSE 148 mg/dL (74-118); LIPASE 7 U/L (8-78); POTASSIUM 3.5 mmol/L (3.5-5.1); SODIUM 137 mmol/L (136-145)
--- NOTE | 2019-08-17 08:31 | NUR ---
SPOKE WITH PATIENTS DAUGHTER AND UPDATED HER ON PLAN OF CARE
[2019-08-17 08:32] LABS: BILIRUBIN,URINE NEGATIVE (NEGATIVE); CLARITY,URINE CLEAR (CLEAR); COLOR,URINE YELLOW (YELLOW); KETONES,URINE NEGATIVE (NEGATIVE); LEUKOCYTE ESTERASE ,URINE NEGATIVE (NEGATIVE); NITRITE,URINE NEGATIVE (NEGATIVE); PROTEIN,URINE DIPSTICK TRACE (NEGATIVE); URINE UROBILINOGEN 0.2 mg/dL (0.2 - 1)
[2019-08-17 08:49] LABS: BACTERIA,URINE RARE /HPF; EPITHELIAL CELLS,URINE RARE /LPF; RBC,URINE 0-5 /HPF (0-5); WBC,URINE (MAN) 0-5 /HPF (0-5)
[2019-08-17] MEDS ORDERED: SODIUM CHLORIDE 0.9% 50ML 50 ML ONE (09:23)
[2019-08-17] MEDS ORDERED: IOPAMIDOL 370 MG/ML 200 ML INFUS..BTL INJ ONE (09:24)
[2019-08-17] MEDS: PIPER-TAZ 3.375 GM 50 ML IV SCH ×3 (10:00→21:20)
--- NOTE | 2019-08-17 10:02 | Diagnostic Imaging Report ---
CT Abdomen And Pelvis with Intravenous Contrast INDICATION: Nausea, vomiting, hernia repair and splenectomy and possible pancreas lesion ^post op, abd pain ^[id number] ^[id number] TECHNIQUE: Thin collimation axial images obtained from the diaphragm to the level of the pubic symphysis following the uneventful administration of 100 cc of low osmolar, nonionic intravenous contrast. Dose reduction techniques used: Automated exposure control, adjustment of the mAs and/or kVp according to patient size, standardized low-dose protocol, and/or iterative reconstruction technique. RADIATION DOSE: Total DLP: 861.07 mGy*cm Estimated effective dose: CT chest, abdomen, pelvis 08/01/2019 mSv CTDIvol has been reviewed. It is below the limits set by the Radiation Protocol Committee (RPC). COMPARISON: CT chest, abdomen, pelvis 08/01/2019. ABDOMEN FINDINGS: Lung Bases: Improved right basilar atelectasis. Stable left basilar atelectasis and small pleural effusion. Visualized portion of the mediastinum is normal Liver: Hepatomegaly and steatosis.. No evidence for mass. Gallbladder: Present and appears normal. No biliary ductal dilatation. Pancreas: Diffuse fatty atrophy. Fluid collection extending from the tail the pancreas into the left upper quadrant is new and measures 7.3 x 8.6 x 14.9 cm. Surgical drain in the left upper quadrant has been removed. Spleen: Absent. Adrenal Glands: No evidence for mass. Kidneys: Right: Normal enhancement. No soft tissue mass. No hydronephrosis. Left: Normal enhancement. No soft tissue mass. No hydronephrosis. Lymph Nodes: No enlarged abdominal or periaortic perirectal lymph nodes. Aorta: Diffusely calcified. No aneurysmal dilatation PELVIS FINDINGS: Bowel: Stomach: Stable postoperative changes with chain sutures at the cardia. There is fluid distending the mid and distal stomach. Small Bowel: Fluid distended small bowel loop in the right abdominal wall leads to a Spigelian hernia in the right abdominal wall (image 60). This hernia is stable. A knuckle of small bowel protrudes through the linea alba on the left side of the abdomen with an aperture of 3 cm (image 39). This is stable. There is a knuckle of small bowel in the anterior abdominal wall at the operative site through an 11 mm aperture (image 68). This is stable. Large Bowel: Collapsed. No focal mural thickening. Appendix: Normal. Bladder: Collapsed around a Henderson catheter. The uterus is present and normal in morphology. No adnexal mass. Peritoneum/retroperitoneum: No pelvic free fluid or loculated fluid collection. Soft tissues: Fat-containing left ventral hernia measures 19 mm and is stable. Multiple abdominal wall angelica are present. An air and fluid containing postoperative fluid collection at the operative site measures 8.5 x 4.9 cm in the sagittal plane. This is to the left of midline and is slightly larger. Bones: Stable compression deformity of L1. IMPRESSION: 1. Status post splenectomy. Interval removal of left upper quadrant surgical drain with enlarging fluid collection the left upper quadrant extending to the pancreas tail. This is concerning for developing abscess. Please correlate for signs/symptoms of infection. 2. New small bowel dilatation as result of a small bowel containing Spigelian hernia in the right abdominal wall suggestive of incarceration and developing partial small bowel obstruction. 3. Postoperative changes of the anterior abdominal wall with subcutaneous air and fluid containing collection at the operative site to the left of midline, slightly larger, and concerning for developing abscess. 4. Small bowel containing hernia at the operative site is grossly stable without evidence of bowel obstruction. Signed by: Dr. Petey Malone MD on 08/17/2019 9:58 AM
[2019-08-17] MEDS ORDERED: LEVOFLOXACIN 500MG/D5W 100ML IV SCH (10:15)
--- NOTE | 2019-08-17 10:28 | NUR ---
PATIENT ASSISTED MULTIPLE TIMES TO THE BATHROOM. BEDSIDE CAMMODE SET UP. DR. Kirstin RICHARDS AT BEDSIDE EVALUATING PATIENT
[2019-08-17 10:40] LABS: INR 1.48; PROTHROMBIN TIME 18.5 seconds (11.9-14.5)
--- NOTE | 2019-08-17 11:05 | NUR ---
C/O OF DRY MOUTH. PATIENT NPO. GIVEN GLYCERIN SWABS
[2019-08-17] MEDS: ONDANSETRON HCL INJ 2MG/ML 2ML 2 MG/ML VIAL IV PRN ×4 (11:32→23:20)
[2019-08-17] MEDS: MORPHINE SULFATE INJ 4 MG/ML INJ 1ML IV PRN ×6 (11:32→23:20)
[2019-08-17 11:54] VITALS: BP 156/73
--- NOTE | 2019-08-17 11:54 | NUR ---
patient arrived to unit via stretcher, alert and oriented. patient was able to transfer to bed with little assistance. call light placed within reach, bed in lowest and locked position.
[2019-08-17 12:30] VITALS: BP 156/73
--- NOTE | 2019-08-17 13:49 | NUR ---
patient alert and oriented, leaving the unit at this time via wheelchair to radiology.
[2019-08-17] MEDS ORDERED: MIDAZOLAM HCL 2 MG/2 ML VIAL IV NR (14:15)
[2019-08-17] MEDS ORDERED: FENTANYL CITRATE/PF 100MCG/2 ML INJ ONE (14:16)
[2019-08-17] MEDS ORDERED: MIDAZOLAM HCL 2 MG/2 ML VIAL ONE (14:16)
[2019-08-17] MEDS ORDERED: LIDOCAINE HCL 1% LOCAL INJ 20 ML VIAL ONE (14:25)
[2019-08-17] MEDS: FENTANYL CITRATE/PF 100MCG/2 ML INJ IV NR ×2 (14:35→15:35)
--- NOTE | 2019-08-17 15:30 | Diagnostic Imaging Report ---
Date and Time: 06/17/2019 Procedure: CT-guided drainage of left upper quadrant abscess concrete placement equipment operator: Dr. Bowen Assistants: None Pre-operative diagnosis: Status post distal pancreatectomy and splenectomy 08/01/2019, returns with abdominal pain and leukocytosis, left upper quadrant fluid collection Post-operative diagnosis: Left upper quadrant abscess Conscious Sedation: Versed 2 mg and Fentanyl 100 mcg. The patient's heart rate and pulse oximetry were continuously monitored by the interventional radiology nurse. Blood pressure was monitored at 5 minute intervals. Sedation time: 45 minutes Additional Medications: Lidocaine 1% for local anesthesia Specimens: 250 cc of brown, purulent fluid Implants/grafts: 12 Swazi locking loop drainage catheter Contrast used: None Estimated blood loss: Less than 10 cc Condition at completion: Stable Disposition: Returned to floor Complications: No immediate DISCUSSION: Informed consent was obtained and documented in the medical record after discussion of risks and benefits. The patient was placed in the left anterior oblique position on the CT couch. A marker grid was placed on the lateral abdominal wall of the left upper quadrant. Limited CT examination of the upper abdomen confirmed a suitable percutaneous approach to the left upper quadrant fluid collection. The skin was marked then the area was prepped and draped in standard sterile fashion. 1% lidocaine was infiltrated into the skin and subcutaneous tissues for local anesthesia. Then, under intermittent CT guidance, an 18-gauge, 15 cm needle was advanced into the fluid collection. The stylette of the needle was removed and a 0.0 3 5-in. Amplatz Super Stiff wire was advanced into the collection with position confirmed by limited CT scan. The needle was removed and the tract was dilated. Then, a 12 Swazi locking loop drainage catheter was advanced over the wire, which was then removed. Approximately 250 cc of brown, purulent fluid were removed. A specimen was submitted for laboratory analysis (Gram stain, aerobic and anaerobic culture). The catheter was connected to gravity drainage and secured to the skin with silk suture. A sterile dressing was applied. The patient tolerated the procedure well. FINDINGS: Left upper quadrant fluid collection. IMPRESSION: Successful CT-guided drainage of a left upper quadrant abscess. Catheter care instructions were entered into the medical record, to include recording catheter output every shift, as well as irrigating the catheter with 10 cc sterile saline every shift. Signed by: Dr. Mario Bowen M.D. on 08/17/2019 3:27 PM
[2019-08-17 15:41] VITALS: BP 178/85
[2019-08-17] MEDS: CLONAZEPAM 1 MG TAB PO SCH (17:45)
[2019-08-17 19:30] VITALS: BP 180/80
[2019-08-17 20:30] VITALS: BP 180/80
--- NOTE | 2019-08-17 20:30 | NUR ---
PATIENT RESTING IN BED, VOICES EXTREME PAIN IN ABDOMEN AT A LEVEL OF 8 AND WAS MEDICATED EARLIER. DRAINAGE BAG IS INTACT WITH MINIMAL DRAINAGE NOTED, NASAL CANNULA ALSO INTACT AND FLOWING AT 2 LITERS. PATIENT IS AWARE OF NEXT SCHEDULED MEDICATION, BED ALARM IS ON, BED IN LOW POSITION, CALL LIGHT WITHIN REACH, WILL CONTINUE TO MONITOR.
[2019-08-17] MEDS: QUETIAPINE FUMARATE 100 MG TAB PO SCH (20:50)
[2019-08-17] MEDS ORDERED: HYDRALAZINE HCL 20 MG/ML VIAL IV PRN (23:00)
[2019-08-17] MEDS ORDERED: ACETAMINOPHEN 325 MG TAB PO PRN (23:00)
[2019-08-17] MEDS ORDERED: VERAPAMIL HCL 180 MG TBER PO ONE (23:00)
[2019-08-18] VITALS (8 sets, daily range): BP systolic 95–143; BP diastolic 52–67
[2019-08-18] MEDS: MORPHINE SULFATE INJ 4 MG/ML INJ 1ML IV PRN ×6 (01:30→21:45)
[2019-08-18] MEDS: ONDANSETRON HCL INJ 2MG/ML 2ML 2 MG/ML VIAL IV PRN ×2 (03:23→21:45)
[2019-08-18] MEDS: VERAPAMIL HCL 180 MG TBER PO SCH ×2 (05:30→07:22)
[2019-08-18] MEDS: PIPER-TAZ 3.375 GM 50 ML IV SCH (05:30)
[2019-08-18 05:46] LABS: BASOPHILS # (AUTO) 0.1 (0.0-0.1); BASOPHILS % 0.3 % (0.0-1.0); EOSINOPHILS # (AUTO) 0.1 (0.0-0.4); EOSINOPHILS % 0.3 % (0.0-6.0); HEMOGLOBIN 9.3 g/dL (12.0-16.0); LYMPHOCYTES % 7.5 % (18.0-39.1); MEAN CORPUSCULAR HEMOGLOBIN 29.8 pg (28-32); MEAN CORPUSCULAR VOLUME 96.2 fL (81-99); MONOCYTES # (AUTO) 3.1 (0.2-0.8); MONOCYTES % 11.8 % (4.4-11.3); NEUTROPHILS # (AUTO) 20.4 (2.1-6.9); NEUTROPHILS % 78.7 % (38.7-80.0); PLATELET COUNT 615 x10e3/uL (140-360); RED BLOOD COUNT 3.12 x10e6/uL (3.6-5.1); RED CELL DISTRIBUTION WIDTH 16.4 % (11.7-14.4)
[2019-08-18 06:06] LABS: ALBUMIN 2.2 g/dL (3.5-5.0); ALBUMIN/GLOBULIN RATIO 0.5 (0.8-2.0); ANION GAP 13.9 mmol/L (8-16); CALCIUM 8.8 mg/dL (8.4-10.2); CREATININE, SERUM 1.3 mg/dL (0.57-1.11); POTASSIUM 3.9 mmol/L (3.5-5.1)
[2019-08-18] MEDS ORDERED: CEFEPIME 2 GM/NS 0.9% 100 ML 100 ML IV SCH (06:45)
[2019-08-18] MEDS: CLONAZEPAM 1 MG TAB PO SCH ×2 (07:52→16:43)
[2019-08-18] MEDS: HYDROCODONE/APAP 10MG-325MG TAB PO PRN (07:52)
[2019-08-18] MEDS: ESCITALOPRAM OXALATE 10 MG TAB PO SCH (07:52)
[2019-08-18] MEDS: BUPROPION HCL 150 MG TABCR PO SCH (07:52)
[2019-08-18] MEDS: CEFEPIME 2 GM/NS 0.9% 100 ML 100 ML IV SCH ×2 (10:41→21:45)
--- NOTE | 2019-08-18 10:48 | Consultation ---
DATE OF CONSULTATION: 08/18/2019 HISTORY OF PRESENT ILLNESS: The patient is a 64-year-old female, well known to me. She had surgery about two and half weeks ago for repair of recurrent incisional hernia as well as removal of a mass in the tail of pancreas along with her spleen. The patient had been doing fairly well at home to the last couple of days when she developed pain in her left abdomen. She has not had any fever. She had some drainage from her wound. In the emergency room, evaluation of CT of the abdomen and pelvis revealed fluid collection of left subphrenic space as well as fluid collection within the wound. The patient denies any nausea, vomiting. She has been having bowel movements. PAST MEDICAL HISTORY: Details are listed in the old chart. She has had multiple previous surgeries. She has a history of COPD, morbid obesity. MEDICATIONS: At home were atorvastatin, bupropion, clonazepam, Lexapro, fenofibrate, [place], Seroquel, Xarelto, and Calan. ALLERGIES: SHE HAS NO KNOWN ALLERGIES. FAMILY HISTORY: Noncontributory. SOCIAL HISTORY: The patient is a former smoker, does not smoke now. REVIEW OF SYSTEMS: As stated above. She has not had any definite fever. PHYSICAL EXAMINATION: GENERAL: The patient is awake and alert. VITAL SIGNS: Slight tachycardia. Heart rate around 100. Blood pressure is normal. She is afebrile. HEENT: There was no scleral icterus. NECK: Has no masses. LUNGS: Equal breath sounds are clear bilaterally. CARDIAC: Regular rate and rhythm with no murmur. ABDOMEN: Soft. There is left subcostal wound and transverse wound in the mid abdomen, both of which are intact. There is a drain in place with purulent fluid. There is no distention. EXTREMITIES: Have no edema. NEUROLOGIC: Grossly intact. LABORATORY TESTS: White blood cell count on arrival was 19.7, repeat today is 26,000; hemoglobin 9.3, and hematocrit 30. Chemistry is mildly elevated creatinine 1.3. The lipase was normal. Liver function tests are normal. CT of the abdomen as stated above. ASSESSMENT: A 64-year-old female, status post distal pancreatectomy, splenectomy, repair of incisional hernia, has a left subphrenic fluid collection, which had been drained. Cultures are pending. At this point, recommend continuing the patient on antibiotics and now just antibiotics I think may be a more appropriate coverage. She may have diet as tolerated. There are no findings that would warrant surgical intervention at this time. Thank you for asking me to see Ms. Mejia. MD CARLO Hopper/PURA /[id number]
--- NOTE | 2019-08-18 11:24 | History and Physical ---
PRIMARY CARE PHYSICIAN: Dr. Mario Beckman. DRIVE AWAY DRIVER: Dr. Mario Espinal. CHIEF COMPLAINT: Abdominal pain and possible peritoneal abscess. HISTORY OF PRESENT ILLNESS: The patient is a 64-year-old female with distal pancreatectomy with splenectomy and repair of recurrent incisional hernia back on July 30, 2019, and subsequently the patient was discharged on August 08, 2019. The patient had distal pancreatic mass with recurrent incisional hernia and with respiratory insufficiency at that time. The patient was discharged. She was doing well, eating, walking, and back to her baseline with some pain. The patient now presents to the hospital with increasing abdominal pain. She also has fever. The patient has diffuse pain associated with nausea and vomiting. The patient was admitted and Dr. Espinal has seen the patient. A drain has been placed on August 17, 2019, by Interventional Radiology. The patient has a conscious sedation and a drain was placed. It was placed in the left upper quadrant fluid collection. It was suggests successful CT-guided drainage of the left upper quadrant abscess. A catheter is placed now. The patient is otherwise stable. Vital sign ferro, the patient did not have any fever. Her white cell count slightly elevated, on admission was 19.7, now 25.9. The patient on IV antibiotics. Microbiology, wound cultures still pending. The patient is otherwise stable at this time. PAST MEDICAL HISTORY: Quite extensive, extensive abdominal surgery secondary to previous incarcerated hernia with gangrenous bowel, complicated postoperative course. The patient also has a pancreatic mass, now status post partial pancreatectomy and splenectomy. Past medical history is complicated with COPD, long-time smoker, morbid obesity, dyslipidemia, venous thrombosis, has vena cava filter placement, multiple lower back surgery, and ankle surgery. She does have coronary artery disease. Has previous CVA, respiratory failure with tracheostomy that were reversed, chronic kidney disease, and hypertension. SOCIAL HISTORY: The patient is a smoker. She does not use alcohol. No regular drugs. ALLERGIES: NO KNOWN ALLERGIES. HOME MEDICATIONS: List reviewed. REVIEW OF SYSTEMS: As mentioned above. PHYSICAL EXAMINATION: VITAL SIGNS: Temperature is 98, blood pressure 116/55, pulse rate is 90, and respirations 18. GENERAL: The patient is not in acute distress. She is awake. HEENT: Normocephalic and atraumatic. Pupils reactive. Anicteric. NECK: Supple grossly. PULMONARY: Diminished breath sounds. CARDIOVASCULAR: Regular rate and rhythm. ABDOMEN: Generalized tenderness with obesity and a left side drain in place. NEUROLOGIC: No focal deficit. LABORATORY DATA: WBC is 25.9, hemoglobin 9.3, hematocrit 30, and platelets is 615. Chemistry; sodium 136, potassium 3.9, chloride 105, bicarb 21, BUN is 12, creatinine 1.1, and glucose is 118. Urinalysis is unremarkable. CT of the abdomen and pelvis prior to a drain was placed and aspiration of fluid. The patient has a finding with fluid collection in the left upper quadrant extending to the pancreatic tail. It is concerning for possible abscess. IMPRESSION: 1. Left upper quadrant fluid collection, possible abscess. Microbiology is still pending. 2. Leukocytosis. 3. Status post recent pancreatic tail resection and splenectomy. The patient also has abdominal hernia repair as well. 4. Baseline chronic obstructive pulmonary disease, hypertension, coronary artery disease, obesity, osteoarthritis, and chronic pain. PLAN: Continue with IV antibiotic. Dr. Carcamo will be consulted. Dr. Espinal has seen the patient. A drain has been placed. We will continue to adjust the patient's medication pending on the recommendation from Dr. Carcamo. Currently, the patient on cefepime and clindamycin. We will repeat lab work in the morning. Continue with pain control. DVT prophylaxis as needed. MD SEA Rodriguez/BAYL /[id number]
[2019-08-18] MEDS ORDERED: CLINDAMYCIN PHOS 900MG/ 50ML 50 ML IV SCH (12:00)
[2019-08-18] MEDS: ENOXAPARIN SOD INJ 60 MG/0.6 ML SYR SC SCH ×2 (12:20→21:45)
[2019-08-18] MEDS ORDERED: METRONIDAZOLE 500MG/NS 100ML 100 ML IV SCH (14:00)
[2019-08-18] MEDS ORDERED: SODIUM CHLORIDE 0.9% 250ML 250 ML ONE (14:04)
[2019-08-18] MEDS: VANCOMYCIN 1GM/NS 250 ML 250 ML IV SCH (14:08)
--- NOTE | 2019-08-18 14:11 | NUR ---
pt is refusing to sign consent for picc line explained its for long-term abx treatment pt continues to refuse
--- NOTE | 2019-08-18 15:12 | NUR ---
pt agreed to have picc line placement pt asked for sister to sign consent picc line team is here to initiate order
--- NOTE | 2019-08-18 16:09 | Diagnostic Imaging Report ---
EXAMINATION: CHEST XRAY LINE PLACEMENT COMPARISON: Chest x-ray 08/02/2019 INDICATION: ^PICC LINE PLACEMENT ^[id number] ^1550 DISCUSSION: Frontal view of the chest obtained at 1556 hours. The image is underpenetrated. HEART AND MEDIASTINUM: The heart is enlarged LINES: Right PICC line terminates in the SVC without pneumothorax. LUNGS: Low lung volumes with diffuse groundglass airspace opacities and pulmonary vascular prominence. Retrocardiac airspace opacity suggestive atelectasis or infiltrate. PLEURA: Small left pleural effusion. No pneumothorax. BONES AND SOFT TISSUES: No focal osseous lesion. The soft tissues are normal. IMPRESSION: Right PICC line terminates in the SVC. No pneumothorax. Pulmonary vascular congestion and alveolar edema. Retrocardiac airspace opacity, either atelectasis or pneumonia. Small left pleural effusion. Signed by: Dr. Petey Malone MD on 08/18/2019 4:05 PM
--- NOTE | 2019-08-18 16:18 | NUR ---
16 F BLOCK PLACED IN STERILE MANNER PER MD MALDONADO ORDER FOR RETENTION
[2019-08-18] MEDS: METRONIDAZOLE 500MG/NS 100ML 100 ML IV SCH ×2 (16:43→22:20)
--- NOTE | 2019-08-18 18:51 | Consultation ---
DATE OF CONSULTATION: REASON FOR CONSULTATION: Intraabdominal abscess. HISTORY OF PRESENT ILLNESS: This patient, who is a 64-year-old white female, morbidly obese patient, comes in with abdominal pain and feeling really sick. The patient came to the emergency room, where she was admitted and evaluated. The patient have distal pancreatectomy and splenectomy as well as repair of recurrent incisional hernia back in July 30, 2019. Subsequently, she was discharged on August 08, 2019. The patient had a distal pancreatic mass with recurrent incisional hernia. The patient was discharged. She comes in feeling really bad, really weak, abdominal pain, which was severe, fever, chills. She was seen by Surgery. CAT scan done, showed there is an abscess, underwent placement of drainage and there was pus coming from the left upper quadrant. When she first came, she had a white count of 19.7. Infectious Disease was asked to see the patient. The patient, who have history of obesity, abdominal surgery secondary to previous incarcerated hernia, gangrenous bowel complicated with postoperative course, pancreatic mass status post partial pancreatectomy and splenectomy. She also has history of COPD, history of smoke, active smoker, continue to smoke, morbidly obese patient, hyperlipidemia, venous thrombosis status post inferior vena cava filter placement, multiple low back surgery, ankle surgery, coronary artery disease, history of CVA, history of tracheostomy, and chronic kidney disease. The patient is currently lying in bed comfortably. PAST MEDICAL HISTORY: As above. PAST SURGICAL HISTORY: As above. ALLERGIES: NKA. SOCIAL HISTORY: There is no smoking, drug abuse, or alcohol abuse. FAMILY HISTORY: Otherwise, hypertension and diabetes. REVIEW OF SYSTEMS: HEENT: Negative. PULMONARY: Negative. : Negative. GI: There is abdominal pain. MEDICATION LIST: She is on clindamycin and cefepime, Zosyn, fentanyl patch, hydralazine, Levaquin, and morphine. LABORATORY DATA: Her laboratory data reviewed. Her cultures showing gram-positive cocci. Gram stain is still pending. Her white count went up to 25.99 and hemoglobin 9.3. Her sodium 136, potassium 3.9, and creatinine 1.30 today. PHYSICAL EXAMINATION: GENERAL: She is currently alert and comfortable. VITAL SIGNS: Stable, currently afebrile. HEENT: Not icteric. NECK: Supple. CHEST: Clear bilateral. COR: S1 and S2. No S3, S4, or murmur. ABDOMEN: Soft. Drain is noted. Pus is noted in the bag. EXTREMITIES: No edema. SKIN: There is no rash. IMPRESSION: 1. Intra-abdominal abscess, sepsis. 2. Acute kidney injury on chronic kidney disease probably. 3. Morbidly obese patient. 4. Leukocytosis is getting progressively worse. 5. Active smoking. 6. Status post splenectomy, status post partial pancreatectomy. 7. History of chronic obstructive pulmonary disease, history of morbidly obese patient, history of osteoarthritis, history of hyperlipidemia, history of deep venous thrombosis, status post IVC filter. Recommend to change the antibiotic to vancomycin 1 g q.12. We will follow the trough closely. 8. Flagyl 500 IV q.6. 9. Continue cefepime 2 g q.12. Concern about kidney function. We will keep close eye on it. Recommend IV fluid gentle hydration. 10. Should probably the PICC line, she is morbidly obese patient and has very complicated surgical and medical history. We will follow with you. MD YESY Pillai/PURA /[id number]
[2019-08-18] MEDS: QUETIAPINE FUMARATE 100 MG TAB PO SCH (21:45)
--- NOTE | 2019-08-18 21:45 | NUR ---
PATIENT RESTING IN BED, VOICES PAIN IN ABDOMEN AT A LEVEL OF 8 AND WAS MEDICATED ORDERED. DRAINAGE BAG IS INTACT WITH MINIMAL DRAINAGE NOTED, NASAL CANNULA ALSO INTACT AND FLOWING AT 2 LITERS. PATIENT IS AWARE OF NEXT SCHEDULED MEDICATION AND ANTIBIOTICS ARE RUNNING AT ORDERED RATE. BED ALARM IS ON, BED IN LOW POSITION, CALL LIGHT WITHIN REACH, WILL CONTINUE TO MONITOR.
[2019-08-19] VITALS (7 sets, daily range): BP systolic 117–166; BP diastolic 60–82
[2019-08-19] MEDS: VANCOMYCIN 1GM/NS 250 ML 250 ML IV SCH ×2 (00:37→13:42)
[2019-08-19] MEDS: HYDROMORPHONE 1MG/1ML INJ IV PRN ×5 (00:38→23:09)
--- NOTE | 2019-08-19 01:03 | NUR ---
PATIENT RESTING IN BED BOTH EYES CLOSED, NO DISTRESS NOTED. ANTIBIOTIC RUNNING AT ORDERED RATED, CALL LIGHT WITHIN EASY REACH, WILL CONTINUE TO MONITOR.
[2019-08-19] MEDS: ONDANSETRON HCL INJ 2MG/ML 2ML 2 MG/ML VIAL IV PRN (03:45)
[2019-08-19 05:18] LABS: HEMATOCRIT 27.7 % (34.2-44.1); HEMOGLOBIN 8.4 g/dL (12.0-16.0); MEAN CORPUSCULAR HEMOGLOBIN 29.2 pg (28-32); MEAN CORPUSCULAR HGB CONC 30.3 g/dL (31-35); MEAN CORPUSCULAR VOLUME 96.2 fL (81-99); PLATELET COUNT 589 x10e3/uL (140-360); RED BLOOD COUNT 2.88 x10e6/uL (3.6-5.1); RED CELL DISTRIBUTION WIDTH 16.6 % (11.7-14.4)
[2019-08-19 05:40] LABS: ANION GAP 15.6 mmol/L (8-16); CALCIUM 8.2 mg/dL (8.4-10.2); CREATININE, SERUM 1.32 mg/dL (0.57-1.11); POTASSIUM 3.6 mmol/L (3.5-5.1)
[2019-08-19] MEDS: METRONIDAZOLE 500MG/NS 100ML 100 ML IV SCH ×3 (06:45→21:08)
[2019-08-19] MEDS: CEFEPIME 2 GM/NS 0.9% 100 ML 100 ML IV SCH ×2 (09:30→20:05)
--- NOTE | 2019-08-19 09:30 | NUR ---
Dr. Urbina notified that patient has been increasingly SOB this am with audible wheezing and diminished breath sounds. New orders received.
[2019-08-19] MEDS: ESCITALOPRAM OXALATE 10 MG TAB PO SCH (09:36)
[2019-08-19] MEDS: BUPROPION HCL 150 MG TABCR PO SCH (09:36)
[2019-08-19] MEDS: VERAPAMIL HCL 180 MG TBER PO SCH (09:36)
[2019-08-19] MEDS: ENOXAPARIN SOD INJ 60 MG/0.6 ML SYR SC SCH ×2 (09:36→21:05)
[2019-08-19] MEDS ORDERED: ALBUTEROL/IPRATROPIUM 3 ML NEB NEB PRN (09:45)
--- NOTE | 2019-08-19 09:50 | NUR ---
Dr. Cuevas is here making rounds, orders received for BIPAP
--- NOTE | 2019-08-19 10:02 | NUR ---
Patient off the floor for CT scan
[2019-08-19] MEDS ORDERED: FUROSEMIDE INJ 10 MG/ML 4 ML VIAL IV ONE (10:40)
[2019-08-19] MEDS: ALBUTEROL/IPRATROPIUM 3 ML NEB NEB SCH ×3 (10:47→19:50)
[2019-08-19 11:03] LABS: ABG HCO3 21 mmol/L (23-28); ABG PCO2 36 mmHg (41-51); ABG PH 7.38 (7.31-7.41); ABG PO2 68 mmHg (80-105)
--- NOTE | 2019-08-19 11:21 | Diagnostic Imaging Report ---
CT of the chest, without contrast, 08/19/2019. History: Shortness of breath. Comparison: 08/01/2019. Technique: Multidetector CT scanning of the chest was performed from the level of the thoracic inlet to the upper abdomen without IV or oral contrast. Dose reduction: The examination was performed according to departmental dose-optimization program which includes automated exposure control, adjustment of the mA and/or kV according to patient size and/or use of iterative reconstruction technique. Findings: Right upper extremity PICC tip terminates at the cavoatrial junction. The patient was portions of the thyroid gland are within normal limits. There is no axillary, mediastinal, or hilar lymphadenopathy. The heart is within normal limits of size. There is no pericardial effusion. The thoracic aorta is of normal course and caliber. The thoracic aorta demonstrates moderate atherosclerotic calcifications. Three-vessel coronary artery calcifications are present. The trachea and central airways are clear. There is dense left lower lobe consolidation with air bronchograms concerning for pneumonia. A small loculated left pleural effusion is present. The right lung is grossly clear. There is no right pleural effusion. There is no pneumothorax. Limited evaluation of the upper abdomen demonstrates interval placement of a pigtail drainage catheter in the left upper quadrant. There is been a significant interval reduction in the amount of surrounding fluid. No acute osseous abnormalities. IMPRESSION: 1. Left lower lobe consolidation with air bronchograms concerning for pneumonia. 2. Small loculated left pleural effusion. 3. Status post left upper quadrant drainage catheter with significant interval reduction in amount of left upper quadrant fluid. Signed by: Jayson Sykes MD on 08/19/2019 11:18 AM
[2019-08-19] MEDS ORDERED: METHYLPREDNISOLONE SOD SUCC 125 MG/2ML VIAL IV ONE (11:30)
--- NOTE | 2019-08-19 12:50 | NUR ---
Patient is awake alert and oriented x3. After receiving IV lasix, IV Solumedrol and a neb treatment her her wheezing has decreased and so has effort to breathe but she is still on 4L NC and remains short of breath, using abdominal muscles. Patient transferred to room 199 IMCU due to BIPAP order. Dr. Urbina is aware.
[2019-08-19] MEDS ORDERED: SODIUM CHLORIDE 0.9% 250ML 250 ML ONE (13:21)
--- NOTE | 2019-08-19 19:00 | NUR ---
Handoff report to oncoming nurse.
[2019-08-19] MEDS: QUETIAPINE FUMARATE 100 MG TAB PO SCH (19:41)
[2019-08-19] MEDS: FLUCONAZOLE 100 MG TAB PO SCH (19:41)
--- NOTE | 2019-08-19 21:09 | NUR ---
PATIENT AWAKEN, NO DISTRESS NOTED, ANSWER QUESTIONS. LOVENOX INJECTION GIVEN, TOLERATED WELL. PATIENT THEN PUT BACK ON BIPAP. WILL CONTINUE TO MONITOR.
[2019-08-20] VITALS (8 sets, daily range): BP systolic 110–147; BP diastolic 55–86
[2019-08-20] MEDS: ALBUTEROL/IPRATROPIUM 3 ML NEB NEB SCH ×4 (01:08→19:20)
[2019-08-20] MEDS: VANCOMYCIN 1GM/NS 250 ML 250 ML IV SCH ×2 (02:11→13:20)
[2019-08-20 05:35] LABS: BASOPHILS % 0.1 % (0.0-1.0); HEMATOCRIT 26.5 % (34.2-44.1); HEMOGLOBIN 8.1 g/dL (12.0-16.0); LYMPHOCYTES # (AUTO) 1.1 (1.0-3.2); LYMPHOCYTES % 3.6 % (18.0-39.1); MEAN CORPUSCULAR HEMOGLOBIN 28.8 pg (28-32); MEAN CORPUSCULAR HGB CONC 30.6 g/dL (31-35); MEAN CORPUSCULAR VOLUME 94.3 fL (81-99); MONOCYTES # (AUTO) 2.1 (0.2-0.8); MONOCYTES % 7.4 % (4.4-11.3); NEUTROPHILS # (AUTO) 25.1 (2.1-6.9); NEUTROPHILS % 86.9 % (38.7-80.0); PLATELET COUNT 560 x10e3/uL (140-360); RED BLOOD COUNT 2.81 x10e6/uL (3.6-5.1); RED CELL DISTRIBUTION WIDTH 16.6 % (11.7-14.4)
[2019-08-20 06:02] LABS: ANION GAP 14.8 mmol/L (8-16); CALCIUM 8.9 mg/dL (8.4-10.2); CREATININE, SERUM 0.94 mg/dL (0.57-1.11); POTASSIUM 3.8 mmol/L (3.5-5.1)
[2019-08-20 07:20] LABS: LYMPHOCYTES % (MANUAL) 9 % (19-48); MONOCYTES % (MANUAL) 4 % (3.4-9.0); NEUTROPHILS % (MANUAL) 87 % (40-74)
[2019-08-20] MEDS: METRONIDAZOLE 500MG/NS 100ML 100 ML IV SCH ×3 (07:34→21:47)
[2019-08-20] MEDS: FLUCONAZOLE 100 MG TAB PO SCH (07:57)
[2019-08-20] MEDS: ENOXAPARIN SOD INJ 60 MG/0.6 ML SYR SC SCH ×2 (08:00→20:35)
[2019-08-20] MEDS: ESCITALOPRAM OXALATE 10 MG TAB PO SCH (08:01)
[2019-08-20] MEDS: BUPROPION HCL 150 MG TABCR PO SCH (08:01)
[2019-08-20] MEDS: VERAPAMIL HCL 180 MG TBER PO SCH (08:16)
[2019-08-20] MEDS: HYDROCODONE/APAP 10MG-325MG TAB PO PRN ×2 (08:20→12:27)
--- NOTE | 2019-08-20 08:23 | Consultation ---
DATE OF CONSULTATION: 08/20/2019 Pulmonary Medicine Consult REASON FOR REFERRAL: Respiratory distress. HISTORY OF PRESENT ILLNESS: Ms. Mejia is a pleasant 64-year-old female, well known to me with respiratory distress. The patient with recent GI surgery on July 30, 2019 with distal pancreatectomy, splenectomy, and repair of recurrent incisional hernia. The patient at this time due to an increasing pancreatic mass that was found consistent with intraductal papillary mucinous neoplasm of the pancreas. The patient with PT2, PN0, and as of now clinical M0. The patient had this surgery and was subsequently discharged from the hospital. However, patient presented eight days later to the emergency room. The patient was noted to have abdominal pain. CT of the abdomen and pelvis revealed a fluid collection in left subphrenic space as well as fluid collection within the wound. IR was consulted and drain was placed on August 20, 2019. The patient with purulent output. However, during the course of the last day, patient with intermittent agitation. She was significantly short of breath. Rapid response was called. The patient had some diuretic with reasonably rapid improvement already. I am consulted. PAST MEDICAL HISTORY: Hypertension, arthritis, hyperlipidemia, stroke, tracheostomy, obesity, multiple hernia repair of the abdomen, localized pancreatic adenocarcinoma, obesity, hypoventilation syndrome. MEDICATIONS: Medication list reviewed per the chart record. ALLERGIES: NO KNOWN DRUG ALLERGIES. SOCIAL HISTORY: One pack per day tobacco smoking. No drugs. No alcohol. The patient with supportive family. FAMILY HISTORY: Noncontributory. REVIEW OF SYSTEMS: Cannot get reliably as the patient unable to speak sentences without stopping due to dyspnea. OBJECTIVE: VITAL SIGNS: Afebrile, vital signs noted, reviewed per the chart record. GENERAL: No acute distress, although she is very anxious. The patient with supplemental oxygen use. HEENT: Normocephalic, atraumatic. NECK: Supple. Throat midline. LUNGS: Bilateral air entry, decreased breath sounds around bases. Staple lines in place still intact mostly. CARDIOVASCULAR: S1, S2. No murmurs, rubs, or gallops. ABDOMINAL: Soft, nontender. INTEGUMENT: No rash, no purpura. LABORATORY DATA: 3.6 potassium, creatinine 1.32. Twenty-seven white count, 27 hematocrit, 589 platelets. ABG performed with 7.38/36/68/93%. CT chest with left lower lobe consolidation/atelectasis, small left-sided pleural effusion. IMPRESSION AND PLAN: 1. Respiratory distress. 2. Clinical fluid overload, mild. 3. Obesity hypoventilation syndrome. 4. Possible chronic obstructive pulmonary disease, long-time smoker. 5. Admit for intraabdominal abscess. 6. Pancreatic cancer, status post July 2019 pancreatectomy, clinically localized malignancy. 7. History of tracheostomy. 8. Hypertension. 9. Arthritis. 10. Hyperlipidemia. 11. Obesity. Give some light steroids. Bronchodilators as needed. Medicines for comfort. BiPAP for rescue. BiPAP also for sleep apnea. The patient will have close clinical followup and repeat blood gases as needed. Thank you very much, Dr. Urbina for allowing me a chance to participate in the care of Ms. Mejia. Please call for questions. MD HOLLI Zuniga/MODL /[id number]
[2019-08-20] MEDS ORDERED: PREDNISONE 20 MG TAB PO ONE (09:00)
[2019-08-20] MEDS ORDERED: FUROSEMIDE INJ 10 MG/ML 2 ML VIAL IV PRN (09:00)
[2019-08-20] MEDS: CEFEPIME 2 GM/NS 0.9% 100 ML 100 ML IV SCH ×2 (09:45→21:10)
[2019-08-20] MEDS ORDERED: SODIUM CHLORIDE 0.9% 250ML 250 ML IV ONE (10:15)
[2019-08-20] MEDS: FUROSEMIDE INJ 10 MG/ML 4 ML VIAL IV SCH (10:30)
[2019-08-20] MEDS: HYDROMORPHONE 1MG/1ML INJ IV PRN ×3 (11:05→21:00)
[2019-08-20] MEDS: NYSTATIN/TRIAMCINOLONE 15 GM CR TOP SCH (11:29)
--- NOTE | 2019-08-20 13:55 | NUR ---
Visit made by the Spiritual Care Department Pastoral Visitor, Ana Delgado. PV provided pastoral presence, hospitality, and supportive listening. Pastoral Visitor informed pt/family of the scope of [employer] and availability. CHILANGO BEAULIEU Truck Sales Representative Spiritual Care Department O: [phone] Pager: [phone] ([phone] calling from)
[2019-08-20] MEDS: CLONAZEPAM 0.5 MG TAB PO PRN ×2 (15:17→21:48)
[2019-08-20] MEDS ORDERED: DIATRIZOATE MEGL/DIATRIZOA SOD 30 ML BTL PO ONE (15:18)
--- NOTE | 2019-08-20 17:27 | Diagnostic Imaging Report ---
CT of the abdomen and pelvis, without contrast. History: Follow up abscess. Comparison: 08/17/2019. Technique: Multidetector CT scanning of the abdomen and pelvis was performed from the level of the lung bases to the inferior pubic rami after administration of enteric contrast material only. Coronal and sagittal multiplanar reformations were obtained. RADIATION DOSE: Total DLP: 876.33 mGy*cm Dose modulation, iterative reconstruction, and/or weight based adjustment of the mA/kV was utilized to reduce the radiation dose to as low as reasonably achievable. FINDINGS: There has been interval development of a small left pleural effusion with associated compressive atelectasis of the left lower lobe. The right lung bases grossly clear. There has been interval placement of a pigtail drainage catheter within the. See visualized left upper quadrant fluid collection. There is a trace amount of residual fluid and stranding remaining within the left upper quadrant. No new/organized collection is identified. The liver is mildly enlarged but normal in attenuation on this noncontrast enhanced examination. The gallbladder is unremarkable. There is no biliary ductal dilatation. There is stable postsurgical changes of the gastric cardia. The stomach otherwise appears unremarkable. The spleen is surgically absent. There is fatty atrophy of the pancreas, unchanged from the prior examination. The bilateral adrenal glands are unremarkable. The kidneys are normal in size and location. There is no evidence for nephrolithiasis or hydronephrosis. The ureters are normal course and caliber. The urinary bladder demonstrates no significant abnormalities. The uterus and adnexa are grossly unremarkable. The abdominal aorta is normal course and caliber with extensive atherosclerotic calcifications within its course and branch vessels. The IVC is normal in caliber. Again identified is a small bowel containing hernia within the right abdominal wall (image 55) with mild upstream dilatation of the small bowel, improved from the prior examination. An additional bowel containing hernia is noted within the abdominal wall slightly left of midline (image 70). There is no evidence for extravasation or high-grade bowel obstruction on today's examination. There are postsurgical changes of the anterior abdominal wall with subcutaneous air, fluid, and soft tissue stranding. No organized fluid collection is identified. There is no intraperitoneal free air. No abnormally enlarged lymph nodes are identified within the abdomen or pelvis. The osseous structures there is a stable mild compression deformity of the L1 vertebral body. The osseous structures otherwise demonstrate stable degenerative changes without evidence for acute fracture or destructive process. IMPRESSION: 1. Near complete resolution of the left upper quadrant fluid collection status post percutaneous drainage. 2. Interval development of a small left pleural effusion with associated compressive atelectasis of the left lower lobe. 3. Small bowel containing abdominal wall hernias as detailed above. There is improved appearance of bowel dilatation without evidence for high-grade obstruction or strangulation on today's examination. 4. Stable postsurgical changes of the anterior abdominal wall with subcutaneous air and fluid are no organized/drainable fluid collection identified. 5. Additional stable findings as above. Signed by: Dr. Yfn Young MD on 08/20/2019 5:24 PM
[2019-08-20] MEDS ORDERED: SODIUM CHLORIDE 0.9% 250ML 250 ML ONE ×2 (18:08→23:41)
--- NOTE | 2019-08-20 19:00 | NUR ---
Bedside report received from Maria A Hutton RN. Pt received resting in bed with eyes open, AAOx3, pt reports pain as tolerable level at 2 at this time to surgical site, no other discomfort reported at this time. Teaching provided to pt regarding BiPAP and coughing and deep breathing. Pt reports that she would like her next dose of pain medication at 2100 and will allow us to place her on BiPAP at that time. Pt bed in lowest and locked position, call light in reach of the pt, yellow fall prevention socks on the pt, bed alarm in use, pt instructed to call for assistance and before attempting to get out of bed. Care plan reviewed.
--- NOTE | 2019-08-20 19:15 | NUR ---
Handoff report to oncoming nurse, patient infusing first unit of blood and made nurse aware give 2nd unit of PRBC's, and to give Lasix 20mg IV after each unit.
[2019-08-20] MEDS: QUETIAPINE FUMARATE 100 MG TAB PO SCH (20:35)
--- NOTE | 2019-08-20 21:00 | NUR ---
Pt allowed me to place her on the BiPAP machine at this time.
[2019-08-21] VITALS (7 sets, daily range): BP systolic 116–136; BP diastolic 51–79
[2019-08-21] MEDS: HYDROMORPHONE 1MG/1ML INJ IV PRN ×5 (00:08→16:30)
[2019-08-21] MEDS ORDERED: SODIUM CHLORIDE 0.9% 250ML 250 ML IV ONE (01:00)
[2019-08-21] MEDS: ALBUTEROL/IPRATROPIUM 3 ML NEB NEB SCH ×4 (02:05→19:25)
[2019-08-21] MEDS: VANCOMYCIN 1GM/NS 250 ML 250 ML IV SCH ×2 (03:17→13:36)
--- NOTE | 2019-08-21 04:52 | NUR ---
Pulmonary Medicine DATE OF CONSULTATION: 08/20/2019 SUBJECTIVE: Using intermittent bipap Was on oxygen most of this AM, less respiratory difficulty Eats some Remnant leg edema, left > right REVIEW OF SYSTEMS: no bleeding, no chest pain OBJECTIVE: VITAL SIGNS: vital signs noted, reviewed per the chart record. GENERAL: No acute distress, calm HEENT: Normocephalic, atraumatic. NECK: Supple. Throat midline. LUNGS: Bilateral air entry, decreased breath sounds around bases. CARDIOVASCULAR: S1, S2. No murmurs, rubs, or gallops. ABDOMINAL: Soft, nontender. +angelica INTEGUMENT: No rash, no purpura. LABORATORY DATA: per EMR wbc 29, hct 27, plt 560 IMPRESSION AND PLAN: 1. Respiratory distress, better 2. Fluid overload, mild. 3. Obesity hypoventilation syndrome. 4. Possible chronic obstructive pulmonary disease, long-time smoker. 5. Admit for intraabdominal abscess. 6. Pancreatic cancer, status post July 2019 pancreatectomy, clinically localized malignancy. 7. History of tracheostomy. 8. Hypertension. 9. Arthritis. 10. Hyperlipidemia. 11. Obesity. 12? ?hx DVT Light steroids can be re-dosed prn Bronchodilators as needed BiPAP for rescue or sleep apnea repeat blood gases as needed, patient is better now. Continue psychotropics for behavioral control Treatment of abdominal abscess per others Will review anticoagulation history, pt on full dose lovenox now Thank you very much, Dr. Urbina for allowing me a chance to participate in the care of Ms. Mejia. Please call for questions.
[2019-08-21 05:21] LABS: BASOPHILS % 0.2 % (0.0-1.0); HEMOGLOBIN 9.7 g/dL (12.0-16.0); LYMPHOCYTES # (AUTO) 1.8 (1.0-3.2); MEAN CORPUSCULAR HEMOGLOBIN 29.7 pg (28-32); MEAN CORPUSCULAR HGB CONC 32.3 g/dL (31-35); MEAN CORPUSCULAR VOLUME 91.7 fL (81-99); MONOCYTES # (AUTO) 2.4 (0.2-0.8); MONOCYTES % 8.9 % (4.4-11.3); NEUTROPHILS # (AUTO) 21.7 (2.1-6.9); NEUTROPHILS % 82.8 % (38.7-80.0); PLATELET COUNT 546 x10e3/uL (140-360); RED BLOOD COUNT 3.27 x10e6/uL (3.6-5.1); RED CELL DISTRIBUTION WIDTH 17.2 % (11.7-14.4)
[2019-08-21 05:38] LABS: ANION GAP 13.8 mmol/L (8-16); BLOOD UREA NITROGEN 23 mg/dL (7-26); BUN/CREATININE RATIO 25 (6-25); CALCIUM 8.9 mg/dL (8.4-10.2); CARBON DIOXIDE 22 mmol/L (22-29); CHLORIDE 107 mmol/L (98-107); CREATININE, SERUM 0.93 mg/dL (0.57-1.11); EST GLOMERULAR FILTRATION RATE > 60 ML/MIN (60-); GLUCOSE 205 mg/dL (74-118); POTASSIUM 3.8 mmol/L (3.5-5.1); SODIUM 139 mmol/L (136-145)
[2019-08-21] MEDS: METRONIDAZOLE 500MG/NS 100ML 100 ML IV SCH ×3 (06:51→21:31)
[2019-08-21] MEDS: NYSTATIN/TRIAMCINOLONE 15 GM CR TOP SCH (08:04)
[2019-08-21] MEDS: BUPROPION HCL 150 MG TABCR PO SCH (08:19)
[2019-08-21] MEDS: ENOXAPARIN SOD INJ 60 MG/0.6 ML SYR SC SCH ×2 (08:19→20:51)
[2019-08-21] MEDS: FLUCONAZOLE 100 MG TAB PO SCH (08:19)
[2019-08-21] MEDS: ESCITALOPRAM OXALATE 10 MG TAB PO SCH (08:19)
[2019-08-21] MEDS: VERAPAMIL HCL 180 MG TBER PO SCH (08:20)
[2019-08-21] MEDS: FUROSEMIDE INJ 10 MG/ML 4 ML VIAL IV SCH (08:20)
[2019-08-21] MEDS: CEFEPIME 2 GM/NS 0.9% 100 ML 100 ML IV SCH ×2 (08:21→20:51)
[2019-08-21] MEDS: HYDROCODONE/APAP 10MG-325MG TAB PO PRN ×2 (11:30→20:53)
[2019-08-21] MEDS: CHOLESTYRAMINE 4 GM PACKET PO SCH (16:47)
--- NOTE | 2019-08-21 16:50 | NUR ---
Patient had 7 brown loose stools during the shift. Dr. Urbina and Dr. Mayo aware of diarrhea. Patients perineal area is extremely excoriated appearing. Patient started on cholestyramine BID. Dr. Mayo ordered IR consult for draining pleural effusion, patient refusing IR intervention at this time. Dr. Mayo notified and IR notified as well. Patient ambulated with walker in hallway with physical therapy and sat in chair for about an hour after. Will continue to monitor the patient.
--- NOTE | 2019-08-21 18:10 | Progress Note ---
DATE: SUBJECTIVE: Ms. Mejia was sitting comfortably in chair, comfortable. No new complaints. REVIEW OF SYSTEMS: GENERAL: The patient is weak. HEENT: There is no headache, visual changes, or hearing changes. GI: There is no nausea, no vomiting. CARDIAC: There is no arrhythmia. The patient who recently had GI surgery on 07/30/2019 with distal pancreatectomy, splenectomy, repair of recurrent incisional hernia. 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 The patient with P2, PN0, and M0. Surgery was subsequently discharged, but she came back to the emergency room with abdominal pain. CT showed that she had a fluid collection in the left subphrenic space, which was drained and started on antibiotic. The patient became short of breath. She was seen by Pulmonary, but currently she is doing better. She is just weak. PHYSICAL EXAMINATION: GENERAL: She is currently alert. VITAL SIGNS: Stable, afebrile. HEENT: Normocephalic. NECK: Supple. CHEST: Few crackles at the bases. HEART: S1 and S2. ABDOMEN: Soft. Bowel sounds present. Wound cultures showing MRSA. IMPRESSION: 1. Intraabdominal abscess, MRSA. Continue with vancomycin. Discontinue cefepime and Diflucan. 2. The patient is complaining of fungal rash in the inguinal area. Recommend local Nizoral cream. 3. Obesity. 4. Hypoventilation syndrome. 5. Chronic obstructive pulmonary disease, smoker. 6. Pancreatic cancer status post surgery in 2019, pancreatectomy. 7. Hypertension. 8. Osteoarthritis. 9. Obesity. 10. Debility. 11. Continue with vancomycin. Consider PT, OT, may benefit from LTAC evaluation. MD YESY Pillai/BAYL /[id number]
[2019-08-21] MEDS: QUETIAPINE FUMARATE 100 MG TAB PO SCH (20:51)
[2019-08-21] MEDS: CLONAZEPAM 0.5 MG TAB PO PRN (20:53)
--- NOTE | 2019-08-21 22:22 | NUR ---
Pulmonary Medicine DATE OF CONSULTATION: 08/21/2019 SUBJECTIVE: bipap once again, 08/23 with 45% FiO2 diarrhea mildly 2 L/min oxygen eating REVIEW OF SYSTEMS: no bleeding, no chest pain OBJECTIVE: VITAL SIGNS: vital signs noted, reviewed per the chart record. GENERAL: No acute distress, calm HEENT: Normocephalic, atraumatic. NECK: Supple. Throat midline. LUNGS: Bilateral air entry, decreased breath sounds around bases. CARDIOVASCULAR: S1, S2. No murmurs, rubs, or gallops. ABDOMINAL: Soft, nontender. INTEGUMENT: No rash, no purpura. LABORATORY DATA: cr 0.93, bun 23, k 3.8. 26 wbc, 30 hct. plt 546 IMPRESSION AND PLAN: 1. Respiratory distress, better 2. Fluid overload, mild. 3. Obesity hypoventilation syndrome. 4. Possible chronic obstructive pulmonary disease, long-time smoker. 5. Admit for intraabdominal abscess. 6. Pancreatic cancer, status post July 2019 pancreatectomy, clinically localized malignancy. 7. History of tracheostomy. 8. Hypertension. 9. Arthritis. 10. Hyperlipidemia. 11. Obesity. 12? ?hx DVT 13. pleural effusion Light steroids can be re-dosed prn Bronchodilators as needed BiPAP for rescue or sleep apnea Reasonable for pleural fluid drainage, but patient defers for now. Recheck a CXR tomorrow and re-address with patient repeat blood gases as needed, but patient is better now. Continue psychotropics for behavioral control Treatment of abdominal abscess per others anticoagulation on, full dose lovenox now Thank you very much, Dr. Urbina for allowing me a chance to participate in the care of Ms. Mejia. Please call for questions.
[2019-08-22] VITALS (8 sets, daily range): BP systolic 135–161; BP diastolic 65–91
[2019-08-22] MEDS: ALBUTEROL/IPRATROPIUM 3 ML NEB NEB SCH ×4 (02:25→19:45)
[2019-08-22] MEDS: VANCOMYCIN 1GM/NS 250 ML 250 ML IV SCH ×2 (03:15→14:26)
[2019-08-22] MEDS: HYDROMORPHONE 1MG/1ML INJ IV PRN ×5 (04:14→21:10)
[2019-08-22] MEDS: METRONIDAZOLE 500MG/NS 100ML 100 ML IV SCH ×3 (05:18→20:14)
[2019-08-22 05:36] LABS: BASOPHILS # (AUTO) 0.1 (0.0-0.1); BASOPHILS % 0.4 % (0.0-1.0); EOSINOPHILS # (AUTO) 0.4 (0.0-0.4); EOSINOPHILS % 2.1 % (0.0-6.0); HEMOGLOBIN 9.8 g/dL (12.0-16.0); LYMPHOCYTES # (AUTO) 2.9 (1.0-3.2); LYMPHOCYTES % 17.7 % (18.0-39.1); MEAN CORPUSCULAR HEMOGLOBIN 28.7 pg (28-32); MEAN CORPUSCULAR HGB CONC 30.6 g/dL (31-35); MEAN CORPUSCULAR VOLUME 93.6 fL (81-99); MONOCYTES # (AUTO) 2.2 (0.2-0.8); MONOCYTES % 13.3 % (4.4-11.3); NEUTROPHILS # (AUTO) 10.6 (2.1-6.9); NEUTROPHILS % 64.7 % (38.7-80.0); PLATELET COUNT 532 x10e3/uL (140-360); RED BLOOD COUNT 3.42 x10e6/uL (3.6-5.1); RED CELL DISTRIBUTION WIDTH 17.2 % (11.7-14.4)
[2019-08-22] MEDS: CHOLESTYRAMINE 4 GM PACKET PO SCH ×2 (08:06→17:20)
--- NOTE | 2019-08-22 08:18 | Diagnostic Imaging Report ---
Chest, portable AP view History: Pleural effusion Comparison: Chest CT dated 08/19/2019 IMPRESSION: The cardiac silhouette is magnified by portable technique. Right upper extremity PICC tip terminates at the cavoatrial junction. There is pulmonary vascular congestion and interstitial edema. A small left pleural effusion is present with associated atelectasis of the left lower lobe. There is no pneumothorax. Signed by: Jayson Sykes MD on 08/22/2019 8:14 AM
[2019-08-22] MEDS: ENOXAPARIN SOD INJ 60 MG/0.6 ML SYR SC SCH (09:44)
[2019-08-22] MEDS: ESCITALOPRAM OXALATE 10 MG TAB PO SCH (09:44)
[2019-08-22] MEDS: VERAPAMIL HCL 180 MG TBER PO SCH (09:44)
[2019-08-22] MEDS: NYSTATIN/TRIAMCINOLONE 15 GM CR TOP SCH (09:44)
[2019-08-22] MEDS: FUROSEMIDE INJ 10 MG/ML 4 ML VIAL IV SCH (09:44)
[2019-08-22] MEDS: BUPROPION HCL 150 MG TABCR PO SCH (09:44)
--- NOTE | 2019-08-22 12:11 | NUR ---
Pulmonary Medicine DATE OF CONSULTATION: 08/22/2019 SUBJECTIVE: 98% saturation 2 L/min oxygen BM used bipap at night she agrees to thoracentesis assessment REVIEW OF SYSTEMS: no bleeding, no chest pain OBJECTIVE: VITAL SIGNS: vital signs noted, reviewed per the chart record. GENERAL: No acute distress, calm HEENT: Normocephalic, atraumatic. NECK: Supple. Throat midline. LUNGS: Bilateral air entry, decreased breath sounds around bases. Few wheezes CARDIOVASCULAR: S1, S2. No murmurs, rubs, or gallops. ABDOMINAL: Soft, nontender. INTEGUMENT: No rash, no purpura. LABORATORY DATA: k 3.8, cr 0.93. wbc 16. hct 32, plt 532. INR 1.48 IMPRESSION AND PLAN: 1. Respiratory distress, better 2. Fluid overload, mild. 3. Obesity hypoventilation syndrome. 4. Possible chronic obstructive pulmonary disease, long-time smoker. 5. Admit for intraabdominal abscess. 6. Pancreatic cancer, status post July 2019 pancreatectomy, clinically localized malignancy. 7. History of tracheostomy. 8. Hypertension. 9. Arthritis. 10. Hyperlipidemia. 11. Obesity. 12? ?hx DVT 13. pleural effusion Light steroids can be re-dosed prn --redose 1 dose prednisone Bronchodilators as needed BiPAP for sleep apnea Reasonable for pleural fluid drainage, patient agrees. Recheck CXR after thoracentesis / drainage attempt repeat blood gases as needed, but patient is better now. Continue psychotropics for behavioral control Treatment of abdominal abscess per others anticoagulation on, full dose lovenox now - hold for thoracentesis Thank you very much, Dr. Urbina for allowing me a chance to participate in the care of Ms. Mejia. Please call for questions.
[2019-08-22] MEDS ORDERED: METHYLPREDNISOLONE SOD SUCC 40 MG/ML VIAL 1ML IV NR (13:00)
[2019-08-22] MEDS: QUETIAPINE FUMARATE 100 MG TAB PO SCH (20:14)
[2019-08-22] MEDS: CLONAZEPAM 0.5 MG TAB PO PRN (20:14)
[2019-08-22] MEDS: HYDROCODONE/APAP 10MG-325MG TAB PO PRN (20:14)
[2019-08-23] VITALS (9 sets, daily range): BP systolic 142–169; BP diastolic 74–115
[2019-08-23] MEDS: VANCOMYCIN 1GM/NS 250 ML 250 ML IV SCH ×2 (00:25→14:20)
[2019-08-23] MEDS: ALBUTEROL/IPRATROPIUM 3 ML NEB NEB SCH ×4 (01:35→18:47)
[2019-08-23] MEDS ORDERED: SODIUM CHLORIDE 0.9% 250ML 250 ML ONE (04:14)
[2019-08-23] MEDS: METRONIDAZOLE 500MG/NS 100ML 100 ML IV SCH ×3 (04:20→22:09)
[2019-08-23] MEDS: HYDROCODONE/APAP 10MG-325MG TAB PO PRN ×3 (04:20→16:45)
[2019-08-23 05:24] LABS: BASOPHILS # (AUTO) 0.1 (0.0-0.1); BASOPHILS % 0.3 % (0.0-1.0); EOSINOPHILS % 0.2 % (0.0-6.0); HEMATOCRIT 33.5 % (34.2-44.1); HEMOGLOBIN 10.3 g/dL (12.0-16.0); LYMPHOCYTES # (AUTO) 2.4 (1.0-3.2); LYMPHOCYTES % 12.7 % (18.0-39.1); MEAN CORPUSCULAR HEMOGLOBIN 28.5 pg (28-32); MEAN CORPUSCULAR HGB CONC 30.7 g/dL (31-35); MEAN CORPUSCULAR VOLUME 92.8 fL (81-99); MONOCYTES # (AUTO) 1.6 (0.2-0.8); MONOCYTES % 8.4 % (4.4-11.3); NEUTROPHILS # (AUTO) 14.7 (2.1-6.9); NEUTROPHILS % 76.2 % (38.7-80.0); PLATELET COUNT 556 x10e3/uL (140-360); RED BLOOD COUNT 3.61 x10e6/uL (3.6-5.1); RED CELL DISTRIBUTION WIDTH 16.5 % (11.7-14.4)
[2019-08-23] MEDS: NYSTATIN/TRIAMCINOLONE 15 GM CR TOP SCH (09:07)
[2019-08-23] MEDS: HYDROMORPHONE 1MG/1ML INJ IV PRN ×3 (09:30→20:02)
[2019-08-23 10:29] LABS: ANION GAP 13.4 mmol/L (8-16); BLOOD UREA NITROGEN 16 mg/dL (7-26); BUN/CREATININE RATIO 21 (6-25); CALCIUM 9.1 mg/dL (8.4-10.2); CARBON DIOXIDE 23 mmol/L (22-29); CHLORIDE 106 mmol/L (98-107); CREATININE, SERUM 0.75 mg/dL (0.57-1.11); EST GLOMERULAR FILTRATION RATE > 60 ML/MIN (60-); GLUCOSE 225 mg/dL (74-118); POTASSIUM 4.4 mmol/L (3.5-5.1); SODIUM 138 mmol/L (136-145)
--- NOTE | 2019-08-23 12:26 | Diagnostic Imaging Report ---
Chest, portable AP view History: Status post left thoracentesis Comparison: 08/22/2019 IMPRESSION: There is no evidence of pneumothorax status post left thoracentesis. A right upper extremity PICC is in place with distal catheter tip terminating in the distal SVC. The cardiac borders are stable. There is left lower lobe atelectasis versus consolidation. The right lung is grossly clear. No sizable pleural effusion. Signed by: Jayson Sykes MD on 08/23/2019 12:23 PM
--- NOTE | 2019-08-23 12:30 | Diagnostic Imaging Report ---
Ultrasound guided left thoracentesis, 08/23/2019. Clinical History: Left pleural effusion. Modality: Ultrasound. Sedation: None. Financial Controller: Jayson Sykes MD. Food Technician: None. Estimated Blood Loss: 1cc Specimen: 6 mL of clear yellow fluid Technique: Informed consent was obtained. The risks of pain, bleeding, infection, lung collapse/pneumothorax, injury to adjacent structures, and adverse medication reactions were discussed with the patient. The patient's left hemithorax was scanned from the back, with the patient in a sitting position. Only a trace pleural effusion was identified. The patient's skin was marked, prepped exiting, and draped in usual sterile fashion. Local anesthesia was achieved with lidocaine 1%. Under direct ultrasound guidance a 5 [employer] catheter was advanced into the trace left effusion. Only 6 mL of clear yellow fluid could be aspirated. The catheter was then drawn and the skin injury site with stress sterile Band-Aid. A postprocedure chest x-ray was performed which demonstrated no evidence of pneumothorax. Impression: Successful and uncomplicated ultrasound guided left thoracentesis. Only a trace of pleural effusion was present and only 6 mL of fluid could be aspirated. Signed by: Jayson Sykes MD on 08/23/2019 12:26 PM
[2019-08-23] MEDS: FUROSEMIDE INJ 10 MG/ML 4 ML VIAL IV SCH (12:31)
[2019-08-23] MEDS: BUPROPION HCL 150 MG TABCR PO SCH (12:32)
[2019-08-23] MEDS: CHOLESTYRAMINE 4 GM PACKET PO SCH ×2 (12:32→17:00)
[2019-08-23] MEDS: VERAPAMIL HCL 180 MG TBER PO SCH (12:35)
[2019-08-23] MEDS: ESCITALOPRAM OXALATE 10 MG TAB PO SCH (12:35)
[2019-08-23] MEDS: CLONAZEPAM 0.5 MG TAB PO PRN ×2 (14:38→21:08)
[2019-08-23 14:40] LABS: BODY FLUID APPEARANCE SL.CLOUDY; BODY FLUID COLOR YELLOW; BODY FLUID TYPE PERITONEAL
[2019-08-23 15:06] LABS: RBC,BODY FLUID 3766 cells/uL; WBC,BODY FLUID 97 cells/uL
--- NOTE | 2019-08-23 17:00 | NUR ---
PICC LINE CENTRAL DRESSING CHANGED.
[2019-08-23 17:12] LABS: EOSINOPHILS,BODY FLUID 1 %; LYMPHOCYTES,BODY FLUID 6 %; MONO/MACROPHG,BODY FLUID 5 %; NEUTROPHILS,BODY FLUID 88 %
--- NOTE | 2019-08-23 17:12 | NUR ---
Nutrition Screen Note RD Recommendation for Physician: -Continue cardiac diet Plan of Care: RD following, monitoring for tolerance and adequacy Nutrition reason for involvement: Length of stay Primary Diagnose(s): postoperative intra-abdominal abscess PMH: distal pancreatectomy with splenectomy and repair of recurrent incisional hernia, COPD, morbid obesity, dyslipidemia, venous thrombosis, CAD, CKD, and HTN Ht: 67 in Wt:259 lb BMI: 40.6 kg/m2 IBW:[address] Assessment: (08/23/19) Chart reviewed. Labs and meds reviewed. Pt is a 64 year old female admitted with postoperative intra-abdominal abscess. Pt stated her appetite has been good and eating >50% of meals. Per documentation in chart, pt has been consuming 25-100% of meals during admission. Pt also mentioned she had intentionally lost 15 lbs since July. No N/V, but pt reports diarrhea. No chewing/swallowing issues noted. Will continue to monitor. Current Diet: Cardiac diet Malnutrition Evaluation (08/23/19) The patient does not meet criteria for a specified degree of malnutrition at this time. Will re-evaluate at follow-up as appropriate. Diet Education Needs Assessment: Diet education indicated, but pt was not interested in nutrition information at time of visit. Nutrition Care Level: low Signed: Lauryn Cueva, RD, LD
--- NOTE | 2019-08-23 18:55 | NUR ---
HANDOFF REPORT TO ONCOMING NURSE, PATIENT IN BED ALERT AND ORIENTED WITH FAMILY AT BEDSIDE. NURSE MADE AWARE DRESSING TO LEFT UPPER LATERAL ABDOMINAL QUADRANT CHANGED, DRAINAGE PURULENT.
--- NOTE | 2019-08-23 19:30 | NUR ---
Received patient stable, no complaints raised
[2019-08-23] MEDS: QUETIAPINE FUMARATE 100 MG TAB PO SCH (21:07)
[2019-08-23] MEDS: ENOXAPARIN SOD INJ 60 MG/0.6 ML SYR SC SCH (21:17)
[2019-08-23] MEDS ORDERED: ENOXAPARIN SOD INJ 60 MG/0.6 ML SYR SC SCH (21:30)
--- NOTE | 2019-08-23 23:00 | NUR ---
Patient assisted to the bathroom and back to bed, vitals stable
[2019-08-24] VITALS (8 sets, daily range): BP systolic 148–175; BP diastolic 74–92
[2019-08-24] MEDS: HYDROMORPHONE 1MG/1ML INJ IV PRN ×6 (00:15→21:21)
[2019-08-24] MEDS: ALBUTEROL/IPRATROPIUM 3 ML NEB NEB SCH ×4 (01:00→19:19)
[2019-08-24] MEDS: VANCOMYCIN 1GM/NS 250 ML 250 ML IV SCH (01:40)
--- NOTE | 2019-08-24 04:54 | NUR ---
Pulmonary Medicine DATE OF CONSULTATION: 08/23/2019 SUBJECTIVE: 93% sat 2 L/min oxygen walked in the carcamo she says used bipap last night REVIEW OF SYSTEMS: no bleeding, no chest pain OBJECTIVE: VITAL SIGNS: vital signs noted, reviewed per the chart record. GENERAL: No acute distress, calm HEENT: Normocephalic, atraumatic. NECK: Supple. Throat midline. LUNGS: Bilateral air entry, decreased breath sounds around bases. Few wheezes CARDIOVASCULAR: S1, S2. No murmurs, rubs, or gallops. ABDOMINAL: Soft, nontender. INTEGUMENT: No rash, no purpura. LABORATORY DATA: 19 wbc IMPRESSION AND PLAN: 1. Respiratory distress, better 2. Fluid overload, mild. 3. Obesity hypoventilation syndrome. 4. Possible chronic obstructive pulmonary disease, long-time smoker. 5. Admit for intraabdominal abscess. 6. Pancreatic cancer, status post July 2019 pancreatectomy, clinically localized malignancy. 7. History of tracheostomy. 8. Hypertension. 9. Arthritis. 10. Hyperlipidemia. 11. Obesity. 12? ?hx DVT 13. pleural effusion Light steroids can be re-dosed prn Bronchodilators as needed BiPAP for sleep apnea Thoracentesis today, small out. Will review post operative CXR follow analysis of pleural fluid Continue psychotropics for behavioral control Treatment of abdominal abscess per others anticoagulation on, full dose lovenox resumed after thoracentesis Thank you very much, Dr. Urbina for allowing me a chance to participate in the care of Ms. Mejia. Please call for questions.
--- NOTE | 2019-08-24 05:00 | NUR ---
Patient assisted to the bathroom, patient calm, vitals stable
[2019-08-24 05:18] LABS: BASOPHILS # (AUTO) 0.1 (0.0-0.1); BASOPHILS % 0.4 % (0.0-1.0); EOSINOPHILS # (AUTO) 0.3 (0.0-0.4); EOSINOPHILS % 2.1 % (0.0-6.0); HEMATOCRIT 34.8 % (34.2-44.1); HEMOGLOBIN 10.4 g/dL (12.0-16.0); LYMPHOCYTES # (AUTO) 4.3 (1.0-3.2); LYMPHOCYTES % 25.9 % (18.0-39.1); MEAN CORPUSCULAR HEMOGLOBIN 28.7 pg (28-32); MEAN CORPUSCULAR HGB CONC 29.9 g/dL (31-35); MEAN CORPUSCULAR VOLUME 95.9 fL (81-99); MONOCYTES % 12.2 % (4.4-11.3); NEUTROPHILS # (AUTO) 9.4 (2.1-6.9); NEUTROPHILS % 56.6 % (38.7-80.0); PLATELET COUNT 540 x10e3/uL (140-360); RED BLOOD COUNT 3.63 x10e6/uL (3.6-5.1); RED CELL DISTRIBUTION WIDTH 16.7 % (11.7-14.4)
[2019-08-24 05:38] LABS: ANION GAP 12.7 mmol/L (8-16); BLOOD UREA NITROGEN 14 mg/dL (7-26); BUN/CREATININE RATIO 20 (6-25); CARBON DIOXIDE 26 mmol/L (22-29); CHLORIDE 106 mmol/L (98-107); CREATININE, SERUM 0.71 mg/dL (0.57-1.11); EST GLOMERULAR FILTRATION RATE > 60 ML/MIN (60-); GLUCOSE 114 mg/dL (74-118); POTASSIUM 3.7 mmol/L (3.5-5.1); SODIUM 141 mmol/L (136-145)
[2019-08-24] MEDS: METRONIDAZOLE 500MG/NS 100ML 100 ML IV SCH ×3 (06:00→22:00)
--- NOTE | 2019-08-24 07:07 | NUR ---
handed over stable
[2019-08-24 07:14] LABS: EOSINOPHILS % (MANUAL) 2 % (0-7); LYMPHOCYTES % (MANUAL) 29 % (19-48); MONOCYTES % (MANUAL) 9 % (3.4-9.0); NEUTROPHILS % (MANUAL) 59 % (40-74); PLATELET ESTIMATE MODERATELY INCREASED; PLATELET MORPHOLOGY COMMENT NORMAL; RBC MORPHOLOGY COMMENT NORMAL
[2019-08-24] MEDS ORDERED: VANCOMYCIN HCL 1.25 GM in SODIUM CHLORIDE 0.9% 250ML 300 ML IV SCH (08:00)
[2019-08-24] MEDS: BUPROPION HCL 150 MG TABCR PO SCH (08:08)
[2019-08-24] MEDS: CHOLESTYRAMINE 4 GM PACKET PO SCH ×2 (08:09→15:44)
[2019-08-24] MEDS: ESCITALOPRAM OXALATE 10 MG TAB PO SCH (08:09)
[2019-08-24] MEDS: VERAPAMIL HCL 180 MG TBER PO SCH (08:12)
[2019-08-24] MEDS: VANCOMYCIN HCL 1.25 GM in SODIUM CHLORIDE 0.9% 250ML 250 ML IV SCH ×2 (08:28→20:37)
[2019-08-24] MEDS: FUROSEMIDE INJ 10 MG/ML 4 ML VIAL IV SCH (08:41)
[2019-08-24] MEDS ORDERED: ALTEPLASE RECOMBINANT 2 MG/2 ML VIAL IV ONE (09:30)
--- NOTE | 2019-08-24 11:16 | NUR ---
Pulmonary Medicine DATE OF CONSULTATION: 08/24/2019 SUBJECTIVE: 2 L/min oxygen didnt use bipap yesterday pleural fluid was inflammatory CXR post with stable findings, no PTX REVIEW OF SYSTEMS: no bleeding, no chest pain OBJECTIVE: VITAL SIGNS: vital signs noted, reviewed per the chart record. GENERAL: No acute distress, calm HEENT: Normocephalic, atraumatic. NECK: Supple. Throat midline. LUNGS: Bilateral air entry, decreased breath sounds around bases. Few wheezes CARDIOVASCULAR: S1, S2. No murmurs, rubs, or gallops. ABDOMINAL: Soft, nontender. INTEGUMENT: No rash, no purpura. LABORATORY DATA: 17 wbc IMPRESSION AND PLAN: 1. Respiratory distress, better 2. Fluid overload, mild. 3. Obesity hypoventilation syndrome. 4. Possible chronic obstructive pulmonary disease, long-time smoker. 5. Admit for intraabdominal abscess. 6. Pancreatic cancer, status post July 2019 pancreatectomy, clinically localized malignancy. 7. History of tracheostomy. 8. Hypertension. 9. Arthritis. 10. Hyperlipidemia. 11. Obesity. 12? ?hx DVT 13. pleural effusion Light steroids can be re-dosed prn Bronchodilators as needed BiPAP for sleep apnea, if accepted Thoracentesis done, follow cultures Continue psychotropics for behavioral control Treatment of abdominal abscess per others anticoagulation on, lovenox resumed after thoracentesis Thank you very much, Dr. Urbina for allowing me a chance to participate in the care of Ms. Mejia. Please call for questions.
[2019-08-24] MEDS ORDERED: POTASSIUM CHLORIDE 20 MEQ TAB CR PO ONE (12:00)
[2019-08-24] MEDS: ENOXAPARIN SOD INJ 60 MG/0.6 ML SYR SC SCH ×2 (12:44→21:20)
[2019-08-24] MEDS: HYDROCODONE/APAP 10MG-325MG TAB PO PRN (17:30)
[2019-08-24] MEDS: QUETIAPINE FUMARATE 100 MG TAB PO SCH (20:37)
--- NOTE | 2019-08-24 20:56 | NUR ---
report received from Elle [facility] [place] RN, patient pending arrival to the floor, cont IV abx vanco and edgar, MRSA of the wound, RN states patient just started c/o of diarrhea r/t abx therapy, pendng arrival to the floor
--- NOTE | 2019-08-24 21:10 | NUR ---
patient arrived to the floor via bed, escorted by [facility] RN an OIL EXTRACTOR, patient AOX4, able to verbalize needs, IV abx infusing in NII PICC double lumen, both lumen flush well, IV vanco infusing currently, PICC dressing C/D/I, patient oriented to room, and staff. Patient states pain level is 8/10, patient vitals stable afebrile SBP 160's. PRN Dilaudid given as ordered, skin warm dry, noted abdomen surgical scars, upper abdomen wound site dressing C/D/I, peritoneal drainage bag noted LUQ abdomen, yellow peritoneal fluid noted, patient made aware for safety to call prior to getting OOB, alarm on bed non-active at this time, call light within reach, will continue to monitor patient
[2019-08-25] VITALS (8 sets, daily range): BP systolic 132–178; BP diastolic 60–86
[2019-08-25] MEDS: ALBUTEROL/IPRATROPIUM 3 ML NEB NEB SCH ×4 (01:20→19:40)
[2019-08-25] MEDS: HYDROMORPHONE 1MG/1ML INJ IV PRN ×7 (01:51→21:30)
--- NOTE | 2019-08-25 04:55 | NUR ---
am lab drawn from [facility], CBC sent to the lab, lumen flushed before and after, luer locks changed per protocol
[2019-08-25 05:15] LABS: BASOPHILS # (AUTO) 0.1 (0.0-0.1); BASOPHILS % 0.3 % (0.0-1.0); EOSINOPHILS # (AUTO) 0.6 (0.0-0.4); EOSINOPHILS % 4.1 % (0.0-6.0); HEMATOCRIT 33.4 % (34.2-44.1); HEMOGLOBIN 10.2 g/dL (12.0-16.0); LYMPHOCYTES # (AUTO) 3.1 (1.0-3.2); LYMPHOCYTES % 21.3 % (18.0-39.1); MEAN CORPUSCULAR HEMOGLOBIN 28.8 pg (28-32); MEAN CORPUSCULAR HGB CONC 30.5 g/dL (31-35); MEAN CORPUSCULAR VOLUME 94.4 fL (81-99); MONOCYTES # (AUTO) 2.1 (0.2-0.8); MONOCYTES % 14.3 % (4.4-11.3); NEUTROPHILS # (AUTO) 8.1 (2.1-6.9); NEUTROPHILS % 56.3 % (38.7-80.0); PLATELET COUNT 515 x10e3/uL (140-360); RED BLOOD COUNT 3.54 x10e6/uL (3.6-5.1); RED CELL DISTRIBUTION WIDTH 16.2 % (11.7-14.4)
--- NOTE | 2019-08-25 05:45 | NUR ---
MD caraballo made aware of the vanco trough being 21.4 this morning, ordered for vanco to be held until he orders redraw
[2019-08-25] MEDS: METRONIDAZOLE 500MG/NS 100ML 100 ML IV SCH ×3 (06:12→21:51)
--- NOTE | 2019-08-25 06:45 | NUR ---
abdominal peritoneal drain emptied 30cc of yellow fluid
--- NOTE | 2019-08-25 07:09 | NUR ---
change of shift report received from manufacturing shift supervisor RN, walking rounds completed, pt awake, alert, oriented, no s/s distress.
[2019-08-25] MEDS: VERAPAMIL HCL 180 MG TBER PO SCH (08:06)
[2019-08-25] MEDS: FUROSEMIDE 40 MG TAB PO SCH (08:07)
[2019-08-25] MEDS: ESCITALOPRAM OXALATE 10 MG TAB PO SCH (08:07)
[2019-08-25] MEDS: BUPROPION HCL 150 MG TABCR PO SCH (08:07)
[2019-08-25] MEDS: ENOXAPARIN SOD INJ 60 MG/0.6 ML SYR SC SCH ×2 (08:09→21:00)
[2019-08-25] MEDS: CHOLESTYRAMINE 4 GM PACKET PO SCH ×2 (09:10→16:57)
--- NOTE | 2019-08-25 12:18 | NUR ---
Pulmonary Medicine DATE OF CONSULTATION: 08/25/2019 SUBJECTIVE: between Room air fio2 and 2 L/min oxygen didnt use bipap last night walked eating, BM+ REVIEW OF SYSTEMS: no bleeding, no chest pain OBJECTIVE: VITAL SIGNS: vital signs noted, reviewed per the chart record. GENERAL: No acute distress, calm HEENT: Normocephalic, atraumatic. NECK: Supple. Throat midline. LUNGS: Bilateral air entry, decreased breath sounds around bases. Few wheezes CARDIOVASCULAR: S1, S2. No murmurs, rubs, or gallops. ABDOMINAL: Soft, nontender. INTEGUMENT: No rash, no purpura. LABORATORY DATA: 14 wbc IMPRESSION AND PLAN: 1. Respiratory distress, better 2. Fluid overload, mild. 3. Obesity hypoventilation syndrome. 4. Possible chronic obstructive pulmonary disease, long-time smoker. 5. Admit for intraabdominal abscess. 6. Pancreatic cancer, status post July 2019 pancreatectomy, clinically localized malignancy. 7. History of tracheostomy. 8. Hypertension. 9. Arthritis. 10. Hyperlipidemia. 11. Obesity. 12? ?hx DVT 13. pleural effusion Light steroids can be re-dosed prn Bronchodilators as needed BiPAP for sleep apnea, if accepted Thoracentesis done, follow cultures -intermittent CXR until clear or with significant resolution of remnant pleural effusoin Continue psychotropics for behavioral control Treatment of abdominal abscess per others anticoagulation on, lovenox resumed after thoracentesis Thank you very much, Dr. Urbina for allowing me a chance to participate in the care of Ms. Mejia. Please call for questions.
--- NOTE | 2019-08-25 16:08 | NUR ---
wound dressing change completed; packing placed and sterile gauze and foam tape covering abd wound.
--- NOTE | 2019-08-25 17:53 | NUR ---
left message with Dr Carcamo's answering service stating pt's Vancomycin trough is 11.9; awaiting callback.
--- NOTE | 2019-08-25 17:59 | NUR ---
spoke with Dr. Carcamo who ordered 1.5gm Vancomycin IV q24h.
[2019-08-25] MEDS ORDERED: VANCOMYCIN 1GM/NS 250 ML 250 ML IV SCH (18:00)
[2019-08-25] MEDS: VANCOMYCIN 300 ML IV SCH (18:20)
--- NOTE | 2019-08-25 18:26 | NUR ---
20 cc emptied from pt's abdominal drain.
--- NOTE | 2019-08-25 18:52 | NUR ---
report given to material handler 2nd shift RN; pt awake, alert, oriented, no s/s distress, IV patent and currently running Vancomycin.
--- NOTE | 2019-08-25 18:56 | NUR ---
SBAR report received from Day shift RN, patient sleeping, easily awaken, no distress noted, abdomen wound dressing C/D/I, NII PICC line flushes well, no report of pain or discomfort at this time, patient educated international trade specialist dont fall , bed in lowest position, call light within reach
[2019-08-25] MEDS: QUETIAPINE FUMARATE 100 MG TAB PO SCH (21:00)
[2019-08-25] MEDS: ONDANSETRON HCL INJ 2MG/ML 2ML 2 MG/ML VIAL IV PRN (21:51)
--- NOTE | 2019-08-25 22:44 | NUR ---
Patient refused Bipap. Informed patient that sats will drop. Patient verbalized understanding. PT also s/w patient regarding sats. Patient place on N/C 2-3L. Continue monitor.
[2019-08-26] VITALS (9 sets, daily range): BP systolic 138–149; BP diastolic 63–84
[2019-08-26] MEDS: HYDROMORPHONE 1MG/1ML INJ IV PRN ×6 (00:41→20:33)
[2019-08-26] MEDS: ALBUTEROL/IPRATROPIUM 3 ML NEB NEB SCH ×4 (01:10→19:00)
[2019-08-26] MEDS: METRONIDAZOLE 500MG/NS 100ML 100 ML IV SCH ×3 (05:21→21:56)
--- NOTE | 2019-08-26 06:58 | NUR ---
RECEIVED BEDSIDE SHIFT REPORT FROM OFF GOING NURSE. PATIENT IS RESTING IN BED, NO ACUTE DISTRESS NOTED. CALL LIGHT WITHIN REACH. BED IN THE LOWEST POSITION.
[2019-08-26 07:00] LABS: BASOPHILS # (AUTO) 0.1 (0.0-0.1); BASOPHILS % 0.5 % (0.0-1.0); EOSINOPHILS # (AUTO) 0.5 (0.0-0.4); EOSINOPHILS % 4.1 % (0.0-6.0); HEMATOCRIT 32.9 % (34.2-44.1); HEMOGLOBIN 10.1 g/dL (12.0-16.0); LYMPHOCYTES # (AUTO) 2.4 (1.0-3.2); LYMPHOCYTES % 19.8 % (18.0-39.1); MEAN CORPUSCULAR HEMOGLOBIN 28.6 pg (28-32); MEAN CORPUSCULAR HGB CONC 30.7 g/dL (31-35); MEAN CORPUSCULAR VOLUME 93.2 fL (81-99); MONOCYTES # (AUTO) 1.7 (0.2-0.8); MONOCYTES % 13.7 % (4.4-11.3); NEUTROPHILS # (AUTO) 7.1 (2.1-6.9); NEUTROPHILS % 57.8 % (38.7-80.0); PLATELET COUNT 501 x10e3/uL (140-360); RED BLOOD COUNT 3.53 x10e6/uL (3.6-5.1); RED CELL DISTRIBUTION WIDTH 16.4 % (11.7-14.4)
[2019-08-26] MEDS: ONDANSETRON HCL INJ 2MG/ML 2ML 2 MG/ML VIAL IV PRN (07:23)
--- NOTE | 2019-08-26 07:31 | NUR ---
Sbar report received at bedside, patient remains on C-diff Isolation, dressing change prior to end of shift Left abdomen site, patient requesting PRN pain medication s/p dressing change, request carried out to decrease pain level, bed alarm on, bed in lowest position will continue to monitor
--- NOTE | 2019-08-26 08:03 | Diagnostic Imaging Report ---
Examination: Single AP view of the chest. COMPARISON: 08/23/2019 INDICATION: Effusion DISCUSSION: Right upper extremity PICC is again noted, with the tip projecting over the mid superior vena cava. Small left pleural effusion with adjacent lower lobe airspace disease, likely atelectasis, unchanged relative to 08/23/2019. No right pleural effusion or consolidation. Stable cardiomediastinal contour with enlargement of the cardiac silhouette and interstitial prominence. No acute osseous abnormality. IMPRESSION: Small left pleural effusion with associated left lower lobe airspace disease, likely atelectasis, similar to 08/23/2019. No new consolidations. Unchanged enlargement of the cardiac silhouette and interstitial edema. Signed by: Dr. Mario Bowen M.D. on 08/26/2019 8:00 AM
[2019-08-26] MEDS: FUROSEMIDE 40 MG TAB PO SCH (08:54)
[2019-08-26] MEDS: ENOXAPARIN SOD INJ 60 MG/0.6 ML SYR SC SCH ×2 (08:55→20:11)
[2019-08-26] MEDS: BUPROPION HCL 150 MG TABCR PO SCH (08:57)
[2019-08-26] MEDS: ESCITALOPRAM OXALATE 10 MG TAB PO SCH (08:57)
[2019-08-26] MEDS: VERAPAMIL HCL 180 MG TBER PO SCH (08:57)
[2019-08-26] MEDS: CHOLESTYRAMINE 4 GM PACKET PO SCH ×2 (08:57→16:27)
[2019-08-26] MEDS: CEFTRIAXONE SOD 2 GM/NS 100 ML 100 ML IV SCH (16:26)
--- NOTE | 2019-08-26 17:17 | Progress Note ---
DATE: SUBJECTIVE: Ms. Mejia is doing better. No new complaint. The drain remains in the abdomen with a creamy whitish drainage. REVIEW OF SYSTEMS: HEENT: Negative. PULMONARY: Negative. CARDIAC: Negative. LABORATORY DATA: Her white count is 12.33, hemoglobin of 10. Sodium 141, potassium 3.7, and creatinine came down to 0.71. The patient is currently on Dilaudid, metronidazole, , vancomycin. IMPRESSION: 1. Intraabdominal abscess. 2. Morbidly obese patient. 3. Obesity. 4. Chronic obstructive pulmonary disease. 5. Osteoarthritis. PLAN: 1. I would recommend to continue vancomycin until the drain is stopped. We will plan on another three weeks. We will follow up clinically. She is currently on vancomycin 1 g daily. 2. Continue oral Flagyl 500 p.o. t.i.d. We will add also Rocephin 2 g daily. We will ask case management to arrange just three weeks of IV antibiotic with possibility of going longer and till all the abscess resolves. She would need followup CT. Discussed with the medical team. Discussed with the family. MD YESY Pillai/PURA /[id number]
[2019-08-26] MEDS: VANCOMYCIN 300 ML IV SCH (18:00)
--- NOTE | 2019-08-26 19:10 | NUR ---
BEDSIDE SHIFT REPORT GIVEN TO ONCOMING NURSE. PATIENT IS IN STABLE CONDITION, NO ACUTE DISTRESS NOTED. NO S/S OF PAIN NOTED AT THIS TIME. CALL LIGHT WITHIN REACH. BED IN THE LOWEST POSITION.
[2019-08-26] MEDS: QUETIAPINE FUMARATE 100 MG TAB PO SCH (20:10)
--- NOTE | 2019-08-26 20:11 | NUR ---
RECEIVED PT IN BED AOX3 PT HAS WOUND UPPER ABD AND LOWER ABD RT BACK WITH DRAINING BAG .PT C/O PAIN AND GIVEN ORDERD PAIN MEDICATION .CALL LIGHT WITH IN REACH CONTINUE TO MONITOR
[2019-08-27] VITALS (9 sets, daily range): BP systolic 115–159; BP diastolic 56–87
[2019-08-27] MEDS: HYDROMORPHONE 1MG/1ML INJ IV PRN ×7 (00:13→20:50)
[2019-08-27] MEDS: ALBUTEROL/IPRATROPIUM 3 ML NEB NEB SCH ×4 (01:00→20:00)
--- NOTE | 2019-08-27 01:04 | NUR ---
Pulmonary Medicine DATE 08/26/2019 SUBJECTIVE: bipap used for 1 hour she became irate, and stopped using bipap last night 2 L/min oxygen d/w surgeon regarding the stable pleural effusion REVIEW OF SYSTEMS: no bleeding, no chest pain OBJECTIVE: VITAL SIGNS: vital signs noted, reviewed per the chart record. GENERAL: No acute distress, calm HEENT: Normocephalic, atraumatic. NECK: Supple. Throat midline. LUNGS: Bilateral air entry, decreased breath sounds around bases. Few wheezes CARDIOVASCULAR: S1, S2. No murmurs, rubs, or gallops. ABDOMINAL: Soft, nontender. INTEGUMENT: No rash, no purpura. LABORATORY DATA: 12 wbc. IMPRESSION AND PLAN: 1. Respiratory distress, better 2. Fluid overload, mild. 3. Obesity hypoventilation syndrome. 4. Possible chronic obstructive pulmonary disease, long-time smoker. 5. Admit for intraabdominal abscess. 6. Pancreatic cancer, status post July 2019 pancreatectomy, clinically localized malignancy. 7. History of tracheostomy. 8. Hypertension. 9. Arthritis. 10. Hyperlipidemia. 11. Obesity. 12? ?hx DVT 13. pleural effusion Light steroids can be re-dosed prn Bronchodilators as needed BiPAP for sleep apnea, if accepted Thoracentesis done, follow cultures -intermittent CXR to ensure stabilization / resolution of remnant pleural effusion. Patient is a risky surgical candidate as she might pull any proposed post operative tubing. Continue psychotropics for behavioral control Treatment of abdominal abscess per others anticoagulation on. can switch to long acting agents when procedures are no longer required. Thank you very much, Dr. Urbina for allowing me a chance to participate in the care of Ms. Mejia. Please call for questions.
--- NOTE | 2019-08-27 05:42 | NUR ---
PT C/O PAIN AND GIVEN DILAUDID .DRAINAGE BAG INTACT .COLLECTED 10CC .CALL LIGHT WITH IN REACH ,CONTINUE TO MONITOR
[2019-08-27] MEDS: METRONIDAZOLE 500MG/NS 100ML 100 ML IV SCH ×3 (05:53→21:53)
--- NOTE | 2019-08-27 07:16 | NUR ---
BEDSIDE REPORT GIVEN TO THE ONCOMING NURSE
[2019-08-27] MEDS: FUROSEMIDE 40 MG TAB PO SCH (09:00)
[2019-08-27] MEDS: ENOXAPARIN SOD INJ 60 MG/0.6 ML SYR SC SCH ×2 (10:51→20:56)
[2019-08-27] MEDS: ESCITALOPRAM OXALATE 10 MG TAB PO SCH (10:52)
[2019-08-27] MEDS: VERAPAMIL HCL 180 MG TBER PO SCH (10:52)
[2019-08-27] MEDS: BUPROPION HCL 150 MG TABCR PO SCH (10:52)
--- NOTE | 2019-08-27 12:20 | NUR ---
PT DISCUSSED IN MDR FOR DC PLAN. INF DISEASE PROGRESS NOTE STATES PT TO DC HOME W IV ABX X 3WEEKS; ROCEPHIN. VANC MAY BE CONTINUED IF DRAIN REMAINS IN PLACE WHEN PT IS DISCHARGED. WILL F/U. Addendum: 08/28/19 at 1540 by Alma Malhotra MET W THE PT AT THE BEDSIDE. INFORMED OF OPTION TO GO TO SNF OR HOME W IV ABX. PT STATED SHE WOULD PREFER TO GO HOME. DISCUSSED CHOICE FOR AN IN[facility]ION [facility]. PT STATES SHE IS ALREADY ON SERVICE W [facility], BUT HAD NOT BEEN SEEN BY THEM YET. PT ASSURED CM SHE WAS ABLE TO MANAGE HER IV ABX INDEPENDENTLY. CHOICE LETTER WAS SIGNED. OK TO USE [facility] IF IN NETWORK. WILL F/U W ORDER.
[2019-08-27] MEDS: CHOLESTYRAMINE 4 GM PACKET PO SCH ×2 (12:56→16:59)
[2019-08-27] MEDS ORDERED: SODIUM CHLORIDE 0.9% 250ML 250 ML ONE (13:39)
--- NOTE | 2019-08-27 14:34 | Diagnostic Imaging Report ---
CT of the abdomen and pelvis, with contrast. History: Intra-abdominal abscess. Comparison: CT abdomen/pelvis without contrast from 08/20/2019. Technique: Multidetector CT scanning of the abdomen and pelvis was performed from the level of the lung bases to the inferior pubic rami after intravenous and oral administration of contrast. Coronal and sagittal multiplanar reformations were obtained. RADIATION DOSE: Total DLP: 824.47 mGy*cm Dose modulation, iterative reconstruction, and/or weight based adjustment of the mA/kV was utilized to reduce the radiation dose to as low as reasonably achievable. FINDINGS: There is a stable small left pleural effusion with associated left lower lobe compressive atelectasis/consolidation. The right lung bases clear. Pigtail drainage catheter again identified within the left upper quadrant in stable position. There is no significant residual fluid collection within the left upper quadrant. Minimal residual stranding remains. No new organized fluid collection identified. The liver is enlarged but normal in attenuation without evidence for focal abnormality. The gallbladder is unremarkable. There is no biliary dilatation. Stable postsurgical changes noted of the stomach. The spleen is surgically absent. Fatty involutional changes noted of the pancreas. The bilateral adrenal glands are unremarkable. The kidneys are normal in size and location and enhance symmetrically. There is no evidence for hydronephrosis. The ureters are normal caliber. The urinary bladder is not distended but appears grossly unremarkable. The uterus and adnexa are unremarkable. The abdominal aorta is normal course and caliber with extensive atherosclerotic calcifications. The IVC is unremarkable. Please note evaluation of the bowel is limited without the use of enteric contrast material. The visualized loops of small and large bowel demonstrate no evidence of obstruction or inflammation. Small bowel containing hernias again noted within the right abdominal wall and anterior abdominal wall slightly left of midline. There is no evidence for bowel obstruction or strangulation. There is no intraperitoneal free air. No abnormally enlarged lymph nodes are identified within the abdomen or pelvis. Stable post surgical changes noted within the anterior abdominal wall with small amount of fluid and stranding. No large/drainable fluid collection identified. Stable mild compression deformity noted of the L1 vertebral body. The osseous structures otherwise demonstrate stable degenerative changes without evidence for acute fracture or destructive process. IMPRESSION: 1. Resolution of left upper quadrant fluid collection. 2. Stable small left pleural effusion and associated compressive atelectasis/consolidation of the left lower lobe. 3. Stable postsurgical changes of the anterior abdominal wall. 4. Small bowel containing abdominal hernias again noted. No evidence for bowel obstruction course reticulations. 5. Additional stable findings as above. Signed by: Dr. Yfn Young MD on 08/27/2019 2:31 PM
--- NOTE | 2019-08-27 15:19 | NUR ---
WOUND CARE CONSULT 64 YO FEMALE WITH A HISTORY OF POSTOPERATIVE ABD ABSCESS. REGAN 19, PT IS ON A CONSERVATIVE PUP ON A ALTERNATING PRESSURE MATTRESS. LABS; WBC 12.23, HGB 10.1, GLUCOSE 114 BODY FLUID CULTURE NO GROWTH PRESENT PT IS PLACED IN CONTACT PRECAUTIONS WOUND CULTURE POSITIVE FOR STAPHYLOCOCCUS AUREUS MRSA POSITIVE FOR C-DIFF SKIN ASSESSMENT COMPLETE; PATIENT PRESENTS WITH A PARTIAL NON-HEALING SUTURE LINE TO MEDIAL ABDOMEN; PARTIAL THICKNESS, 100% GRANULATION MEASURING 10 CM X 2 CM X 0.1 CM. PT HAD IRRITATED MOISTENED RED AREAS TO YOSSI UNDER BREAST, GROIN AND SACRAL SCAR TISSUE FROM HEALED PREVIOUS ULCERATIONS. RECOMMENDATIONS: NURSING TO CONTINUE TO MAINTAIN CONSERVATIVE PUP STATUS AND INTERVENTIONS NURSING TO CONTINUE TO ASSIST PATIENT OUT OF BED FOR MEALS AND MUCH TOLERATED NURSING TO CLEAN PARTIAL NON HEALING SUTURE LINE TO MIDLINE ABD DAILY WITH NS, PAT DRY WITH 4X4 GAUZE, XEROFORM AND COVER WITH ALLEVYN FOAM DRESSING. NURSING TO MAINTAIN AREAS CLEAN AND DRY TO YOSSI BREAST FOLDS, KELLY AREA AND BUTTOCKS NURSING TO APPLY DAILY REMEDY ANTIFUNGAL CREAM TO IRRITATED MOISTENED RED AREAS TO YOSSI BREAST FOLD, GROIN AND SACRAL SCAR TISSUE FROM HEALED PREVIOUS ULCERATIONS. NURSING TO PLACE DRY ABD PAD BETWEEN BREAST FOLD TO PREVENT SKIN TO SKIN CONTACT.
[2019-08-27] MEDS: CEFTRIAXONE SOD 2 GM/NS 100 ML 100 ML IV SCH (15:29)
[2019-08-27] MEDS: VANCOMYCIN 300 ML IV SCH (17:45)
[2019-08-27] MEDS: ONDANSETRON HCL INJ 2MG/ML 2ML 2 MG/ML VIAL IV PRN ×2 (17:52→20:50)
[2019-08-27] MEDS ORDERED: SODIUM CHLORIDE 0.9% 50ML 50 ML ONE (19:08)
[2019-08-27] MEDS ORDERED: IOPAMIDOL 370 MG/ML 200 ML INFUS..BTL INJ ONE (19:08)
[2019-08-27] MEDS: QUETIAPINE FUMARATE 100 MG TAB PO SCH (20:56)
--- NOTE | 2019-08-27 20:56 | NUR ---
PATIENT REFUSED LOVENOX INJECTION AT THIS TIME, STATING SHE HAD ALREADY RECEIVED IT TWICE TODAY. ACCORDING TO EMR, SHE ONLY HAD ONE, BUT PATIENT STILL REFUSED.
[2019-08-28] VITALS (7 sets, daily range): BP systolic 124–150; BP diastolic 63–81
[2019-08-28] MEDS: ONDANSETRON HCL INJ 2MG/ML 2ML 2 MG/ML VIAL IV PRN ×3 (00:20→08:30)
[2019-08-28] MEDS: HYDROMORPHONE 1MG/1ML INJ IV PRN ×7 (00:20→20:45)
--- NOTE | 2019-08-28 01:24 | NUR ---
Pulmonary Medicine DATE 08/27/2019 SUBJECTIVE: bipap not used 3 L/min oxygen REVIEW OF SYSTEMS: no bleeding, no chest pain OBJECTIVE: VITAL SIGNS: vital signs noted, reviewed per the chart record. GENERAL: No acute distress, calm HEENT: Normocephalic, atraumatic. NECK: Supple. Throat midline. LUNGS: Bilateral air entry, decreased breath sounds around bases. rare rhonchi CARDIOVASCULAR: S1, S2. No murmurs, rubs, or gallops. ABDOMINAL: Soft, nontender. INTEGUMENT: No rash, no purpura. LABORATORY DATA: no new updates IMPRESSION AND PLAN: 1. Respiratory distress, better 2. Fluid overload, mild. Better 3. Obesity hypoventilation syndrome. 4. Possible chronic obstructive pulmonary disease, long-time smoker. 5. Admit for intraabdominal abscess. 6. Pancreatic cancer, status post July 2019 pancreatectomy, clinically localized malignancy. 7. History of tracheostomy. 8. Hypertension. 9. Arthritis. 10. Hyperlipidemia. 11. Obesity. 12? ?hx DVT 13. pleural effusion Light steroids can be re-dosed prn Bronchodilators as needed BiPAP for sleep apnea, if accepted Thoracentesis done, follow cultures -intermittent CXR to ensure stabilization / resolution of remnant pleural effusion. Patient is a risky surgical candidate as she might pull any proposed post operative tubing. Continue psychotropics for behavioral control Treatment of abdominal abscess per others anticoagulation on. can switch to long acting agents when procedures are no longer required. Thank you very much, Dr. Urbina for allowing me a chance to participate in the care of Ms. Mejia. Please call for questions.
[2019-08-28] MEDS: ALBUTEROL/IPRATROPIUM 3 ML NEB NEB SCH ×3 (03:15→12:00)
[2019-08-28] MEDS: METRONIDAZOLE 500MG/NS 100ML 100 ML IV SCH ×2 (06:09→15:08)
[2019-08-28 06:23] LABS: BASOPHILS # (AUTO) 0.1 (0.0-0.1); BASOPHILS % 0.4 % (0.0-1.0); EOSINOPHILS # (AUTO) 0.5 (0.0-0.4); EOSINOPHILS % 4.1 % (0.0-6.0); HEMATOCRIT 33.4 % (34.2-44.1); HEMOGLOBIN 10.2 g/dL (12.0-16.0); LYMPHOCYTES % 25.3 % (18.0-39.1); MEAN CORPUSCULAR HEMOGLOBIN 28.7 pg (28-32); MEAN CORPUSCULAR HGB CONC 30.5 g/dL (31-35); MEAN CORPUSCULAR VOLUME 94.1 fL (81-99); MONOCYTES # (AUTO) 1.7 (0.2-0.8); MONOCYTES % 14.7 % (4.4-11.3); NEUTROPHILS # (AUTO) 6.2 (2.1-6.9); NEUTROPHILS % 52.3 % (38.7-80.0); PLATELET COUNT 497 x10e3/uL (140-360); RED BLOOD COUNT 3.55 x10e6/uL (3.6-5.1); RED CELL DISTRIBUTION WIDTH 16.6 % (11.7-14.4)
[2019-08-28 06:44] LABS: ANION GAP 13.8 mmol/L (8-16); BLOOD UREA NITROGEN 8 mg/dL (7-26); BUN/CREATININE RATIO 10 (6-25); CALCIUM 8.9 mg/dL (8.4-10.2); CARBON DIOXIDE 24 mmol/L (22-29); CHLORIDE 106 mmol/L (98-107); EST GLOMERULAR FILTRATION RATE > 60 ML/MIN (60-); GLUCOSE 119 mg/dL (74-118); POTASSIUM 3.8 mmol/L (3.5-5.1); SODIUM 140 mmol/L (136-145)
[2019-08-28] MEDS: CHOLESTYRAMINE 4 GM PACKET PO SCH ×3 (09:00→16:26)
[2019-08-28] MEDS: FUROSEMIDE 40 MG TAB PO SCH ×2 (09:00→09:24)
[2019-08-28] MEDS: ENOXAPARIN SOD INJ 60 MG/0.6 ML SYR SC SCH ×2 (09:24→20:53)
[2019-08-28] MEDS: ESCITALOPRAM OXALATE 10 MG TAB PO SCH (09:24)
[2019-08-28] MEDS: BUPROPION HCL 150 MG TABCR PO SCH (09:24)
[2019-08-28] MEDS: VERAPAMIL HCL 180 MG TBER PO SCH (09:24)
--- NOTE | 2019-08-28 15:29 | NUR ---
DC PLAN: CALL TO [facility] FOR HOME IV ABX. STATES PT WILL DC HOME ON ROCEPHIN 2GM IV AD X 3WEEKS. ORDER ENTERED. REFERRAL FAXED TO [facility] @ OFF: [phone] / FAX: [phone].
[2019-08-28] MEDS: CEFTRIAXONE SOD 2 GM/NS 100 ML 100 ML IV SCH (16:26)
[2019-08-28] MEDS: VANCOMYCIN 300 ML IV SCH (17:24)
--- NOTE | 2019-08-28 19:00 | NUR ---
RECEIVED PATIENT IN BEDSIDE REPORT. PATIENT IS RESTING IN BED AT THIS TIME. PAIN 02/25. NO S&S OF DISTRESS NOTED. BED LOCKED IN LOWEST POSITION, SIDE RAILS UPX2, CALL LIGHT IN REACH.
--- NOTE | 2019-08-28 19:33 | Progress Note ---
DATE: SUBJECTIVE: Ms. Mejia is doing well. No new complaint. REVIEW OF SYSTEMS: HEENT: Negative. PULMONARY: Negative. CARDIAC: Negative. LABORATORY DATA: Her culture shows MRSA. White count 11.8, hemoglobin 10. She is currently on vancomycin and Rocephin. ASSESSMENT: Intraabdominal abscess. Repeat CAT scan which was done today showed resolution of left upper quadrant fluid collection. Patient's abdominal abscess improving on vancomycin, Rocephin and Flagyl. She grew MRSA, will be discharged home with vanc 1 g daily for 3 weeks and we will follow. To discharge home on vanc 1 g daily for 3 weeks, Flagyl 500 mg p.o. q.8 and we can probably do just Cipro 500 mg p.o. b.i.d. to cover gram-negative for 3 weeks. MD YESY Pillai/PURA /[id number]
[2019-08-28] MEDS: QUETIAPINE FUMARATE 100 MG TAB PO SCH (20:53)
[2019-08-29] VITALS (8 sets, daily range): BP systolic 116–166; BP diastolic 56–80
[2019-08-29] MEDS: HYDROMORPHONE 1MG/1ML INJ IV PRN ×6 (00:58→23:20)
--- NOTE | 2019-08-29 01:58 | NUR ---
Pulmonary Medicine DATE 08/28/2019 SUBJECTIVE: walked 2 L/min by NC drain with pus/output still eating some, BM+ REVIEW OF SYSTEMS: no bleeding, no chest pain OBJECTIVE: VITAL SIGNS: vital signs noted, reviewed per the chart record. GENERAL: No acute distress, calm HEENT: Normocephalic, atraumatic. NECK: Supple. Throat midline. LUNGS: Bilateral air entry, decreased breath sounds around bases. rare rhonchi CARDIOVASCULAR: S1, S2. No murmurs, rubs, or gallops. ABDOMINAL: Soft, nontender. INTEGUMENT: No rash, no purpura. LABORATORY DATA: k 3.8, cr 0.80, w c 12, hct 33 IMPRESSION AND PLAN: 1. Respiratory distress, better 2. Fluid overload, mild. Better 3. Obesity hypoventilation syndrome. 4. Possible chronic obstructive pulmonary disease, long-time smoker. 5. Admit for intraabdominal abscess. 6. Pancreatic cancer, status post July 2019 pancreatectomy, clinically localized malignancy. 7. History of tracheostomy. 8. Hypertension. 9. Arthritis. 10. Hyperlipidemia. 11. Obesity. 12? ?hx DVT 13. left supradiaphramatic exudative pleural effusion Light steroids can be re-dosed prn Bronchodilators as needed BiPAP for sleep apnea, if accepted Thoracentesis done, follow cultures -intermittent CXR to ensure stabilization / resolution of remnant pleural effusion. Patient is a risky surgical candidate as she might pull any proposed post operative tubing. Continue psychotropics for behavioral control Treatment of abdominal abscess per others anticoagulation on. can switch to long acting agents when procedures are no longer required. CT abd/pelvis today suggests ~stable pleural effusion Thank you very much, Dr. Urbina for allowing me a chance to participate in the care of Ms. Mejia. Please call for questions.
[2019-08-29] MEDS: ALBUTEROL/IPRATROPIUM 3 ML NEB NEB SCH ×3 (07:00→19:22)
[2019-08-29] MEDS: VERAPAMIL HCL 180 MG TBER PO SCH (08:45)
[2019-08-29] MEDS: ENOXAPARIN SOD INJ 60 MG/0.6 ML SYR SC SCH ×2 (08:45→20:16)
[2019-08-29] MEDS: BUPROPION HCL 150 MG TABCR PO SCH (08:45)
[2019-08-29] MEDS: ESCITALOPRAM OXALATE 10 MG TAB PO SCH (08:45)
[2019-08-29] MEDS: FUROSEMIDE 40 MG TAB PO SCH (08:45)
[2019-08-29] MEDS ORDERED: METRONIDAZOLE 500 MG TAB PO SCH (09:00)
--- NOTE | 2019-08-29 13:37 | NUR ---
Per Dr. Espinal gave okay to discharge pt with drain and to have pt follow up in office tomorrow for drain to be removed. Pt teaching will be provided.
[2019-08-29] MEDS: CHOLESTYRAMINE 4 GM PACKET PO SCH ×2 (13:43→17:00)
[2019-08-29] MEDS: CEFTRIAXONE SOD 2 GM/NS 100 ML 100 ML IV SCH (16:24)
--- NOTE | 2019-08-29 19:15 | NUR ---
RECEIVED PATIENT. PATIENT IS AAOX3, PATIENT IS RESTING IN BED. RESPIRATIONS EVEN AND UNLABORED. NO ACUTE DISTRESS NOTED AT THIS TIME. MID UPPER ABDOMINAL DRESSING NOTED, DRY AND INTACT. CALL LIGHT WITHIN REACH. INSTRUCT TO CALL FOR ASSISTANCE. BED LOW/LOCKED. SIDE RAILS UPX2. CONTINUE TO MONITOR CLOSELY.
[2019-08-29] MEDS: VANCOMYCIN 300 ML IV SCH (19:17)
[2019-08-29] MEDS: METRONIDAZOLE 500 MG TAB PO SCH (20:16)
[2019-08-29] MEDS: QUETIAPINE FUMARATE 100 MG TAB PO SCH (20:16)
[2019-08-29] MEDS: ONDANSETRON HCL INJ 2MG/ML 2ML 2 MG/ML VIAL IV PRN (20:16)
[2019-08-30] VITALS: BP 118/59
[2019-08-30] MEDS: ALBUTEROL/IPRATROPIUM 3 ML NEB NEB SCH ×3 (01:00→13:00)
[2019-08-30] MEDS: HYDROMORPHONE 1MG/1ML INJ IV PRN ×4 (02:35→13:11)
--- NOTE | 2019-08-30 03:37 | NUR ---
Pulmonary Medicine DATE 08/29/2019 SUBJECTIVE: walked drain with pus/output still eating when she likes the food, BM+ REVIEW OF SYSTEMS: no bleeding, no chest pain OBJECTIVE: VITAL SIGNS: vital signs noted, reviewed per the chart record. GENERAL: No acute distress, calm HEENT: Normocephalic, atraumatic. NECK: Supple. Throat midline. LUNGS: Bilateral air entry, decreased breath sounds around bases. CARDIOVASCULAR: S1, S2. No murmurs, rubs, or gallops. ABDOMINAL: Soft, nontender. INTEGUMENT: No rash, no purpura. LABORATORY DATA: no new updates IMPRESSION AND PLAN: 1. Respiratory distress, better 2. Fluid overload, mild. Better 3. Obesity hypoventilation syndrome. 4. Possible chronic obstructive pulmonary disease, long-time smoker. 5. Admit for intraabdominal abscess. 6. Pancreatic cancer, status post July 2019 pancreatectomy, clinically localized malignancy. 7. History of tracheostomy. 8. Hypertension. 9. Arthritis. 10. Hyperlipidemia. 11. Obesity. 12? ?hx DVT 13. left supradiaphramatic exudative pleural effusion Light steroids can be re-dosed prn Bronchodilators as needed BiPAP for sleep apnea, if accepted Thoracentesis done, follow cultures -intermittent CXR to ensure stabilization / resolution of remnant pleural effusion. Patient is a risky surgical candidate as she might pull any proposed post operative tubing. CT abd/pelvis suggests ~stable pleural effusion. Conservative follow up to ensure resolution Continue psychotropics for behavioral control Treatment of abdominal abscess per others anticoagulation on. can switch to long acting agents when procedures are no longer required. Thank you very much, Dr. Urbina for allowing me a chance to participate in the care of Ms. Mejia. Please call for questions.
[2019-08-30 04:00] VITALS: BP 141/66
--- NOTE | 2019-08-30 05:00 | NUR ---
COMPLETE PICC LINE DRESSING CHANGE
[2019-08-30] MEDS: METRONIDAZOLE 500 MG TAB PO SCH ×2 (05:15→12:46)
--- NOTE | 2019-08-30 06:26 | NUR ---
DR AREVALO REMOVED LUQ DRAIN. APPLIED DRESSING.
--- NOTE | 2019-08-30 07:16 | NUR ---
Received patient lying in bed with eyes closed. Respiration even and unlabored without Sob. Call light in reach.
[2019-08-30 07:54] VITALS: BP 148/69
[2019-08-30] MEDS: FUROSEMIDE 40 MG TAB PO SCH ×2 (08:45→09:00)
[2019-08-30] MEDS: VERAPAMIL HCL 180 MG TBER PO SCH (08:45)
[2019-08-30] MEDS: BUPROPION HCL 150 MG TABCR PO SCH (08:46)
[2019-08-30] MEDS: CHOLESTYRAMINE 4 GM PACKET PO SCH (08:46)
[2019-08-30] MEDS: ESCITALOPRAM OXALATE 10 MG TAB PO SCH ×2 (08:46→09:31)
[2019-08-30] MEDS: ENOXAPARIN SOD INJ 60 MG/0.6 ML SYR SC SCH (08:46)
[2019-08-30 09:30] VITALS: BP 148/69
[2019-08-30 10:59] VITALS: BP 133/65
[2019-08-30] MEDS ORDERED: CIPRO500 MG PO (11:47)
[2019-08-30] MEDS ORDERED: FLAGYL250 MG PO (11:49)
--- NOTE | 2019-08-30 12:00 | NUR ---
Spoke with Dr. Urbina. States okay to discharge patient with home medications to continue at home.
--- NOTE | 2019-08-30 12:53 | NUR ---
DC PLAN: CALL TO [facility] TO INFORM PT TO DC HOME TODAY. FAXED [facility]. CALL TO PAUL DEL ROSARIO WHO DID THE BEDSIDE TEACH YESTERDAY. STATES SHE CANNOT MEET THE PT AT HOME TODAY, BUT WILL BE WILLING TO COME OUT TO DO ANOTHER TEACH BEFORE 3PM. STATES SHE PUT HER # IN THE PT'S PHONE ON YESTERDAY. PAUL DEL ROSARIO @ [phone]. CALL TO [facility] TO VERIFY PT WILL BE SEEN ON MONDAY. SPOKE Shanti YANG IN INTAKE. STATES THE NURSE WILL CALL THE PT TO SET UP A TIME TO ADMIT AND DO ANOTHER TEACH.
--- NOTE | 2019-08-30 12:59 | NUR ---
HOME HEALTH DISCHARGE NOTE PATIENT ADDRESS WHERE SERVICE WILL BE RECEIVED: [address] [place] [address] PATIENT CONTACT NUMBER: [phone] NAME OF HOME HEALTH COMPANY: [facility] TELEPHONE/FAX NUMBER OF COMPANY: OFF: [phone] / FAX: [phone] SERVICES TO RECEIVE: IV VANCOMYCIN 1GM IV DAILY X 3 WEEKS ANTICIPATED DATE SERVICES WILL BEGIN: 08/31/2019 NAME OF HOME HEALTH COMPANY: [employer] [facility] TELEPHONE/FAX NUMBER OF COMPANY: OFF [phone] / FAX: [phone] SERVICES TO RECEIVE: CORRECTION TO EVALUATE AND TREAT, REINFORCE TEACHING FOR IV ANTIBIOTICS, DRAW WEEKLY LABS; CBC/BMP/VANCOMYCIN TROUGH, PULL PICC WHEN OK'D BY DR. NICHOLSON. Please call the company above if you have not received a call to schedule a home visit within [address] Ricardo Nicholson Internal medicine - infectious disease [address] [place], [place] [address], [place], [place] [id number] [phone] PAUL DEL ROSARIO FOR QUESTIONS REGARDING IV ANTIBIOTIC ADMINISTRATION @ [phone]
[2019-08-30] MEDS ORDERED: SODIUM CHLORIDE 0.9% 250ML 250 ML ONE (13:29)
--- NOTE | 2019-08-30 15:28 | NUR ---
Patient is to discharge home today. Discharge education regarding IV antibiotic treatment reinforced. Patient verbalized understanding. Education about PICC line care given. Verbalized understanding. Patient is going home with the picc line for exterminator IV antibiotic therapy as ordered. Patient's sister at bedside during the teaching. Transported patient via wheelchair to private vehicle. Respiration even and unlabored without SOB.
--- NOTE | 2019-08-30 21:55 | NUR ---
Pulmonary Medicine DATE 08/30/2019 SUBJECTIVE: drain removed per patient eating when she likes the food, BM+ stable breathing 2 L/min oxygen REVIEW OF SYSTEMS: no bleeding, no chest pain OBJECTIVE: VITAL SIGNS: vital signs noted, reviewed per the chart record. GENERAL: No acute distress, calm HEENT: Normocephalic, atraumatic. NECK: Supple. Throat midline. LUNGS: Bilateral air entry, decreased breath sounds around bases. CARDIOVASCULAR: S1, S2. No murmurs, rubs, or gallops. ABDOMINAL: Soft, nontender. INTEGUMENT: No rash, no purpura. LABORATORY DATA: no new updates IMPRESSION AND PLAN: 1. Respiratory distress, better 2. Fluid overload, mild. Better 3. Obesity hypoventilation syndrome. 4. Possible chronic obstructive pulmonary disease, long-time smoker. 5. Admit for intraabdominal abscess. 6. Pancreatic cancer, status post July 2019 pancreatectomy, clinically localized malignancy. 7. History of tracheostomy. 8. Hypertension. 9. Arthritis. 10. Hyperlipidemia. 11. Obesity. 12? ?hx DVT 13. left supradiaphramatic exudative pleural effusion Light steroids can be re-dosed prn Bronchodilators as needed BiPAP for sleep apnea, if accepted Thoracentesis done, follow cultures -intermittent CXR to ensure stabilization / resolution of remnant pleural effusion. Patient is a risky surgical candidate as she might pull any proposed post operative tubing. CT abd/pelvis suggests ~stable pleural effusion. Conservative follow up to ensure resolution as an OUTPATIENT Continue psychotropics for behavioral control Treatment of abdominal abscess per others anticoagulation on. can switch to long acting agents Thank you very much, Dr. Urbina for allowing me a chance to participate in the care of Ms. Mejia. Please call for questions.
== END 2019-08-30 15:28 | disposition home health service (06) | DRG 862 ==
LOC: ER 07:22 → ERHOLD 11:08 → MED/SURG2 11:54 → IMCU 08-19 12:34 → MED/SURG3 08-24 21:03
PROVIDERS: ADMIT Internal Medicine; ATTEND Internal Medicine
PROC: 0W9J30Z Drainage of Pelvic Cavity with Drainage Device, Percutaneous Approach (ICD-10-PCS; 2019-08-17)
PROC: 02HV33Z Insertion of Infusion Device into Superior Vena Cava, Percutaneous Approach (ICD-10-PCS; 2019-08-18)
PROC: B548ZZA Ultrasonography of Superior Vena Cava, Guidance (ICD-10-PCS; 2019-08-18)
PROC: 30233N1 Transfusion of Nonautologous Red Blood Cells into Peripheral Vein, Percutaneous Approach (ICD-10-PCS; principal; 2019-08-20)
PROC: 0W9B3ZZ Drainage of Left Pleural Cavity, Percutaneous Approach (ICD-10-PCS; 2019-08-23)
DX: T81.43XA Infection following a procedure, organ and space surgical site, initial encounter (principal); K65.1 Peritoneal abscess; A41.9 Sepsis, unspecified organism; J96.01 Acute respiratory failure with hypoxia; J18.9 Pneumonia, unspecified organism; L02.211 Cutaneous abscess of abdominal wall; N17.9 Acute kidney failure, unspecified; Z68.41 Body mass index [BMI] 40.0-44.9, adult; E66.2 Morbid (severe) obesity with alveolar hypoventilation; J44.1 Chronic obstructive pulmonary disease with (acute) exacerbation; J90 Pleural effusion, not elsewhere classified; F45.8 Other somatoform disorders; M19.90 Unspecified osteoarthritis, unspecified site; I25.10 Atherosclerotic heart disease of native coronary artery without angina pectoris; F17.210 Nicotine dependence, cigarettes, uncomplicated; E66.01 Morbid (severe) obesity due to excess calories; E78.5 Hyperlipidemia, unspecified; Z95.828 Presence of other vascular implants and grafts; Z90.81 Acquired absence of spleen; Z90.411 Acquired partial absence of pancreas; I10 Essential (primary) hypertension; G89.29 Other chronic pain; Z68.38 Body mass index [BMI] 38.0-38.9, adult; N18.9 Chronic kidney disease, unspecified; Z86.718 Personal history of other venous thrombosis and embolism; D01.7 Carcinoma in situ of other specified digestive organs; B95.62 Methicillin resistant Staphylococcus aureus infection as the cause of diseases classified elsewhere; B36.8 Other specified superficial mycoses; B37.2 Candidiasis of skin and nail; B37.3 Candidiasis of vulva and vagina; D64.9 Anemia, unspecified
CPT/HCPCS: 32555; 36415; 36569; 36600; 49406; 71045; 71250; 74176; 74177; 74470; 80048; 80053; 80202; 81001; 82805; 82945; 83615; 83690; 84157; 85007; 85025; 85027; 85610; 86850; 86900; 86920; 87070; 87071; 87075; 87186; 87205; 89051; 94640; 94660; 97139; 99284; C1769; J0696; J1170; J1650; J1940; J1956; J2001; J2250; J2270; J2405; J2543; J2920; J2930; J2997; J3010; J3370; J7030; J7050; J7512; P9016; Q9967

== ENCOUNTER 2019-10-26 15:13 | Emergency (ER) | payer MEDICARE ==
[~2019-10-26] VITALS: Ht 170.2 cm; Wt 111.6 kg
[~2019-10-26 15:13] MED LIST changes: +FLAGYL250 MG PO
[2019-10-26] MEDS ORDERED: ONDANSETRON HCL INJ 2MG/ML 2ML 2 MG/ML VIAL IV NR (16:02)
[2019-10-26] MEDS ORDERED: SODIUM CHLORIDE 0.9% 1000ML 1,000 ML IV STA ×2 (16:02→22:27)
--- NOTE | 2019-10-26 16:10 | NUR ---
PATIENT TO ROOM 11
[2019-10-26] MEDS ORDERED: DIATRIZOATE MEGL/DIATRIZOA SOD 30 ML BTL PO ONE (16:11)
[2019-10-26] MEDS ORDERED: ZOFRAN4 MG PO (17:20)
[2019-10-26 17:33] LABS: BASOPHILS # (AUTO) 0.1 (0.0-0.1); BASOPHILS % 0.3 % (0.0-1.0); EOSINOPHILS % 0.1 % (0.0-6.0); HEMATOCRIT 42.6 % (34.2-44.1); HEMOGLOBIN 13.3 g/dL (12.0-16.0); LYMPHOCYTES # (AUTO) 2.9 (1.0-3.2); LYMPHOCYTES % 19.7 % (18.0-39.1); MEAN CORPUSCULAR HGB CONC 31.2 g/dL (31-35); MEAN CORPUSCULAR VOLUME 86.4 fL (81-99); MONOCYTES # (AUTO) 1.4 (0.2-0.8); MONOCYTES % 9.7 % (4.4-11.3); NEUTROPHILS % 69.2 % (38.7-80.0); PLATELET COUNT 496 x10e3/uL (140-360); RED BLOOD COUNT 4.93 x10e6/uL (3.6-5.1)
[2019-10-26 17:40] LABS: INR 1.86; PROTHROMBIN TIME 22.8 seconds (11.9-14.5)
[2019-10-26 17:41] LABS: PARTIAL THROMBOPLASTIN TIME 40.3 seconds (23.8-35.5)
[2019-10-26 17:49] LABS: ALANINE AMINOTRANSFERASE 6 IU/L (0-55); ALBUMIN 3.3 g/dL (3.5-5.0); ALBUMIN/GLOBULIN RATIO 0.6 (0.8-2.0); ALKALINE PHOSPHATASE 90 IU/L (40-150); ANION GAP 24.9 mmol/L (8-16); BLOOD UREA NITROGEN 13 mg/dL (7-26); BUN/CREATININE RATIO 9 (6-25); CALCIUM 10.5 mg/dL (8.4-10.2); CARBON DIOXIDE 14 mmol/L (22-29); CHLORIDE 91 mmol/L (98-107); CREATINE KINASE 25 IU/L (29-168); CREATININE, SERUM 1.47 mg/dL (0.57-1.11); EST GLOMERULAR FILTRATION RATE 36 ML/MIN (60-); LIPASE 11 U/L (8-78); POTASSIUM 3.9 mmol/L (3.5-5.1); SODIUM 126 mmol/L (136-145)
[2019-10-26] MEDS ORDERED: ONDANSETRON HCL INJ 2MG/ML 2ML 2 MG/ML VIAL IV STA ×2 (18:15→23:00)
[2019-10-26 18:37] LABS: CLARITY,URINE CLEAR (CLEAR); COLOR,URINE YELLOW (YELLOW); LEUKOCYTE ESTERASE ,URINE NEGATIVE (NEGATIVE); NITRITE,URINE NEGATIVE (NEGATIVE)
[2019-10-26 18:39] LABS: GLUCOSE 558 mg/dL (74-118)
[2019-10-26 18:39] LABS: BILIRUBIN,URINE SMALL (NEGATIVE); KETONES,URINE 2+ (NEGATIVE); PROTEIN,URINE DIPSTICK NEGATIVE (NEGATIVE); URINE UROBILINOGEN 0.2 mg/dL (0.2 - 1)
--- NOTE | 2019-10-26 18:51 | NUR ---
Kandi. CALLED FOR ABG
[2019-10-26] MEDS ORDERED: DEXTROSE 5%/0.45% SOD CHL 1,000 ML IV SCH (18:52)
[2019-10-26 18:56] LABS: WBC,URINE (MAN) 0-5 /HPF (0-5)
[2019-10-26 18:57] LABS: BACTERIA,URINE FEW /HPF; EPITHELIAL CELLS,URINE MANY /LPF
[2019-10-26] MEDS ORDERED: INSULIN REGULAR, HUMAN 100 UNIT/1 ML 3ML VIAL IV ONE (19:00)
[2019-10-26] MEDS ORDERED: INSULIN REGULAR, HUMAN 3ML VL 100 UNIT in SODIUM CHLORIDE 0.9% 99 ML IV SCH ×2 (19:00)
[2019-10-26] MEDS ORDERED: POTASSIUM CHLORIDE 20MEQ/100ML 200 ML IV PRN (19:00)
[2019-10-26] MEDS ORDERED: MAGNESIUM SULF 1GRAM/DEXTROSE 100 ML IV PRN (19:00)
[2019-10-26 19:14] LABS: ABG HCO3 14 mmol/L (23-28); ABG PCO2 25 mmHg (41-51); ABG PH 7.36 (7.31-7.41); ABG PO2 107 mmHg (80-105)
[2019-10-26] MEDS ORDERED: MORPHINE SULFATE 2 MG/ML SYR 1ML IV PRN (19:30)
[2019-10-26] MEDS ORDERED: ONDANSETRON HCL INJ 2MG/ML 2ML 2 MG/ML VIAL IV PRN (19:30)
[2019-10-26] MEDS: SODIUM CHLORIDE 0.9% 1000ML 1,000 ML IV SCH (20:00)
[2019-10-26] MEDS: PIPERACILLIN/TAZO 2.25 GM 50 ML IV SCH (20:48)
--- NOTE | 2019-10-26 21:00 | Diagnostic Imaging Report ---
EXAM: CT Abdomen and Pelvis WITHOUT contrast INDICATION: Abdominal pain, nausea and vomiting. Prior history of a small bowel obstruction. COMPARISON: 08/27/2019. TECHNIQUE: Abdomen and pelvis were scanned utilizing a multidetector helical scanner from the lung base to the pubic symphysis without administration of IV contrast. Absence of intravenous contrast decreases sensitivity for detection of focal lesions and vascular pathology. Coronal and sagittal reformations were obtained. Routine protocol was performed. IV CONTRAST: None. ORAL CONTRAST: Gastrografin water mixture. RADIATION DOSE: Total DLP: 803.91 mGy*cm Estimated effective dose: (DLP x 0.015 x size factor) mSv COMPLICATIONS: None FINDINGS: Examination limited due to lack of intravenous contrast. LINES and TUBES: None. LOWER THORAX: There is bibasilar atelectasis. Coronary artery calcifications. Trace left pleural effusion with left basilar irregular pleural parenchymal density suggestive of pleural parenchymal scarring. HEPATOBILIARY: No focal hepatic lesions. No biliary ductal dilation. GALLBLADDER: There are stones in the gallbladder. No wall thickening. SPLEEN: No splenomegaly. PANCREAS: No focal masses or ductal dilatation. Diffuse fatty infiltration. ADRENALS: No adrenal nodules KIDNEYS/URETERS: Bilateral perinephric stranding without perinephric fluid collections. Moderate volume of stool within the colon No hydronephrosis. No cystic or solid mass lesions. No stones. GI TRACT: Postsurgical changes with metallic sutures in the esophagogastric, unchanged. No abnormal distention, wall thickening, or evidence of bowel obstruction. Appendix is. Not visualized. PELVIC ORGANS/BLADDER: Unremarkable. LYMPH NODES: No lymphadenopathy. VESSELS: There is moderate atherosclerotic disease in the aorta and major arterial branches. PERITONEUM / RETROPERITONEUM: Large area of heterogeneous soft tissue attenuation present in the left upper quadrant laterally extending to the subphrenic region, abutting the lateral aspect of the gastric fundus, where previously there was a percutaneous pigtail drainage catheter which may represent scarring, however, with ill-defined central low attenuation concerning for phlegmonous changes with early abscess formation. BONES: Unchanged compression deformity of L1, with multilevel degenerative disc disease and spondylosis from L3 to L5 S1. SOFT TISSUES: Redemonstration of multiple ventral abdominal hernias, including to the left of midline containing a loop of small bowel and a right Spigelian hernia also containing a loop of small bowel. IMPRESSION: 1. Extensive soft tissue attenuation in the left left upper quadrant extending to the subphrenic region with ill-defined central low attenuation not well evaluated due to lack of intravenous contrast raises concern for phlegmonous changes, and possible infection with developing abscess formation. 2. Ventral abdominal hernias containing short segments of small bowel loops, however, without evidence of obstruction for incarceration at this time. Signed by: Dr. Dee Dee Roper M.D. on 10/26/2019 8:58 PM
[2019-10-26 22:35] LABS: ANION GAP 18.4 mmol/L (8-16); CREATININE, SERUM 1.17 mg/dL (0.57-1.11); MAGNESIUM 1.5 MG/DL (1.3-2.1); POTASSIUM 3.4 mmol/L (3.5-5.1)
[2019-10-26] MEDS ORDERED: MAGNESIUM SULF 1GRAM/DEXTROSE 100 ML IV ONE (23:27)
[2019-10-27] MEDS: PIPERACILLIN/TAZO 2.25 GM 50 ML IV SCH (00:09)
[2019-10-27] MEDS: SODIUM CHLORIDE 0.9% 1000ML 1,000 ML IV SCH (00:09)
--- NOTE | 2019-10-27 01:21 | NUR ---
ATTEMPTED TO CALL REPORT. UNABLE TO SPEAK TO RECEIVING NURSE AT THIS TIME PER [facility] NURSE.
[2019-10-27 01:23] VITALS: BP 157/74
== END 2019-10-27 01:20 | disposition short-term general hospital (02) ==
LOC: ER 15:13
DX: E11.10 Type 2 diabetes mellitus with ketoacidosis without coma (principal); L02.211 Cutaneous abscess of abdominal wall; I10 Essential (primary) hypertension; Z87.891 Personal history of nicotine dependence; Z86.73 Personal history of transient ischemic attack (TIA), and cerebral infarction without residual deficits; I25.2 Old myocardial infarction; Z79.01 Long term (current) use of anticoagulants; Z98.84 Bariatric surgery status; F41.9 Anxiety disorder, unspecified; F32.9 Major depressive disorder, single episode, unspecified
CPT/HCPCS: 36415; 36600; 74176; 80048; 80053; 81001; 82550; 82553; 82805; 82948; 83605; 83690; 83735; 84484; 85025; 85610; 85730; 87040; 87071; 87086; 87205; 93005; 99284; J1817; J2405; J2543; J3475; J7030; J7050

== ENCOUNTER → 2020-01-28 | Outpatient (CLI) | payer MEDICARE ==
[~2020-01-28] MED LIST changes: +ZOFRAN4 MG PO
--- NOTE | 2020-01-29 12:00 | Diagnostic Imaging Report ---
History:Chronic headaches Comparison studies:None Technique: Axial images were obtained from the skull base to the vertex. Coronal and sagittal images reconstructed from the axial data. Intravenous contrast: None Dose modulation, iterative reconstruction, and/or weight based adjustment of the mA/kV was utilized to reduce the radiation dose to as low as reasonably achievable. Findings: Scalp/skull: No abnormalities. Extra-axial spaces: No masses. No fluid collections. Brain sulci: Mildly prominent. Ventricles: Exvacuodilatation of the right frontal horn. Mild compensatory dilatation. No hydrocephalus. Parenchyma: Cortical-based hypodensity at the the right inferior frontal and orbitofrontal cortex extending to the ipsilateral striatocapsular region, with associated volume loss, related to chronic MCA territory infarct. Few hypodensities in the supratentorial white matter are small vessel ischemic changes. No masses, hemorrhage or acute cortical vascular insults. Sellar/suprasellar region: No abnormalities. Craniocervical junction: Patent foramen magnum. No Chiari one malformation. Incidental findings: Atherosclerotic calcifications in the carotid siphons . Impression: No acute abnormalities. Chronic findings: 1. Mild generalized volume loss. 2. Mild supratentorial white matter small vessel ischemic changes. 3. Left anterior MCA territory chronic infarct. Signed by: DR Evan Blount M.D. on 01/29/2020 11:55 AM
== END ==
LOC: CT 10:51
PROVIDERS: ATTEND Family Medicine
DX: G44.009 Cluster headache syndrome, unspecified, not intractable (principal)
CPT/HCPCS: 70450

== ENCOUNTER → 2021-01-05 | Outpatient (CLI) | payer MEDICARE ==
[~2021-01-05] MED LIST changes: +REGADENOSON 0.4 MG/5 ML SYR IV ONE
== END ==
LOC: NM 07:49
PROVIDERS: ATTEND Internal Medicine Interventional Cardiology
DX: I20.8 Other forms of angina pectoris (principal)
CPT/HCPCS: 78452; 93017; A9502; J2785